=== PATIENT | female | born 1940 | race Caucasian/White ===

== ENCOUNTER 2020-01-13 10:10 | Outpatient (CLI) | payer MEDICARE, SELFPAY ==
[2020-01-13 10:47] LABS: Blood Urea Nitrogen 16 mg/dL (7-17); Calcium 9.2 mg/dL (8.4-10.2); Carbon Dioxide 24 mmol/L (22-30); Chloride 100 mmol/L (98-107); Estimated Glomerular Filt Rate > 60; Glucose 108 mg/dL (65-105); Potassium 4.5 mmol/L (3.4-5.0); Sodium 132 mmol/L (137-145)
[2020-01-13 10:58] LABS: Basophils Percent Auto 0.5 % (0.2-1.2); Eosinophils Absolute Auto 0.1 K/mm3 (0-0.3); Eosinophils Percent Auto 1.6 % (0-4.4); Hematocrit 38.5 % (37.0-47.0); Hemoglobin 12.3 g/dL (12.0-15.0); Immature Granulocyte Absolute 0.03 K/mm3 (0.00-0.031); Immature Granulocyte Percent A 0.5 % (0-0.5); Immature Platelet Fraction Pct 5.7 % (0.9-11.2); Lymphocytes Absolute Auto 1.46 K/mm3 (0.9-3.2); Lymphocytes Percent Auto 23.4 % (18.3-44.2); Mean Corpuscular HGB Conc 31.9 g/dl (32-36); Mean Corpuscular Hemoglobin 28.2 pg (26-34); Mean Corpuscular Volume 88.3 fl (80-100); Mean Platelet Volume 11.5 fl (7.4-10.4); Monocytes Absolute Auto 0.5 K/mm3 (0.1-0.6); Monocytes Percent Auto 7.9 % (2.6-8.5); Neutrophils Absolute Auto 4.1 K/mm3 (1.3-6.7); Neutrophils Percent Auto 66.1 % (45.5-73.1); Platelet Count Result 135 k/mm3 (150-375); Red Blood Count 4.36 M/mm3 (4.2-5.4); Red Cell Distribution Width 14.5 % (11.5-14.5); White Blood Count 6.2 K/mm3 (4.5-10.0)
== END 2020-01-13 10:11 | disposition home or self-care (01) ==
PROVIDERS: PCP Internal Medicine; Visit Provider Internal Medicine
DX: I10 Essential (primary) hypertension (principal)
CPT/HCPCS: 36415; 80048; 85025; 85055

== ENCOUNTER 2020-03-28 14:29 | Outpatient (CLI) | payer MEDICARE, SELFPAY ==
[2020-03-28 14:56] LABS: Basophils Percent Auto 0.3 % (0.2-1.2); Eosinophils Absolute Auto 0.1 K/mm3 (0-0.3); Eosinophils Percent Auto 2.1 % (0-4.4); Hematocrit 37.3 % (37.0-47.0); Hemoglobin 11.9 g/dL (12.0-15.0); Immature Granulocyte Absolute 0.01 K/mm3 (0.00-0.031); Immature Granulocyte Percent A 0.1 % (0-0.5); Lymphocytes Absolute Auto 1.95 K/mm3 (0.9-3.2); Lymphocytes Percent Auto 28.7 % (18.3-44.2); Mean Corpuscular HGB Conc 31.9 g/dl (32-36); Mean Corpuscular Hemoglobin 29.1 pg (26-34); Mean Corpuscular Volume 91.2 fl (80-100); Mean Platelet Volume 10.9 fl (7.4-10.4); Monocytes Absolute Auto 0.5 K/mm3 (0.1-0.6); Monocytes Percent Auto 7.1 % (2.6-8.5); Neutrophils Absolute Auto 4.2 K/mm3 (1.3-6.7); Neutrophils Percent Auto 61.7 % (45.5-73.1); Platelet Count Result 141 k/mm3 (150-375); Red Blood Count 4.09 M/mm3 (4.2-5.4); Red Cell Distribution Width 13.2 % (11.5-14.5); White Blood Count 6.8 K/mm3 (4.5-10.0)
[2020-03-28 15:06] LABS: Hemoglobin A1C 5.8 % (<5.7)
[2020-03-28 15:08] LABS: Blood Urea Nitrogen 19 mg/dL (7-17); Calcium 9.3 mg/dL (8.4-10.2); Carbon Dioxide 30 mmol/L (22-30); Chloride 101 mmol/L (98-107); Cholesterol 167 mg/dL (0-200); Estimated Glomerular Filt Rate > 60; Glucose 100 mg/dL (65-105); HDL Direct 50 mg/dL; Potassium 4.5 mmol/L (3.4-5.0); Sodium 135 mmol/L (137-145); Triglycerides 127 mg/dL (<150)
[2020-03-28 15:19] LABS: LDL Cholesterol Direct 89 mg/dL
[2020-03-28 16:01] LABS: Free T4 Free Thyroxine 1.29 ng/mL (0.78-2.19)
== END 2020-03-28 14:30 | disposition home or self-care (01) ==
PROVIDERS: PCP Internal Medicine; Visit Provider Internal Medicine
DX: E03.9 Hypothyroidism, unspecified (principal); M25.50 Pain in unspecified joint; I10 Essential (primary) hypertension; E11.22 Type 2 diabetes mellitus with diabetic chronic kidney disease; N18.1 Chronic kidney disease, stage 1; E78.2 Mixed hyperlipidemia
CPT/HCPCS: 36415; 80048; 80061; 83036; 84439; 84443; 85025

== ENCOUNTER 2020-04-12 15:16 | Outpatient (CLI) | payer MEDICARE, SELFPAY ==
--- NOTE | ~2020-04-12 | XR_ITS ---
EXAMINATION: XR chest 2V DATE: 04/12/2020 16:26 INDICATION: Left chest pain. TECHNIQUE: Frontal and lateral views of the chest were obtained. COMPARISON: Chest 2 views 07/31/2018, chest CT 12/29/2018 FINDINGS: There is mild atelectasis at left lung base. No pleural effusion or pneumothorax. The heart size is normal. Surgical clips in the right upper quadrant are likely from cholecystectomy. IMPRESSION: 1. Mild atelectasis at left lung base. Reviewed, dictated and finalized at location A.
== END 2020-04-12 15:17 | disposition home or self-care (01) ==
LOC: ANHIMG 15:20
PROVIDERS: PCP Internal Medicine; Visit Provider Internal Medicine
DX: R07.89 Other chest pain (principal); R91.8 Other nonspecific abnormal finding of lung field
CPT/HCPCS: 71046

== ENCOUNTER 2020-05-04 10:57 | Outpatient (CLI) | payer MEDICARE, SELFPAY ==
[2020-05-04 11:50] LABS: Basophils Percent Auto 0.5 % (0.2-1.2); Eosinophils Absolute Auto 0.2 K/mm3 (0-0.3); Eosinophils Percent Auto 3.5 % (0-4.4); Hematocrit 37.4 % (37.0-47.0); Hemoglobin 11.9 g/dL (12.0-15.0); Immature Granulocyte Absolute 0.02 K/mm3 (0.00-0.031); Immature Granulocyte Percent A 0.3 % (0-0.5); Lymphocytes Absolute Auto 1.78 K/mm3 (0.9-3.2); Lymphocytes Percent Auto 27.3 % (18.3-44.2); Mean Corpuscular HGB Conc 31.8 g/dl (32-36); Mean Corpuscular Hemoglobin 28.9 pg (26-34); Mean Corpuscular Volume 90.8 fl (80-100); Mean Platelet Volume 11.8 fl (7.4-10.4); Monocytes Absolute Auto 0.5 K/mm3 (0.1-0.6); Monocytes Percent Auto 7.7 % (2.6-8.5); Neutrophils Percent Auto 60.7 % (45.5-73.1); Platelet Count Result 153 k/mm3 (150-375); Red Blood Count 4.12 M/mm3 (4.2-5.4); Red Cell Distribution Width 13.4 % (11.5-14.5); White Blood Count 6.5 K/mm3 (4.5-10.0)
[2020-05-04 12:02] LABS: Blood Urea Nitrogen 25 mg/dL (7-17); Calcium 9.1 mg/dL (8.4-10.2); Carbon Dioxide 26 mmol/L (22-30); Chloride 100 mmol/L (98-107); Cholesterol 154 mg/dL (0-200); Estimated Glomerular Filt Rate > 60; Glucose 103 mg/dL (65-105); HDL Direct 45 mg/dL; Potassium 4.6 mmol/L (3.4-5.0); Sodium 135 mmol/L (137-145); Triglycerides 227 mg/dL (<150)
[2020-05-04 12:13] LABS: Hemoglobin A1C 5.7 % (<5.7); LDL Cholesterol Direct 73 mg/dL
[2020-05-04 12:45] LABS: Free T4 Free Thyroxine 1.27 ng/mL (0.78-2.19)
== END 2020-05-04 10:58 | disposition home or self-care (01) ==
LOC: ANHLAB 11:01
PROVIDERS: PCP Internal Medicine; Visit Provider Internal Medicine
DX: D50.9 Iron deficiency anemia, unspecified (principal); E78.2 Mixed hyperlipidemia; I10 Essential (primary) hypertension; E11.9 Type 2 diabetes mellitus without complications; E03.9 Hypothyroidism, unspecified
CPT/HCPCS: 36415; 80048; 80061; 83036; 84439; 84443; 85025

== ENCOUNTER 2020-07-03 08:52 | Outpatient (CLI) | payer MEDICARE, SELFPAY ==
[2020-07-06 11:48] LABS: Fecal Fat, Ql Normal (Normal)
== END 2020-07-03 08:53 | disposition home or self-care (01) ==
PROVIDERS: PCP Internal Medicine; Visit Provider Internal Medicine
DX: R19.7 Diarrhea, unspecified (principal)
CPT/HCPCS: 36415; 82705; 83930; 87045; 87046; 87177; 87209; 87427; 89055

== ENCOUNTER 2020-09-07 12:33 | Outpatient (CLI) | payer MEDICARE, SELFPAY ==
[2020-09-07 13:03] LABS: Anion Gap 6 mmol/L (8-16); Blood Urea Nitrogen 18 mg/dL (7-17); Calcium 9.1 mg/dL (8.4-10.2); Carbon Dioxide 34 mmol/L (22-30); Chloride 99 mmol/L (98-107); Cholesterol 167 mg/dL (0-200); Estimated Glomerular Filt Rate > 60; Glucose 107 mg/dL (65-105); HDL Direct 49 mg/dL; Potassium 3.8 mmol/L (3.4-5.0); Sodium 139 mmol/L (137-145); Triglycerides 137 mg/dL (<150)
[2020-09-07 13:04] LABS: Hemoglobin A1C 5.3 % (<5.7)
[2020-09-07 13:15] LABS: LDL Cholesterol Direct 93 mg/dL
== END 2020-09-07 12:34 | disposition home or self-care (01) ==
LOC: ANHLAB 12:36
PROVIDERS: PCP Internal Medicine; Visit Provider Internal Medicine
DX: E11.22 Type 2 diabetes mellitus with diabetic chronic kidney disease (principal); N18.1 Chronic kidney disease, stage 1; E78.2 Mixed hyperlipidemia; I12.9 Hypertensive chronic kidney disease with stage 1 through stage 4 chronic kidney disease, or unspecified chronic kidney disease
CPT/HCPCS: 36415; 80048; 80061; 83036

== ENCOUNTER 2020-09-14 14:32 | Outpatient (CLI) | payer MEDICARE, SELFPAY ==
[2020-09-14 15:00] LABS: Basophils Percent Auto 0.3 % (0.2-1.2); Eosinophils Absolute Auto 0.3 K/mm3 (0-0.3); Eosinophils Percent Auto 4.5 % (0-4.4); Hematocrit 36.7 % (37.0-47.0); Hemoglobin 11.5 g/dL (12.0-15.0); Immature Granulocyte Absolute 0.03 K/mm3 (0.00-0.031); Immature Granulocyte Percent A 0.5 % (0-0.5); Lymphocytes Absolute Auto 1.67 K/mm3 (0.9-3.2); Lymphocytes Percent Auto 26.8 % (18.3-44.2); Mean Corpuscular HGB Conc 31.3 g/dl (32-36); Mean Corpuscular Hemoglobin 28.3 pg (26-34); Mean Corpuscular Volume 90.2 fl (80-100); Mean Platelet Volume 11.4 fl (7.4-10.4); Monocytes Absolute Auto 0.4 K/mm3 (0.1-0.6); Monocytes Percent Auto 7.1 % (2.6-8.5); Neutrophils Absolute Auto 3.8 K/mm3 (1.3-6.7); Neutrophils Percent Auto 60.8 % (45.5-73.1); Platelet Count Result 153 k/mm3 (150-375); Red Blood Count 4.07 M/mm3 (4.2-5.4); Red Cell Distribution Width 13.9 % (11.5-14.5); White Blood Count 6.2 K/mm3 (4.5-10.0)
[2020-09-14 15:11] LABS: Magnesium 1.7 mg/dL (1.6-2.3)
[2020-09-14 15:35] LABS: Iron 72 ug/dL (37-170)
[2020-09-14 15:44] LABS: Percent Iron Saturation 15 % (20-50)
[2020-09-14 15:52] LABS: Free T4 Free Thyroxine 1.33 ng/mL (0.78-2.19)
[2020-09-14 16:21] LABS: Folic Acid > 20.0 ng/mL (2.76->20); Vitamin B12 > 1000.0 pg/mL (239-931)
[2020-09-18 10:55] LABS: Methylmalonic Acid 163 nmol/L (87-318)
[2020-09-19 03:56] LABS: Vitamin D 1,25 (OH)2 Total 47 pg/mL (18-72); Vitamin D2 1,25 (OH)2 <8 pg/mL; Vitamin D3 1,25 (OH)2 47 pg/mL
== END 2020-09-14 14:33 | disposition home or self-care (01) ==
LOC: ANHLAB 14:41
PROVIDERS: PCP Internal Medicine; Visit Provider Internal Medicine
DX: E55.9 Vitamin D deficiency, unspecified (principal); D50.9 Iron deficiency anemia, unspecified; R53.83 Other fatigue; Z79.899 Other long term (current) drug therapy; E03.9 Hypothyroidism, unspecified
CPT/HCPCS: 36415; 82607; 82652; 82728; 82746; 83540; 83550; 83735; 83921; 84439; 84443; 85025

== ENCOUNTER 2020-11-20 09:01 | Outpatient (NON) | payer MEDICARE, SELFPAY ==
[2020-11-20 21:25] LABS: SARS-CoV-2 RNA PCR Positive
== END 2020-11-20 09:02 ==
LOC: ANHCOVIDDT 09:03
PROVIDERS: PCP Internal Medicine; Visit Provider Internal Medicine
DX: U07.1 COVID-19 (principal)
CPT/HCPCS: C9803; U0003; U0005

== ENCOUNTER 2020-11-22 08:00 | Outpatient (RCR) | payer MEDICARE, SELFPAY ==
--- NOTE | 2020-11-21 16:08 | PC.NURSE ---
Spoke to patient about covid infusion, patient states understanding to all instruction.
[2020-11-22 10:05] VITALS: BP 131/56; PULSE 67; RESP 16; TEMP 37.6; O2SAT 99
[2020-11-22] MEDS: ACETAMINOPHEN 325 MG TABLET 650 MG PO (10:17)
[2020-11-22] MEDS: diphenhydrAMINE HCl CAP 25 MG CAPSULE PO (10:17)
[2020-11-22] MEDS: FAMOTIDINE 20 MG TABLET PO (10:18)
[2020-11-22 12:12] VITALS: BP 110/65; PULSE 66; RESP 16; TEMP 36.4; O2SAT 96
--- NOTE | 2020-11-23 10:46 | PC.NURSE ---
Attempted to reach patient to check on her after her infusion yesterday. Patient did not answer and did not have a voicemail.
== END 2020-12-04 13:17 ==
LOC: AMCINF 08:00
PROVIDERS: PCP Internal Medicine; Visit Provider Internal Medicine
DX: Z23 Encounter for immunization (principal); U07.1 COVID-19; I12.9 Hypertensive chronic kidney disease with stage 1 through stage 4 chronic kidney disease, or unspecified chronic kidney disease; N18.9 Chronic kidney disease, unspecified; E11.9 Type 2 diabetes mellitus without complications
CPT/HCPCS: A9270; J7050; M0239; Q0239

== ENCOUNTER 2021-01-19 13:24 | Outpatient (CLI) | payer MEDICARE, SELFPAY ==
[2021-01-19 13:45] LABS: Basophils Percent Auto 0.6 % (0.2-1.2); Eosinophils Absolute Auto 0.2 K/mm3 (0-0.3); Eosinophils Percent Auto 2.5 % (0-4.4); Hematocrit 36.9 % (37.0-47.0); Hemoglobin 11.7 g/dL (12.0-15.0); Immature Granulocyte Absolute 0.02 K/mm3 (0.00-0.031); Immature Granulocyte Percent A 0.3 % (0-0.5); Lymphocytes Absolute Auto 1.95 K/mm3 (0.9-3.2); Lymphocytes Percent Auto 29.1 % (18.3-44.2); Mean Corpuscular HGB Conc 31.7 g/dl (32-36); Mean Corpuscular Hemoglobin 28.4 pg (26-34); Mean Corpuscular Volume 89.6 fl (80-100); Mean Platelet Volume 11.3 fl (7.4-10.4); Monocytes Absolute Auto 0.5 K/mm3 (0.1-0.6); Monocytes Percent Auto 7.8 % (2.6-8.5); Neutrophils Percent Auto 59.7 % (45.5-73.1); Platelet Count Result 143 k/mm3 (150-375); Red Blood Count 4.12 M/mm3 (4.2-5.4); Red Cell Distribution Width 14.5 % (11.5-14.5); White Blood Count 6.7 K/mm3 (4.5-10.0)
[2021-01-19 14:21] LABS: Iron 98 ug/dL (37-170)
[2021-01-19 14:30] LABS: Percent Iron Saturation 26 % (20-50)
== END 2021-01-19 13:25 | disposition home or self-care (01) ==
PROVIDERS: PCP Internal Medicine; Visit Provider Internal Medicine
DX: D50.9 Iron deficiency anemia, unspecified (principal)
CPT/HCPCS: 36415; 82728; 83540; 83550; 85025

== ENCOUNTER 2021-02-15 12:39 | Outpatient (CLI) | payer MEDICARE, SELFPAY ==
[2021-02-15 13:04] LABS: Basophils Percent Auto 0.4 % (0.2-1.2); Eosinophils Absolute Auto 0.2 K/mm3 (0-0.3); Eosinophils Percent Auto 2.4 % (0-4.4); Hematocrit 36.1 % (37.0-47.0); Hemoglobin 11.5 g/dL (12.0-15.0); Immature Granulocyte Absolute 0.04 K/mm3 (0.00-0.031); Immature Granulocyte Percent A 0.6 % (0-0.5); Lymphocytes Percent Auto 28.3 % (18.3-44.2); Mean Corpuscular HGB Conc 31.9 g/dl (32-36); Mean Corpuscular Hemoglobin 29.3 pg (26-34); Mean Corpuscular Volume 91.9 fl (80-100); Mean Platelet Volume 11.3 fl (7.4-10.4); Monocytes Absolute Auto 0.6 K/mm3 (0.1-0.6); Monocytes Percent Auto 8.6 % (2.6-8.5); Neutrophils Percent Auto 59.7 % (45.5-73.1); Platelet Count Result 144 k/mm3 (150-375); Red Blood Count 3.93 M/mm3 (4.2-5.4); Red Cell Distribution Width 14.5 % (11.5-14.5); White Blood Count 6.7 K/mm3 (4.5-10.0)
[2021-02-15 13:08] LABS: Hemoglobin A1C 5.6 % (<5.7)
[2021-02-15 13:12] LABS: Alanine Aminotransferase 18 U/L (4-35); Albumin Level 4.5 g/dL (3.5-5.1); Alkaline Phosphatase 103 U/L (38-126); Anion Gap 5 mmol/L (8-16); Aspartate Amino Transferase 28 U/L (14-36); Bilirubin,Total 0.4 mg/dL (0.2-1.3); Blood Urea Nitrogen 23 mg/dL (7-17); Calcium 8.9 mg/dL (8.4-10.2); Carbon Dioxide 35 mmol/L (22-30); Chloride 99 mmol/L (98-107); Cholesterol 182 mg/dL (0-200); Estimated Glomerular Filt Rate 48; Glucose 102 mg/dL (65-105); HDL Direct 51 mg/dL; Sodium 139 mmol/L (137-145); Triglycerides 181 mg/dL (<150)
[2021-02-15 13:30] LABS: LDL Cholesterol Direct 95 mg/dL
[2021-02-15 13:50] LABS: Iron 89 ug/dL (37-170)
[2021-02-15 14:00] LABS: Percent Iron Saturation 23 % (20-50)
[2021-02-15 14:08] LABS: Free T4 Free Thyroxine 1.12 ng/mL (0.78-2.19)
[2021-02-18 18:53] LABS: Homocysteine 11.3 umol/L (<10.4)
== END 2021-02-15 12:40 | disposition home or self-care (01) ==
LOC: ANHLAB 12:43
PROVIDERS: PCP Internal Medicine; Visit Provider Internal Medicine
DX: E03.9 Hypothyroidism, unspecified (principal); D50.9 Iron deficiency anemia, unspecified; E11.22 Type 2 diabetes mellitus with diabetic chronic kidney disease; I12.9 Hypertensive chronic kidney disease with stage 1 through stage 4 chronic kidney disease, or unspecified chronic kidney disease; N18.1 Chronic kidney disease, stage 1; E78.2 Mixed hyperlipidemia; R79.89 Other specified abnormal findings of blood chemistry
CPT/HCPCS: 36415; 80053; 80061; 82728; 83036; 83090; 83540; 83550; 84439; 84443; 85025

== ENCOUNTER 2021-02-19 11:23 | Outpatient (CLI) | payer MEDICARE, SELFPAY | END 2021-02-19 11:24 | disposition home or self-care (01) | LOC: ANHCOVIDVC 11:23 | PROVIDERS: PCP Internal Medicine | DX: Z23 Encounter for immunization (principal) | CPT/HCPCS: 0001A; 91300 ==

== ENCOUNTER 2021-03-12 13:19 | Outpatient (CLI) | payer MEDICARE, SELFPAY | END 2021-03-12 13:20 | disposition home or self-care (01) | LOC: ANHCOVIDVC 13:19 | PROVIDERS: PCP Internal Medicine | DX: Z23 Encounter for immunization (principal) | CPT/HCPCS: 0002A; 91300 ==

== ENCOUNTER 2021-05-25 08:13 | Outpatient (RCR) | payer MEDICARE, SELFPAY ==
[2021-05-25 08:30] VITALS: BMI 43.2
== END 2021-06-26 12:06 | disposition home or self-care (01) ==
LOC: ANHWOC 08:13
PROVIDERS: PCP Internal Medicine; Visit Provider Internal Medicine
DX: I83.022 Varicose veins of left lower extremity with ulcer of calf (principal); L97.229 Non-pressure chronic ulcer of left calf with unspecified severity
CPT/HCPCS: 99212; G0463

== ENCOUNTER 2021-07-19 12:29 | Outpatient (CLI) | payer MEDICARE, SELFPAY ==
[2021-07-19 13:22] LABS: Basophils Percent Auto 0.5 % (0.2-1.2); Eosinophils Absolute Auto 0.1 K/mm3 (0-0.3); Eosinophils Percent Auto 2.1 % (0-4.4); Hematocrit 35.9 % (37.0-47.0); Hemoglobin 11.5 g/dL (12.0-15.0); Immature Granulocyte Absolute 0.02 K/mm3 (0.00-0.031); Immature Granulocyte Percent A 0.3 % (0-0.5); Lymphocytes Absolute Auto 1.64 K/mm3 (0.9-3.2); Lymphocytes Percent Auto 26.8 % (18.3-44.2); Mean Corpuscular Hemoglobin 29.1 pg (26-34); Mean Corpuscular Volume 90.9 fl (80-100); Mean Platelet Volume 11.4 fl (7.4-10.4); Monocytes Absolute Auto 0.4 K/mm3 (0.1-0.6); Monocytes Percent Auto 7.2 % (2.6-8.5); Neutrophils Absolute Auto 3.9 K/mm3 (1.3-6.7); Neutrophils Percent Auto 63.1 % (45.5-73.1); Platelet Count Result 144 k/mm3 (150-375); Red Blood Count 3.95 M/mm3 (4.2-5.4); Red Cell Distribution Width 13.8 % (11.5-14.5); White Blood Count 6.1 K/mm3 (4.5-10.0)
[2021-07-19 13:47] LABS: Anion Gap 9 mmol/L (8-16); Blood Urea Nitrogen 17 mg/dL (7-17); Calcium 9.1 mg/dL (8.4-10.2); Carbon Dioxide 27 mmol/L (22-30); Chloride 99 mmol/L (98-107); Cholesterol 160 mg/dL (0-200); Estimated Glomerular Filt Rate > 60; Glucose 102 mg/dL (65-110); HDL Direct 49 mg/dL; Potassium 4.3 mmol/L (3.4-5.0); Sodium 135 mmol/L (137-145); Triglycerides 139 mg/dL (<150)
[2021-07-19 13:49] LABS: Iron 67 ug/dL (37-170)
[2021-07-19 13:51] LABS: Hemoglobin A1C 5.5 % (<5.7)
[2021-07-19 13:58] LABS: LDL Cholesterol Direct 68 mg/dL
[2021-07-19 14:01] LABS: Percent Iron Saturation 18 % (20-50)
== END 2021-07-19 12:30 | disposition home or self-care (01) ==
PROVIDERS: PCP Internal Medicine; Visit Provider Internal Medicine
DX: E11.22 Type 2 diabetes mellitus with diabetic chronic kidney disease (principal); N18.1 Chronic kidney disease, stage 1; E78.2 Mixed hyperlipidemia; I10 Essential (primary) hypertension; D50.9 Iron deficiency anemia, unspecified
CPT/HCPCS: 36415; 80048; 80061; 82728; 83036; 83540; 83550; 85025

== ENCOUNTER 2021-08-30 09:06 | Inpatient (IN) | payer MEDICARE, SELFPAY ==
[2021-08-30] VITALS (16 sets, daily range): BP systolic 130–152; BP diastolic 64–80; PULSE 56–72; RESP 12–20; TEMP 36.4–36.6; O2SAT 91–100; BMI 43.6
--- NOTE | ~2021-08-30 | MR_ITS ---
EXAMINATION: MR brain/brain stem wo/w con EXAM DATE: 08/31/2021 12:47 INDICATION: Gait disturbances. TECHNIQUE: Magnetic resonance imaging (MRI) of the brain/brain stem obtained without contrast. Sagit nikhil T1, axial diffusion, gradient echo (T2*), T1, T2, FLAIR sequences obtained. Patient was then inj ected with 20 cc intravenous Multihance contrast. Axial and coronal postcontrast T1 weighted sequence s obtained. Correlation is made to head CT earlier same date. FINDINGS: There are no areas of restricted diffusion to suggest acute infarction. There is no acute hemorrhage seen on the T2*, a hemosiderin sensitive sequence. No intraparenchymal brain mass lesion. There is mild periventricular and subcortical T2/FLAIR signal hyperintensity, nonspecific but probab ly related to small vessel ischemic disease (microangiopathy). There is mild prominence of the sulc i and ventricles related to cerebral atrophy. There are no extra-axial collections. Flow voids are seen in the cerebral arteries on the T2-weighted sequences consistent with their expected patency. Patient has had bilateral ocular lens surgery. Soft tissue is unremarkable. There are no areas of a bnormal enhancement on the postcontrast images. IMPRESSION: 1. No acute intracranial findings. 2. Chronic age related findings. Reviewed, dictated and finalized at location B.
--- NOTE | ~2021-08-30 | US_ITS ---
EXAMINATION: US carotid duplex BI DATE: 08/31/2021 12:48 INDICATION: Ataxia. TECHNIQUE: Grayscale, color Doppler, and pulsed Doppler images of the cervical carotid arteries were obtained. The degree of vessel stenosis is placed in one of the following categories: normal, <50%, 5 0-69%, >=70% but less than near-occlusion, near-occlusion, or total occlusion. Note that percent sten osis relative to normal distal artery lumen diameter is indirectly measured from velocity measurement s as described by Rod, et al. Radiology 2003; 229:340-346. COMPARISON: None. FINDINGS: RIGHT: The right common carotid artery (CCA) peak systolic velocity (PSV) is 61 cm/s. The right internal car otid artery (ICA) PSV is 41 cm/s. The right ICA end-diastolic velocity (EDV) is 10 cm/s. The right IC A/CCA PSV ratio is 0.7. Grayscale and color Doppler images yield an estimate of <50% diameter reducti on from plaque in the ICA. There is antegrade flow in the right vertebral artery. LEFT: The left CCA PSV is 57 cm/s. The left ICA PSV is 75 cm/s. The left ICA EDV is 16 cm/s. The left ICA/C CA PSV ratio is 1.3. Grayscale and color Doppler images yield an estimate of <50% diameter reduction from plaque in the ICA. There is antegrade flow in the left vertebral artery. IMPRESSION: 1. <50% stenosis in the right internal carotid artery. 2. <50% stenosis in the left internal carotid artery. Reviewed, dictated and finalized at location A.
--- NOTE | ~2021-08-30 | CT_ITS ---
EXAMINATION: CT brain wo con DATE: 08/30/2021 10:16 INDICATION: Dizziness. TECHNIQUE: Computed tomography (CT) of the head was performed without intravenous contrast. The mA wa s adjusted according to patient size. Iterative reconstruction technique was employed. The dose-lengt h product was 605.33 mGy-cm. COMPARISON: Head CT 05/11/2019 FINDINGS: There are scattered areas of low attenuation in the cerebral white matter, which is within normal limits for the patient's age. There is no intracranial hemorrhage, acute infarction, or abnorm al intracranial mass lesion. The ventricles are normal in size. There is mild mucosal thickening in t he paranasal sinuses. There are likely changes of ocular lens replacement surgeries. The mastoid air cells are normal. IMPRESSION: 1. Normal aging brain. Reviewed, dictated and finalized at location A. IMPRESSION: 1. Normal aging brain.
--- NOTE | 2021-08-30 09:55 | ECG_ITS ---
Measurements Intervals [place] Rate: 57 P: 74 CA: 173 QRS: 64 QRSD: 102 T: 39 QT: 431 QTc: 421 Interpretive Statements SINUS BRADYCARDIA BASELINE ARTIFACT- I, II, III, AVR, AVL, AVF, V4-V6 BORDERLINE ECG Electronically Signed On 08-30-2021 11:52:03 CDT by Omar Merritt D.O.
--- NOTE | 2021-08-30 10:17 | ED.NEUROSD ---
HPI - Neuro Symptoms/Deficit General Chief Complaint: Neuro Symptoms/Deficit Stated Complaint: DIFF AMBULATING/OFF BALANCE Source: patient Mode of arrival: ambulatory Limitations: no limitations History of Present Illness HPI Narrative: Patient is an 81-year-old female complaining of feeling wobbly while going to the bathroom early this morning. Patient now states that the symptoms resolved. Patient denies any speech or visual disturbance, focal weakness or numbness, chest pain, shortness of breath, abdominal pain, nausea, vomiting, fever or chills. Related Data Home Medications Medication Instructions Recorded Confirmed cyanocobalamin (vitamin B-12) 1,000 mcg PO DAILY 09/09/19 07/26/21 1,000 mcg capsule aspirin 81 mg tablet,delayed 162 mg PO DAILY tablet 10/28/19 07/26/21 release niacin 400 mg (inositol niacinate 400 cap PO DAILY 10/28/19 07/26/21 500 mg) capsule tramadol 50 mg tablet 100 mg PO Q6H PRN tablet 04/19/20 07/26/21 cholecalciferol (vitamin D3) 125 125 mcg PO DAILY 05/09/21 07/26/21 mcg (5,000 unit) capsule Allergies Allergy/AdvReac Type Severity Reaction Status Date / Time latex Allergy Severe SEVERE Verified 08/30/21 13:00 SWELLING vancomycin Allergy Severe SEVERE Verified 08/30/21 13:00 ITCHING 2009 Aminoglycosides Allergy Mild Swelling Verified 08/30/21 13:00 hydrocodone Allergy Mild Rash Verified 08/30/21 13:00 neomycin Allergy Mild Swelling Verified 08/30/21 13:00 oxycodone Allergy Mild Unknown Verified 08/30/21 13:00 polymyxin B Allergy Unknown SWELLING Verified 08/30/21 13:00 diclofenac AdvReac Severe STOMACH Verified 08/30/21 13:00 UPSET - CAN TAKE ALEVE [place] misoprostol AdvReac Severe STOMACH Verified 08/30/21 13:00 UPSET piroxicam AdvReac Severe STOMACH Verified 08/30/21 13:00 UPSET propoxyphene AdvReac Severe STOMACH Verified 08/30/21 13:00 UPSET sertraline AdvReac Severe STOMACH Verified 08/30/21 13:00 UPSET Review of Systems Review of Systems: All systems reviewed & are unremarkable except as noted in HPI and below Constitutional: Constitutional: Denies body ache(s), Denies chills, Denies excessive sweating, Denies fatigue, Denies fever(s), Denies headache(s), Denies lethargy, Denies malaise, Denies weakness and Denies weight loss Eyes: Eyes: Denies blurry vision, Denies change in vision and Denies loss of vision ENT: Denies dizziness, Denies ear discharge, Denies headache(s), Denies lip swelling, Denies epistaxis, Denies nasal congestion, Denies neck pain, Denies throat swelling and Denies tongue swelling Cardiovascular: Cardiovascular: Denies chest pain, Denies chest pain at rest, Denies chest pain with activity, Denies diaphoresis, Denies rapid heart rate, Denies edema, Denies irregular heart rhythm, Denies lightheadedness, Denies palpitations, Denies dyspnea and Denies dyspnea on exertion Respiratory: Respiratory: Denies chest congestion, Denies cough, Denies hemoptysis, Denies dyspnea and Denies dyspnea on exertion Gastrointestinal: Gastrointestinal: Denies abdominal pain, Denies melena, Denies hematochezia, Denies diarrhea, Denies nausea, Denies vomiting and Denies hematemesis Musculoskeletal: Musculoskeletal: Denies abnormal gait, Denies deformity, Denies joint swelling, Denies limited range of motion, Denies neck pain and Denies numbness Neurologic: Denies Abnormal speech present, Denies abnormal gait, Denies confusion, Denies dizziness, Denies headache(s), Denies focal weakness, Denies loss of vision, Denies numbness, Denies Other visual disturbances, Denies Sensory deficit (Neuro) and Denies weakness Psychiatric: Psychiatric: Denies confusion, Denies depression, Denies auditory hallucinations, Denies homicidal ideation and Denies suicidal ideation Endocrine: Endocrine: Denies cold intolerance, Denies excessive sweating, Denies fatigue, Denies heat intolerance and Denies palpitations Hematologic/Lymphatic: Hematologic/Lymph
[2021-08-30] MEDS: LACTATED RINGERS 1,000 ML 150 ML IV CONT (10:32)
[2021-08-30 11:03] LABS: Basophils Percent Auto 0.5 % (0.2-1.2); Eosinophils Absolute Auto 0.2 K/mm3 (0-0.3); Eosinophils Percent Auto 2.7 % (0-4.4); Hematocrit 35.9 % (37.0-47.0); Hemoglobin 11.3 g/dL (12.0-15.0); Immature Granulocyte Absolute 0.02 K/mm3 (0.00-0.031); Immature Granulocyte Percent A 0.4 % (0-0.5); Lymphocytes Absolute Auto 1.48 K/mm3 (0.9-3.2); Lymphocytes Percent Auto 26.5 % (18.3-44.2); Mean Corpuscular HGB Conc 31.5 g/dl (32-36); Mean Corpuscular Hemoglobin 29.4 pg (26-34); Mean Corpuscular Volume 93.5 fl (80-100); Mean Platelet Volume 11.3 fl (7.4-10.4); Monocytes Absolute Auto 0.5 K/mm3 (0.1-0.6); Monocytes Percent Auto 9.5 % (2.6-8.5); Neutrophils Absolute Auto 3.4 K/mm3 (1.3-6.7); Neutrophils Percent Auto 60.4 % (45.5-73.1); Platelet Count Result 130 k/mm3 (150-375); Red Blood Count 3.84 M/mm3 (4.2-5.4); Red Cell Distribution Width 13.7 % (11.5-14.5); White Blood Count 5.6 K/mm3 (4.5-10.0)
[2021-08-30 11:11] LABS: INR 0.9; Partial Thromboplastin Time 28.5 SECONDS (22.3-36.8); Prothrombin Time 12.3 Seconds (11.1-14.7)
[2021-08-30 11:18] LABS: Troponin I < 0.012 ng/mL (0.000-0.034)
[2021-08-30 11:52] LABS: Add Urine Microscopic? YES; Appearance Urine Clear (Clear); Bilirubin Urine Negative (Negative); Color Urine Yellow (Yellow); Glucose Urine UA Negative (Negative); Ketones Urine Negative (Negative); Leukocyte Esterase Ur 1+ LEU/UL (Negative); Nitrate Urine Negative (Negative); Protein Urine 1+ mg/dL (Negative); Specific Grav Ur 1.025 (1.001-1.035); Urobilinogen Urine Negative mg/dL (<2.0)
[2021-08-30 12:26] LABS: Blood Urine Negative (Negative)
[2021-08-30 13:03] LABS: Alanine Aminotransferase 19 U/L (4-35); Albumin Level 4.3 g/dL (3.5-5.1); Alkaline Phosphatase 109 U/L (38-126); Anion Gap 7 mmol/L (8-16); Aspartate Amino Transferase 26 U/L (14-36); Bilirubin,Total 0.2 mg/dL (0.2-1.3); Blood Urea Nitrogen 23 mg/dL (7-17); Calcium 9.5 mg/dL (8.4-10.2); Carbon Dioxide 28 mmol/L (22-30); Chloride 105 mmol/L (98-107); Estimated Glomerular Filt Rate > 60; Glucose 110 mg/dL (65-110); Potassium 4.7 mmol/L (3.4-5.0); Sodium 140 mmol/L (137-145)
--- NOTE | 2021-08-30 13:27 | PC.NURSE ---
regular diet per abbe kline
--- NOTE | 2021-08-30 15:15 | PM.IMHP ---
H&P: HPI History of Present Illness Date/Time: 08/30/21 15:15 Chief Complaint: Balance issues. Narrative: This is a pleasant 81-year-old female with hypertension, hypothyroidism, pre diabetes, remote episode of atrial fibrillation, diastolic congestive heart failure presented to the emergency department earlier today from home for evaluation of balance issues. She was in her usual state of health when she went to sleep last night and upon waking up this morning she felt somewhat off balance when she stood up from the bed to walk to the bathroom. In fact she had to hold on to nearby furniture as she felt as though she was listing to the right. In fact she had her neighbor bring over a walker as she felt that perhaps she was going to fall and when she went to take a step with the walker she felt as though she was ?lunging? forward and to the right thus she felt it would be best to come in for evaluation. At this time she really has no complaints. She has never had similar symptoms in the past. She denies acute auditory and visual changes. No focal weakness or paresthesias. She did not notice a facial droop, dysarthria, or dysphagia. No aural fullness, headache, or recent cold or flu symptoms. Review of Systems Review of Systems: Twelve systems were reviewed. No fever, chills, or sweats. No chest pain, pleuritic pain, or palpitations. No nausea, vomiting, or diarrhea. She has intermittent issues with lower extremity edema for which she wears compression stockings during the day. Urinalysis today was a bit abnormal and she was given a dose of ceftriaxone in the emergency department however she has no symptoms of UTI, specifically denying dysuria. She does urinate frequently for the 1st several hours after taking her furosemide but that is unchanged. Except as documented, all other systems were reviewed and are negative. [facility] Past Medical History Medical History (Updated 08/30/21 @ 23:40 by Elena Montero PA-C) Arthritis Benign essential hypertension Chronic anemia With mild thrombocytopenia. Diastolic dysfunction Hammertoe of left foot Hearing loss History of atrial fibrillation Hypothyroidism Insomnia Iron deficiency anemia Mild chronic obstructive pulmonary disease Mixed hyperlipidemia Patient reports statin intolerance. Pre-diabetes Restless leg syndrome Statin intolerance Vitamin D deficiency Surgical History Surgical History (Updated 08/30/21 @ 23:37 by Elena Montero PA-C) History of appendectomy History of bilateral carpal tunnel release History of bilateral knee arthroplasty History of cardiac catheterization (03/2014) Normal coronary arteries. History of carpal tunnel release History of cholecystectomy History of hysterectomy for benign disease History of tubal ligation Family History Family History Father Family history of lymphoma Mother Brain cancer Other Arthritis Social History Social History (Updated 08/30/21 @ 23:38 by Elena Montero PA-C) Social History: Surrogate decision maker: Del Castañeda, john. Code status: Full code. Smoking packs per day: 1 Smoking cigarettes per day: 20.0 Years smoked: 25 Smoking pack-years: 25.00 Smoking status: Former smoker Tobacco type: cigarettes Alcohol intake: current Drinks per week: 1 Alcohol use details: Occasional Substance use: never Additional living arrangements comments: The patient is . [facility] [place]. 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 Meds Home Medications and Allergies Home Medications Medication Instructions Recorded Confirmed Type cyanocobalamin (vitamin B-12) 1,000 mcg PO DAILY 09/09/19 08/30/21 History 1,000 mcg capsule aspirin 81 mg tablet,delayed 162 mg PO DAILY tablet
--- NOTE | 2021-08-30 18:30 | ADMGEN ---
This patient, Alexus Castañeda, was admitted to Medical Room 345-01. Patient/family oriented to hospital policies and general routines including ID bracelet, bed and alarms, visiting hours, pain management, procedures, bathroom and other care routines, personal items, smoking policy, room service/diet, and visiting hours. Information on how to activate the Rapid Response Team has been discussed. Patient/Family are encouraged to report perceived risks to care and to ask questions if they do not understand what they are told or what they should do.
[2021-08-30 20:10] LABS: Glucose Point of Care 102 mg/dl (65-105)
[2021-08-31] VITALS (10 sets, daily range): BP systolic 104–157; BP diastolic 61–138; PULSE 59–67; RESP 18; TEMP 35.7–36.3; O2SAT 97–99
[2021-08-31] MEDS: PRAMIPEXOLE 0.25 MG TABLET PO ×2 (00:04→21:24)
[2021-08-31] MEDS: PRAMIPEXOLE 0.5 MG TABLET PO ×2 (00:04→21:24)
[2021-08-31 06:24] LABS: Hematocrit 34.3 % (37.0-47.0); Hemoglobin 10.7 g/dL (12.0-15.0); Mean Corpuscular HGB Conc 31.2 g/dl (32-36); Mean Corpuscular Hemoglobin 29.2 pg (26-34); Mean Corpuscular Volume 93.7 fl (80-100); Mean Platelet Volume 11.3 fl (7.4-10.4); Platelet Count Result 123 k/mm3 (150-375); Red Blood Count 3.66 M/mm3 (4.2-5.4); Red Cell Distribution Width 13.7 % (11.5-14.5)
[2021-08-31 06:32] LABS: Alanine Aminotransferase 17 U/L (4-35); Albumin Level 3.6 g/dL (3.5-5.1); Alkaline Phosphatase 92 U/L (38-126); Anion Gap 8 mmol/L (8-16); Aspartate Amino Transferase 23 U/L (14-36); Bilirubin,Total 0.3 mg/dL (0.2-1.3); Blood Urea Nitrogen 20 mg/dL (7-17); Calcium 8.8 mg/dL (8.4-10.2); Carbon Dioxide 24 mmol/L (22-30); Chloride 105 mmol/L (98-107); Estimated Glomerular Filt Rate > 60; Glucose 109 mg/dL (65-110); Magnesium 1.9 mg/dL (1.6-2.3); Potassium 4.5 mmol/L (3.4-5.0); Sodium 137 mmol/L (137-145)
[2021-08-31] MEDS: LEVOTHYROXINE SODIUM 88 MCG TABLET BY MOUTH (06:49)
[2021-08-31] MEDS: FOLIC ACID 1 MG TABLET BY MOUTH (09:41)
[2021-08-31] MEDS: NIACIN SA 500 MG TABLET PO (09:41)
[2021-08-31] MEDS: ASPIRIN 81 MG ENTERIC TABLET 162 MG PO (09:41)
[2021-08-31] MEDS: LOSARTAN POTASSIUM 100 MG TABLET BY MOUTH (09:41)
[2021-08-31] MEDS: CYANOCOBALAMIN 1,000 MCG TABLET 1000 MCG PO (09:41)
[2021-08-31] MEDS: EZETIMIBE 10 MG TABLET PO (09:41)
[2021-08-31] MEDS: FUROSEMIDE 80 MG TABLET BY MOUTH (09:42)
[2021-08-31] MEDS: CHOLECALCIFEROL 1,000 UNITS TABLET 5000 UNITS PO (09:42)
[2021-08-31] MEDS: POTASSIUM CHLORIDE 10 MEQ TABLET.ER 20 MEQ BY MOUTH (09:42)
[2021-08-31] MEDS: FERROUS SULFATE 324 MG TABLET PO ×2 (09:43→18:08)
[2021-08-31] MEDS: FLUTICASONE/UMECLIDIN/VILANTER 100-62.5-25 MCG ELLIPTA 1 PUFF INHALATION (09:55)
--- NOTE | 2021-08-31 13:00 | WPDNEURCNPN ---
Assessment and Plan Additional Plan as planned including the Doppler study of the carotid and the MRI of the brain in addition to physical therapy Consult date: 08/31/21 HPI: Alexus Castañeda is a 81 year old female has been admitted to [facility] through the emergency room where she presented with the complaints of balance difficulties. Reportedly she went to sleep night before and upon wakening in the morning she was somewhat off balance when she walk from the bed to the bathroom she had to hold the furniture is a her neighbor Brink over the walker and she felt as if she was going to lose the balance and fall down she was lunging forward and to the right she has never had such symptomatology in the past, she does carry the diagnosis of arthritis, hearing loss, atrial fibrillation, mild chronic obstructive pulmonary disease and restless leg syndrome with history of pre diabetes, she is a former smoker and current alcohol intake her only 1 drink per week, evaluation up until now includes negative CT scan of the head, negative MRI of the brain, normal carotid Doppler study, and routine lab not very significant Review of Systems Review of Systems: All systems reviewed & are unremarkable except as noted in HPI and below PMFSH Past Medical History Medical History Arthritis Benign essential hypertension Chronic anemia With mild thrombocytopenia. Diastolic dysfunction Hammertoe of left foot Hearing loss History of atrial fibrillation Hypothyroidism Insomnia Iron deficiency anemia Mild chronic obstructive pulmonary disease Mixed hyperlipidemia Patient reports statin intolerance. Pre-diabetes Restless leg syndrome Statin intolerance Vitamin D deficiency Surgical History Surgical History History of appendectomy History of bilateral carpal tunnel release History of bilateral knee arthroplasty History of cardiac catheterization (03/2014) Normal coronary arteries. History of carpal tunnel release History of cholecystectomy History of hysterectomy for benign disease History of tubal ligation Family History Family History Father Family history of lymphoma Mother Brain cancer Other Arthritis Social History Social History Social History: Surrogate decision maker: Del Castañeda, son. Code status: Full code. Smoking packs per day: 1 Smoking cigarettes per day: 20.0 Years smoked: 25 Smoking pack-years: 25.00 Smoking status: Former smoker Tobacco type: cigarettes Alcohol intake: current Drinks per week: 1 Alcohol use details: Occasional Substance use: never Additional living arrangements comments: The patient is . She lives in a condominium in [place]. 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 Meds Home Medications and Allergies Home Medications Medication Instructions Recorded Confirmed Type cyanocobalamin (vitamin B-12) 1,000 mcg PO DAILY 09/09/19 08/30/21 History 1,000 mcg capsule aspirin 81 mg tablet,delayed 162 mg PO DAILY tablet 10/28/19 08/30/21 History release niacin 400 mg (inositol niacinate 500 cap PO DAILY 10/28/19 08/30/21 History 500 mg) capsule tramadol 50 mg tablet 100 mg PO Q6H PRN tablet 04/19/20 08/30/21 History metformin 500 mg tablet,extended See Rx Instructions .ROUTE 10/18/20 08/30/21 Rx release 24 hr .COMPLEX #270 tablet levothyroxine 88 mcg tablet See Rx Instructions .ROUTE 11/23/20 08/30/21 Rx .COMPLEX #90 tablet ezetimibe 10 mg tablet See Rx Instructions .ROUTE 02/15/21 08/30/21 Rx .COMPLEX #90 tablet losartan 100 mg tablet See Rx Instructions .ROUTE 03/22/21 08/30/21 Rx .COMPLEX #90 tablet potassium
--- NOTE | 2021-08-31 15:37 | PM.IMPN ---
Progress Note: A&P Assessment and Plan (1) Gait disturbance: Code(s): R26.9 - Unspecified abnormalities of gait and mobility Status: Acute Assessment and Plan: Presented with gait disturbance upon waking on 08/30/2021. Stroke scale [address] with no acute findings Follow-up brain MRI also with no acute findings Carotid Doppler with <50% stenosis of bilateral internal carotid arteries Echo ordered and is pending Appreciate Neurology consultation Gait disturbance has resolved entirely and she feels back to her usual state of health Appreciate PT/OT evals (2) Abnormal urinalysis: Code(s): R82.90 - Unspecified abnormal findings in urine Status: Acute Assessment and Plan: UA abnormal on presentation. She denies dysuria but is having urinary frequency Continue IV Rocephin while awaiting urine cultures Tailor antibiotics accordingly If she does have true infection, this could contribute to weakness causing gait disturbance. (3) Chronic anemia: Code(s): D64.9 - Anemia, unspecified Status: Acute Assessment and Plan: Hemoglobin and hematocrit are stable on review of prior labs Monitor H&H (4) Benign essential hypertension: Code(s): I10 - Essential (primary) hypertension Status: Acute Assessment and Plan: Blood pressure reviewed and has been reasonably well controlled. Last BP 154/68. Continue losartan Monitor blood pressure trends (5) Diastolic dysfunction: Code(s): I51.89 - Other ill-defined heart diseases Status: Acute Assessment and Plan: She is clinically compensated at this time. Trace lower extremity edema. Continue Lasix 80 mg daily Monitor volume status (6) Hypothyroidism: Code(s): E03.9 - Hypothyroidism, unspecified Status: Acute Assessment and Plan: TSH is within normal limits Continue levothyroxine (7) Pre-diabetes: Code(s): R73.03 - Prediabetes Status: Acute Assessment and Plan: Most recent A1c in July 2021 was 5.5 Diet controlled No need for Accu-Cheks during hospitalization Subjective Date/time seen: 08/31/21 15:37 Interval history: Date of service: 08/31/2021 Alexus Castañeda is 81-year-old female with a history of hypertension, diastolic dysfunction, hypothyroidism, and prediabetes who is seen in follow-up for UTI and for unsteadiness. She is feeling a lot better today. She has been able to ambulate using her walker without difficulty. She reports her unsteadiness has resolved. She denies any dizziness or lightheadedness. She reports she is careful to take her time when getting up to avoid lightheadedness. She denies visual changes, speech changes, dysphagia, headaches, confusion, numbness, tingling, loss of coordination. She reports that she is feeling essentially back to her normal state of health. She denies dysuria. No hematuria. No urgency or frequency. Denies abdominal pain, suprapubic pain, flank pain, or back pain. She has been having regular bowel movements. She is tolerating her diet and her appetite is good. She denies shortness breath, cough, chest pain, palpitations. She has no additional concerns at this time. Review of Systems Review of Systems: All systems reviewed & are unremarkable except as noted in HPI and below Exam Narrative: Ms. Castañeda is a well-nourished, well-appearing 81-year-old female who is lying supine in bed. She appears comfortable and is in NARD. Neuro: awake, alert and oriented x4, speech clear. CN II-XII intact, strength 5/5 throughout, sensation intact, no pronator drift, bilateral assistant education director strength equal, able to perform rapid alternating movements, able to perform finger to nose, gait normal HEENMT: normocephalic, atraumatic, EOMI, sclerae anicteric, moist oral mucosa, tongue midline Neck: supple, no lymphadenopathy Respiratory: clear to auscultation bilaterall
[2021-08-31] MEDS: metFORMIN HCL XR 500 MG TAB.SR.24H 1500 MG BY MOUTH (18:08)
[2021-08-31] MEDS: diphenhydrAMINE HCl CAP 25 MG CAPSULE PO (21:26)
--- NOTE | 2021-08-31 23:43 | ECHO_ITS ---
Patient Info Name: Alexus Castañeda Age: 81 years : 1940 Gender: Female Ht: 59 in Wt: 216 lbs BSA: 2.08 m2 HR: 62 bpm BP: 145 / 61 mmHg Exam Date: 08/31/2021 2:33 PM Exam Location: [facility] Patient Status: Outpatient Admit Date: 08/30/2021 Staff Ordering Physician: Elena Montero PA-C Clinical Appeals Specialist: Kenton Hanson, [place], [place] Attending Provider: Monica Ward PA-C Referring Physician: Kylah REYES; Exam Type: CA echo doppler color flow Study Info Indications I50.9 - Heart failure, unspecified Complete two-dimensional, color flow and Doppler transthoracic echocardiogram is performed. Strain analysis performed. Summary 1. Complete two-dimensional, color flow and Doppler transthoracic echocardiogram is performed. 2. Left ventricular chamber dimension is normal. 3. Left ventricular systolic function is normal, estimated at 65-70%. 4. The left ventricular diastolic function is abnormal. 5. E/e' 20 is elevated. 6. Global longitudinal strain is normal at -19.8%. 7. Left atrial chamber dimension is mildly enlarged. 8. There is mild aortic valve sclerosis. 9. The mitral valve has severely calcified posterior leaflet and severe ly calcified annulus. 10. There is mild mitral valve regurgitation. 11. Dilated inferior vena cava with >50% collapse upon inspiration consistent with elevated right atrial pressure, 10 mmHg. Left Ventricle E/e' 20 is elevated. Global longitudinal strain is normal at -19.8%. Left ventricular chamber dimension is normal. Left ventricular systolic function is normal, estimated at 65-70%. The left ventricular diastolic function is abnormal. Right Ventricle Right ventricular systolic function is normal and with normal TAPSE 1.9 cm. Right ventricular chamber dimension is normal. Left Atria Left atrial chamber dimension is mildly enlarged. Right Atria Right atrial chamber dimension is normal. Aortic Valve The aortic valve is trileaflet. There is mild aortic valve sclerosis. There is no aortic valve stenosis. There is no aortic valve regurgitation. Pulmonic Valve There is no pulmonic regurgitation. Mitral Valve The mitral valve has severely calcified posterior leaflet and severe ly calcified annulus. There is no mitral valve stenosis. There is mild mitral valve regurgitation. Tricuspid Valve There is no tricuspid valve regurgitation. Pericardium/Pleural There is no pericardial effusion. Inferior Vena Cava Dilated inferior vena cava with >50% collapse upon inspiration consistent with elevated right atrial pressure, 10 mmHg. Aorta The aortic root size at the sinus of Valsalva is normal. Left Ventricular Outflow Tract Name Value Normal LVOT 2D LVOT Diameter 2.0 cm LVOT Doppler LVOT Peak Gradient 5 mmHg LVOT Mean Gradient 2 mmHg LVOT VTI 20 cm LVOT VTI/AV VTI Ratio 0.5 LVOT Stroke Volume 61 ml LVOT CO 4.1 l/min LVOT CI
[2021-09-01] VITALS (7 sets, daily range): BP systolic 148–180; BP diastolic 66–81; PULSE 57–73; RESP 18; TEMP 36.3; O2SAT 94–98
[2021-09-01] MEDS: LEVOTHYROXINE SODIUM 88 MCG TABLET BY MOUTH (06:00)
[2021-09-01 06:08] LABS: Hematocrit 36.8 % (37.0-47.0); Hemoglobin 11.5 g/dL (12.0-15.0); Immature Platelet Fraction Pct 5.9 % (0.9-11.2); Mean Corpuscular HGB Conc 31.3 g/dl (32-36); Mean Corpuscular Hemoglobin 28.9 pg (26-34); Mean Corpuscular Volume 92.5 fl (80-100); Mean Platelet Volume 10.7 fl (7.4-10.4); Platelet Count Result 143 k/mm3 (150-375); Red Blood Count 3.98 M/mm3 (4.2-5.4); Red Cell Distribution Width 13.5 % (11.5-14.5); White Blood Count 6.1 K/mm3 (4.5-10.0)
[2021-09-01 06:27] LABS: Anion Gap 10 mmol/L (8-16); Blood Urea Nitrogen 17 mg/dL (7-17); Calcium 9.1 mg/dL (8.4-10.2); Carbon Dioxide 26 mmol/L (22-30); Chloride 102 mmol/L (98-107); Estimated Glomerular Filt Rate > 60; Glucose 112 mg/dL (65-110); Potassium 4.1 mmol/L (3.4-5.0); Sodium 138 mmol/L (137-145)
[2021-09-01] MEDS: FLUTICASONE/UMECLIDIN/VILANTER 100-62.5-25 MCG ELLIPTA 1 PUFF INHALATION (08:13)
[2021-09-01] MEDS: FUROSEMIDE 80 MG TABLET BY MOUTH (09:27)
[2021-09-01] MEDS: FOLIC ACID 1 MG TABLET BY MOUTH (09:27)
[2021-09-01] MEDS: POTASSIUM CHLORIDE 10 MEQ TABLET.ER 20 MEQ BY MOUTH (09:27)
[2021-09-01] MEDS: CHOLECALCIFEROL 1,000 UNITS TABLET 5000 UNITS PO (09:27)
[2021-09-01] MEDS: FERROUS SULFATE 324 MG TABLET PO (09:27)
[2021-09-01] MEDS: ASPIRIN 81 MG ENTERIC TABLET 162 MG PO (09:28)
[2021-09-01] MEDS: LOSARTAN POTASSIUM 100 MG TABLET BY MOUTH (09:28)
[2021-09-01] MEDS: EZETIMIBE 10 MG TABLET PO (09:28)
[2021-09-01] MEDS: NIACIN SA 500 MG TABLET PO (09:28)
[2021-09-01] MEDS: CYANOCOBALAMIN 1,000 MCG TABLET 1000 MCG PO (09:28)
--- NOTE | 2021-09-01 11:22 | PM.DS ---
DS: Admitting Diagnosis Discharge Date 09/01/2021 Admitting Diagnosis Gait disturbance DS: Discharge Diagnosis Discharge Diagnosis (1) Gait disturbance: Code(s): R26.9 - Unspecified abnormalities of gait and mobility Status: Acute Assessment and Plan: Presented with gait disturbance upon waking on 08/30/2021. Stroke scale [address] with no acute findings Follow-up brain MRI also with no acute findings Carotid Doppler with <50% stenosis of bilateral internal carotid arteries Echo reviewed with normal EF, no significant valvular disease Telemetry reviewed with sinus rhythm. Occasionally sinus bradycardia with rate 50 bpm and above She was seen in consultation by Neurology She was evaluate by PT/OT and was at her baseline level of function Gait disturbance resolved entirely and she returned to her usual state of health (2) Abnormal urinalysis: Code(s): R82.90 - Unspecified abnormal findings in urine Status: Acute Assessment and Plan: UA abnormal on presentation. She did not have urinary symptoms, however She was started on IV Rocephin while awaiting cultures Unfortunately culture showed growth of mixed rosa suggesting contamination. Given UA findings with 1+ leuk esterase and 10-15 WBC, ultimately decided to treat for possible urinary tract infection. Received 3 doses of IV Rocephin will continue with p.o. Augmentin to complete 5 days of treatment Urinary tract infection could have contributed to weakness causing gait disturbance as above (3) Chronic anemia: Code(s): D64.9 - Anemia, unspecified Status: Acute Assessment and Plan: Hemoglobin and hematocrit remained stable on review of prior labs (4) Benign essential hypertension: Code(s): I10 - Essential (primary) hypertension Status: Acute Assessment and Plan: Blood pressure reviewed and was reasonably well controlled. Continue home losartan (5) Diastolic dysfunction: Code(s): I51.89 - Other ill-defined heart diseases Status: Acute Assessment and Plan: Clinically compensated. Continue Lasix 80 mg daily (6) Hypothyroidism: Code(s): E03.9 - Hypothyroidism, unspecified Status: Acute Assessment and Plan: TSH is within normal limits. Continue levothyroxine (7) Pre-diabetes: Code(s): R73.03 - Prediabetes Status: Acute Assessment and Plan: Diet controlled. Most recent A1c in July 2021 was 5.5. No indication for Accu-Cheks during hospitalization DS: Summary Hospital Course Hospital Course: Date of admission: 08/30/2021 Date of discharge: 09/01/2021 Alexus Castañeda is an 81-year-old female with a history of hypertension, diastolic dysfunction, hypothyroidism, and prediabetes who presented to the emergency department on 08/30/2021 with complaints of difficulty ambulating earlier that morning. Symptoms had resolved on presentation to the ED. on arrival, her vital signs were stable, she was afebrile, CBC and BMP unremarkable, troponin negative, UA abnormal, EKG with sinus bradycardia, and head CT showed normal aging brain. She was admitted to the hospitalist service for further evaluation and management and was seen in consultation by Neurology. Please see above for further details. She was feeling back to her usual state of health and requested discharge home. Given her overall improvement, she was determined to no longer require inpatient care and was felt to be stable for discharge. We discussed worrisome signs and symptoms for which to return and she was educated on her medications. At the patient's request, I called her daughter and reiterated this information to her. The patient has already been in contact with her primary care provider, Dr. Bejarano, and will follow up early next week. She was discharged in hemodynamically stable condition on 09/01/2021 Status at Discharge Functional status at discha
== END 2021-09-01 12:40 | disposition home or self-care (01) | DRG 690 ==
LOC: ANHED 13:17 → ANH3MED 15:14
PROVIDERS: Physician Assistant; Admitting Provider Family Medicine; Emergency Provider Emergency Medicine; PCP Internal Medicine; Visit Provider Internal Medicine
DX: N39.0 Urinary tract infection, site not specified (principal); D64.9 Anemia, unspecified; R26.2 Difficulty in walking, not elsewhere classified; I11.9 Hypertensive heart disease without heart failure; E03.9 Hypothyroidism, unspecified; R73.03 Prediabetes; E78.2 Mixed hyperlipidemia; I65.23 Occlusion and stenosis of bilateral carotid arteries; Z79.82 Long term (current) use of aspirin; Z79.84 Long term (current) use of oral hypoglycemic drugs; Z79.899 Other long term (current) drug therapy; Z87.891 Personal history of nicotine dependence
CPT/HCPCS: 36415; 70450; 70553; 80048; 80053; 81001; 82607; 82948; 83735; 84443; 84484; 85025; 85027; 85055; 85610; 85730; 87086; 87088; 93005; 93306; 93880; 94640; 96361; 96365; 97161; 97165; 99285; A9270; A9577; G0378; J0696; J1170; J7120

== ENCOUNTER 2021-12-12 07:18 | Outpatient (CLI) | payer MEDICARE, SELFPAY ==
[2021-12-12 08:16] LABS: Hemoglobin A1C 5.6 % (<5.7)
[2021-12-12 08:19] LABS: Cholesterol 150 mg/dL (0-200); HDL Direct 44 mg/dL; Triglycerides 163 mg/dL (<150)
[2021-12-12 08:31] LABS: LDL Cholesterol Direct 71 mg/dL
[2021-12-12 08:50] LABS: Basophils Absolute Auto 0.1 K/mm3 (0.0-0.1); Basophils Percent Auto 0.9 % (0.2-1.2); Eosinophils Absolute Auto 0.2 K/mm3 (0-0.3); Eosinophils Percent Auto 3.5 % (0-4.4); Hematocrit 36.7 % (37.0-47.0); Hemoglobin 11.3 g/dL (12.0-15.0); Immature Granulocyte Absolute 0.02 K/mm3 (0.00-0.031); Immature Granulocyte Percent A 0.4 % (0-0.5); Lymphocytes Absolute Auto 1.68 K/mm3 (0.9-3.2); Lymphocytes Percent Auto 31.2 % (18.3-44.2); Mean Corpuscular HGB Conc 30.8 g/dl (32-36); Mean Corpuscular Hemoglobin 29.2 pg (26-34); Mean Corpuscular Volume 94.8 fl (80-100); Mean Platelet Volume 11.3 fl (7.4-10.4); Monocytes Absolute Auto 0.5 K/mm3 (0.1-0.6); Neutrophils Absolute Auto 2.9 K/mm3 (1.3-6.7); Platelet Count Result 125 k/mm3 (150-375); Red Blood Count 3.87 M/mm3 (4.2-5.4); Red Cell Distribution Width 13.8 % (11.5-14.5); White Blood Count 5.4 K/mm3 (4.5-10.0)
[2021-12-12 09:02] LABS: Free T4 Free Thyroxine 1.39 ng/mL (0.78-2.19); Vitamin D 25 Hydroxy 51.8 ng/mL
[2021-12-12 09:31] LABS: Folic Acid > 20.0 ng/mL (2.76->20); Vitamin B12 > 1000.0 pg/mL (239-931)
== END 2021-12-12 07:19 | disposition home or self-care (01) ==
LOC: ANHLAB 07:20
PROVIDERS: PCP Internal Medicine; Visit Provider Internal Medicine
DX: E03.9 Hypothyroidism, unspecified (principal); E11.22 Type 2 diabetes mellitus with diabetic chronic kidney disease; E55.9 Vitamin D deficiency, unspecified; E53.8 Deficiency of other specified B group vitamins; E78.2 Mixed hyperlipidemia; I12.9 Hypertensive chronic kidney disease with stage 1 through stage 4 chronic kidney disease, or unspecified chronic kidney disease; N18.1 Chronic kidney disease, stage 1
CPT/HCPCS: 36415; 80061; 82306; 82607; 82746; 83036; 84439; 84443; 85025

== ENCOUNTER 2022-02-05 15:23 | Outpatient (CLI) | payer MEDICARE, SELFPAY ==
--- NOTE | ~2022-02-05 | XR_ITS ---
EXAMINATION: XR thoracic spine 2V DATE: 02/05/2022 16:24 INDICATION: Dorsalgia TECHNIQUE: One AP, lateral and lateral swimmer's views of the thoracic spine were obtained. COMPARISON: None. FINDINGS: Low degree thoracic dextro scoliosis between T4 and T10. Sagittal alignment is normal. Vertebral body heights are normal. Multilevel mild disc height loss with mild degenerative endplate changes at mult iple levels in the thoracic spine. Moderate to severe disc height loss with degenerative endplate panda nges and uncovertebral osteoarthritis at C4-C5 through C6-C7. Cholecystectomy clips in right upper qu adrant. Heart size is normal with dense mitral annular calcification. IMPRESSION: 1. Mild thoracic dextro scoliosis with mild spondylosis. 2. Moderate to severe lower cervical spondylosis. Reviewed, dictated and finalized at location B.
--- NOTE | ~2022-02-05 | XR_ITS ---
EXAMINATION: XR lumbar spine 6V w bending EXAM DATE: 02/05/2022 16:25 INDICATION: M54.50 -Chronic Low Back Pain When Sitting TECHNIQUE: Lumber spine frontal, lateral, bilateral oblique projections. Coned down frontal and lat eral L5-S1 lumbar projections for interpretation. Additional lateral flexion and lateral extension p rojections obtained. There is no prior study for comparison. FINDINGS: There is about 10 mm anterolisthesis L4 on L5 on the neutral projection, appears to minimal ly increase on flexion and decrease on extension. No definite spondylolysis at this level or others. Otherwise the vertebral bodies appear aligned. There is moderate to severe disc disease L-1-2, L2-3 a nd L5-S1, moderate at L4-5. There is moderate to severe facet arthropathy from L3 through S1. Vertebr al body heights appear relatively well-maintained. There is mild aortic arterial sclerosis. Mild lumb ar levoscoliosis. Sacrum, sacroiliac joints, sacral arcuate lines are intact. There are cholecystecto my clips. IMPRESSION: 1. Grade 2 anterolisthesis L4 on L5 with slight subluxations between flexion and extension projectio ns. 2. Advanced disc disease and facet arthropathy as above. Reviewed, dictated and finalized at location A. IMPRESSION: 1. Grade 2 anterolisthesis L4 on L5 with slight subluxations between flexion a nd extension projections. 2. Advanced disc disease and facet arthropathy as above.
== END 2022-02-05 15:24 | disposition home or self-care (01) ==
PROVIDERS: PCP Internal Medicine; Visit Provider Internal Medicine
DX: M54.50 Low back pain, unspecified (principal); M47.892 Other spondylosis, cervical region
CPT/HCPCS: 72070; 72114

== ENCOUNTER 2022-03-19 12:30 | Outpatient (RCR) | payer MEDICARE, SELFPAY ==
--- NOTE | 2022-02-18 15:12 | PTOPEVAL ---
PHYSICAL THERAPY EVALUATION AND PLAN OF CARE 02-18-22 Thank you for referring Alexus Castañeda to [facility]Note 3] for the diagnosis of weakness.? She is scheduled to be seen for therapy? 2x/week for 5 weeks. Please review, sign, date and return this plan of care VINAYAK. I agree with and certify that the following plan of care is medically necessary. Referring Physician Date Attending Provider: Rahul Bejarano MD Past Medical History Source of Past Medical History Recalled from Previous Visit, Confirmed with Patient/Family Neurological History Hx Transient Ischemic Attacks (TIA) Yes: no residual weakness Cardiovascular History Hx Heart Murmur Yes Hx Hypercholesterolemia Yes: med control Hx Hypertension Yes: meds control Respiratory History Hx Bronchitis Yes Hx COVID-19 Yes: March 2020, with residual breathing issues Gastrointestinal History Hx Appendectomy Yes Hx Cholecystectomy Yes Genitourinary History Hx Urinary Tract Infection Yes Musculoskeletal History Hx Arthritis Yes: neck and back arthritis Hx Back Pain Yes: chronic back pain Hx Joint Replacement Yes: B TKR Hx Other Musculoskeletal Disorders Yes: B carpal tunnel surgery; R and L hammer toes-shoes uncomfortable Hematological History Hx Anemia Yes Hx Blood Transfusions Yes Endocrine History Hx Diabetes Yes: control with meds HEENT History Hx HEENT Disorders No Significant History Integumentary History Hx Skin Disorders No Significant History Psychosocial History Hx Psychiatric Disorders No Significant History Pain History History of Any Previous or Ongoing No Significant History Instance of Pain Anesthesia History Hx Anesthesia Reactions No Significant History Other History Hx of Latex Allergy Yes Hx Other Medical Conditions Yes: obesity, wearing compression knee highs R and L Evaluation Information Problem Diagnosis weakness Onset about 1 yr ago Subjective Information gradual increase in leg Query Text:As Reported By Patient/ weakness from foot issues, Family COVID, lack of exercise; had one fall in the past 6 months, getting up from pedicure chair; Diagnostic Tests X-Rays For This Problem Yes: mod-severe DDD L1-2-3-4-5 -S!;facet OA, decr disc [id number] Previous Treatments Previous Treatments For This Problem chiropractor- 2 recent visits
--- NOTE | 2022-02-25 14:48 | PCPTNOTE ---
Patient called & cancelled scheduled appointment this date due to having an upset stomach and not feeling well.
--- NOTE | 2022-03-22 13:49 | PCPTNOTE ---
PHYSICAL THERAPY DISCHARGE 03-22-22 Attending Provider: Rahul Bejarano MD Patient:Alexus Castañeda Date of :1940 Mrs. Castañeda has received 7 PT sessions, for the diagnosis of weakness, from February 18 to today. She called today and stated she wanted to cancel therapy due to a lot of health issues. Therefore, she will be discharged from PT services at this time. Thank you for referring Alexus to [facility]. Please review, sign, date and return this discharge summary VINAYAK. I have been updated about the patient's current status and I agree with discharge from the above service at this time. Referring Physician Date
== END 2022-03-25 11:00 | disposition home or self-care (01) ==
LOC: ANHPT 12:30
PROVIDERS: PCP Internal Medicine; Referring Provider Internal Medicine; Visit Provider Internal Medicine
DX: M54.50 Low back pain, unspecified (principal); R53.1 Weakness
CPT/HCPCS: 97110; 97112; 97116; 97162; 97530

== ENCOUNTER 2022-03-20 10:45 | Outpatient (CLI) | payer MEDICARE, SELFPAY ==
--- NOTE | ~2022-03-20 | CT_ITS ---
EXAMINATION: CT abdomen pelvis w con DATE: 03/20/2022 11:39 INDICATION: Colovaginal fistula TECHNIQUE: Computed tomography (CT) of the abdomen and pelvis was performed with 100 mL Omnipaque-350 intravenous contrast. Automated exposure control and iterative reconstruction technique were employe d. The dose-length product was 1377.01 mGy-cm. COMPARISON: MRI dated 08/26/[address] dated 12/29/2018 FINDINGS: Mild right basilar atelectasis. No pleural effusion. Heart size is normal. Atherosclerotic coronary a rtery calcific location. Dense mitral annular calcification. No pericardial effusion. Cholecystectomy clips the gallbladder fossa. Liver, spleen, pancreas and right adrenal gland are normal. 2.8 cm left adrenal adenoma with characteristic signal dropout on opposed phase MRI imaging on 08/26/2014 and lo w attenuation on noncontrast chest CT dated 12/29/2018. Left kidney is normal. 3 right renal cysts the largest at the lower pole measuring 3.0 cm. 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 Small treasure unt of gas within the vaginal vault. The uterus and ovaries are not visualized and are likely surgica lly absent. Small bowel is unremarkable with no obstruction. The appendix is not visualized. No peric ecal inflammatory change to suggest acute appendicitis. No free intraperitoneal gas or fluid. No path ologically enlarged abdominal or pelvic lymphadenopathy. Mild thoracolumbar levocurvature with severe lumbar spondylosis. 6 mm anterolisthesis L4 on L5. IMPRESSION: 1. 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 Could consider fluoroscopic single contrast enema with or without follow-up CT of the pelvis for more defi nitive confirmation of a patent rectovaginal fistula. Reviewed, dictated and finalized at location A. IMPRESSION: 1. 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 Could consider fluoroscopic single contr ast enema with or without follow-up CT of the pelvis for more definitive confir mation of a patent rectovaginal fistula.
--- NOTE | ~2022-03-20 | XR_ITS ---
EXAM: XR ankle RT min 3V HISTORY: PAIN IN RT ANKLE, NO INJURY, PAIN IS MEDIAL . COMPARISON: None available. FINDINGS: Decreased mineralization. No fracture or dislocation. Narrowing, osteophytosis and subchon dral sclerosis with subchondral cyst formation at the tibiotalar joint and multiple midfoot joints. P es planus. Achilles and plantar enthesopathy. IMPRESSION: Severe degenerative change in the right ankle and right mid foot. Reviewed, dictated and finalized at location K.
[2022-03-20 11:23] LABS: Basophils Percent Auto 0.5 % (0.2-1.2); Eosinophils Absolute Auto 0.2 K/mm3 (0-0.3); Eosinophils Percent Auto 2.3 % (0-4.4); Hematocrit 37.4 % (37.0-47.0); Hemoglobin 11.5 g/dL (12.0-15.0); Immature Granulocyte Absolute 0.03 K/mm3 (0.00-0.031); Immature Granulocyte Percent A 0.5 % (0-0.5); Lymphocytes Absolute Auto 1.83 K/mm3 (0.9-3.2); Lymphocytes Percent Auto 28.1 % (18.3-44.2); Mean Corpuscular HGB Conc 30.7 g/dl (32-36); Mean Corpuscular Hemoglobin 28.9 pg (26-34); Mean Platelet Volume 10.5 fl (7.4-10.4); Monocytes Absolute Auto 0.5 K/mm3 (0.1-0.6); Monocytes Percent Auto 7.4 % (2.6-8.5); Neutrophils Percent Auto 61.2 % (45.5-73.1); Platelet Count Result 154 k/mm3 (150-375); Red Blood Count 3.98 M/mm3 (4.2-5.4); Red Cell Distribution Width 13.8 % (11.5-14.5); White Blood Count 6.5 K/mm3 (4.5-10.0)
[2022-03-20 11:33] LABS: Anion Gap 8 mmol/L (8-16); Blood Urea Nitrogen 20 mg/dL (7-17); Calcium 8.8 mg/dL (8.4-10.2); Carbon Dioxide 30 mmol/L (22-30); Chloride 102 mmol/L (98-107); Estimated Glomerular Filt Rate > 60; Glucose 112 mg/dL (65-110); Potassium 4.4 mmol/L (3.4-5.0); Sodium 140 mmol/L (137-145)
[2022-03-20 11:38] LABS: Appearance Urine Clear (Clear); Bilirubin Urine Negative (Negative); Color Urine Yellow (Yellow); Glucose Urine UA Negative (Negative); Ketones Urine Negative (Negative); Leukocyte Esterase Ur 1+ LEU/UL (Negative); Nitrate Urine Negative (Negative); Protein Urine Trace mg/dL (Negative); Urobilinogen Urine 0.2 mg/dL (<2.0)
[2022-03-20 11:41] LABS: Estimated Glomerular Filt Rate > 60
[2022-03-20 11:53] LABS: Add Urine Microscopic? YES; Blood Urine Trace-Intact (Negative)
[2022-03-20 11:56] LABS: Squamous Epithelial Cell Urine Rare /hpf (Few)
== END 2022-03-20 10:46 | disposition home or self-care (01) ==
PROVIDERS: PCP Internal Medicine; Visit Provider Internal Medicine
DX: N89.8 Other specified noninflammatory disorders of vagina (principal); Z79.899 Other long term (current) drug therapy; G89.29 Other chronic pain; M25.571 Pain in right ankle and joints of right foot; N82.3 Fistula of vagina to large intestine; M19.071 Primary osteoarthritis, right ankle and foot; K57.32 Diverticulitis of large intestine without perforation or abscess without bleeding
CPT/HCPCS: 36415; 73610; 74177; 80048; 81001; 85025; 87086; 87088; Q9967

== ENCOUNTER 2022-03-22 15:21 | Emergency (ER) | payer MEDICARE, SELFPAY ==
--- NOTE | ~2022-03-22 | CT_ITS ---
EXAMINATION: CT abdomen pelvis w con DATE: 03/22/2022 19:26 INDICATION: Rectovaginal fistula. TECHNIQUE: Computed tomography (CT) of the abdomen and pelvis was performed with 75 mL Omnipaque 300 intravenous contrast. Automated exposure control and iterative reconstruction technique were employed . The dose-length product was 1327.44 mGy-cm. COMPARISON: CT abdomen and pelvis 03/20/2022, chest CT 12/29/2018 FINDINGS: The visualized portions of the lung bases demonstrate mild atelectasis. No pleural effusion . Cardiomegaly is noted. There are coronary artery calcifications. No pericardial effusion. The liver and spleen are normal. There are changes of cholecystectomy. The pancreas and right adrenal gland ar e normal. There is a 2.7 cm mass in left adrenal gland measuring soft tissue attenuation, stable from 12/29/2018, consistent with an adenoma. There are cysts in right kidney measuring up to 3.1 cm. Left kidney is normal. There are no dilated loops of bowel. There is diverticulosis of the colon without e vidence of diverticulitis. The sigmoid colon is contiguous with the wall of the vagina. Strands of so ft tissue attenuation tether the sigmoid colon to the vagina. There is gas in the vagina. The appendi x is not visualized. There are no pathologically enlarged lymph nodes. There is no free intraperitone al fluid. There is severe thoracolumbar spondylosis IMPRESSION: 1. Colovaginal fistula. Reviewed, dictated and finalized at location A. IMPRESSION: 1. Colovaginal fistula.
[2022-03-22 15:24] VITALS: BP 156/78; PULSE 77; RESP 20; TEMP 36.7; O2SAT 99
--- NOTE | 2022-03-22 17:41 | ED.GENADULT ---
HPI - General Adult General Chief complaint: Unspecified <ADAMS Santos Last Filed: 03/23/22 03:23> Stated complaint: rectal/vaginal fistula rupture <ADAMS Santos Last Filed: 03/23/22 03:23> Time Seen by Provider: 03/22/22 17:22 <ADAMS Santos Last Filed: 03/23/22 03:23> Source: patient <ADAMS Santos Last Filed: 03/23/22 03:23> Mode of arrival: ambulatory <ADAMS Santos Last Filed: 03/23/22 03:23> Limitations: no limitations <ADAMS Santos Last Filed: 03/23/22 03:23> History of Present Illness HPI narrative: Patient is an 82-year-old female who presents the ED with report of stool in her underwear. Per patient's records, patient saw her PCP 2 days ago at which point she reported having vaginal discharge and blood in her underwear. 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 Small amount of gas within the vaginal vault. Patient was referred to Dr. Castano with general surgery and has an appointment to see him on Friday for consultation at 1:15 PM. Patient was started on Cipro and Flagyl and has been taking this over the last 2 days. This morning she reports she had a normal bowel movement through her rectum. This afternoon however she reports she went to urinate and noticed a glob of stool in her underwear. She states she is sure that it came from her vagina. Did not have a sensation of having a bowel movement at that time. Denied any dysuria or hematuria or blood mixed in with the stool. Patient also denies any abdominal pain, nausea, vomiting. No recent fevers or chills. Patient called her primary care doctor and was referred to the ED for evaluation. <ADAMS Santos Last Filed: 03/23/22 03:23> Related Data Home medications: Home Medications Medication Instructions Recorded Confirmed cyanocobalamin (vitamin B-12) 1,000 mcg PO DAILY 09/09/19 03/20/22 1,000 mcg capsule aspirin 81 mg tablet,delayed 162 mg PO DAILY tablet 10/28/19 03/20/22 release niacin 400 mg (inositol niacinate 500 cap PO DAILY 10/28/19 03/20/22 500 mg) capsule tramadol 50 mg tablet 100 mg PO Q6H PRN tablet 04/19/20 03/20/22 cholecalciferol (vitamin D3) 125 125 mcg PO DAILY 05/09/21 03/20/22 mcg (5,000 unit) capsule ferrous sulfate See Rx Instructions .ROUTE .COMPLEX 08/30/21 03/20/22 <Maria Antonia Thomas PA-C - Last Filed: 03/23/22 03:23> Allergies/adverse reactions: Allergies Allergy/AdvReac Type Severity Reaction Status Date / Time latex Allergy Severe SEVERE Verified 03/22/22 18:16 SWELLING vancomycin Allergy Severe SEVERE Verified 03/22/22 18:16 ITCHING 2009 Aminoglycosides Allergy Mild Swelling Verified 03/22/22 18:16 hydrocodone Allergy Mild Rash Verified 03/22/22 18:16 neomycin Allergy Mild Swelling Verified 03/22/22 18:16 oxycodone Allergy Mild Unknown Verified 03/22/22 18:16 polymyxin B Allergy Unknown SWELLING Verified 03/22/22 18:16 diclofenac AdvReac Severe STOMACH Verified 03/22/22 18:16 UPSET - CAN TAKE ALEVE [place] misoprostol AdvReac Severe STOMACH Verified 03/22/22 18:16 UPSET piroxicam AdvReac Severe STOMACH Verified 03/22/22 18:16 UPSET propoxyphene AdvReac Severe STOMACH Verified 03/22/22 18:16 UPSET sertraline AdvReac Severe STOMACH Verified 03/22/22 18:16 UPSET <Maria Antonia Thomas PA-C - Last Filed: 03/23/22 03:23> Review of Systems Review of Systems: CONSTITUTIONAL: Denies fever, chills, or sweats. CARDIOVASCULAR: Denies chest pain. RESPIRATORY: Denies cough or dyspnea. GASTROINTESTINAL: Denies abdominal pain, nausea, vomiting, rectal bleeding, or diarrhea. GENITOURINARY: Reports stool from
[2022-03-22] MEDS: SODIUM CHLORIDE 0.9% IV 1,000 ML 999 ML IV CONT (18:29)
[2022-03-22] MEDS: ONDANSETRON INJ 4 MG/2 ML VIAL IV PUSH (18:29)
[2022-03-22 18:52] LABS: Add Urine Microscopic? YES; Appearance Urine Slightly Cloudy (Clear); Bilirubin Urine Negative (Negative); Blood Urine 2+ (Negative); Color Urine Yellow (Yellow); Glucose Urine UA Negative (Negative); Ketones Urine Negative (Negative); Leukocyte Esterase Ur 3+ LEU/UL (Negative); Nitrate Urine Negative (Negative); Protein Urine 1+ mg/dL (Negative); Specific Grav Ur 1.015 (1.001-1.035); Urobilinogen Urine 0.2 mg/dL (<2.0)
[2022-03-22 18:58] LABS: Lactic Acid Reflex 1.6 mmol/L (0.7-2.0)
[2022-03-22 19:07] LABS: Alanine Aminotransferase 22 U/L (6-35); Albumin Level 4.4 g/dL (3.5-5.1); Alkaline Phosphatase 121 U/L (38-126); Anion Gap 7 mmol/L (8-16); Aspartate Amino Transferase 37 U/L (14-36); Bilirubin,Total 0.7 mg/dL (0.2-1.3); Blood Urea Nitrogen 16 mg/dL (7-17); Calcium 8.8 mg/dL (8.4-10.2); Carbon Dioxide 27 mmol/L (22-30); Chloride 99 mmol/L (98-107); Estimated Glomerular Filt Rate > 60; Glucose 96 mg/dL (65-110); Lipase 118 U/L (23-300); Potassium 4.4 mmol/L (3.4-5.0); Sodium 133 mmol/L (137-145)
[2022-03-22 19:14] LABS: Bacteria Urine Trace /hpf; Squamous Epithelial Cell Urine Rare /hpf (Few); WBC Clumps Urine Present /HPF; WBC Urine >75 /hpf
--- NOTE | 2022-03-22 20:35 | PC.NURSE ---
Patient on phone with her content coordinator doctor and they stated, This is ridiculous. You people are stupid and dont know what you are doing. Patients should be taken care of especially if they pay for it. I pay for my doctor privately and I need to be getting what he orders me and not what you people are saying what I need. EDP Maria Antonia in room talking to patient and patient continues to yell at provider and nurse. patient doctor on phone and states, You people don't know what your doing I am telling you what to order this is ridiculous that you are not doing what I am telling you all to do. I am her doctor Patient does not want care from the ED Providers she only wants what her doctor orders for her at this time and states , I am just so fed up with you people
[2022-03-22 21:10] LABS: Basophils Percent Auto 0.5 % (0.2-1.2); Eosinophils Absolute Auto 0.1 K/mm3 (0-0.3); Eosinophils Percent Auto 1.2 % (0-4.4); Hematocrit 36.1 % (37.0-47.0); Hemoglobin 10.9 g/dL (12.0-15.0); Immature Granulocyte Absolute 0.04 K/mm3 (0.00-0.031); Immature Granulocyte Percent A 0.5 % (0-0.5); Immature Platelet Fraction Pct 5.4 % (0.9-11.2); Lymphocytes Absolute Auto 1.56 K/mm3 (0.9-3.2); Lymphocytes Percent Auto 19.4 % (18.3-44.2); Mean Corpuscular HGB Conc 30.2 g/dl (32-36); Mean Corpuscular Hemoglobin 28.4 pg (26-34); Monocytes Absolute Auto 0.6 K/mm3 (0.1-0.6); Monocytes Percent Auto 7.2 % (2.6-8.5); Neutrophils Absolute Auto 5.7 K/mm3 (1.3-6.7); Neutrophils Percent Auto 71.2 % (45.5-73.1); Platelet Count Result 147 k/mm3 (150-375); Red Blood Count 3.84 M/mm3 (4.2-5.4); White Blood Count 8.1 K/mm3 (4.5-10.0)
--- NOTE | 2022-03-22 22:17 | PC.NURSE ---
Patient and daughter stating to this RN, You are doing a terrible job. I know you are busy but You are not doing your job correctly you need to talk to my doctor that I have on the phone and do what he says. You people dont know what you are doing. Just so you know I will find a way for you to lose your license because you are not doing what I need to save my life like my doctor on the phone states.
--- NOTE | 2022-03-22 23:00 | PC.NURSE ---
Patient stated to this RN that I took her IV out wrong and that we were horrible that we did not give her dinner before she was dicharged. This RN asked the doctor if we could give her something to eat when the doctor had calls out for surgery and they stated no food at this time. This RN discharged patient and they stated they were going out for dinner and did not want my turkey sandwich.
[2022-03-22 23:13] VITALS: BP 138/72; PULSE 82; RESP 16; O2SAT 98
== END 2022-03-22 23:15 | disposition home or self-care (01) ==
PROVIDERS: Physician Assistant; Emergency Provider Emergency Medicine; PCP Internal Medicine
DX: N82.4 Other female intestinal-genital tract fistulae (principal); K57.92 Diverticulitis of intestine, part unspecified, without perforation or abscess without bleeding; I10 Essential (primary) hypertension; I48.91 Unspecified atrial fibrillation; D50.9 Iron deficiency anemia, unspecified; J44.9 Chronic obstructive pulmonary disease, unspecified; R73.03 Prediabetes; E03.9 Hypothyroidism, unspecified; G25.81 Restless legs syndrome; E55.9 Vitamin D deficiency, unspecified; Z87.440 Personal history of urinary (tract) infections; Z79.82 Long term (current) use of aspirin; Z79.84 Long term (current) use of oral hypoglycemic drugs; Z87.891 Personal history of nicotine dependence
CPT/HCPCS: 36415; 74177; 80053; 81001; 83605; 83690; 85025; 85055; 87086; 96361; 96374; 99284; J2405; J7030; Q9967

== ENCOUNTER 2022-04-17 06:43 | Outpatient (CLI) | payer MEDICARE, SELFPAY ==
[2022-04-17 07:44] LABS: Basophils Percent Auto 0.4 % (0.2-1.2); Eosinophils Absolute Auto 0.1 K/mm3 (0-0.3); Eosinophils Percent Auto 2.3 % (0-4.4); Hemoglobin 11.2 g/dL (12.0-15.0); Immature Granulocyte Absolute 0.02 K/mm3 (0.00-0.031); Immature Granulocyte Percent A 0.4 % (0-0.5); Immature Platelet Fraction Pct 5.5 % (0.9-11.2); Lymphocytes Absolute Auto 1.83 K/mm3 (0.9-3.2); Lymphocytes Percent Auto 32.4 % (18.3-44.2); Mean Corpuscular Hemoglobin 29.3 pg (26-34); Mean Corpuscular Volume 91.6 fl (80-100); Mean Platelet Volume 10.9 fl (7.4-10.4); Monocytes Absolute Auto 0.6 K/mm3 (0.1-0.6); Monocytes Percent Auto 10.1 % (2.6-8.5); Neutrophils Absolute Auto 3.1 K/mm3 (1.3-6.7); Neutrophils Percent Auto 54.4 % (45.5-73.1); Platelet Count Result 121 k/mm3 (150-375); Red Blood Count 3.82 M/mm3 (4.2-5.4); Red Cell Distribution Width 14.3 % (11.5-14.5); White Blood Count 5.7 K/mm3 (4.5-10.0)
[2022-04-17 07:53] LABS: Alanine Aminotransferase 21 U/L (6-35); Albumin Level 4.1 g/dL (3.5-5.1); Alkaline Phosphatase 100 U/L (38-126); Anion Gap 8 mmol/L (8-16); Aspartate Amino Transferase 25 U/L (14-36); Bilirubin,Total 0.4 mg/dL (0.2-1.3); Blood Urea Nitrogen 20 mg/dL (7-17); Calcium 8.6 mg/dL (8.4-10.2); Carbon Dioxide 25 mmol/L (22-30); Chloride 104 mmol/L (98-107); Cholesterol 166 mg/dL (0-200); Estimated Glomerular Filt Rate > 60; Glucose 112 mg/dL (65-110); HDL Direct 46 mg/dL; Potassium 4.3 mmol/L (3.4-5.0); Sodium 137 mmol/L (137-145); Triglycerides 194 mg/dL (<150)
[2022-04-17 07:55] LABS: Hemoglobin A1C 5.6 % (<5.7)
[2022-04-17 08:05] LABS: LDL Cholesterol Direct 80 mg/dL
[2022-04-17 08:12] LABS: Iron 87 ug/dL (37-170)
[2022-04-17 08:22] LABS: Percent Iron Saturation 26 % (20-50)
[2022-04-17 08:25] LABS: Vitamin D 25 Hydroxy 54.2 ng/mL
[2022-04-17 08:30] LABS: Free T4 Free Thyroxine 1.28 ng/mL (0.78-2.19)
== END 2022-04-17 06:44 | disposition home or self-care (01) ==
LOC: ANHLAB 06:47
PROVIDERS: PCP Internal Medicine; Visit Provider Internal Medicine
DX: E03.9 Hypothyroidism, unspecified (principal); I10 Essential (primary) hypertension; D50.9 Iron deficiency anemia, unspecified; E55.9 Vitamin D deficiency, unspecified; E11.22 Type 2 diabetes mellitus with diabetic chronic kidney disease; N18.1 Chronic kidney disease, stage 1; E78.2 Mixed hyperlipidemia
CPT/HCPCS: 36415; 80053; 80061; 82306; 82728; 83036; 83540; 83550; 84439; 84443; 85025; 85055

== ENCOUNTER → 2022-08-05 13:15 | Outpatient (CLI) | payer MEDICARE, SELFPAY ==
--- NOTE | ~2022-08-05 | MR_ITS ---
EXAMINATION: MR ankle RT wo con DATE: 08/05/2022 14:11 INDICATION: Posterior tibial tendinitis TECHNIQUE: Magnetic resonance imaging (MRI) of the right ankle was performed without intravenous cont rast. Sequences included sagittal, coronal, and axial proton-density weighted fast spin echo without and with fat saturation. COMPARISON: None. FINDINGS: Medial ankle ligaments: Amorphous increased signal in the region of the deep deltoid ligament with loss of the normally well- defined striated pattern consistent with scarring related to chronic sprain without surrounding edema to suggest acute injury. Thickening of the superficial deltoid ligament and superomedial component o f the spring ligament complex consistent with additional scarring related to chronic sprain. Lateral ankle ligaments: Thickening and mild increased signal of both the anterior and posterior inferior tibiofibular ligamen ts as well as the posterior talofibular ligament with small osteophytes along the osseous insertions of the ligaments consistent with sequela of chronic sprains. Additional small osteophytes at the late ral malleolar origin of the attenuated anterior talofibular ligament also likely sequela of chronic s prain. There is thickening of the fibular side of the calcaneofibular ligament which also appears th ickened with mild increased signal. Tendons: Small enthesophytes at the superficial side of the calcaneal insertion of the otherwise normal Achill es tendon. The peroneus longus and brevis tendons are normal. The tibialis anterior and extensor garcia ucis longus and extensor digitorum longus tendons are normal. The tibialis posterior, flexor digitoru m longus and flexor hallucis longus tendons are normal. Plantar fascia: Thickening and mild increased signal at the proximal plantar aponeurosis with moderate-sized plantar calcaneal spur at its calcaneal origin consistent with chronic enthesopathy. No significant surroundi ng soft tissue or marrow edema to suggest acute plantar fasciitis. Bones/other: There appears to be pes planus and hindfoot valgus although this would be more accurately evaluated w ith weightbearing radiographs. Severe osteoarthritis at the right ankle joint with full-thickness car tilage loss along the central and posterior portions of the tibial plafond and talar dome with associ ated mild cortical irregularity with subarticular edema-like and mild cystlike changes. Additional se so osteoarthritis at the second-fifth tarsal metatarsal joints. Moderate osteoarthritis at the jose culocuneiform and talonavicular joints. Mild osteoarthritis at the subtalar, calcaneocuboid and first tarsal metatarsal joints. No fracture or pathologic marrow replacing process. The Lisfranc ligament complex is normal. Fluid: Prominent synovitis and small joint effusion at the ankle joint. Prominent subcutaneous edema about t he visualized lower leg, ankle and extending over the dorsum of the foot. IMPRESSION: 1. 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 2. Extensive scarring consistent with chronic medial and lateral ankle sprains. 3. Suggestion of pes planus and hindfoot valgus although this would be more accurately evaluated with weightbearing radiographs. 4. Moderate chronic plantar enthesopathy. Reviewed, dictated and finalized at location A. IMPRESSION: 1. 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 2. Extensive scarring consistent with chronic medial and lateral ankle sprains. 3. Suggestion of pes planus and hindfoot valgus although this would be more acc urately evaluated with weightbearing radiographs. 4. Moderate chronic plantar enthesopathy.
== END ==
PROVIDERS: PCP Internal Medicine; Visit Provider Podiatrist Foot & Ankle Surgery
DX: M76.821 Posterior tibial tendinitis, right leg (principal); M19.071 Primary osteoarthritis, right ankle and foot; M77.31 Calcaneal spur, right foot
CPT/HCPCS: 73721

== ENCOUNTER 2022-08-27 13:15 | Outpatient (CLI) | payer MEDICARE, SELFPAY ==
[2022-08-27 13:54] LABS: Basophils Percent Auto 0.4 % (0.2-1.2); Eosinophils Absolute Auto 0.1 K/mm3 (0-0.3); Eosinophils Percent Auto 1.9 % (0-4.4); Hematocrit 35.5 % (37.0-47.0); Hemoglobin 11.2 g/dL (12.0-15.0); Immature Granulocyte Absolute 0.02 K/mm3 (0.00-0.031); Immature Granulocyte Percent A 0.3 % (0-0.5); Lymphocytes Absolute Auto 1.62 K/mm3 (0.9-3.2); Lymphocytes Percent Auto 23.5 % (18.3-44.2); Mean Corpuscular HGB Conc 31.5 g/dl (32-36); Mean Corpuscular Hemoglobin 28.2 pg (26-34); Mean Corpuscular Volume 89.4 fl (80-100); Mean Platelet Volume 10.8 fl (7.4-10.4); Monocytes Absolute Auto 0.4 K/mm3 (0.1-0.6); Monocytes Percent Auto 6.2 % (2.6-8.5); Neutrophils Absolute Auto 4.7 K/mm3 (1.3-6.7); Neutrophils Percent Auto 67.7 % (45.5-73.1); Platelet Count Result 146 k/mm3 (150-375); Red Blood Count 3.97 M/mm3 (4.2-5.4); Red Cell Distribution Width 14.9 % (11.5-14.5); White Blood Count 6.9 K/mm3 (4.5-10.0)
[2022-08-27 14:08] LABS: Alanine Aminotransferase 24 U/L (6-35); Albumin Level 4.2 g/dL (3.5-5.1); Alkaline Phosphatase 114 U/L (38-126); Anion Gap 14 mmol/L (8-16); Aspartate Amino Transferase 28 U/L (14-36); Bilirubin,Total 0.4 mg/dL (0.2-1.3); Blood Urea Nitrogen 17 mg/dL (7-17); Calcium 8.6 mg/dL (8.4-10.2); Carbon Dioxide 29 mmol/L (22-30); Chloride 97 mmol/L (98-107); Cholesterol 168 mg/dL (0-200); Estimated Glomerular Filt Rate 60; Glucose 102 mg/dL (65-110); HDL Direct 45 mg/dL; Potassium 3.9 mmol/L (3.4-5.0); Sodium 140 mmol/L (137-145); Triglycerides 176 mg/dL (<150)
[2022-08-27 14:19] LABS: LDL Cholesterol Direct 86 mg/dL
[2022-08-27 14:21] LABS: Iron 80 ug/dL (37-170)
[2022-08-27 14:30] LABS: Percent Iron Saturation 23 % (20-50)
[2022-08-27 14:46] LABS: Add Urine Microscopic? YES; Appearance Urine Clear (Clear); Bilirubin Urine Negative (Negative); Blood Urine Negative (Negative); Color Urine Yellow (Yellow); Glucose Urine UA Negative (Negative); Ketones Urine Negative (Negative); Leukocyte Esterase Ur 2+ LEU/UL (Negative); Nitrate Urine Negative (Negative); Protein Urine Negative (Negative); RBC Urine 0-2 /hpf (0-2); Specific Grav Ur 1.011 (1.001-1.035); Urobilinogen Urine Negative mg/dL (<2.0); WBC Urine 31-50 /hpf
[2022-08-27 14:58] LABS: Free T4 Free Thyroxine 1.55 ng/mL (0.78-2.19)
[2022-08-27 17:26] LABS: Vitamin D 25 Hydroxy 38.7 ng/mL
== END 2022-08-27 13:16 | disposition home or self-care (01) ==
LOC: ANHLAB 13:18
PROVIDERS: PCP Internal Medicine; Visit Provider Internal Medicine
DX: E03.9 Hypothyroidism, unspecified (principal); I10 Essential (primary) hypertension; D50.9 Iron deficiency anemia, unspecified; E78.2 Mixed hyperlipidemia; Z79.899 Other long term (current) drug therapy; E55.9 Vitamin D deficiency, unspecified; R73.03 Prediabetes
CPT/HCPCS: 36415; 80053; 80061; 81001; 82306; 82728; 83036; 83540; 83550; 84439; 84443; 85025; 87077; 87086; 87186

== ENCOUNTER 2022-11-05 07:00 | Outpatient (CLI) | payer MEDICARE, SELFPAY ==
--- NOTE | ~2022-11-05 | XR_ITS ---
Clinical Indication: Cough PA and lateral views of the chest: Comparison: 04/12/2020 Findings: The lungs are clear, without evidence of focal consolidation or pleural effusion. Cardiome diastinal silhouette is unchanged, with stable prominence of the bilateral hilar regions. Extensive m itral and or calcification again present. Bones and soft tissues are unremarkable. Impression: Prominent central pulmonary vessels. Correlate for pulmonary artery hypertension or central venous co ngestive change. No acute abnormality. Reviewed, dictated and finalized at location M. [employer] Impression: Prominent central pulmonary vessels. Correlate for pulmonary artery hypertensio n or central venous congestive change. No acute abnormality.
== END 2022-11-05 07:01 | disposition home or self-care (01) ==
PROVIDERS: PCP Internal Medicine; Visit Provider Internal Medicine
DX: R05.9 Cough, unspecified (principal)
CPT/HCPCS: 71046

== ENCOUNTER 2022-12-13 15:22 | Outpatient (CLI) | payer MEDICARE, SELFPAY ==
--- NOTE | ~2022-12-13 | XR_ITS ---
EXAMINATION: XR cervical spine 4-5V DATE: 12/13/2022 15:49 INDICATION: Pain in left shoulder. TECHNIQUE: 4 views of cervical spine were obtained. COMPARISON: None. FINDINGS: There is 4 degrees levocurvature of cervical spine. There is kyphosis of cervical spine. Th ere is 2 mm anterolisthesis of C3 on C4. Vertebral body heights are normal. There is mildly decreased disc height at C3-C4 and severely decreased disc height at C4-C5, C5-C6, and C6-C7. There is multile jake uncovertebral joint osteoarthritis, severe on the right at C3-C4 and severe bilaterally from C4-C 5 through C6-C7. There is multilevel mild facet joint osteoarthritis. There is mild central canal glendy nosis at C3-C4, C4-C5, and C5-C6, and C6-C7. No prevertebral soft tissue swelling. IMPRESSION: 1. Severe cervical spondylosis. Reviewed, dictated and finalized at location A. [employer]
--- NOTE | ~2022-12-13 | XR_ITS ---
EXAMINATION: XR shoulder LT min 2V DATE: 12/13/2022 15:49 INDICATION: Left shoulder pain. TECHNIQUE: 4 views of left shoulder were obtained. COMPARISON: None. FINDINGS: Bone alignment is normal. No fracture. There is severe osteoarthritis of acromioclavicular joint and mild osteoarthritis of glenohumeral joint. There is calcific tendinitis of infraspinatus te ndon. IMPRESSION: 1. Polyarticular osteoarthritis. 2. Calcific tendinitis of the infraspinatus tendon. Reviewed, dictated and finalized at location A. Y FARMER
== END 2022-12-13 15:23 | disposition home or self-care (01) ==
LOC: ANHIMG 15:26
PROVIDERS: PCP Internal Medicine; Visit Provider Internal Medicine
DX: M47.892 Other spondylosis, cervical region (principal); M19.012 Primary osteoarthritis, left shoulder; M75.32 Calcific tendinitis of left shoulder
CPT/HCPCS: 72050; 73030

== ENCOUNTER 2023-01-08 11:34 | Outpatient (CLI) | payer MEDICARE, SELFPAY ==
[2023-01-08 12:02] LABS: Hemoglobin A1C 5.5 % (<5.7)
[2023-01-08 12:04] LABS: Alanine Aminotransferase 25 U/L (6-35); Albumin Level 4.6 g/dL (3.5-5.1); Alkaline Phosphatase 110 U/L (38-126); Anion Gap 9 mmol/L (8-16); Aspartate Amino Transferase 27 U/L (14-36); Bilirubin,Total 0.6 mg/dL (0.2-1.3); Blood Urea Nitrogen 25 mg/dL (7-17); Calcium 9.2 mg/dL (8.4-10.2); Carbon Dioxide 29 mmol/L (22-30); Chloride 104 mmol/L (98-107); Cholesterol 158 mg/dL (0-200); Estimated Glomerular Filt Rate > 60; Glucose 108 mg/dL (65-110); HDL Direct 47 mg/dL; Potassium 4.1 mmol/L (3.4-5.0); Sodium 142 mmol/L (137-145); Triglycerides 158 mg/dL (<150)
[2023-01-08 12:15] LABS: LDL Cholesterol Direct 75 mg/dL
[2023-01-08 14:04] LABS: Vitamin D 25 Hydroxy 69.5 ng/mL
== END 2023-01-08 11:35 | disposition home or self-care (01) ==
PROVIDERS: PCP Internal Medicine; Visit Provider Internal Medicine
DX: E11.22 Type 2 diabetes mellitus with diabetic chronic kidney disease (principal); E03.9 Hypothyroidism, unspecified; E78.2 Mixed hyperlipidemia; E55.9 Vitamin D deficiency, unspecified; I12.9 Hypertensive chronic kidney disease with stage 1 through stage 4 chronic kidney disease, or unspecified chronic kidney disease; N18.1 Chronic kidney disease, stage 1
CPT/HCPCS: 36415; 80053; 80061; 82306; 83036; 84439; 84443

== ENCOUNTER 2023-02-20 15:24 | Outpatient (CLI) | payer MEDICARE, SELFPAY ==
[2023-02-20 16:11] LABS: CRP 0.7 mg/dL (<1.0)
[2023-02-20 16:25] LABS: Erythrocyte Sedimentation Rate 63 mm/hr (0-20)
[2023-02-20 17:27] LABS: Rheumatoid Factor < 8.6 IU/ML (<12)
[2023-02-24 12:03] LABS: Anti Cyclic Citrullinated Pept <16 Units (<20)
== END 2023-02-20 15:25 | disposition home or self-care (01) ==
PROVIDERS: PCP Internal Medicine; Visit Provider Orthopaedic Surgery
DX: M25.571 Pain in right ankle and joints of right foot (principal); M25.512 Pain in left shoulder; M13.879 Other specified arthritis, unspecified ankle and foot
CPT/HCPCS: 36415; 85652; 86038; 86140; 86200; 86430

== ENCOUNTER 2023-03-05 14:28 | Outpatient (CLI) | payer MEDICARE, SELFPAY ==
--- NOTE | ~2023-03-05 | MR_ITS ---
EXAMINATION: MR shoulder LT wo con DATE: 03/05/2023 15:47 INDICATION: Left shoulder pain TECHNIQUE: Magnetic resonance imaging (MRI) of the left shoulder was performed without intravenous co ntrast. Sequences included axial PD-weighted FS FSE, coronal oblique PD-weighted FS FSE, coronal obli que T2-weighted FS FSE, sagittal PD-weighted FS FSE, and sagittal T1-weighted SE. COMPARISON: None. FINDINGS: Evaluation mildly limited by some degree of motion artifact or blurring on all sequences. Coracoacromial arch: The acromion undersurface is curved in morphology with anterior hook (type III). The coracoacromial l igament is normal. Severe acromioclavicular osteoarthritis with small inferiorly directed osteophytes and mild subarticular cystic changes at both sides of the joint space. Rotator cuff: Approximately 9 x 4 x 4 mm globular region of low signal intensity at the posterior aspect of the gre ater tuberosity at the distal aspect of the posterior infraspinatus tendon corresponding to the calci fic tendinitis as noted on the prior radiographs. There is full-thickness tear of the entire supraspi natus tendon and all but a few of the posterior most infraspinatus tendon fibers which extends anteri melonie to involve the cephalad two thirds of the lesser tuberosity insertion of the subscapularis tendo n. There is severe tendinopathy involving the distal 3 cm the supraspinatus tendon which is retracted approximately 3.5 cm medially positioned midway there is between the level of the lateral rim of the acromion and the rim of the glenoid. There is both mild fatty atrophy as well as medial retraction o f the subscapularis, supraspinatus and infraspinatus muscles. There is also prominent feathery muscul ar edema within the supraspinatus and infraspinatus muscle bellies which along with the relatively mi ld fatty atrophy suggest the tear or at least the completion to full-thickness is relatively recent. The teres minor tendon and muscle belly remain normal. Biceps tendon, glenoid labrum and glenohumeral cartilage: Full-thickness tear of the long head biceps tendon. To severe tendinopathy of the intra-articular por tion of the tendon which remains attached to the glenoid and it shows reflected posterior superiorly. The extra articular portion of the tendon is retracted below the level of the intertubercular groove . There is partial thickness cartilage loss at the glenoid most prominent posterior superiorly there is small region of underlying subarticular cystlike change. There is degeneration of the superior to posterosuperior glenoid labrum. Fluid: Moderate-sized glenohumeral joint effusion which extends through the full-thickness rotator cuff tear to communicate with the subacromial/subdeltoid bursa. No loose osteochondral bodies. Bones: There is cephalad subluxation of the humeral head with respect to the glenoid with narrowing of the s ubacromial space secondary to the full-thickness rotator cuff tear. No fracture or pathologic marrow replacing process. Moderate cystic changes at the greater tuberosity likely related to chronic rotato r cuff disease. IMPRESSION: 1. Massive full-thickness rotator cuff tear involving the entire supraspinatus tendon, nearly the ent ellen supraspinatus tendon and the cephalad two thirds of the subscapularis tendon. 2. Underlying calcific tendinitis along the posterior margin of the torn infraspinatus tendon. 3. Severe tendinopathy and complete tear of the long head biceps tendon. 4. Mild glenohumeral osteoarthritis with small regions of high-grade chondromalacia and adjacent labr al tear at the superior glenoid. 5. Moderate-sized glenohumeral joint effusion. Reviewed, dictated and finalized at location B.
== END 2023-03-05 14:29 | disposition home or self-care (01) ==
PROVIDERS: PCP Internal Medicine; Visit Provider Orthopaedic Surgery
DX: M25.412 Effusion, left shoulder (principal); M19.012 Primary osteoarthritis, left shoulder; M75.122 Complete rotator cuff tear or rupture of left shoulder, not specified as traumatic
CPT/HCPCS: 73221

== ENCOUNTER 2023-03-12 14:32 | Outpatient (CLI) | payer MEDICARE, SELFPAY ==
--- NOTE | ~2023-03-12 | MR_ITS ---
EXAMINATION: MR cervical spine wo/w con DATE: 03/12/2023 15:42 INDICATION: Neck pain TECHNIQUE: Magnetic resonance imaging (MRI) of the cervical spine was performed without intravenous c ontrast. Sequences included sagittal T2-weighted FSE, sagittal T2-weighted FS FSE, sagittal T1-weight ed FSE, axial MERGE and axial T2-weighted FSE. COMPARISON: Helical spine radiographs dated 12/13/2022 FINDINGS: Unchanged reversal of the normal cervical lordosis and mild dextrocurvature. 2 mm anterolisthesis C7 on T1. Vertebral body heights are normal. Bone marrow signal intensity is normal. Severe disc height loss at C4-C5, C5-C6 and C6-C7. Mild disc height loss at C3-C4. Cord signal intensity is normal. Cer vical soft tissues are unremarkable. No abnormally enhancing lesions identified. The following disc l evels are specifically discussed: C2-C3: The disc does not extend beyond the endplate margin. There is mild bilateral uncovertebral alcides nt osteoarthritis. There is moderate right and severe left facet joint osteoarthritis. There is mild left neural foraminal stenosis. There is no central canal stenosis. C3-C4: Disc is bulging with annular fissure and small central disc extrusion with small amount of dis c material extending couple millimeters cephalad to the level of the inferior endplate of C3. There i s moderate bilateral uncovertebral joint osteoarthritis. There is mild right and severe left facet myrtle int osteoarthritis. There is mild right and mild to moderate left neural foraminal stenosis. There is mild central canal stenosis. C4-C5: Disc is bulging. There is moderate left and severe right uncovertebral joint osteoarthritis. T here is moderate left and severe right facet joint osteoarthritis. There is mild left and moderate ri ght neural foraminal stenosis. There is mild central canal stenosis with indentation of the ventral s urface of the cord. C5-C6: Disc is bulging. There is severe bilateral uncovertebral joint osteoarthritis. There is mild t o moderate bilateral facet joint osteoarthritis. There is moderate bilateral, right greater than left neural foraminal stenosis. There is mild central canal stenosis with indentation of the central vent ral surface of the cord. C6-C7: Disc is bulging. There is severe bilateral uncovertebral joint osteoarthritis. There is modera te bilateral facet joint osteoarthritis. There is moderate right and moderate to severe left neural f oraminal stenosis. There is mild central canal stenosis with mild flattening the ventral surface of t he cord. C7-T1: Disc is mildly bulging. There is mild left uncovertebral joint osteoarthritis. There is modera te right and severe left facet joint osteoarthritis. There is mild right and moderate left neural for aminal stenosis. There is mild central canal stenosis. IMPRESSION: 1. Severe cervical spondylosis. Reviewed, dictated and finalized at location A.
== END 2023-03-12 14:33 | disposition home or self-care (01) ==
PROVIDERS: PCP Internal Medicine; Referring Provider Orthopaedic Surgery; Visit Provider Internal Medicine
DX: M47.892 Other spondylosis, cervical region (principal)
CPT/HCPCS: 72156; A9577

== ENCOUNTER 2023-03-23 20:31 | Emergency (ER) | payer MEDICARE, SELFPAY ==
[2023-03-23 20:42] VITALS: BP 138/52; PULSE 65; RESP 14; TEMP 36.8; O2SAT 100
--- NOTE | 2023-03-23 21:49 | ED.GENADULT ---
HPI - General Adult General Chief complaint: Extremity Injury, Upper Stated complaint: left arm hematoma Time Seen by Provider: 03/23/23 21:06 Source: patient Mode of arrival: ambulatory Limitations: no limitations History of Present Illness HPI narrative: This is an 83-year-old female who presents to the ED with chief complaint of bruising to the left upper arm. Denies any injuries or trauma to the arm. She is unsure why this bruising started. Reports she takes a baby aspirin daily. She is unsure why she takes the baby aspirin. Denies any pain or increased swelling of the arm. Denies any recent hospitalization. Denies any problems with range of motion. Denies fevers, chills. Related Data Home Medications Medication Instructions Recorded Confirmed cyanocobalamin (vitamin B-12) 1,000 mcg PO DAILY 09/09/19 03/11/23 1,000 mcg capsule niacin 400 mg (inositol niacinate 500 cap PO DAILY 10/28/19 03/11/23 500 mg) capsule (Niacin Flush Free) tramadol 50 mg tablet 100 mg PO Q6H PRN Pain 04/19/20 03/11/23 cholecalciferol (vitamin D3) 125 125 mcg PO DAILY 05/09/21 03/11/23 mcg (5,000 unit) capsule multivit with min #53-FA 200 cap PO 02/10/23 03/11/23 mcg-vit K 1,000 mcg-coQ10 10 mg capsule omega 1-non-afy-fish oil 100 cap PO 02/10/23 03/11/23 mg-160 mg-1,000 mg capsule (Fish Oil) Allergies Allergy/AdvReac Type Severity Reaction Status Date / Time latex Allergy Severe SEVERE Verified 03/23/23 20:32 SWELLING vancomycin Allergy Severe SEVERE Verified 03/23/23 20:32 ITCHING 2009 Aminoglycosides Allergy Mild Swelling Verified 03/23/23 20:32 hydrocodone Allergy Mild Rash Verified 03/23/23 20:32 neomycin Allergy Mild Swelling Verified 03/23/23 20:32 oxycodone Allergy Mild Unknown Verified 03/23/23 20:32 polymyxin B Allergy Unknown SWELLING Verified 03/23/23 20:32 diclofenac AdvReac Severe STOMACH Verified 03/23/23 20:32 UPSET - CAN TAKE ALEVE [place] misoprostol AdvReac Severe STOMACH Verified 03/23/23 20:32 UPSET piroxicam AdvReac Severe STOMACH Verified 03/23/23 20:32 UPSET propoxyphene AdvReac Severe STOMACH Verified 03/23/23 20:32 UPSET sertraline AdvReac Severe STOMACH Verified 03/23/23 20:32 UPSET Iodine and Iodide Containing AdvReac Swelling Verified 03/23/23 20:32 Produc Review of Systems Review of Systems: CONSTITUTIONAL: Denies fever, chills, or sweats. EYES: Denies visual changes, redness, or discharge. ENT: Denies rhinorrhea, congestion, sore throat, or otalgia. CARDIOVASCULAR: Denies chest pain, palpitations, or edema. RESPIRATORY: Denies cough or dyspnea. GASTROINTESTINAL: Denies abdominal pain, nausea, vomiting, or diarrhea. GENITOURINARY: Denies dysuria or hematuria. SKIN: See HPI MUSCULOSKELETAL: Denies back pain, joint pain, or myalgia. NEUROLOGIC: Denies headache, numbness, dizziness, or weakness. PSYCHIATRIC: Denies anxiety or depression. [facility] Past Medical History Medical History (Updated 03/24/23 @ 00:00 by Background Daemon) Ankle arthritis Arthritis Back pain Benign essential hypertension Bilateral arm pain Calcification of mitral valve Chronic anemia With mild thrombocytopenia. Chronic pain of right ankle Dermatitis Diastolic dysfunction DJD (degenerative joint disease) Dysuria Hammertoe of left foot Hearing loss History of atrial fibrillation Hospital discharge follow-up Insomnia Iron deficiency anemia Low back pain Mild chronic obstructive pulmonary disease Mitral valve sclerosis Mixed hyperlipidemia Patient reports statin intolerance. Numbness and tingling in left hand Personal history of COVID-19 Pre-diabetes Rectal vaginal fistula Restless leg syndrome Right flank pain Sinus drainage Skin puncture Statin intolerance Stress UTI (urinary tract infection) Vaginal Discharge Vitamin D deficiency Surgical History Surgical History History of appen
== END 2023-03-23 22:13 | disposition home or self-care (01) ==
PROVIDERS: Emergency Provider Physician Assistant; PCP Internal Medicine
DX: R23.3 Spontaneous ecchymoses (principal); I10 Essential (primary) hypertension; I48.91 Unspecified atrial fibrillation; J44.9 Chronic obstructive pulmonary disease, unspecified; D50.9 Iron deficiency anemia, unspecified; E78.2 Mixed hyperlipidemia; R73.03 Prediabetes; G25.81 Restless legs syndrome; E55.9 Vitamin D deficiency, unspecified; M19.079 Primary osteoarthritis, unspecified ankle and foot; Z96.653 Presence of artificial knee joint, bilateral; Z86.16 Personal history of COVID-19; Z87.440 Personal history of urinary (tract) infections; Z87.891 Personal history of nicotine dependence; Z90.49 Acquired absence of other specified parts of digestive tract; Z79.82 Long term (current) use of aspirin
CPT/HCPCS: 99281

== ENCOUNTER 2023-03-24 08:17 | Outpatient (CLI) | payer MEDICARE, SELFPAY ==
[2023-03-24 08:43] LABS: Basophils Percent Auto 0.4 % (0.2-1.2); Eosinophils Absolute Auto 0.1 K/mm3 (0-0.3); Eosinophils Percent Auto 1.9 % (0-4.4); Hematocrit 37.1 % (37.0-47.0); Hemoglobin 11.8 g/dL (12.0-15.0); Immature Granulocyte Absolute 0.01 K/mm3 (0.00-0.031); Immature Granulocyte Percent A 0.1 % (0-0.5); Lymphocytes Absolute Auto 1.39 K/mm3 (0.9-3.2); Mean Corpuscular HGB Conc 31.8 g/dl (32-36); Mean Corpuscular Hemoglobin 29.7 pg (26-34); Mean Corpuscular Volume 93.5 fl (80-100); Monocytes Absolute Auto 0.5 K/mm3 (0.1-0.6); Monocytes Percent Auto 6.6 % (2.6-8.5); Neutrophils Absolute Auto 5.3 K/mm3 (1.3-6.7); Platelet Count Result 147 k/mm3 (150-375); Red Blood Count 3.97 M/mm3 (4.2-5.4); Red Cell Distribution Width 13.5 % (11.5-14.5); White Blood Count 7.3 K/mm3 (4.5-10.0)
== END 2023-03-24 08:18 | disposition home or self-care (01) ==
PROVIDERS: PCP Internal Medicine; Visit Provider Internal Medicine
DX: D50.9 Iron deficiency anemia, unspecified (principal); N18.9 Chronic kidney disease, unspecified; Z86.79 Personal history of other diseases of the circulatory system
CPT/HCPCS: 36415; 85025

== ENCOUNTER 2023-05-14 15:37 | Outpatient (CLI) | payer MEDICARE, SELFPAY ==
[2023-05-14 17:41] LABS: Basophils Percent Auto 0.5 % (0.2-1.2); Eosinophils Absolute Auto 0.2 K/mm3 (0-0.3); Hematocrit 35.9 % (37.0-47.0); Hemoglobin 11.3 g/dL (12.0-15.0); Immature Granulocyte Absolute 0.03 K/mm3 (0.00-0.031); Immature Granulocyte Percent A 0.4 % (0-0.5); Lymphocytes Absolute Auto 2.13 K/mm3 (0.9-3.2); Lymphocytes Percent Auto 25.6 % (18.3-44.2); Mean Corpuscular HGB Conc 31.5 g/dl (32-36); Mean Corpuscular Hemoglobin 29.7 pg (26-34); Mean Corpuscular Volume 94.5 fl (80-100); Mean Platelet Volume 11.1 fl (7.4-10.4); Monocytes Absolute Auto 0.6 K/mm3 (0.1-0.6); Neutrophils Absolute Auto 5.4 K/mm3 (1.3-6.7); Neutrophils Percent Auto 64.5 % (45.5-73.1); Platelet Count Result 161 k/mm3 (150-375); Red Cell Distribution Width 13.6 % (11.5-14.5); White Blood Count 8.3 K/mm3 (4.5-10.0)
[2023-05-14 17:51] LABS: Alanine Aminotransferase 24 U/L (6-35); Albumin Level 4.2 g/dL (3.5-5.1); Alkaline Phosphatase 103 U/L (38-126); Anion Gap 4 mmol/L (8-16); Aspartate Amino Transferase 31 U/L (14-36); Bilirubin,Total 0.5 mg/dL (0.2-1.3); Blood Urea Nitrogen 30 mg/dL (7-17); Calcium 9.2 mg/dL (8.4-10.2); Carbon Dioxide 30 mmol/L (22-30); Chloride 99 mmol/L (98-107); Cholesterol 167 mg/dL (0-200); Estimated Glomerular Filt Rate > 60; Glucose 102 mg/dL (65-110); HDL Direct 44 mg/dL; Hemoglobin A1C 5.6 % (<5.7); Potassium 4.2 mmol/L (3.4-5.0); Sodium 133 mmol/L (137-145); Triglycerides 167 mg/dL (<150)
[2023-05-14 17:57] LABS: Iron 84 ug/dL (37-170)
[2023-05-14 18:02] LABS: LDL Cholesterol Direct 80 mg/dL
[2023-05-14 18:07] LABS: Percent Iron Saturation 23 % (20-50)
[2023-05-14 18:15] LABS: Free T4 Free Thyroxine 1.47 ng/mL (0.78-2.19)
== END 2023-05-14 15:38 | disposition home or self-care (01) ==
LOC: ANHLAB 15:40
PROVIDERS: PCP Internal Medicine; Visit Provider Internal Medicine
DX: E03.9 Hypothyroidism, unspecified (principal); E11.22 Type 2 diabetes mellitus with diabetic chronic kidney disease; I12.9 Hypertensive chronic kidney disease with stage 1 through stage 4 chronic kidney disease, or unspecified chronic kidney disease; E78.2 Mixed hyperlipidemia; D50.9 Iron deficiency anemia, unspecified; N18.1 Chronic kidney disease, stage 1
CPT/HCPCS: 36415; 80053; 80061; 82728; 83036; 83540; 83550; 84439; 84443; 85025

== ENCOUNTER 2023-08-19 09:03 | Outpatient (CLI) | payer MEDICARE, SELFPAY ==
--- NOTE | 2023-08-19 11:00 | NEURO_ITS ---
Impression: # Metformin dependent diabetic with osteoarthritic complains of weakness of right hand and numbness of 5th finger. # Right Carpal Tunnel Syndrome. 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 # Neurogenic changes in the muscles as mentioned. Nerve Conduction Studies Anti Sensory Summary Table Stim Site NR Peak (ms) P-T Amp (?V) Site1 Site2 Delta-P (ms) Dist (cm) Oniel (m/s) Right Median Anti Sensory (2-3nd Digit) Wrist 4.3 12.1 Wrist 2-3nd Digit 4.3 14.0 33 Wrist 3.7 14.2 Wrist 2-3nd Digit 4.3 14.0 33 Right Radial Anti Sensory (Base 1st Digit) Wrist 2.6 7.2 Wrist Base 1st Digit 2.6 0.0 Right Ulnar Anti Sensory (5th Digit) NO RESPONSE Wrist NR Wrist 5th Digit 14.0 Motor Summary Table Stim Site NR Onset (ms) O-P Amp (mV) Site1 Site2 Delta-0 (ms) Dist (cm) Oniel (m/s) Right Median Motor (Abd Poll Brev) 9.7 1.6 Right Ulnar Motor (Abd Dig Minimi) NO RESPONSE Wrist NR A Elbow Wrist 0.0 A Elbow NR F Wave Studies NR F-Lat (ms) L-R F-Lat (ms) Right Median (Mrkrs) (Abd Poll Brev) 29.98 Right Ulnar (Mrkrs) (Abd Dig Min) 30.53 EMG Side Muscle Nerve Root Ins Act Fibs Amp Dur Recrt Comment Right 1stDorInt Ulnar C8-T1 Nml Nml Decr >12ms Reduced Right Ext Indicis Radial (Post Int) C7-8 Nml Nml Nml Nml Nml Right Ext Digitorum Radial (Post Int) C7-8 Nml Nml Nml Nml Nml Right BrachioRad Radial C5-6 Nml Nml Nml Nml Nml Right PronatorTeres Median C6-7 Nml Nml Nml Nml Nml Right Abd Poll Brev Median C8-T1 Nml Nml Nml Nml Reduced Right ABD Dig Min Ulnar C8-T1 Nml Nml Decr >12ms Reduced MTDD
== END 2023-08-19 09:04 | disposition home or self-care (01) ==
LOC: ANHNEURO 09:04
PROVIDERS: PCP Internal Medicine; Visit Provider Plastic Surgery
DX: G56.21 Lesion of ulnar nerve, right upper limb (principal); G56.01 Carpal tunnel syndrome, right upper limb
CPT/HCPCS: 95886; 95909

== ENCOUNTER 2023-09-23 15:28 | Outpatient (RCR) | payer MEDICARE, SELFPAY ==
--- NOTE | 2023-09-23 16:32 | OPREHPOC ---
Outpatient Therapy Plan of Care This is a Multidisciplinary Plan of Care that may contain components documented by all disciplines (PT, OT, and ST.) PT Problem 1 PT Problem #1 Knowledge Deficit PT Goal 1 Goal 1* indep with HEP 2* indep with R lower leg compression garment don/ doffing & wearing schedule PT Problem 2 PT Problem #2 Pain PT Goal 1 Goal 1* decrease pain R ankle / foot to 7/10 at worst PT Problem 3 PT Problem #3 Impaired Flexibility PT Goal 1 Goal R ankle active ROM in sittin* DF' 2* PF 20' PT Problem 4 PT Problem #4 Impaired Lymphatic System PT Goal 1 Goal decreased lymphedema of R lower le* decrease circumferential measurement, to 40 cm from bottom of foot: 360 cm 2* no fibrotic tissue over lower leg 3* no redness over anterior lower leg 4* no edema at dorsum of foot
--- NOTE | 2023-09-23 16:32 | PTOPEVAL1 ---
Assessment and note entered by Fauzia Cortez, PT Evaluation Information Assessment Status Evaluation Diagnosis R foot and ankle pain/ lymphedema Onset 6 months Subjective Information have severe arthritis in R foot- have had cortisone shots in foot; problems with foot wear due to swelling, pain in feet, hammer toes of both feet; have had PT at another facility for balance and legs; ACTIVITY; use cane or wheeled walker for mobility; at home, can do everything, just slower and use walker; walking/standing tolerance is limited due to tired, not foot hurting; Reported Pain Level Pain Score Self Report Additional Pain Score Comments pain range in the past week 0-9/10; top and medial arch area of R foot; pain increases with initially getting up, then after moving, is better Assessment PT Clinical Summary Alexus has the diagnosis of R foot and ankle pain, with lymphedema. She has had TKR and abdominal surgeries, with arthritis in her foot. She uses a wheeled walker due to pain in her foot and ankle. With the evaluation: the circumferential measurement, from the bottom of her foot to 40 cm: her R lower leg is 16.6 cm larger than her L; with skin inspection, there is redness and firmness over lower leg tissue, with dorsum of foot and medial & lateral malleoli edema. She has decreased ROM of R ankle due to arthritis and lymphedema. Skilled PT services are indicated for lymphedema treatment--complete decongestive therapy--multi layer compression wraps, manual lymph drainage, intermittent compression pumps with education for ankle exercises, self management of lymphedema and skin care; recommendation for compression garment for her to obtain once reduction achieved. Plan of Care Interventions Intermittent Compression pump,Lymphedema Compression Wrap ,Manual Lymph Drainage,Therapeutic Exercise,education PT Services Indicated Yes Treatment Frequency and 3x/wk for 6 weeks Duration These treatments will address the objective and functional defi
--- NOTE | 2023-10-06 13:56 | PTOPDC ---
Assessment and note entered by Fauzia Cortez, PT DISCHARGE Information Assessment PT Clinical Summary DISCHARGE PHYSICAL THERAPY Alexus called today and I returned her phone call. We had discussion for about 8 minutes. She voiced concern about the treatment that was involved with lymphedema-- compression wraps and not being able to take it off; wants massage only for her legs; going to have elbow surgery in November; all of the events with the holiday and evangelical choir; afraid she will not be able to drive with the wraps; have a cable tool driller appointment and may have to have surgery on plantar wart; after reading all of the educational & treatment information about lymphedema, it has sunk in and does not think she wants treatment at this time. Discussed and reviewed the info given to her at evaluation appointment--treatment plan, compression wraps, compression garment. Her questions were answered. Informed her that if she wants treatment in the future, will require a new dr order and will have to be on the waiting list for treatment. Discharge PT at this time, per pt request. The goals were not met--pt had initial eval only. Plan of Care PT Services Indicated No
== END 2023-10-06 14:17 | disposition home or self-care (01) ==
LOC: ANHPT 15:28
PROVIDERS: PCP Internal Medicine; Visit Provider Orthopaedic Surgery
DX: M25.571 Pain in right ankle and joints of right foot (principal); M19.079 Primary osteoarthritis, unspecified ankle and foot
CPT/HCPCS: 97161; 97530

== ENCOUNTER 2023-10-09 11:33 | Outpatient (CLI) | payer MEDICARE, SELFPAY ==
[2023-10-09 12:25] LABS: Basophils Percent Auto 0.5 % (0.2-1.2); Eosinophils Absolute Auto 0.2 K/mm3 (0-0.3); Eosinophils Percent Auto 2.5 % (0-4.4); Hematocrit 35.8 % (37.0-47.0); Hemoglobin 10.8 g/dL (12.0-15.0); Immature Granulocyte Absolute 0.02 K/mm3 (0.00-0.031); Immature Granulocyte Percent A 0.3 % (0-0.5); Lymphocytes Absolute Auto 1.49 K/mm3 (0.9-3.2); Lymphocytes Percent Auto 23.5 % (18.3-44.2); Mean Corpuscular HGB Conc 30.2 g/dl (32-36); Mean Corpuscular Hemoglobin 28.3 pg (26-34); Mean Platelet Volume 11.2 fl (7.4-10.4); Monocytes Absolute Auto 0.4 K/mm3 (0.1-0.6); Monocytes Percent Auto 6.6 % (2.6-8.5); Neutrophils Absolute Auto 4.2 K/mm3 (1.3-6.7); Neutrophils Percent Auto 66.6 % (45.5-73.1); Platelet Count Result 148 k/mm3 (150-375); Red Blood Count 3.81 M/mm3 (4.2-5.4); Red Cell Distribution Width 13.6 % (11.5-14.5); White Blood Count 6.4 K/mm3 (4.5-10.0)
[2023-10-09 12:58] LABS: Alanine Aminotransferase 19 U/L (6-35); Albumin Level 4.2 g/dL (3.5-5.1); Alkaline Phosphatase 111 U/L (38-126); Anion Gap 7 mmol/L (8-16); Aspartate Amino Transferase 25 U/L (14-36); Bilirubin,Total 0.4 mg/dL (0.2-1.3); Blood Urea Nitrogen 32 mg/dL (7-17); Carbon Dioxide 29 mmol/L (22-30); Chloride 105 mmol/L (98-107); Cholesterol 150 mg/dL (0-200); Estimated Glomerular Filt Rate 60; Glucose 113 mg/dL (65-110); HDL Direct 45 mg/dL; Potassium 4.2 mmol/L (3.4-5.0); Sodium 141 mmol/L (137-145); Triglycerides 151 mg/dL (<150)
[2023-10-09 13:06] LABS: LDL Cholesterol Direct 73 mg/dL
[2023-10-09 13:56] LABS: Hemoglobin A1C 5.5 % (<5.7)
== END 2023-10-09 11:34 | disposition home or self-care (01) ==
PROVIDERS: PCP Internal Medicine; Visit Provider Internal Medicine
DX: E78.2 Mixed hyperlipidemia (principal); I10 Essential (primary) hypertension; E11.9 Type 2 diabetes mellitus without complications; E11.22 Type 2 diabetes mellitus with diabetic chronic kidney disease
CPT/HCPCS: 36415; 80053; 80061; 83036; 85025

== ENCOUNTER 2023-10-14 14:28 | Outpatient (CLI) | payer MEDICARE, SELFPAY ==
--- NOTE | ~2023-10-14 | XR_ITS ---
EXAM: XR wrist LT min 3V DATE: 10/14/2023 15:01 HISTORY: M25.532 - Pain in left wrist, HEAT IN JOINT . COMPARISON: 06/26/2019. FINDINGS: Decreased mineralization. No acute fracture or dislocation. No lytic or blastic lesion. In creased sclerosis in the lunate. Ulnar negative variance. Severe degenerative change at the triscaphe joint. Increased scapholunate angle as can be seen with dorsal age-related segmental instability (DI SI). Increased scapholunate widening, increased settling of the capitate bone relative to the radius. 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 New degenerative change at th e junction of the ulnar styloid and triquetrum. Large subchondral cyst in the radial styloid. No eros ion or periosteal change. Chondrocalcinosis. 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 Significant degenerative change in the wrist including findings of DISI and SLAC. Reviewed, dictated and finalized at location K. 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 Significant degenerative change in the wrist including findings of DISI and SLA C.
== END 2023-10-14 14:29 | disposition home or self-care (01) ==
PROVIDERS: PCP Internal Medicine; Visit Provider Internal Medicine
DX: M25.432 Effusion, left wrist (principal); M25.532 Pain in left wrist; R93.7 Abnormal findings on diagnostic imaging of other parts of musculoskeletal system
CPT/HCPCS: 73110

== ENCOUNTER 2023-10-29 09:45 | Outpatient (CLI) | payer MEDICARE, SELFPAY ==
[2023-10-29 10:19] LABS: Basophils Percent Auto 0.6 % (0.2-1.2); Eosinophils Absolute Auto 0.2 K/mm3 (0-0.3); Eosinophils Percent Auto 2.2 % (0-4.4); Hematocrit 35.7 % (37.0-47.0); Hemoglobin 10.7 g/dL (12.0-15.0); Immature Granulocyte Absolute 0.04 K/mm3 (0.00-0.031); Immature Granulocyte Percent A 0.6 % (0-0.5); Lymphocytes Absolute Auto 1.43 K/mm3 (0.9-3.2); Lymphocytes Percent Auto 19.7 % (18.3-44.2); Mean Corpuscular Hemoglobin 28.8 pg (26-34); Mean Corpuscular Volume 96.2 fl (80-100); Mean Platelet Volume 11.1 fl (7.4-10.4); Monocytes Absolute Auto 0.5 K/mm3 (0.1-0.6); Monocytes Percent Auto 6.2 % (2.6-8.5); Neutrophils Absolute Auto 5.2 K/mm3 (1.3-6.7); Neutrophils Percent Auto 70.7 % (45.5-73.1); Platelet Count Result 145 k/mm3 (150-375); Red Blood Count 3.71 M/mm3 (4.2-5.4); Red Cell Distribution Width 13.9 % (11.5-14.5); White Blood Count 7.3 K/mm3 (4.5-10.0)
[2023-10-29 10:30] LABS: Alanine Aminotransferase 20 U/L (6-35); Alkaline Phosphatase 112 U/L (38-126); Anion Gap 9 mmol/L (8-16); Aspartate Amino Transferase 27 U/L (14-36); Bilirubin,Total 0.5 mg/dL (0.2-1.3); Blood Urea Nitrogen 27 mg/dL (7-17); Calcium 8.9 mg/dL (8.4-10.2); Carbon Dioxide 27 mmol/L (22-30); Chloride 103 mmol/L (98-107); Estimated Glomerular Filt Rate > 60; Glucose 112 mg/dL (65-110); Potassium 4.6 mmol/L (3.4-5.0); Sodium 139 mmol/L (137-145)
[2023-10-29 10:37] LABS: NT Pro B Type Natriuretic Pept 965 pg/mL (19.9-100)
== END 2023-10-29 09:46 | disposition home or self-care (01) ==
LOC: ANHLAB 09:48
PROVIDERS: PCP Internal Medicine; Visit Provider Internal Medicine
DX: I89.0 Lymphedema, not elsewhere classified (principal); R06.02 Shortness of breath; Z79.899 Other long term (current) drug therapy; D50.9 Iron deficiency anemia, unspecified
CPT/HCPCS: 36415; 80053; 83880; 85025

== ENCOUNTER 2023-11-05 01:59 | Day surgery (SDC) | payer MEDICARE, SELFPAY ==
--- NOTE | 2023-10-29 13:31 | PC.NURSE ---
Report to the Outpatient Waiting Room, entrance under the green pavilion located off [facility], at time __0600 on date _11/05/23 . Planned Procedure Time: ____729____. Time changes happen often and if your time is changed the preop area will call you the afternoon before. - You and your visitor will be asked to self-screen and do not enter if you have any COVID symptoms. - A mask is optional within the hospital at this time. NOTHING TO EAT OR DRINK 8 HOURS PRIOR TO SURGERY Take the following medications with a SIP of water the morning of surgery: ___LEVOTHYROXINE DO NOT STOP ANY OF YOUR OTHER PRESCRIPTION MEDICATIONS PRIOR TO SURGERY ?EXCEPT THE FOLLOWING Medications to discontinue per physician ___ALL VITAMINS AND SUPPLEMENTS 3 DAYS PRE OP.LAST DOSE 11/01/23 Please no make-up, nail hungarian, hairspray, perfume, deodorant, or body powder the day of surgery. No jewelry (including any body piercings) or valuables the day of surgery, leave them at home. Please take a shower or bath the night before, or the morning of, surgery with an antibacterial soap. Wear comfortable, loose fitting clothing. Children are encouraged to wear pajamas. - Jewelry must be removed prior to entering the operating room. Rings and piercings that are not removed may be cut off. - The hospital will not accept responsibility for valuables. - Please leave all valuables, including medications, at home the day of surgery. If you are going home after surgery, a licensed truck driver helper must drive you home. - NO public transportation without another adult if you receive anesthesia. - We recommend that an adult stay with you for 24 hours following discharge. - We also recommend that you do not drive, make important decision, drink alcoholic beverages, or take any drugs that were not prescribed by your health care provider for at least 24 hours after your discharge time. For Pediatric surgeries, we recommend two adults accompany the child home. Follow any additional instructions given to you from your surgeon. If you or anyone in your household have experienced Covid symptoms in the past week, please notify your surgeon or the nurse liaison at the phone number below for possible testing. Telephone instructions given to __PATIENT and asked if any additional questions and then verbalized understanding. Patient advised to call surgeon office or pre surgery nurse liaison [phone] if any additional questions.
[2023-10-29 13:41] VITALS: BMI 40.1
[2023-11-05 06:44] VITALS: BP 137/56; PULSE 70; RESP 20; TEMP 36.4; O2SAT 98
[2023-11-05] MEDS: LACTATED RINGERS 1,000 ML 30 ML IV CONT (06:45)
--- NOTE | 2023-11-05 06:54 | WPDANESEPPF ---
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 Patient Data Age: 83 Gender: F Height: 1.5 m Weight: 90 kg Last Vital Signs Temp 36.4 C L 11/05/23 06:44 Pulse 70 11/05/23 06:44 Resp 20 11/05/23 06:44 BP 137/56 L 11/05/23 06:44 Pulse Ox 98 11/05/23 06:44 O2 Del Method Room Air 11/05/23 06:44 Allergies Allergy/AdvReac Type Severity Reaction Status Date / Time latex Allergy Severe SEVERE Verified 11/05/23 06:12 SWELLING vancomycin Allergy Severe SEVERE Verified 11/05/23 06:12 ITCHING 2009 Jmyyyha-VSF-MnS Reductase Allergy Intermediate Muscle Pain Verified 11/05/23 06:12 Inhibitor Aminoglycosides Allergy Mild Swelling Verified 11/05/23 06:12 hydrocodone Allergy Mild Rash Verified 11/05/23 06:12 neomycin Allergy Mild Swelling Verified 11/05/23 06:12 oxycodone Allergy Mild Unknown Verified 11/05/23 06:12 polymyxin B Allergy Unknown SWELLING Verified 11/05/23 06:12 diclofenac AdvReac Severe STOMACH Verified 11/05/23 06:12 UPSET - CAN TAKE ALEVE OK misoprostol AdvReac Severe STOMACH Verified 11/05/23 06:12 UPSET piroxicam AdvReac Severe STOMACH Verified 11/05/23 06:12 UPSET propoxyphene AdvReac Severe STOMACH Verified 11/05/23 06:12 UPSET sertraline AdvReac Severe STOMACH Verified 11/05/23 06:12 UPSET Iodine and Iodide Containing AdvReac Swelling Verified 11/05/23 06:12 Produc Home Medications Medication Instructions Recorded Confirmed Type cyanocobalamin (vitamin B-12) 1,000 mcg PO DAILY 09/09/19 11/05/23 History 1,000 mcg capsule cholecalciferol (vitamin D3) 125 125 mcg PO DAILY 05/09/21 11/05/23 History mcg (5,000 unit) capsule ferrous sulfate 325 mg (65 mg See Rx Instructions .Route 03/21/23 11/05/23 Rx iron) tablet .COMPLEX #180 tabs losartan 100 mg tablet See Rx Instructions .Route 03/27/23 11/05/23 Rx .COMPLEX #90 tabs tramadol 50 mg tablet 50 mg PO QID PRN Pain #45 tabs 06/12/23 11/05/23 Rx potassium chloride 20 mEq See Rx Instructions .Route 06/24/23 11/05/23 Rx tablet,extended release .COMPLEX #90 tabs levothyroxine 88 mcg tablet See Rx Instructions .Route 07/08/23 11/05/23 Rx .COMPLEX #90 tabs metformin 500 mg tablet,extended See Rx Instructions .Route 08/08/23 11/05/23 Rx release 24 hr .COMPLEX #270 tabs folic acid 1 mg tablet See Rx Instructions .Route 09/10/23 11/05/23 Rx .COMPLEX #90 tabs furosemide 80 mg tablet See Rx Instructions .Route 09/12/23 11/05/23 Rx .COMPLEX #90 tabs celecoxib 100 mg capsule (Celebrex) 100 mg PO BID #60 caps 10/14/23 11/05/23 Rx pramipexole 0.75 mg tablet See Rx Instructions .Route 10/14/23 11/05/23 Rx .COMPLEX #90 tabs aspirin 81 mg chewable tablet 162 mg PO DAILY 10/29/23 11/05/23 History (Children's Aspirin) coenzyme [id number] E 100 mg-100 1 cap PO DAILY 10/29/23 11/05/23 History unit capsule inulin 2 gram chewable tablet 2 g PO DAILY 10/29/23 11/05/23 History (Fiber Gummies) nystatin-triamcinolone 100,000 1 applic topical BID FOOT FUNGUS 10/29/23 11/05/23 History unit/g-0.1 % topical cream ezetimibe 10 mg tablet See Rx Instructions .Route 11/04/23 11/05/23 Rx .COMPLEX #90 tabs Patient hx anesthesia problems: none Family hx anesthesia problems: none Results Review: All pre-operative results and documents have been reviewed as part of the pre-operative evaluation. [facility] Past Medical History Medical History Ankle arthritis Arthritis Back pain Benign essential hypertension Bilateral arm pain Calcification of mitral valve Chronic anemia With mild thrombocytopenia. Chronic pain of right ankle Dermatitis Diastolic dysfunction DJD (degenerative joint disease
--- NOTE | 2023-11-05 06:58 | PM.HPGS ---
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 No interval change in medical history or symptoms. Patient recalls previous discussion of benefits and alternatives to procedure. Continues to desire to proceed with right cubital tunnel release. Reviewed procedure, post-op expectations and risks including but not limited to bleeding, infection, injury to tendon/nerve/vessel, decreased hand function, stiffness, RSD, no change or worsening of symptoms. I discussed the possible use of assistants and their participation in the case. Patient stated understanding and signed the consent form wishing to proceed. Review of Systems Review of Systems: All systems reviewed & are unremarkable except as noted in HPI and below PMFSH Past Medical History Medical History Ankle arthritis Arthritis Back pain Benign essential hypertension Bilateral arm pain Calcification of mitral valve Chronic anemia With mild thrombocytopenia. 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 Numbness and tingling in left hand Personal history of COVID-19 Pre-diabetes Rash Rectal vaginal fistula Restless leg syndrome Right ankle pain Right flank pain Rotator cuff tear, left Sinus drainage Skin puncture Statin intolerance Stress Tear of biceps tendon UTI (urinary tract infection) Vaginal Discharge Vitamin D deficiency Surgical History Surgical History History of appendectomy History of bilateral carpal tunnel release History of bilateral knee arthroplasty History of cardiac catheterization (03/2014) Normal coronary arteries. History of carpal tunnel release History of cholecystectomy History of hysterectomy for benign disease History of tubal ligation Family History Family History Father Family history of lymphoma Mother Brain cancer Other Arthritis Social History Social History Social History: Surrogate decision maker: Del Castañeda, john. Code status: Full code. Smoking packs per day: 1 Smoking cigarettes per day: 20.0 Years smoked: 15 Smoking pack-years: 15.00 Smoking status: Former smoker Tobacco type: cigarettes Second hand tobacco smoke exposure: No Smoking end date: 11/03/94 Alcohol intake: current Drinks per week: 2 Alcohol use details: Occasional Substance use: never Lack of Transportation: No Lack of Food: Never True Current Housing: I Have Housing Concerned About Future Housing: No Difficulty Paying Gas/Electric Bills: No Difficulty Paying for Meds: No Currently Unemployed: No Education: Bachelor's Degree Difficulty w/ Childcare or Family Care: No Living arrangements: alone Additional living arrangements comments: The patient is . She lives in a [facility] in [place]. 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 Gender identity (if verbalized by the patient): Female Spiritual care concerns: No Meds Home Medications and Allergies Home Medications Medication Instructions Recorded Confirmed Type cyanocobalamin (vitamin B-12) 1,000 mcg PO DAILY 09/09/19 11/05/23 History 1,000 mcg capsule cholecalcifer
--- NOTE | 2023-11-05 06:59 | W.PM.PROC2 ---
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 The patient signed the consent form. PROCEDURE IN DETAIL: The patient taken back to OR on the stretcher in supine position. Time out performed with anesthesia, surgeon and staff agreeing on patient's name site and surgery to be performed SCDs were placed on the lower extremities and inflated A tourniquet was placed on {right} upper extremity and antibiotics given IV After anesthesia administered sedation I injected {}cc 1%lido with epi and 0.5% marcaine plain at the operative site The?{right upper extremity}?was prepped and draped in sterile fashion the??{right upper extremity} was??exsanguinated with Esmarch bandage and tourniquet inflated to 250mmHg I next proceeded with making a longitudinal incision between two heads for flexor carpi ulnaris at end of {right} cubital tunnel with 15 blade scalpel.? Littler scissors were used to spread down to FCU fascia.? An incision was made in FCU fascia and ulnar nerve identified exiting cubital tunnel.? I proceeded with complete retrograde release of the cubital tunnel including 7cm proximal for the intermuscular septum.? The nerve appeared healthy with visible vaso nervorum.? There was no subluxation on full elbow range of motion. ? I irrigated with normal saline and closure with 4-0 monocryl for dermis and subcuticular. The incision was covered with Dermabond then 4x4s, jennifer, and a posterior elbow splint for patient safety, security and comfort and secured with douglas bandages after the tourniquet was let down noting the hand was warm and well perfused.? Patient awaken from anesthesia and transferred to recovery in stable condition Complications - none EBL- 1cc Disposition - home in stable conditions [facility] Billing Surgery - Charge Forward: Surgery Billing ([id number])
[2023-11-05] MEDS: ceFAZolin 2 GM/D5W 50 ML 2 GM/50 ML BAG IVPB (07:30)
[2023-11-05] MEDS: LIDO 1%/EPINEPHRINE 1:100,000 50 ML VIAL 10 ML INFILTRATE (07:55)
[2023-11-05 07:57] VITALS: BP 93/34; PULSE 64; RESP 14; O2SAT 98
[2023-11-05 08:10] LABS: Glucose Point of Care 113 mg/dl (65-105)
[2023-11-05 08:20] VITALS: BP 110/44; PULSE 68; RESP 18; O2SAT 99
[2023-11-05 08:50] VITALS: BP 131/52; PULSE 71; RESP 16
== END 2023-11-05 09:04 | disposition home or self-care (01) ==
PROVIDERS: PCP Internal Medicine; Visit Provider Plastic Surgery
PROC: (CPT 64718; principal; 2023-11-05 07:30)
DX: G56.21 Lesion of ulnar nerve, right upper limb (principal); I10 Essential (primary) hypertension; D64.9 Anemia, unspecified; E78.2 Mixed hyperlipidemia; R73.03 Prediabetes; E55.9 Vitamin D deficiency, unspecified; D50.9 Iron deficiency anemia, unspecified; G47.00 Insomnia, unspecified; D69.6 Thrombocytopenia, unspecified; M19.90 Unspecified osteoarthritis, unspecified site; R30.0 Dysuria; R15.9 Full incontinence of feces; J44.9 Chronic obstructive pulmonary disease, unspecified; I05.8 Other rheumatic mitral valve diseases; G25.81 Restless legs syndrome; E66.9 Obesity, unspecified; Z68.41 Body mass index [BMI] 40.0-44.9, adult; Z79.891 Long term (current) use of opiate analgesic; Z79.84 Long term (current) use of oral hypoglycemic drugs; Z79.1 Long term (current) use of non-steroidal anti-inflammatories (NSAID); Z79.82 Long term (current) use of aspirin; Z79.4 Long term (current) use of insulin; Z90.49 Acquired absence of other specified parts of digestive tract; Z98.61 Coronary angioplasty status; Z87.891 Personal history of nicotine dependence; Z86.79 Personal history of other diseases of the circulatory system; Z80.7 Family history of other malignant neoplasms of lymphoid, hematopoietic and related tissues; Z80.8 Family history of malignant neoplasm of other organs or systems
CPT/HCPCS: 64718; 82948; J0690; J2704; J7120

== ENCOUNTER 2023-11-14 08:14 | Outpatient (CLI) | payer MEDICARE, SELFPAY ==
--- NOTE | ~2023-11-14 | XR_ITS ---
Left Shoulder Technique: AP and scapular Y views were obtained. Clinical History: Pain Findings: No fracture or dislocation is seen. Osseous alignment is anatomic. There is moderate degene rative change of the glenohumeral joint and a chronic clavicular joint. Soft tissues are unremarkable . Impression: Moderate degenerative changes, as above. Reviewed, dictated and finalized at location . DEVELOPER Impression: Moderate degenerative changes, as above.
== END 2023-11-14 08:15 | disposition home or self-care (01) ==
PROVIDERS: PCP Internal Medicine; Visit Provider Internal Medicine
DX: M75.102 Unspecified rotator cuff tear or rupture of left shoulder, not specified as traumatic (principal)
CPT/HCPCS: 73030

== ENCOUNTER 2024-02-06 09:06 | Outpatient (CLI) | payer MEDICARE, SELFPAY ==
--- NOTE | ~2024-02-06 | XR_ITS ---
EXAMINATION: XR chest 2V DATE: 02/06/2024 09:34 INDICATION: Cough TECHNIQUE: PA and lateral views of the chest were obtained. COMPARISON: Chest radiograph dated FINDINGS: Mild streaky bibasilar atelectasis. No other airspace opacities, pulmonary edema, pleural effusion or pneumothorax. Cardiomediastinal silhouette is normal. Dense mitral annular calcification. Cholecyste ctomy clips in the upper abdomen. IMPRESSION: 1. Mild streaky bibasilar atelectasis. Reviewed, dictated and finalized at location A.
[2024-02-06 10:38] LABS: Basophils Percent Auto 0.7 % (0.2-1.2); Eosinophils Absolute Auto 0.1 K/mm3 (0-0.3); Eosinophils Percent Auto 2.2 % (0-4.4); Hematocrit 34.3 % (37.0-47.0); Hemoglobin 10.6 g/dL (12.0-15.0); Immature Granulocyte Absolute 0.03 K/mm3 (0.00-0.031); Immature Granulocyte Percent A 0.5 % (0-0.5); Lymphocytes Absolute Auto 0.79 K/mm3 (0.9-3.2); Lymphocytes Percent Auto 13.6 % (18.3-44.2); Mean Corpuscular HGB Conc 30.9 g/dl (32-36); Mean Corpuscular Volume 93.7 fl (80-100); Mean Platelet Volume 11.4 fl (7.4-10.4); Monocytes Absolute Auto 0.5 K/mm3 (0.1-0.6); Neutrophils Absolute Auto 4.3 K/mm3 (1.3-6.7); Platelet Count Result 119 k/mm3 (150-375); Red Blood Count 3.66 M/mm3 (4.2-5.4); Red Cell Distribution Width 13.7 % (11.5-14.5); White Blood Count 5.8 K/mm3 (4.5-10.0)
[2024-02-06 11:04] LABS: Influenza A QL RT-PCR Negative (Negative); Influenza B QL RT-PCR Negative (Negative); RSV RNA, RT-PCR Negative (Negative); SARS-CoV-2 RNA PCR Positive (Negative)
== END 2024-02-06 09:07 | disposition home or self-care (01) ==
LOC: ANHIMG 09:10
PROVIDERS: PCP Internal Medicine; Visit Provider Internal Medicine
DX: R05.9 Cough, unspecified (principal); R53.1 Weakness
CPT/HCPCS: 36415; 71046; 85025; 87637

== ENCOUNTER 2024-03-30 01:44 | Emergency (ER) | payer MEDICARE, SELFPAY ==
[2024-03-30] VITALS (7 sets, daily range): BP systolic 118–138; BP diastolic 75–98; PULSE 65–130; RESP 18–22; TEMP 36.5; O2SAT 99–100
--- NOTE | ~2024-03-30 | XR_ITS ---
Portable chest x-ray Comparison: 02/06/2024 Clinical History: Palpitations Findings: Lungs are clear, without focal consolidation or pleural effusion. Cardiomediastinal silho uette is stable. Bones and soft tissues are unremarkable. Impression: Clear lungs. Possible pulmonary artery hypertension. Reviewed, dictated and finalized at location . Impression: Clear lungs. Possible pulmonary artery hypertension.
--- NOTE | 2024-03-30 01:54 | ECG_ITS ---
SEE SCANNED COPY FOR CONFIRMED REPORT MTDD
[2024-03-30 02:02] LABS: Basophils Absolute Auto 0.1 K/mm3 (0.0-0.1); Basophils Percent Auto 0.7 % (0.2-1.2); Eosinophils Absolute Auto 0.2 K/mm3 (0-0.3); Eosinophils Percent Auto 2.4 % (0-4.4); Hematocrit 36.2 % (37.0-47.0); Hemoglobin 11.6 g/dL (12.0-15.0); Immature Granulocyte Absolute 0.02 K/mm3 (0.00-0.031); Immature Granulocyte Percent A 0.3 % (0-0.5); Lymphocytes Absolute Auto 1.42 K/mm3 (0.9-3.2); Lymphocytes Percent Auto 18.6 % (18.3-44.2); Mean Corpuscular Volume 90.5 fl (80-100); Mean Platelet Volume 11.4 fl (7.4-10.4); Monocytes Absolute Auto 0.6 K/mm3 (0.1-0.6); Monocytes Percent Auto 7.3 % (2.6-8.5); Neutrophils Absolute Auto 5.4 K/mm3 (1.3-6.7); Neutrophils Percent Auto 70.7 % (45.5-73.1); Platelet Count Result 150 k/mm3 (150-375); Red Cell Distribution Width 13.7 % (11.5-14.5); White Blood Count 7.6 K/mm3 (4.5-10.0)
[2024-03-30 02:22] LABS: Alanine Aminotransferase 17 U/L (6-35); Albumin Level 4.4 g/dL (3.5-5.1); Alkaline Phosphatase 126 U/L (38-126); Anion Gap 8 mmol/L (4-12); Aspartate Amino Transferase 25 U/L (14-36); Bilirubin,Total 0.5 mg/dL (0.2-1.3); Blood Urea Nitrogen 54 mg/dL (7-17); Carbon Dioxide 28 mmol/L (22-30); Chloride 101 mmol/L (98-107); Estimated Glomerular Filt Rate 43; Glucose 117 mg/dL (65-110); Lipase 167 U/L (23-300); Potassium 3.9 mmol/L (3.4-5.0); Sodium 137 mmol/L (137-145)
[2024-03-30 02:23] LABS: INR 0.9
[2024-03-30 02:24] LABS: Partial Thromboplastin Time 29.5 Seconds (22.3-36.8)
[2024-03-30 02:33] LABS: Troponin I < 0.012 ng/mL (0.000-0.034)
--- NOTE | 2024-03-30 02:46 | ED.ARRPALP ---
HPI - Arrhythmia/Palpitations General Chief Complaint: Arrhythmia/Palpitations Stated Complaint: a-fib with rvr Time Seen by Provider: 03/30/24 01:55 Source: patient Limitations: no limitations History of Present Illness HPI narrative: Patient is a 84-year-old female presents to the emergency department complaining of a sensation of fluttering in her chest. Patient was started around 11:00 p.m. tonight spontaneously and has not gone away. Patient denies chest pain or difficulty breathing. Patient denies any history of this in the past. Patient does admit to history of atrial fibrillation approximately 20 years ago and she was on a medication called digoxin and was found with the heart doctor through here and then after approximately 5 years of treatment they said that they did not think she ever with the had atrial fibrillation and stopped the medication and she has not had any episodes since. Patient denies any new or change medications. Patient denies history of blood clots. Patient denies recent injuries, recent illness, fever, urinary discomfort, nausea, vomiting, diarrhea, numbness, weakness, headache, confusion, rash. Patient denies any supplement use or stimulant use. Patient admits to consuming 1 gin and tonic drink tonight with denies regular alcohol use. Patient denies lower extremity swelling or lightheadedness. Patient denies history of heart disease aside from atrial fibrillation. Related Data Home Medications Medication Instructions Recorded Confirmed cyanocobalamin (vitamin B-12) 1,000 mcg PO DAILY 09/09/19 02/04/24 1,000 mcg capsule cholecalciferol (vitamin D3) 125 125 mcg PO DAILY 05/09/21 02/04/24 mcg (5,000 unit) capsule aspirin 81 mg chewable tablet 162 mg PO DAILY 10/29/23 02/04/24 (Children's Aspirin) coenzyme [id number] E 100 mg-100 1 cap PO DAILY 10/29/23 02/04/24 unit capsule inulin 2 gram chewable tablet 2 g PO DAILY 10/29/23 02/04/24 (Fiber Gummies) acetaminophen 650 mg 650 mg PO Q12H PRN 02/04/24 02/04/24 tablet,extended release (Tylenol Arthritis Pain) Allergies Allergy/AdvReac Type Severity Reaction Status Date / Time latex Allergy Severe SEVERE Verified 03/02/24 15:10 SWELLING vancomycin Allergy Severe SEVERE Verified 03/02/24 15:10 ITCHING 2009 [id number] Reductase Allergy Intermediate Muscle Pain Verified 03/02/24 15:10 Inhibitor Aminoglycosides Allergy Mild Swelling Verified 03/02/24 15:10 hydrocodone Allergy Mild Rash Verified 03/02/24 15:10 neomycin Allergy Mild Swelling Verified 03/02/24 15:10 oxycodone Allergy Mild Unknown Verified 03/02/24 15:10 polymyxin B Allergy Unknown SWELLING Verified 03/02/24 15:10 diclofenac AdvReac Severe STOMACH Verified 03/02/24 15:10 UPSET - CAN TAKE ALEVE OK misoprostol AdvReac Severe STOMACH Verified 03/02/24 15:10 UPSET piroxicam AdvReac Severe STOMACH Verified 03/02/24 15:10 UPSET propoxyphene AdvReac Severe STOMACH Verified 03/02/24 15:10 UPSET sertraline AdvReac Severe STOMACH Verified 03/02/24 15:10 UPSET Iodine and Iodide Containing AdvReac Swelling Verified 03/02/24 15:10 Produc Review of Systems Review of Systems: A 10 system review of systems was completed on the patient and is negative except for what is stated in the HPI. Nursing and ancillary documentation was reviewed. [facility] Past Medical History Medical History (Updated 03/30/24 @ 07:14 by Hardy Sigala DO) Abnormal x-ray of cervical spine Ankle arthritis Arthritis Back pain Benign essential hypertension Bilateral arm pain BMI 38.0-38.9,adult BMI 40.0-44.9, adult Body mass index (BMI) 40.0-44.9, adult Calcification of mitral valve Chronic anemia With mild thrombocytopenia. Chronic pain of right ankle COVID-19 Dermatitis Diastolic dysfunction DJD (degenerative joint disease) Dysuria Ecchymosis Fecal incontinence Hammertoe of left foot Hearing loss History of atrial fibrillat
[2024-03-30] MEDS: SODIUM CHLORIDE 0.9% IV 1,000 ML 999 ML IV CONT (02:59)
[2024-03-30] MEDS: SODIUM CHLORIDE 0.9% IV 500 ML 999 ML IV CONT (03:00)
[2024-03-30 03:16] LABS: Ethanol < 10 mg/dL (<10); Magnesium 1.8 mg/dL (1.6-2.3)
[2024-03-30 03:21] LABS: D Dimer 1.06 ug/mL (<0.48)
[2024-03-30 03:25] LABS: NT Pro B Type Natriuretic Pept 1120 pg/mL (19.9-100)
[2024-03-30 03:44] LABS: Lactic Acid Reflex 2.6 mmol/L (0.7-2.0)
[2024-03-30] MEDS: dilTIAZem HCl INJ 25 MG/5 ML VIAL 10 MG IV PUSH (03:58)
[2024-03-30] MEDS: dilTIAZem 100 MG/100 ML 100 MG/100 ML BAG IV CONT (04:38)
[2024-03-30] MEDS: METOPROLOL SUCCINATE EXT REL 25 MG TABCR PO (06:26)
[2024-03-30] MEDS: APIXABAN 5 MG TABLET PO (06:26)
[2024-03-30 06:32] LABS: Reflex Lactic Acid Yes or No Add Lactic
== END 2024-03-30 06:43 | disposition home or self-care (01) ==
PROVIDERS: Emergency Provider Student in an Organized Health Care Education/Training Program; PCP Internal Medicine
DX: I48.91 Unspecified atrial fibrillation (principal); N17.9 Acute kidney failure, unspecified; I10 Essential (primary) hypertension; I05.8 Other rheumatic mitral valve diseases; E78.2 Mixed hyperlipidemia; E55.9 Vitamin D deficiency, unspecified; J44.9 Chronic obstructive pulmonary disease, unspecified; D50.9 Iron deficiency anemia, unspecified; D69.6 Thrombocytopenia, unspecified; G25.81 Restless legs syndrome; M19.079 Primary osteoarthritis, unspecified ankle and foot; Z86.711 Personal history of pulmonary embolism; Z86.16 Personal history of COVID-19; Z87.440 Personal history of urinary (tract) infections; Z87.891 Personal history of nicotine dependence; Z96.653 Presence of artificial knee joint, bilateral; Z90.49 Acquired absence of other specified parts of digestive tract; Z90.710 Acquired absence of both cervix and uterus; Z79.82 Long term (current) use of aspirin; Z79.4 Long term (current) use of insulin; Z79.84 Long term (current) use of oral hypoglycemic drugs; Z79.899 Other long term (current) drug therapy
CPT/HCPCS: 36415; 71045; 80053; 80307; 83605; 83690; 83735; 83880; 84443; 84484; 85025; 85380; 85610; 85730; 93005; 96361; 96365; 96376; 99284; A9270; J7030; J7040

== ENCOUNTER 2024-04-15 11:15 | Outpatient (CLI) | payer MEDICARE, SELFPAY ==
[2024-04-15 11:49] LABS: Basophils Percent Auto 0.5 % (0.2-1.2); Eosinophils Absolute Auto 0.2 K/mm3 (0-0.3); Eosinophils Percent Auto 2.5 % (0-4.4); Hematocrit 34.4 % (37.0-47.0); Hemoglobin 10.8 g/dL (12.0-15.0); Immature Granulocyte Absolute 0.02 K/mm3 (0.00-0.031); Immature Granulocyte Percent A 0.3 % (0-0.5); Lymphocytes Absolute Auto 1.31 K/mm3 (0.9-3.2); Lymphocytes Percent Auto 20.8 % (18.3-44.2); Mean Corpuscular HGB Conc 31.4 g/dl (32-36); Mean Corpuscular Volume 92.5 fl (80-100); Mean Platelet Volume 11.3 fl (7.4-10.4); Monocytes Absolute Auto 0.5 K/mm3 (0.1-0.6); Monocytes Percent Auto 7.1 % (2.6-8.5); Neutrophils Absolute Auto 4.3 K/mm3 (1.3-6.7); Neutrophils Percent Auto 68.8 % (45.5-73.1); Platelet Count Result 135 k/mm3 (150-375); Red Blood Count 3.72 M/mm3 (4.2-5.4); White Blood Count 6.3 K/mm3 (4.5-10.0)
[2024-04-15 12:02] LABS: Alanine Aminotransferase 17 U/L (6-35); Albumin Level 4.4 g/dL (3.5-5.1); Alkaline Phosphatase 100 U/L (38-126); Anion Gap 8 mmol/L (4-12); Aspartate Amino Transferase 25 U/L (14-36); Bilirubin,Total 0.6 mg/dL (0.2-1.3); Blood Urea Nitrogen 37 mg/dL (7-17); Calcium 9.1 mg/dL (8.4-10.2); Carbon Dioxide 29 mmol/L (22-30); Chloride 102 mmol/L (98-107); Cholesterol 135 mg/dL (0-200); Estimated Glomerular Filt Rate 47; Glucose 123 mg/dL (65-110); HDL Direct 40 mg/dL; Potassium 4.3 mmol/L (3.4-5.0); Sodium 139 mmol/L (137-145); Triglycerides 175 mg/dL (<150)
[2024-04-15 12:10] LABS: Hemoglobin A1C 5.4 % (<5.7)
[2024-04-15 12:12] LABS: LDL Cholesterol Direct 75 mg/dL
[2024-04-15 12:38] LABS: Iron 85 ug/dL (37-170)
[2024-04-15 12:47] LABS: Percent Iron Saturation 24 % (20-50)
[2024-04-15 12:56] LABS: Free T4 Free Thyroxine 1.67 ng/mL (0.78-2.19)
== END 2024-04-15 11:16 | disposition home or self-care (01) ==
PROVIDERS: PCP Internal Medicine; Visit Provider Internal Medicine
DX: I10 Essential (primary) hypertension (principal); E78.2 Mixed hyperlipidemia; E03.9 Hypothyroidism, unspecified; D64.9 Anemia, unspecified; E11.22 Type 2 diabetes mellitus with diabetic chronic kidney disease
CPT/HCPCS: 36415; 80053; 80061; 82728; 83036; 83540; 83550; 84439; 84443; 85025; 85055

== ENCOUNTER 2024-08-05 15:36 | Outpatient (CLI) | payer MEDICARE, SELFPAY ==
--- NOTE | ~2024-08-05 | XR_ITS ---
XR shoulder LT min 2V Ordering provider: Trenton Sexton MD History: . SHOULDER PAIN X SEVERAL MOS. NO INJURY . Comparison: November 14, 2023 FINDINGS: BONES: No acute fracture or dislocation. JOINT SPACES: Osteoarthritic changes of the acromioclavicular joint. Severe osteoarthritic changes of the glenohumeral joint. Elevation of the head of the humerus. SOFT TISSUES: Soft tissue density near to the surgical neck of the humerus. IMPRESSION: No acute osseous abnormality left shoulder. Severe osteoarthritic changes. Reviewed, dictated and finalized at location A.
[2024-08-05 16:07] LABS: Basophils Percent Auto 0.5 % (0.2-1.2); Eosinophils Absolute Auto 0.1 K/mm3 (0-0.3); Eosinophils Percent Auto 1.5 % (0-4.4); Hematocrit 36.8 % (37.0-47.0); Hemoglobin 11.5 g/dL (12.0-15.0); Immature Granulocyte Absolute 0.02 K/mm3 (0.00-0.031); Immature Granulocyte Percent A 0.3 % (0-0.5); Lymphocytes Absolute Auto 2.04 K/mm3 (0.9-3.2); Lymphocytes Percent Auto 27.2 % (18.3-44.2); Mean Corpuscular HGB Conc 31.3 g/dl (32-36); Mean Corpuscular Hemoglobin 28.6 pg (26-34); Mean Corpuscular Volume 91.5 fl (80-100); Monocytes Absolute Auto 0.6 K/mm3 (0.1-0.6); Monocytes Percent Auto 7.5 % (2.6-8.5); Neutrophils Absolute Auto 4.7 K/mm3 (1.3-6.7); Platelet Count Result 161 k/mm3 (150-375); Red Blood Count 4.02 M/mm3 (4.2-5.4); Red Cell Distribution Width 13.2 % (11.5-14.5); White Blood Count 7.5 K/mm3 (4.5-10.0)
[2024-08-05 16:18] LABS: Alanine Aminotransferase 20 U/L (6-35); Albumin Level 4.6 g/dL (3.5-5.1); Alkaline Phosphatase 91 U/L (38-126); Anion Gap 10 mmol/L (4-12); Aspartate Amino Transferase 28 U/L (14-36); Bilirubin,Total 0.4 mg/dL (0.2-1.3); Blood Urea Nitrogen 37 mg/dL (7-17); Calcium 9.2 mg/dL (8.4-10.2); Carbon Dioxide 26 mmol/L (22-30); Chloride 99 mmol/L (98-107); Estimated Glomerular Filt Rate 43; Glucose 96 mg/dL (65-110); Potassium 3.9 mmol/L (3.4-5.0); Sodium 135 mmol/L (137-145)
[2024-08-05 17:22] LABS: Free T4 Free Thyroxine 1.83 ng/mL (0.78-2.19)
[2024-08-05 21:12] LABS: Hemoglobin A1C 5.7 % (<5.7)
== END 2024-08-05 15:37 | disposition home or self-care (01) ==
PROVIDERS: PCP Internal Medicine; Visit Provider Orthopaedic Surgery
DX: M19.012 Primary osteoarthritis, left shoulder (principal); I10 Essential (primary) hypertension; D50.9 Iron deficiency anemia, unspecified; E03.9 Hypothyroidism, unspecified; E11.22 Type 2 diabetes mellitus with diabetic chronic kidney disease
CPT/HCPCS: 36415; 73030; 80053; 83036; 84439; 84443; 85025

== ENCOUNTER 2024-09-09 14:45 | Outpatient (CLI) | payer MEDICARE, SELFPAY ==
[2024-09-09 15:33] LABS: CRP < 0.5 mg/dL (<1.0)
[2024-09-13 16:18] LABS: Immunoglobulin A 153 mg/dL (70-320); TTG IGA AB <1.0 U/mL
== END 2024-09-09 14:46 | disposition home or self-care (01) ==
PROVIDERS: PCP Internal Medicine; Visit Provider Nurse Practitioner Family
DX: K52.9 Noninfective gastroenteritis and colitis, unspecified (principal); N82.4 Other female intestinal-genital tract fistulae; R10.9 Unspecified abdominal pain; R15.9 Full incontinence of feces
CPT/HCPCS: 36415; 82784; 86140; 86364

== ENCOUNTER 2024-09-10 08:26 | Outpatient (NON) | payer MEDICARE, SELFPAY | END 2024-09-10 08:27 | disposition home or self-care (01) | LOC: ANHLAB 08:27 | PROVIDERS: PCP Internal Medicine; Visit Provider Nurse Practitioner Family | DX: K52.9 Noninfective gastroenteritis and colitis, unspecified (principal); N82.4 Other female intestinal-genital tract fistulae; R15.9 Full incontinence of feces | CPT/HCPCS: 82653; 83993; 87045; 87427; 87449; 87493 ==

== ENCOUNTER 2024-11-19 10:02 | Outpatient (CLI) | payer MEDICARE, SELFPAY ==
--- NOTE | ~2024-11-19 | US_ITS ---
Left upper extremity ULTRASOUND Ordering provider: Rahul Bejarano MD History: . M79.89 - Other specified soft tissue disorders . Comparison: None. FINDINGS/impression: Old large avascular lesion is seen measuring 1.2 x 0.8 x 2 cm which may represent fatty tissue and le ss likely a mass. Follow-up advised. Hypoechoic irregular lesion measuring 0.5 x 0.2 x 1 cm also seen with central cystic area. No flow is seen. Differential include lymph node versus lipoma versus focal fat necrosis. Follow-up advised. Reviewed, dictated and finalized at location A. IEW PROGRAMMER
--- OUTSIDE RECORDS SUMMARY | 2024-11-25 06:15 | XMS_ITS | Encounter Summary ---
Author Organization [facility] Address 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
--- OUTSIDE RECORDS SUMMARY | 2024-11-25 06:15 | XMS_ITS | Referral Summary ---
Author Organization [facility] [place] [address] Address [address] [place] [address] Care Team Providers Care Hand Slitter Name Role Phone Rahul Bejarano MD Primary Care Provider [phone] Tonio Cabello MD Unavailable [phone] Michael Castano MD Unavailable [phone] Allergies Active Allergy Reactions Criticality Noted Date Comments Bacitracin Diclofenac Diclofenac-Misoprostol Stomach upset High 03/31/2018 Hydrocodone Latex, Natural Rubber Rash Medium 03/31/2018 Misoprostol Neomycin Zieafhfs-Xrcthiwqvu-Dacekkicm Rash Medium 2017 Oxycodone Piroxicam Polymyxin B Povidone-Iodine Swelling Medium 04/09/2022 Propoxyphene Sertraline Vancomycin Medications coenzyme Q10 (COQ-10) 100 mg capsule 100 mg. 0 2 Active Additional Information Patient taking differently: 200 mg oral Every morning, Informant: Self, Reported on 09/19/2023 levothyroxine (SYNTHROID, LEVOTHROID) 88 mcg tablet take 1 tablet (88MCG) by oral route every day 0 2 Active Additional Information Patient taking differently:88 mcgoral, Informant: Self, Reported on 09/19/2023 niacin, inositol niacinate, (NIACIN FLUSH FREE) 400 mg niacin (500 mg) capsule 0 2 Active Additional Information Patient taking differently: 400 mg oral Nightly, Reported on 05/18/2022 metFORMIN (GLUCOPHAGE) 500 mg tablet take 1 tablet (500MG) by oral route 2 times every day with morning and evening meals 0 2 Active Additional Information Patient taking differently: 1,500 mg oral Daily after dinner, 3/day evening with meals, Informant: Self, Reported on 09/19/2023 folic acid (FOLVITE) 400 mcg tablet take 1 Tablet (0.4MG) by oral route every day 0 2 Active Additional Information Patient taking differently: 1 mg oral Every morning, Reported on 09/19/2023 cholecalciferol (cholecalciferol ) 1,000 unit tablet take 1 by Oral route once 0 0 3 Active Additional Information Patient taking differently: oral Every morning, Informant: Self, Reported on 05/18/2022 cyanocobalamin (vitamin B-12) 1,000 mcg tablet take 1 by Oral route every day 0 0 3 Active Additional Information Patient taking differently:1,000 mcgoral Every morning, Informant: Self, Reported on 09/19/2023 losartan (COZAAR) 100 mg tablet take 1 tablet by oral route every day 0 6 Active Additional Information Patient taking differently:100 mgoral Every morning, Informant: Self, Reported on 09/19/2023 potassium chloride ER (KLOR-CON,K-DUR) 10 mEq CR tabletIndication s:hypokalemia Take 2 tablet/capsule (20 mEq total) by mouth nightly Active ezetimibe (ZETIA) 10 mg tabletIndication s:hyperlipidemia Take 1 tablet (10 mg total) by mouth every morning 2 Active Trelegy Ellipta 100-62.5-25 mcg inhalerIndicatio ns:Bronchospasm Prevention with COPD Inhale 1 puff every morning 2 Active furosemide (LASIX) 80 mg tabletIndication s:Edema Take 1 tablet (80 mg total) by mouth every morning 2 Active calcium carbonate/vitami n D3 (CALCIUM 500 + D ORAL)Indications :bone health Take 1 Caplet by mouth as needed Active traMADoL (ULTRAM) 50 mg tabletIndication s:Pain Take 1 tablet (50 mg total) by mouth every 6 (six) hours as needed for pain Active melatonin 2.5 mg tablet,chewableI ndications:sleep Take 1 Caplet by mouth as needed Active ibuprofen (ADVIL,MOTRIN) 600 mg tabletIndication s:Pain Take 1 tablet (600 mg total) by mouth every 8 (eight) hours as needed for pain 30 tablet 2 Active Additional Information Patient not taking.Reported on 07/06/2024 acetaminophen 500 mg capsuleIndicatio ns:Pain Take 2 capsules (1,000 mg total) by mouth every 6 (six) hours as needed for pain 30 capsule 2 Active benzonatate (TESSALON) 200 mg capsule TAKE 1 CAPSULE BY MOUTH THREE TIMES A DAY NEEDED FOR COUGH 4 Active betamethasone dipropionate (DIPROSONE) 0.05 % lotion APPLY TO SCALP THE DAY BEFORE YOU SHAMPOO FOR UP TO TWO WEEKS NEEDED. 4 Active celecoxib (CeleBREX) 100 mg capsule Take 1 capsule (100 mg total) by mouth 2 (two) times a day 4 Active clobetasoL (TEMOVATE) 0.05 % cream Apply topically 2 (two) times a day 4 Active ferrous sulfate 325 mg (65 mg of elemental iron) tablet Take 1 tablet (325 mg total) by mouth daily 4 Active metOLazone (ZAROXOLYN) 2.5 mg tablet 2.5 MG ORALLY 3X/ WEEK 4 Active metFORMIN XR (GLUCOPHAGE XR) 500 mg 24 hr tablet TAKE 3 TABLET BY ORAL ROUTE EVERY DAY WITH THE EVENING MEAL 4 Active potassium chloride ER 20 mEq CR tablet Take 1 tablet (20 mEq total) by mouth nightly 4 Active pramipexole (MIRAPEX) 0.75 mg tablet Take 1 tablet (0.75 mg total) by mouth nightly 4 Active folic acid (FOLVITE) 1 mg tablet Take 1 tablet (1,000 mcg total) by mouth daily 4 Active Eliquis 5 mg tablet Take 1 tablet (5 mg total) by mouth 2 (two) times a day 4 Active metoprolol XL (TOPROL-XL) 25 mg extended release tablet Take 1 tablet (25 mg total) by mouth daily 4 Active semaglutide (RYBELSUS ORAL) Take 7 mg by mouth daily 4 Active Active Problems Problem Noted Date Diagnosed Date Status post gastrointestinal surgery, follow-up exam 06/04/2022 Diverticulitis 04/12/2022 Overview (04/12/2022): Added automatically from request for surgery [id number] 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 Monthly or less 05/09/2022 Q2: How many drinks containi ng alcohol do you have on a typical day when you are drinking? 1 or 2 05/09/2022 Q3: How often do you have si x or more drinks on one occasion? Never 05/09/2022 Comments Unknown Sex and Gender Information Value Date Recorded Sex Assigned at Not on file Legal Sex Female 1:59 AM PATIENT COMPANION Gender Identity Not on file Sexual Orientation Not on file Last Filed Vital Signs Vital Sign Reading Time Taken Comments Blood Pressure 124/60 07/06/2024 3:42 PM CDT Pulse 56 07/06/2024 3:42 PM CDT Temperature 36.8 ??C (98.2 ??F) 03/02/2024 4:23 PM CD T Respiratory Rate 12 03/02/2024 4:23 PM CDT Oxygen Saturation 99% 07/06/2024 3:42 PM CDT Inhaled Oxygen Concentration - - Weight 86.5 kg (190 lb 9.6 oz) 07/06/2024 3:42 P M CDT Height 154.9 cm (5' 1 ) 07/06/2024 3:42 PM CDT Body Mass Index 36.01 07/06/2024 3:42 PM CDT Plan of Treatment Not on file Insurance MEDICARE [employer] [place] [email or web address] [place] MED[place]ARE [facility] Advance Directives For more information, please contact: [phone] * Full Code (Latest Code Status on File) Date Activated Date Inactivated Comments 05/15/2022 4:32 PM 05/19/2022 5:07 PM * Full Code Date Activated Date Inactivated Comments 05/09/2022 10:46 AM 05/09/2022 4:28 PM Care Teams Hand Slitter Relationship Specialty Start Date End Date Rahul Bejarano MD [address] [facility] [address] [place] [address] PCP - General 05/02/14 Tonio Cabello MD [id number] [place] [address] Surgeon Colon and Rectal Surgery 04/12/22 Michael Castano MD [address] [facility] [address] [place] [address] Referring Physician Vascular Surgery 04/12/22
--- OUTSIDE RECORDS SUMMARY | 2024-11-25 06:15 | XMS_ITS | Data Portability ---
Author Organization [place] [facility], Main Office Address [address] [place] [address] Care Team Providers Care Disintegrator Operator Name Role Phone YING CRABTREE Referring Provider [phone] Assessment Encounter Date Assessment Date Assessment LastModified by Organization Details LastModified Time 02/19/2023 02/19/2023 Impression: 1. Patient has rather severe polyarticular arthritis. She does not believe she has ever been tested for and autoimmune type inflammatory arthritis such as rheumatoid arthritis and we will order standard blood work rheumatoid factor CASSI anti CCP CRP and sed rate. 2. Patient has extremely advanced arthritis of the right ankle joint. There is flattening of the posterior tibial plafond that the joint due to wear and pronounced sclerotic changes and slight flattening of the dome of the talus Associated with the severe osteoarthritis. there is severe pes planus as well. Again, we will evaluate for possible autoimmune mediated inflammatory arthritis. She does not have evidence of neuropathic destruction but she does have tingling in her toes bilaterally and there may be a neuropathic component especially considering that she has very little pain in this ankle except for 1st thing in the morning when she gets out bed and 1 would expect rather severe pain with this degree arthritis. Treatment of this problem should be directed that providing optimal stability and support for the ankle. If she had severe pain, and which did not improve with supportive worth [place], surgical treatment might be a consideration that is not the case here that she is having very little pain with that. Her main complaint is that the ankle is on trustworthy. I have discussed with her the options of an Brittany brace, a fixed ankle-foot orthosis of plastic a could be worn under shoe large enough to accommodate the brace and the Saleh supportive brace would be the double upright brace that has a proximal calf leather cuff and uprights fixed to the shoe itself. there are some advantages and disadvantages to each. She does not wish to have where something that be cosmetically unappealing such is a brace that had metal bars on each side of the leg. The air zone of braces the lease conspicuous but with her swelling problem with may not fit her very well and I think that a rigid plastic AFO would probably be best tolerated for her. I have discussed with her that Dr. Joaquin Brandon is a fellowship trained foot and ankle subspecialist had [facility] and she I think would be the person with the most experience and wisdom in this area to guide her to the most satisfactory brace for her purposes. She would like to see him and have given her his name office number make an appointment. 3. Patient has severe painless weakness in the left shoulder. She had no pain today with provocative testing. She recalls having no pain when she 1st fell off the couch and the weakness seemed to come on insidiously thereafter. Differential diagnosis would include Large or massive chronic rotator cuff tear, and neurogenic causes of weakness such as cervical radiculopathy or myelopathy, or suprascapular nerve injury from a large ganglion cyst in the shoulder for example. She has been falling frequently, she feels she has lost coordination in her hands and although nonspecific, these complaints could be associated with cervical myelopathy and an MRI scan of the cervical spine would be appropriate in addition to an MRI scan the left shoulder. She advised me that Dr. Crabtree has already given her orders for these tests but she has procrastinated getting these tests done but now that she had her 2 doctors advised her to proceed with these she is going to have the test sperformed. I will see her back after the tests are completed. 60 minutes were spent in total care this patient more than half the time spent in [id number] care. Not available 02/22/2023 14:11:07 03/17/2023 03/17/2023 Patient returns for follow-up of her left shoulder MRI. It demonstrates retracted full-thickness tearing of the entire supraspinatus and infraspinatus tendon with just a few fibers of the lowest aspect of the infraspinatus tendon attached and there is complete tear of the subscapularis upper 2/3 with retraction. Long and the biceps is not visualized consistent with distally retracted complete tear long biceps tendon. There is almost complete superior migration of humeral head relative to acromion. Subserosal this cystic changes medial aspect greater tuberosity footprint supraspinatus portion. Calcific density is noted over the infraspinatus facet. There is rather severe atrophy of the supraspinatus and infraspinatus muscle bellies and upper subscapularis. There is moderate fatty infiltration of the infraspinatus and upper subscapularis and mild fatty infiltration of the supraspinatus. There is severe tendinopathy involving the medially retracted stump of supraspinatus and infraspinatus which are retracted almost to the level of the glenoid. Image 5-17 there is an oval mass superomedial to the humeral head measuring 8 x 15 mm which has same signal intensity as the tendinopathy and fault supraspinatus tendon and may represent an amputated portion of the tendon or soft tissue accumulation. Chondral loose body would also be a consideration. There is no ossification that correlates with this on the x-rays however. My opinion is that the atrophy and retraction and fatty infiltration suggest that this tear is chronic and longstanding. I do not believe this is consistent with a recent rotator cuff tear. 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 MRI scan of cervical spine shows normal spinal cord signal intensity, significant spondylosis changes throughout the cervical spine, mild central canal stenosis at multiple levels with indentation of ventral surface of the spinal cord at C4-5 C5-6 mild flattening of the ventral surface of the cord at C6-7. Moderate to severe left neural foraminal stenosis at C6-7 moderate left neuroforaminal stenosis at C5-6 and C7-T1. Patient is considering referral to a media reconciliation specialist and is going to see Dr. Crabtree in follow-up to discuss that option. Patient takes Tylenol arthritis. She has chronic kidney disease and is not thought to be a good candidate for nonsteroidal anti-inflammatory medication. I have discussed treatment options for her left shoulder. Nonsurgical strategies would include physical therapy cortisone injection activity modification. She does not feel she needs a cortisone shot today. She was here with her daughter and notes that her pain has improved quite a bit. The severe pain went away she has no pain at rest. She does still get twinges of pain issues that limit the use of her left shoulder. She would like to go through physical therapy and we will make the referral. If her pain becomes intractable and the limitation in function severe, reverse shoulder arthroplasty may be a consideration for her left shoulder. That would be the surgical treatment of choice for her problem. I will see her back in 6 weeks to assess her progress. She did see Dr. Brandon regarding her severe right ankle osteoarthritis and learned that she had seen him in the remote past for the same problem. He did not feel that a brace would be helpful and thought it would be aggravating. She was sent for a new insole to help with her ankle. Patient notes she does not like wearing shoes she goes without shoes half the time interestingly. Dr. Brandon is following. I will see her back in 6 weeks assess her progress with her shoulder. 30 minutes were spent in total care this patient more than half the time spent in [id number] care. Not available 03/30/2023 12:55:35 04/21/2023 04/21/2023 Patient returns. She is here for follow-up for left shoulder. She has had several treatments with physical therapy thus far. She has been using a walker. 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 This is aggravated her ankle arthritis. She has similar symptoms in the right shoulder as left shoulder when she has to reach overhead she will use 1 shoulder to reach in the other shoulder to help lift her elbow up high enough so she can reach with either the right or the left hand. She has no pain at rest. Her should left shoulder only hurts if she tries to reach to move her pillow and that is just occasional. I have talked her about the option of a cortisone shot. This would be in the left shoulder treat her chronic rotator cuff tear with early rotator cuff tear arthropathy if she has significant symptoms associated with that. She wants to wait and see will continue with physical therapy I will see her back as needed if she would like to try cortisone shot. 20 minutes were spent total care this patient more than half the time spent in [id number] care. Not available 05/11/2023 18:41:02 Plan of Treatment Reminders Order Date Submit Date Provider Last Modified By Organization Details Last Modified Time Details Appointments None recorded. Lab None recorded. Referral None recorded. Procedures None recorded. Surgeries None recorded. Imaging XR, ankle 2022 023 [email or web address] [facility] [place], [address], [place], [address], 3 09:52:47 XR, foot, 3 or more view 2022 023 [email or web address] [facility] [place], [address], [place], [address], 3 09:52:46 XR, shoulder 2022 023 [email or web address] [facility] [place], [address], [place], [address], 3 09:52:46 Medication Orders None recorded. Patient TargetsNo targets recorded. Patient InstructionsNo instructions recorded. Reason for Referral None Reported. Results Created Date Observation Date Name Description Value Unit Range Abnormal Flag Note LastModifiedBy Organization Detail LastModifiedTime 02/20/20 23 XR, ankle No observ ation record ed. [facility] [place] [address], [place], [address], 02/22/2023 14:15:41 02/20/20 23 XR, foot, 3 or more view No observ ation record ed. [facility] [place] [address], [place], [address], 02/22/2023 14:18:17 02/20/20 23 XR, shoul may No observ ation record ed. [facility] [place] [address], [place], [address], 02/22/2023 14:13:28 02/20/20 23 03/20/2022 XR, ankle No observ ation record ed. [email or web address] Not Available 2022 15:33:34 02/20/20 23 08/05/2022 MRI, ankle , w/o contr ast No observ ation record ed. [email or web address] Not Available 2022 15:33:57 03/05/20 23 03/05/2023 MRI, shoul may, w/o contr ast No observ ation record ed. [email or web address] [facility] [address], [place], [address], 03/06/2023 16:21:43 03/17/20 MRI, cervi kristopher spine , w/wo contr ast No observ ation record ed. [email or web address] Not Available 2022 17:40:51 Result Notes None recorded. Problems Name Problem SNOMED Code Status Onset Date Resolution Date Notes Provider Name and Address Organization Details Recorded Time Pain of left shoulder joint 5484709963934 9109 Active 2022 Cecilia Coronel RMA null, [facility] 3 09:09:03 Pain of right ankle joint 9347800567569 9106 Active 2022 Cecilia Coronel RMA null, [place] - [facility] 3 09:09:12 Localized, primary osteoarthri tis of the ankle and/or foot 609149882 Active 2022 Leslie Cruz CMA null, [place] - [facility] 3 12:19:33 Partial thickness rotator cuff tear 012037164 Active 2022 Cecilia Coronel RMMiguel Angel null, [facility] 3 17:02:31 Problem Notes None recorded. Procedures Surgical History None recorded. Imaging Results Imaging Date Name Status LastModified by [facility] Details LastModified Time 02/19/2023 XR, ankle completed [facility] [place] [address], [place], [address], 02/22/2023 14:15:41 02/19/2023 XR, foot, 3 or more view completed [facility] [place] [address], [place], [address], 02/22/2023 14:18:17 02/19/2023 XR, shoulder completed [facility] [place] [address], [place], [address], 02/22/2023 14:13:28 03/20/2022 XR, ankle completed Information no t available 02/19/2023 15:33:34 08/05/2022 MRI, ankle, w/o contrast completed Information not available 02/19/2023 15:33:57 03/05/2023 MRI, shoulder, w/o contrast completed [address] [facility] [address], [place], [address], 03/06/2023 16:21:43 03/17/2023 MRI, cervical spine, w/wo contrast completed [email or web address] Information not available 03/17/2023 17:40:51 Procedure Notes None recorded. Medical Equipment None Reported. Allergies Allergen ID Allergen Name Allergen Category Reaction Reaction Severity Criticality Documentation Date Start Date Code Code System Note Provider Name and Address Organization Details Recorded Time 28939 vancomyci n medicatio n itching severe Not available 01/01/2023 77245 RxNorm Not Available [facility] 3 13:31:00 40606 sertralin e medicatio n other Not available Not available 01/01/2023 00643 RxNorm sertr isael HCL 50 mg made her Ill Not Available [facility] 3 13:31:00 69068 propoxyph isa medicatio n Not available Not available Not available 01/01/2023 8785 RxNorm propo xyphe ne APAP 100-6 50 MGTEV Not Available [facility] 3 13:31:00 53261 piroxicam medicatio n abdominal pain Not available Not available 01/01/2023 8356 RxNorm Not Available [facility] 3 13:31:00 28894 oxycodone medicatio n itching severe Not available 01/01/2023 7804 RxNorm Not Available [facility] 3 13:31:00 30324 latex environme nt,medica tion Not available Not available Not available 01/01/2023 54179 91 RxNorm Not Available [facility] 3 13:31:00 96715 hydrocodo ne Not available itching severe Not available 01/01/2023 5489 RxNorm Not Available [facility] 3 13:31:00 60187 diclofena c Not available abdominal pain Not available Not available 01/01/2023 3355 RxNorm diclo fenac SOD EC 50 MG Not Available [facility] 3 13:31:01 02400 Betadine medicatio n facial swelling Not available Not available 01/01/202300129 0 RxNorm MARNIE [place], [place] [facility] 3 09:13:11 85272 Arthrotec medicatio n abdominal pain severe Not available 01/01/2023 83195 UNK arthr otec 74 Not Available [facility] 3 13:31:01 Medications Name Sig Start Date Stop Date Status Note LastModified by Organization Details LastModified Time cyclobenzap rine 10 mg tablet TAKE 1/2 TABLET BY ORAL ROUTE 2 TIMES EVERY DAY NEEDED 12/13 completed Not Available Not Available Not Available amoxicillin 500 mg capsule TAKE ONE CAPSULE BY MOUTH TWICE A DAY 12/13 completed Not Available Not Available Not Available pramipexole 1 mg tablet TAKE 1 TABLET BY MOUTH EVERY DAY AT BEDTIME 12/13 completed Not Available Not Available Not Available metformin 500 mg tablet Take 1 tablet 3 times a day by oral route. 02/19 completed Not Available Not Available Not Available potassium chloride ER 10 mEq capsule,ext ended release TAKE 2 CAPSULES BY MOUTH EVERY DAY 02/19 completed Not Available Not Available Not Available albuterol sulfate 2.5 mg/3 mL (0.083 %) solution for nebulizatio n INHALE THE CONTENTS OF 1 VIAL VIA NEBULIZER EVERY 4 TO 6 HOURS NEEDED FOR BRONCHOSP ASM active Not Available Not Available No t Available lisinopril 20 mg tablet Take 1 tablet every day by oral route. 12/15 completed Not Available Not Available Not Available penicillin V potassium 500 mg tablet TAKE 1 TABLET BY MOUTH EVERY 6 HOURS UNTIL GONE 12/13 completed Not Available Not Available Not Available metronidazo le 500 mg tablet TAKE ONE TABLET AT 1PM, 2PM, AND 10PM THE DAY BEFORE SURGERY 02/19 completed Not Available Not Available Not Available ciprofloxac in 250 mg tablet 02/19 completed Not Available Not Available Not Available digoxin 250 mcg (0.25 mg) tablet TAKE 1 TABLET BY ORAL ROUTE EVERY DAY 12/13 completed Not Available Not Available Not Available ciprofloxac in 500 mg tablet TAKE 1 TABLET BY MOUTH EVERY 12 HOURS FOR 10 DAYS 02/19 completed Not Available Not Available Not Available omeprazole 40 mg capsule,del ayed release TAKE ONE CAPSULE BY MOUTH EVERY DAY BEFORE A MEAL 12/13 completed Not Available Not Available Not Available tramadol 50 mg tablet TAKE 1 TABLET FOUR TIMES A DAY NEEDED FOR PAIN 12/13 completed Not Available Not Available Not Available ondansetron 8 mg disintegrat ing tablet TAKE 1 TABLET AT 11AM WHEN STARTING BOWEL PREP, TAKE ONE TABLET NEEDED EVERY 6-8 HOURS AFTER 02/19 completed Not Available Not Available Not Available ciclopirox 8 % topical solution APPLY ONCE DAILY TO AFFECTED NAILS. active Not Available Not Available No t Available levothyroxi ne 88 mcg tablet TAKE 1 TABLET BY MOUTH EVERY DAY active Not Available Not Available No t Available alprazolam 0.5 mg tablet active Not Available Not Available Not Available alprazolam 0.25 mg tablet TAKE 1 TABLET BY MOUTH DAILY - TAKE 1 TO 2 TABLETS 1 HOUR PRIOR TO TEST active Not Available Not Available No t Available prednisolon e acetate 1 % eye drops,suspe nsion 12/15 completed Not Available Not Available Not Available furosemide 80 mg tablet TAKE 1 TABLET BY MOUTH EVERY DAY IN THE MORNING active Not Available Not Available No t Available Kenalog 10 mg/mL suspension for injection In office injection administe red by the provider 02/19 completed [facility]: 0003- 0494- 20 Not Available Not Available Not Available oseltamivir 75 mg capsule 12/15 completed Not Available Not Available Not Available ferrous sulfate 325 mg (65 mg iron) tablet TAKE 1 TABLET BY MOUTH TWICE A DAY active Not Available Not Available No t Available pramipexole 0.25 mg tablet Take 2 tablets every day by oral route. 02/19 completed Not Available Not Available Not Available folic acid 1 mg tablet TAKE 1 TABLET BY MOUTH EVERY DAY active Not Available Not Available No t Available hydrochloro thiazide 25 mg tablet TAKE 1 TABLET BY MOUTH EVERY DAY 12/15 completed Not Available Not Available Not Available mupirocin 2 % topical ointment APPLY TO AFFECTED AREA 3 TIMES A DAY 02/19 completed Not Available Not Available Not Available triamterene 75 mg-hydrochl orothiazide 50 mg tablet TAKE 1 TABLET BY ORAL ROUTE EVERY DAY 12/13 completed Not Available Not Available Not Available levofloxaci n 500 mg tablet TAKE 1 TBLET BY MOUTH EVERY 24 HOURS 12/13 completed Not Available Not Available Not Available clobetasol 0.05 % scalp solution APPLY 3 ROWS TO AREAS OF SCALP TWICE DAILY, DO NOT RINSE. WHEN IMPROVED ONCE A DAY, OR NEEDED. active Not Available Not Available No t Available cefdinir 300 mg capsule TAKE 1 CAPSULE(S ) EVERY 12 HOURS BY ORAL ROUTE. 12/13 completed Not Available Not Available Not Available losartan 100 mg tablet TAKE 1 TABLET BY MOUTH EVERY DAY active Not Available Not Available No t Available fluticasone propionate 50 mcg/actuati on nasal spray,suspe nsion USE 1 SPRAY INTO EACH NOSTRIL ONCE DAILY 12/13 completed Not Available Not Available Not Available metformin ER 500 mg tablet,exte nded release 24 hr TAKE 3 TABLET BY ORAL ROUTE EVERY DAY WITH THE EVENING MEAL 02/19 completed Not Available Not Available Not Available doxycycline hyclate 100 mg tablet 12/15 completed Not Available Not Available Not Available amoxicillin 875 mg-potassiu m clavulanate 125 mg tablet TAKE 1 TABLET TWICE A DAY 12/13 completed Not Available Not Available Not Available ezetimibe 10 mg tablet TAKE 1 TABLET BY MOUTH EVERY DAY active Not Available Not Available No t Available B-12 1,000 mcg tablet Take by oral route. active Not Available Not Available No t Available rosuvastati n 5 mg tablet Take 1 tablet every day by oral route. 12/15 completed Not Available Not Available Not Available Crestor 10 mg tablet TAKE 1 TABLET BY MOUTH EVERY DAY 12/13 completed Not Available Not Available Not Available Boostrix Tdap 2.5 Lf unit-8 mcg-5 Lf/0.5 mL intramuscul ar syringe active Not Available Not Available N ot Available aspirin 81 mg 2019 active Not Available Not Available Not Avai lable levothyroxi ne 88 mcg once a day 2019 active Not Available Not Available Not Avai lable niacin active Not Available Not Availa ble Not Available omeprazole 40 mg once a day 2019 active Not Available Not Available Not Avai lable Fish Oil active Not Available Not Avai lable Not Available ferrous sulfate 02/19 completed Not Available Not Available Not Available Seroquel 12/15 completed Not Available Not Available Not Available amlodipine 5 mg tab 12/15 completed Not Available Not Available Not Available Paxil 12/15 completed Not Available Not Available Not Available fluticasone propionate nasal spray 12/15 completed Not Available Not Available Not Available Vitamin D3 2019 active Not Available Not Available Not Avai lable Coral Calcium active Not Available Not Available Not Available lidocaine (PF) 10 mg/mL (1 %) injection solution In office injection administe red by the provider 02/19 completed [facility]: 0409- 4276- 17 Not Available Not Available Not Available ProAir HFA 90 mcg/actuati on aerosol inhaler active Not Available Not Available Not Available pramipexole 0.75 mg tablet TAKE 1 TABLET BY MOUTH AT BEDTIME active Not Available Not Available No t Available oxycodone 10 mg tablet Take 1 tablet every 4 hours by oral route. 12/15 completed Not Available Not Available Not Available Prevnar 13 (PF) 0.5 mL intramuscul ar syringe TO BE ADMINISTE RED BY PHARMACIS T FOR IMMUNIZAT ION 12/15 completed Not Available Not Available Not Available Suprep Bowel Prep Kit 17.5 gram-3.13 gram-1.6 gram oral solution PLEASE SEE ATTACHED FOR DETAILED DIRECTION S 02/19 completed Not Available Not Available Not Available Slow-Mag 71.5 mg tablet,madhuri yed release TAKE 1 TABLET BY MOUTH EVERY DAY 12/15 completed Not Available Not Available Not Available potassium chloride ER 20 mEq tablet,exte nded release TAKE 1 TABLET BY MOUTH AT BEDTIME active Not Available Not Available No t Available ProAir RespiClick 90 mcg/actuati on breath activated 12/15 completed Not Available Not Available Not Available Trelegy Ellipta 100 mcg-62.5 mcg-25 mcg powder for inhalation TAKE 1 PUFF BY MOUTH EVERY DAY active Not Available Not Available No t Available Shingrix (PF) 50 mcg/0.5 mL intramuscul ar suspension, kit 12/15 completed Not Available Not Available Not Available Fluad 65yr up(PF)45 mcg(15 mcgx3)/0.5 mL intramuscul ar syringe PHARMACIS T ADMINISTE RED IMMUNIZAT ION ADMINISTE RED AT TIME OF DISPENSIN G 12/15 completed Not Available Not Available Not Available Flowflex COVID-19 Antigen Home Test kit USE DIRECTED active Not Available Not Available No t Available Paxlovid 150 mg-100 mg tablets in a dose pack (Renal Dose) TAKE ONE 150MG TABLET WITH ONE 100MG TWICE DAILY FOR 5 DAYS 02/19 completed Not Available Not Available Not Available Lagevrio 200 mg capsule (EUA) TAKE 4 CAPSULES BY MOUTH EVERY 12 HOURS FOR 5 DAYS active Not Available Not Available No t Available Vitals Date Recorded Body weight Body mass index (BMI) Body height Provider Name and Address Organization Details Last Updated DateTime 02/19/2023 50937.4 g 42.4 kg/m2 149.86 cm Cecilia Coronel Miguel Angel [facility] [facility] 02/19/2023 09:24:55 Date Recorded Body height Provider Name an d Address Organization Details Last Updated DateTime 03/17/2023 149.86 cm Cecilia Coronel Miguel Angel [employer] [facility] [employer] 03/17/2023 16:29:53 Date Recorded Body height Provider Name an d Address Organization Details Last Updated DateTime 04/21/2023 149.86 cm Cecilia Coronel [employer] 04/21/2023 17:01:07 Social History Question Answer Notes LastModified by Organizat ion Details LastModified Time Tobacco Smoking Status Former Smoker Cecilia Coronel, RMA null, [place] - [facility] 02/19/2023 09:20:07 What Is Your Level Of Alcohol Consumption? None [email or web address] Information not available 02/19/2023 Sex: Unknown Functional Status None recorded. Mental Status None recorded. Family History Relationship Description Onset Age of this Age Resolved Age Notes LastModified by Organization Details LastModified Time Father Family history of malignant neoplasm [email or web address] Not available 2022 09:19:49 Mother Family history of malignant neoplasm Not available 2022 09:19:49 Medical History Condition Response ARTHRITIS Y COPD Y Gynecological HistoryNo gynecological history recorded. Obstetrics History GPAL:G 0 P 0 0 0 0 Past Encounters Encounter ID Performer Location Encounter Start Date Encounter Closed Date Diagnosis/Indication Diagnosis SNOMED-CT Code Diagnosis ICD10 Code Diagnosis Note [id number] Ciro William MD [facility] [place] [address] [place] [address] 02/19/2023 08:46:43 02/24/2023 09:52:46 Pain of left shoulder joint [id number] M25.512 Pain of ri ght ankle joint [id number] M25.571 [id number] Ciro William MD [facility] [place] [address] [place] [address] 03/17/2023 16:26:05 04/01/2023 09:41:24 Pain of left shoulder joint [id number] M25.512 [id number] Ciro William MD [facility] [place] [address] [place] [address] 04/21/2023 16:58:25 05/12/2023 12:19:10 Partial thickness rotator cuff tear 399591477 M75.122 Health Concerns Section Related Observation LastModified by Organization Detai ls LastModified Time None Recorded Concern Status LastModified by Organization Details LastModified Time None Recorded Advance Directives Directive None Recorded Payers Encounter Date Sequence Insurance Name Policy Number Policy Spencer Covered Member ID Spencer Member ID Guarantor Name 02/19/2023 1 [place] Alexus Castañeda [id number] Alexus Castañeda 02/19/2023 2 [place] [id number] Alexus Castañeda [id number] Alexus Castañeda 03/17/2023 1 [place] Castañeda [id number] Alexus Castañeda 03/17/2023 2 [place] [id number] Alexus Castañeda [id number] Alexus Castañeda 04/21/2023 1 [place] Alex[place] Castañeda [id number] Alexus Castañeda 04/21/2023 2 [place] [id number] Alexus Castañeda [id number] Alexus Castañeda Notes Date Note Type Note Provider Name and Address Organization Details Recorded Time 02/19/2023 text/html Patient presents this time for evaluation of her left shoulder and her right ankle. Her right ankle started bothering her in February or March 2022. She had an MRI scan of the right ankle performed on 08/05/2002 for tibialis posterior tendinitis. 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 she had been seen a watch and clock maker and repairer and had couple of cortisone shots in the forefoot 2 more the medial aspect of her ankle. She went through course of physical therapy for the ankle and none of these have helped her. She complains that the right foot and ankle swell markedly. She takes Lasix which helps this. She did not take her Lasix today because she does want to be in a position where she would have to use the bathroom frequently on the way to the office for her appointment. She has not used any type of brace or special shoe wear. Her chief complaint is that the ankle feels weak and unsteady. Occasionally she has some pain in the morning. A year ago she started noticing that her foot was becoming flat also. Patient has no history of peripheral neuropathy. Patient does have history of diabetes controlled with metformin. 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 Her left shoulder started bothering her 2 months ago. She rolled off the couch onto left shoulder. She had no weakness or pain immediately. She states she recalls no history of problems with her left shoulder prior to this occurring and then over the next several days she progressively developed weakness in the left shoulder. Her chief complaint is that she is unable to raise left shoulder. She does note at times pain in the top of the shoulder her neck in forearm and occasionally she notices numbness and tingling in the little finger of her right hand but no numbness or tingling In the left hand or arm. She does admit to numbness and tingling in the toes of both feet. She has had several falls. She complains that her fingers do not respond as well as the use to while she writes or tries to play piano. Ciro William MD [address] [place] [address], [place] [address], [place], [address], [place] [employer] [facility] 02/22/2023 14:18:24 OBGyn Episode No OBEpisode recorded.
--- OUTSIDE RECORDS SUMMARY | 2024-11-25 06:15 | XMS_ITS | Clinical Summary ---
Author Organization [employer] [facility] Address [address] 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
--- OUTSIDE RECORDS SUMMARY | 2024-11-25 06:15 | XMS_ITS | Encounter Summary ---
Author Organization [employer] Address 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
--- OUTSIDE RECORDS SUMMARY | 2024-11-25 06:15 | XMS_ITS | Clinical Summary ---
Author Organization [facility] [address] Address [address] [place] [address] Care Team Providers Care Groundskeeper Supervisor Name Role Phone Rahul Bejarano MD Primary Care Provider [phone] Tonio Cabello MD Unavailable [phone] Michael Castano MD Unavailable [phone] Allergies Active Allergy Reactions Criticality Noted Date Comments Bacitracin Diclofenac Diclofenac-Misoprostol Stomach upset High 03/31/2018 Hydrocodone Latex, Natural Rubber Rash Medium 03/31/2018 Misoprostol Neomycin Laoyybqg-Gjvmpvgxdo-Tlwpzuwfa Rash Medium 2017 Oxycodone Piroxicam Polymyxin B [...] (04/12/2022): Added automatically from request for surgery [id number] 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 Paroxysmal atrial fibrillation (CMS/HCC) 017 Acute postoperative abdominal pain Surgical History Surgery Date Site/Laterality Comments HYSTERECTOMY 11/03/1981 - 11/02/1982 CHOLECYSTECTOMY 11/03/1999 - 11/02/2000 APPENDECTOMY 11/03/1939 - 11/02/1940 JOINT REPLACEMENT 11/03/1999 - 11/02/2000 Bilateral LAPAROSCOPIC LEFT COLON RESECTION 05/15/2022 Medical History Medical History Date Comments Hypertension Hypertension Hypothyroidism Hypothyroidism Diabetes (HCC) Arthritis Family History Medical History Relation Name Comments Anesthesia problems Neg Hx Social History Tobacco Use Types Packs/Day Years Used Date Smoking Tobacco: Former Cigarettes 20 963 - 10/22/1982 Smokeless Tobacco: Never Tobacco [...] on file Legal Sex Female 1:59 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 Gender Identity Not on file Sexual Orientation Not on file Obstetrics History Last Filed Vital Signs Vital Sign Reading [...] 07/06/2024 3:42 PM CDT Plan of Treatment Health Maintenance Due Date Last Done Comments Depression Screening 1938 Hepatitis B Screening 02/24/1958 Well Visit 65+ 2003 Zoster Vaccine (3 of 3) 12/27/2019 11/01/2019, 06/08 Pneumococcal vaccine 65+ (2 of 2 - PPSV23 or PCV20) 10/29/2020 10/29/2019 Fall Risk Assessment 05/19/2023 05/19/2022 Covid-19 Vaccine (4 - 2023-2 5 season) 2024 09/14/2021, 03/12/2021, 02/19/2021 Influenza Vaccine (#1) 2024 , 08/19/2019, 08/28/2018, Additional history exists DTaP/Tdap/Td Vaccine (2 - Td or Tdap) 11/27/2029 11/27/2019 Insurance MEDICARE [facility] MEDICARE [facility] Advance Directives For more information, please contact: [phone] * Full Code (Latest Code Status on File) Date Activated Date Inactivated Comments 05/15/2022 4:32 PM 05/19/2022 5:07 PM * Full Code Date Activated Date Inactivated Comments 05/09/2022 10:46 AM 05/09/2022 4:28 PM Care Teams Groundskeeper Supervisor Relationship Specialty Start Date End Date Rahul Bejarano MD [address] [place] [address] PCP - General 05/02/14 Tonio Cabello MD [address] [facility] [id number] [place] [address] Surgeon Colon and Rectal Surgery 04/12/22 Michael Castano MD [address] [place], [place] [address] Referring Physician Vascular Surgery 04/12/22
== END 2024-11-19 10:03 | disposition home or self-care (01) ==
LOC: ANHIMG 10:04
PROVIDERS: PCP Internal Medicine; Visit Provider Internal Medicine
DX: M79.89 Other specified soft tissue disorders (principal)
CPT/HCPCS: 76882

== ENCOUNTER 2024-12-27 16:36 | Outpatient (CLI) | payer MEDICARE, SELFPAY ==
[2024-12-27 17:03] LABS: Basophils Percent Auto 0.6 % (0.2-1.2); Eosinophils Absolute Auto 0.1 K/mm3 (0-0.3); Eosinophils Percent Auto 1.7 % (0-4.4); Hematocrit 35.2 % (37.0-47.0); Immature Granulocyte Absolute 0.02 K/mm3 (0.00-0.031); Immature Granulocyte Percent A 0.3 % (0-0.5); Lymphocytes Absolute Auto 1.93 K/mm3 (0.9-3.2); Mean Corpuscular HGB Conc 31.3 g/dl (32-36); Mean Corpuscular Hemoglobin 29.7 pg (26-34); Mean Corpuscular Volume 95.1 fl (80-100); Mean Platelet Volume 10.3 fl (7.4-10.4); Monocytes Absolute Auto 0.5 K/mm3 (0.1-0.6); Monocytes Percent Auto 7.4 % (2.6-8.5); Neutrophils Absolute Auto 4.1 K/mm3 (1.3-6.7); Platelet Count Result 140 k/mm3 (150-375); Red Cell Distribution Width 13.1 % (11.5-14.5); White Blood Count 6.7 K/mm3 (4.5-10.0)
[2024-12-27 17:13] LABS: Cholesterol 122 mg/dL (0-200); HDL Direct 43 mg/dL; Triglycerides 138 mg/dL (<150)
[2024-12-27 17:14] LABS: Hemoglobin A1C 5.5 % (<5.7)
[2024-12-27 17:24] LABS: LDL Cholesterol Direct 48 mg/dL
--- OUTSIDE RECORDS SUMMARY | 2024-12-27 18:39 | XMS_ITS | Encounter Summary ---
Author Organization [employer] Address 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
--- OUTSIDE RECORDS SUMMARY | 2024-12-27 18:39 | XMS_ITS | Encounter Summary ---
Author Organization [facility] Address [address] [place] [address] Care Team Providers Care Ship Boat Or Barge Mate Name Role Phone Unavailable Primary Care Provider Unavailabl e Encounter Details Date Type Department Care Team (Late st Contact Info) Description 07/15/2000 Outpatient Historical [facility] Jon Mckeon MD [address] [facility] [address] [place] [address] Social History Tobacco Use Types Packs/Day Years Used Date Smoking Tobacco: Never Assessed Comments Unknown Sex and Gender Information Value Date Recorded Sex Assigned at Not on file Legal Sex Female 4:16 AM MANAGER SHIPPING Gender Identity Not on file Sexual Orientation Not on file documented as of this encounter Plan of Treatment Not on file documented as of this encounter Visit Diagnoses Not on filedocumented in this encounter
--- OUTSIDE RECORDS SUMMARY | 2024-12-27 18:39 | XMS_ITS | Clinical Summary ---
Author Organization [employer] [facility] Address [address] 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
--- OUTSIDE RECORDS SUMMARY | 2024-12-27 18:40 | XMS_ITS | Clinical Summary ---
Author Organization [facility] [address] Address [address] [place] [address] Care Team Providers Care Filler Mixer Name Role Phone Rahul Bejarano MD Primary Care Provider [phone] Tonio Cabello MD Unavailable [phone] Michael Castano MD Unavailable [phone] Allergies Active Allergy Reactions Criticality Noted Date Comments Bacitracin Diclofenac Diclofenac-Misoprostol Stomach upset High 03/31/2018 Hydrocodone Latex, Natural Rubber Rash Medium 03/31/2018 Misoprostol Neomycin Qapftsia-Fbbsmrrjum-Cdavihkgu Rash Medium 2017 Oxycodone Piroxicam Polymyxin B [...] (04/12/2022): Added automatically from request for surgery [id number] 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 Paroxysmal atrial fibrillation (CMS/HCC) [...] Years Used Date Smoking Tobacco: Former Cigarettes 963 - 10/22/1982 Smokeless Tobacco: Never Tobacco [...] on file Legal Sex Female 1:59 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 Gender Identity Not on file Sexual Orientation Not on file Obstetrics History Last Filed Vital Signs Vital Sign Reading Time Taken Comments Blood Pressure 124/60 07/06/2024 3:42 PM CDT Pulse 56 07/06/2024 3:42 PM CDT Temperature 36.8 C (98.2 F) 03/02/2024 4:23 PM CDT Respiratory Rate 12 03/02/2024 4:23 PM CDT [...] Pneumococcal vaccine 65+ (2 of 2 - PPSV23) 10/29/2020 10/29/2019 Fall Risk Assessment 05/19/2023 05/19/2022 Covid-19 Vaccine (4 - 2023-2 5 season) 2024 09/14/2021, 03/12/2021, 02/19/2021 Influenza Vaccine (#1) 2024 , 08/19/2019, 08/28/2018, Additional history exists DTaP/Tdap/Td Vaccine (2 - Td or Tdap) 11/27/2029 11/27/2019 Insurance MEDICARE [facility] MEDICARE [facility] Advance Directives For more information, please contact: [phone] * Full Code (Latest Code Status on File) Date Activated Date Inactivated Comments 05/15/2022 4:32 PM 05/19/2022 5:07 PM * Full Code Date Activated Date Inactivated Comments 05/09/2022 10:46 AM 05/09/2022 4:28 PM Care Teams Filler Mixer Relationship Specialty Start Date End Date Rahul Bejarano MD [address] [place] [address] PCP - General 05/02/14 Tonio Cabello MD [address] [facility] [phone] [place] [address] Surgeon Colon and Rectal Surgery 04/12/22 Michael Castano MD [address] [place] [address] Referring Physician Vascular Surgery 04/12/22
--- OUTSIDE RECORDS SUMMARY | 2024-12-27 18:40 | XMS_ITS | Referral Summary ---
Author Organization [facility] [address] Address [address] [place] [address] Care Team Providers Care Cigarette Inspector Name Role Phone Rahul Bejarano MD Primary Care Provider [phone] Tonio Cabello MD Unavailable Michael Castano MD Unavailable [phone] Allergies Active Allergy Reactions Criticality Noted Date Comments Bacitracin Diclofenac Diclofenac-Misoprostol Stomach upset High 03/31/2018 Hydrocodone Latex, Natural Rubber Rash Medium 03/31/2018 Misoprostol Neomycin Omfwjpvo-Dbdkdfvakr-Mbzdfrgmo Rash Medium 2017 Oxycodone Piroxicam Polymyxin B [...] (04/12/2022): Added automatically from request for surgery [id number] 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 Paroxysmal atrial fibrillation (CMS/HCC) [...] on file Legal Sex Female 1:59 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 Gender Identity Not on file Sexual Orientation [...] of Treatment Not on file Insurance MEDICARE [facility] MEDICARE [facility] MEDICARE [facility] Advance Directives For more information, please contact: [phone] * Full Code (Latest Code Status on File) Date Activated Date Inactivated Comments 05/15/2022 4:32 PM 05/19/2022 5:07 PM * Full Code Date Activated Date Inactivated Comments 05/09/2022 10:46 AM 05/09/2022 4:28 PM Care Teams Cigarette Inspector Relationship Specialty Start Date End Date Rahul Bejarano MD [address] [facility] [address] [place] [address] PCP - General 05/02/14 Tonio Cabello MD [id number] [place] [address] Surgeon Colon and Rectal Surgery 04/12/22 Michael Castano MD [address] [place] [address] Referring Physician Vascular Surgery 04/12/22
--- OUTSIDE RECORDS SUMMARY | 2024-12-27 18:40 | XMS_ITS | Data Portability ---
Author Organization [place] [facility], Main Office Address [address] [place] [address] Care Team Providers Care Pedodontist Name Role Phone YING CRABTREE Referring Provider [phone] Assessment Encounter Date Assessment Date Assessment LastModified [...] which did not improve with supportive worth [place], surgical treatment might be a consideration that [...] fellowship trained foot and ankle subspecialist had [facility] and she I think would be the [...] more than half the time spent in elga-zu-wrmg care. Not available 02/22/2023 14:11:07 03/17/2023 03/17/2023 [...] C7-T1. Patient is considering referral to a proposal specialist and is going to see Dr. [...] more than half the time spent in fliw-bg-yqhx care. Not available 03/30/2023 12:55:35 04/21/2023 04/21/2023 Patient returns. She is here for follow-up for left shoulder. She has had several treatments with physical therapy thus far. She has been using a walker. 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 Not available 05/11/2023 18:41:02 Plan of Treatment Reminders Order Date Submit Date Provider Last Modified By Organization Details Last Modified Time Details Appointments None recorded. Lab None recorded. Referral None recorded. Procedures None recorded. Surgeries None recorded. Imaging XR, ankle 2022 023 [email or web address] [facility] [place], [address], [place], [address], 3 09:52:47 XR, foot, 3 or more view 2022 023 [email or web address] [facility] [place], [address], [place], [address], 3 09:52:46 XR, shoulder 2022 023 [email or web address] [facility] [place], [address], [place], [address], 3 09:52:46 Medication Orders None recorded. Patient TargetsNo targets recorded. Patient InstructionsNo instructions recorded. Reason for Referral None Reported. Results Created Date Observation Date Name Description Value Unit Range Abnormal Flag Note LastModifiedBy Organization Detail LastModifiedTime 02/20/20 23 XR, ankle No observ ation record ed. [facility] [place] [address], [place], [address], 02/22/2023 14:15:41 02/20/20 23 XR, foot, 3 or more view No observ ation record ed. [facility] [place] [address], [place], [address], 02/22/2023 14:18:17 02/20/20 23 XR, shoul may No observ ation record ed. [facility] [place] [address], [place], [address], 02/22/2023 14:13:28 02/20/20 23 03/20/2022 XR, ankle No observ ation record ed. [email or web address] Not Available 2022 15:33:34 02/20/20 23 08/05/2022 MRI, ankle , w/o contr ast No observ ation record ed. [email or web address] Not Available 2022 15:33:57 03/05/20 23 03/05/2023 MRI, shoul may, w/o contr ast No observ ation record ed. [email or web address] [facility] [address], [place], [address], 03/06/2023 16:21:43 03/17/20 MRI, cervi kristopher spine , w/wo contr ast No observ ation record ed. [email or web address] Not Available 2022 17:40:51 Result Notes None recorded. 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 Procedures Surgical History None recorded. Imaging Results Imaging Date Name Status LastModified by [facility] Details LastModified Time 02/19/2023 XR, ankle completed [facility] [place] [address], [place], [address], 02/22/2023 14:15:41 02/19/2023 XR, foot, 3 or more view completed [facility] [place] [address], [place], [address], 02/22/2023 14:18:17 02/19/2023 XR, shoulder completed [facility] [place] [address], [place], [address], 02/22/2023 14:13:28 03/20/2022 XR, ankle completed Information no t available 02/19/2023 15:33:34 08/05/2022 MRI, ankle, w/o contrast completed Information not available 02/19/2023 15:33:57 03/05/2023 MRI, shoulder, w/o contrast completed [address], [place], [address], 03/06/2023 16:21:43 03/17/2023 MRI, cervical spine, w/wo contrast completed [email or web address] Information not available 03/17/2023 17:40:51 Procedure Notes None recorded. Medical Equipment None Reported. Allergies Allergen ID Allergen Name Allergen Category Reaction Reaction Severity Criticality Documentation Date Start Date Code Code System Note Provider Name and Address Organization Details Recorded Time 07068 vancomyci n medicatio n itching severe Not available 01/01/2023 55916 RxNorm Not Available [facility] 3 13:31:00 46661 sertralin e medicatio n other Not available Not available 01/01/2023 55903 RxNorm sertr isael HCL 50 mg made her Ill Not Available [facility] 3 13:31:00 08269 propoxyph isa medicatio n Not available Not available Not available 01/01/2023 8785 RxNorm propo xyphe ne APAP 100-6 50 MGTEV Not Available [facility] 3 13:31:00 06373 piroxicam medicatio n abdominal pain Not available Not available 01/01/2023 8356 RxNorm Not Available [facility] 3 13:31:00 72549 oxycodone medicatio n itching severe Not available 01/01/2023 7804 RxNorm Not Available [facility] 3 13:31:00 38406 latex environme nt,medica tion Not available Not available Not available 01/01/2023 85199 91 RxNorm Not Available [facility] 3 13:31:00 42375 hydrocodo ne Not available itching severe Not available 01/01/2023 5489 RxNorm Not Available [facility] 3 13:31:00 48852 diclofena c Not available abdominal pain Not available Not available 01/01/2023 3355 RxNorm diclo fenac SOD EC 50 MG Not Available [facility] 3 13:31:01 30803 Betadine medicatio n facial swelling Not available Not available 01/01/202387325 0 RxNorm MARNIE Weller, [place] [employer] 3 09:13:11 00487 Arthrotec medicatio n abdominal pain severe Not available 01/01/2023 95170 UNK arthr otec 74 Not Available [facility] 3 13:31:01 Medications Name Sig Start Date [...] administe red by the provider 02/19 completed [facility]: 0003- 0494- 20 Not Available Not Available [...] administe red by the provider 02/19 completed [facility]: 0409- 4276- 17 Not Available Not Available [...] Address Organization Details Last Updated DateTime 02/19/2023 10008.4 g 42.4 kg/m2 149.86 cm Cecilia Coronel Miguel Angel [employer] [facility] 02/19/2023 09:24:55 Date Recorded Body height Provider Name an d Address Organization Details Last Updated DateTime 03/17/2023 149.86 cm Cecilia Coronel Miguel Angel [employer] [facility] 03/17/2023 16:29:53 Date Recorded Body height Provider Name an d Address Organization Details Last Updated DateTime 04/21/2023 149.86 cm Cecilia Coronel Miguel Angel [employer] [facility] 04/21/2023 17:01:07 Social History Question Answer Notes LastModified by Organizat ion Details LastModified Time Tobacco Smoking Status Former Smoker Cecilia Coronel, RMA null, [place] [facility] 02/19/2023 09:20:07 What Is Your Level Of Alcohol Consumption? None [email or web address] Information not available 02/19/2023 Sex: Unknown Functional Status None recorded. Mental Status None recorded. Family History Relationship Description Onset Age of this Age Resolved Age Notes LastModified by Organization Details LastModified Time Father Family history of malignant neoplasm [email or web address] Not available 2022 09:19:49 Mother Family history of malignant neoplasm [email or web address] Not available 2022 09:19:49 Medical History Condition Response ARTHRITIS Y COPD Y Gynecological HistoryNo gynecological history recorded. Obstetrics History GPAL:G 0 P 0 0 0 0 Past Encounters Encounter ID Performer Location Encounter Start Date Encounter Closed Date Diagnosis/Indication Diagnosis SNOMED-CT Code Diagnosis ICD10 Code Diagnosis Note [id number] Ciro William MD [facility] [place] [address] [place] [address] 02/19/2023 08:46:43 02/24/2023 09:52:46 Pain of left shoulder joint 1539313795 7429886 M25.512 Pain of ri ght ankle joint 6791436892 7922835 M25.571 [id number] Ciro William MD [facility] [place] [address] [place] [address] 03/17/2023 16:26:05 04/01/2023 09:41:24 Pain of left shoulder joint 9796433542 8898907 M25.512 [id number] Ciro William MD [facility] [place] [address] [place] [address] 04/21/2023 16:58:25 05/12/2023 12:19:10 Partial thickness rotator cuff tear 494468559 M75.122 Health Concerns Section Related Observation LastModified by Organization Detai ls LastModified Time None Recorded Concern Status LastModified by Organization Details LastModified Time None Recorded Advance Directives Directive None Recorded Payers Encounter Date Sequence Insurance Name Policy Number Policy Spencer Covered Member ID Spencer Member ID Guarantor Name 02/19/2023 1 [place] Alexus Castañeda [id number] Alexus Castañeda 02/19/2023 2 [place] [id number] Alexus Castañeda [id number] Alexus Castañeda 03/17/2023 1 [place] Alex[place] Castañeda [id number] Alexus Castañeda 03/17/2023 2 [place] [id number] Alexus Castañeda [id number] Alexus Castañeda 04/21/2023 1 [place] Alexus Castañeda [id number] Alexus Castañeda 04/21/2023 2 [place] [id number] Alexus Castañeda [id number] Alexus Castañeda Notes Date Note Type [...] plantar Enthesopathy. she had been seen a mailroom assistant and had couple of cortisone shots in [...] bladder and this [facility]. Her left shoulder [...] tries to play piano. Ciro William MD [address] [place] [address], [place] [address], [place], [address], [place] [employer] [facility] 02/22/2023 14:18:24 OBGyn Episode No OBEpisode recorded.
== END 2024-12-27 16:37 | disposition home or self-care (01) ==
PROVIDERS: PCP Internal Medicine; Visit Provider Internal Medicine
DX: E78.2 Mixed hyperlipidemia (principal); E11.22 Type 2 diabetes mellitus with diabetic chronic kidney disease; I12.9 Hypertensive chronic kidney disease with stage 1 through stage 4 chronic kidney disease, or unspecified chronic kidney disease; N18.1 Chronic kidney disease, stage 1
CPT/HCPCS: 36415; 80061; 83036; 85025

== ENCOUNTER 2025-01-03 10:20 | Outpatient (CLI) | payer MEDICARE, SELFPAY ==
[2025-01-03 11:42] LABS: Albumin Level 4.2 g/dL (3.5-5.1); Estimated Glomerular Filt Rate 55
== END 2025-01-03 10:21 | disposition home or self-care (01) ==
PROVIDERS: PCP Internal Medicine; Visit Provider Orthopaedic Surgery
DX: Z01.818 Encounter for other preprocedural examination (principal); M19.012 Primary osteoarthritis, left shoulder; N18.1 Chronic kidney disease, stage 1; M25.412 Effusion, left shoulder; M75.52 Bursitis of left shoulder; M75.102 Unspecified rotator cuff tear or rupture of left shoulder, not specified as traumatic; X58.XXXA Exposure to other specified factors, initial encounter
CPT/HCPCS: 36415; 73200; 82040; 82565

== ENCOUNTER 2025-03-15 08:29 | Inpatient (IN) | payer MEDICARE, SELFPAY ==
--- NOTE | ~2025-03-15 | MR_ITS ---
EXAMINATION: MR abdomen wo con DATE: 03/16/2025 20:04 INDICATION: Right kidney lesion TECHNIQUE: Magnetic resonance imaging (MRI) of the abdomen was performed without intravenous contrast . Sequences included coronal T2-weighted SS-FSE, coronal and axial FS 2D-FIESTA, axial STIR FSE, axi al T2-weighted SS-FSE, axial T2-weighted FS SS-FSE, axial diffusion-weighted SE, axial dual-echo T1-w eighted FSPGR, and axial and coronal T1-weighted LAVA. COMPARISON: CT dated 03/15/2025 FINDINGS: Mild cardiomegaly. No pericardial or pleural effusion. Small region of increased signal in the lungs corresponding to the nodular lung disease identified on prior CT most likely infectious/inflammatory in etiology and for which three-month follow-up is recommended. Liver, spleen, pancreas and right adr enal gland are normal. Signal dropout consistent with intracellular lipid within a 2.8 cm left adrena l adenoma. A few T2 hyperintense renal cysts the largest in the right kidney measuring 3.6 cm. Minima l edema surrounding a partially collapsed exophytic cyst at the upper pole of the right kidney. Patie nt deferred intravenous contrast which limits definitive assessment for cystic renal lesions. The 11 mm lesion of concern at the right kidney which demonstrate increased density on prior CT also demonst rates low T2 and high T1 signal further strengthening the supposition that this represents a proteina ceous/hemorrhagic cyst. Bowels are unremarkable. No pathologically enlarged abdominal or upper pelvic lymphadenopathy. Mild lumbar levoscoliosis with severe spondylosis including associated fibrofatty a nd fibrovascular degenerative endplate changes. IMPRESSION: 1. Although patient deferred intravenous contrast which limits definitive assessment for cystic versu s solid lesions, this high T1 and low T2 signal associated with the hypodense right renal lesion whic h further supports the supposition that this represents a proteinaceous/hemorrhagic cyst. 2. Nodules in the right lower lung for which three-month low-dose noncontrast chest CT follow-up is b een recommended. Reviewed, dictated and finalized at location A. IMPRESSION: 1. Although patient deferred intravenous contrast which limits definitive asses sment for cystic versus solid lesions, this high T1 and low T2 signal associate d with the hypodense right renal lesion which further supports the supposition that this represents a proteinaceous/hemorrhagic cyst. 2. Nodules in the right lower lung for which three-month low-dose noncontrast c hest CT follow-up is been recommended.
--- NOTE | ~2025-03-15 | XR_ITS ---
XR chest 1V Ordering provider: Olamide Marks PA-C History: 85 years Female with . fall, COUGH . Comparison: March 30, 2024 FINDINGS: MEDIASTINUM: The cardiac silhouette is slightly enlarged. Prominent both alfredo more on the right side. CT evaluation to exclude lymphadenopathy in the right hilum or mass is advised. LUNGS: Vague opacity in the right infrahilar area is noted. Serpiginous structure is seen in the left lower lobe area which may be artifactual. CT evaluation advised. No effusions or pneumothorax. OTHER: No free air under the diaphragm. IMPRESSION: Prominent right hilum and serpiginous structure in the left lower lobe area. CT evaluation advised. Right infrahilar opacity which may indicate focal pneumonia. Reviewed, dictated and finalized at location A.
--- NOTE | ~2025-03-15 | CT_ITS ---
EXAMINATION: CT chest abdomen pelvis wo con DATE: 03/15/2025 10:45 INDICATION: Pain everywhere post fall TECHNIQUE: Computed tomography (CT) of the chest, abdomen, and pelvis was performed without intraveno us contrast. Automated exposure control and iterative reconstruction technique were employed. The dos e-length product was 910.20 mGy-cm. COMPARISON: CT abdomen and pelvis dated 03/22/2022 FINDINGS: CHEST CT: Nodular opacity with spiculated margins in the right middle lobe measuring 2.0 x 1.4 cm. A few additi onal small groundglass nodules and mixed groundglass and centrally solid nodules in the left lower lo be with largest groundglass nodule measuring up to 1.9 cm in maximal diameter. Additional single Mixed solid and groundglass nodule in the right upper lobe. Multiple smaller nodules in the right low er lobe with tree-in-bud pattern suggesting endobronchial spread of disease. All new since the prior study and most likely infectious/inflammatory in etiology. No pulmonary edema or pleural effusion. He art size is normal. Atherosclerotic coronary artery calcium lesions. Dense mitral annular calcificati on. No pericardial effusion. Thoracic aorta is normal in caliber. No pathologically enlarged thoracic lymphadenopathy. Severe lower cervical spondylosis and moderate thoracic spondylosis. ABDOMEN/PELVIS CT: Cholecystectomy clips at the gallbladder fossa. Liver, spleen, pancreas and right adrenal gland are n ormal. 2.8 cm low-attenuation left adrenal adenoma. There are few cysts in the right kidney the large st measuring 3.5 cm and with partial collapse of exophytic cyst at the upper pole. 1.2 cm higher atte nuation exophytic lesion at the mid right kidney which is indeterminate but statistically most likely to represent a proteinaceous/hemorrhagic cyst. Status post prior partial colectomy with anastomosis at the distal sigmoid colon. No bowel obstruction. Tiny focus of gas in the otherwise normal bladder. . The uterus is not identified and has likely been surgically resected. No free intraperitoneal gas o r fluid. No pathologically enlarged abdominal or pelvic lymphadenopathy. There is calcified atheroscl erosis of the normal caliber aorta and iliac arteries. Severe lumbar spondylosis with grade 1 anterol isthesis L4 on L5. No acute osseous abnormality. IMPRESSION: 1. No acute fracture or acute vascular or visceral organ injury in the chest, abdomen or pelvis. 2. Noted nodular opacities in the bilateral lower lungs, some solid, some groundglass and somewhat tr ee-in-bud pattern which are all most likely infectious/inflammatory in etiology. Recommend 3 month fo llow-up low-dose noncontrast chest CT. 3. Indeterminate 1.2 cm higher attenuation exophytic lesion at the mid right kidney statistically mos t likely to represent a proteinaceous/hemorrhagic cyst although solid neoplasm cannot be absolute exc luded. Recommend further evaluation with pre and postcontrast MRI or CT. 4. Tiny focus of gas in the otherwise normal bladder. Correlate for recent instrumentation or Veliz c atheterization. Reviewed, dictated and finalized at location A. IMPRESSION: 1. No acute fracture or acute vascular or visceral organ injury in the chest, a bdomen or pelvis. 2. Noted nodular opacities in the bilateral lower lungs, some solid, some groun dglass and somewhat tree-in-bud pattern which are all most likely infectious/in flammatory in etiology. Recommend 3 month follow-up low-dose noncontrast chest CT. 3. Indeterminate 1.2 cm higher attenuation exophytic lesion at the mid right ki dney statistically most likely to represent a proteinaceous/hemorrhagic cyst al though solid neoplasm cannot be absolute excluded. Recommend further evaluation with pre and postcontrast MRI or CT. 4. Tiny focus of gas in the otherwise normal bladder. Correlate for recent inst rumentation or Veliz catheterization.
[2025-03-15 08:29] VITALS: BP 150/88; PULSE 95; RESP 18; TEMP 37.1; O2SAT 98
[2025-03-15 08:41] VITALS: O2SAT 98
[2025-03-15 09:22] LABS: Influenza A QL RT-PCR Negative (Negative); Influenza B QL RT-PCR Negative (Negative); RSV RNA, RT-PCR Negative (Negative); SARS-CoV-2 RNA PCR Negative (Negative)
--- OUTSIDE RECORDS SUMMARY | 2025-03-15 09:23 | XMS_ITS | Encounter Summary ---
Author Organization [employer] Address 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
--- OUTSIDE RECORDS SUMMARY | 2025-03-15 09:23 | XMS_ITS | Encounter Summary ---
Author Organization [employer] Address 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
--- OUTSIDE RECORDS SUMMARY | 2025-03-15 09:23 | XMS_ITS | Clinical Summary ---
Author Organization [facility] [address] Address [address] [place] [address] Care Team Providers Care Architect In Training Name Role Phone Rahul Bejarano MD Primary Care Provider [phone] Tonio Cabello MD Unavailable [phone] Michael Castano MD Unavailable [phone] Allergies Active Allergy Reactions Criticality Noted Date Comments Bacitracin Diclofenac Diclofenac-Misoprostol Stomach upset High 03/31/2018 Hydrocodone Latex, Natural Rubber Rash Medium 03/31/2018 Misoprostol Neomycin Scnkhqxe-Geafurwxwy-Qvadagyfp Rash Medium 2017 Oxycodone Piroxicam Polymyxin B Povidone-Iodine Swelling Medium 04/09/2022 Propoxyphene Sertraline Vancomycin Medications coenzyme Q10 (COQ-10) 100 mg capsule 100 mg. 0 2 Active Additional Information Patient taking differently: 200 mg oral Every morning, Informant: Self, Reported on 02/11/2025 levothyroxine (SYNTHROID, LEVOTHROID) 88 mcg tablet take 1 tablet (88MCG) by oral route every day 0 2 Active niacin, inositol niacinate, (NIACIN FLUSH FREE) 400 mg niacin (500 mg) capsule 0 2 Active folic acid (FOLVITE) 400 mcg tablet take 1 Tablet (0.4MG) by oral route every day 0 2 Active cholecalciferol (cholecalciferol ) 1,000 unit tablet take 1 by Oral route once 0 0 3 Active cyanocobalamin (vitamin B-12) 1,000 mcg tablet take 1 by Oral route every day 0 0 3 Active ezetimibe (ZETIA) 10 mg tabletIndication s:hyperlipidemia Take 1 tablet (10 mg total) by mouth every morning 2 Active Trelegy Ellipta 100-62.5-25 mcg inhalerIndicatio ns:Bronchospasm Prevention with COPD Inhale 1 puff every morning 2 Active traMADoL (ULTRAM) 50 mg tabletIndication s:Pain Take 1 tablet (50 mg total) by mouth every 6 (six) hours as needed for pain Active acetaminophen 500 mg capsuleIndicatio ns:Pain Take 2 capsules (1,000 mg total) by mouth every 6 (six) hours as needed for pain 30 capsule 2 Active betamethasone dipropionate (DIPROSONE) 0.05 % lotion APPLY TO SCALP THE DAY BEFORE YOU SHAMPOO FOR UP TO TWO WEEKS NEEDED. 4 Active clobetasoL (TEMOVATE) 0.05 % cream Apply topically 2 (two) times a day 4 Active ferrous sulfate 325 mg (65 mg of elemental iron) tablet Take 1 tablet (325 mg total) by mouth daily 4 Active metOLazone (ZAROXOLYN) 2.5 mg tablet 2.5 MG ORALLY 3X/ WEEK 4 Active potassium chloride ER 20 mEq CR tablet Take 1 tablet (20 mEq total) by mouth nightly 4 Active pramipexole (MIRAPEX) 0.75 mg tablet Take 1 tablet (0.75 mg total) by mouth nightly 4 Active Eliquis 5 mg tablet Take 1 tablet (5 mg total) by mouth 2 (two) times a day 4 Active metoprolol XL (TOPROL-XL) 25 mg extended release tablet Take 1 tablet (25 mg total) by mouth daily 4 Active furosemide (LASIX) 40 mg tablet Take 1 tablet (40 mg total) by mouth every morning 5 Active losartan (COZAAR) 50 mg tablet Take 1 tablet (50 mg total) by mouth daily 5 Active Rybelsus 14 mg tablet Take 1 tablet (14 mg total) by mouth daily 5 Active Active Problems Problem Noted Date Diagnosed Date Status post gastrointestinal surgery, follow-up exam 06/04/2022 Diverticulitis 04/12/2022 Overview (04/12/2022): Added automatically from request for surgery [id number] 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 Medical [facility] Cardiology [address] [place] [address] Rosalina Shaw NP 02/11/2025 2:30 PM CDT Office Visit 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 Gender Identity Not on file Sexual Orientation Not on file Obstetrics History Last Filed Vital Signs Vital Sign Reading Time Taken Comments Blood Pressure 130/80 02/11/2025 2:27 PM CDT Pulse 80 02/11/2025 2:27 PM CDT Temperature 36.8 C (98.2 F) 03/02/2024 4:23 PM CDT Respiratory Rate 12 03/02/2024 4:23 PM CDT Oxygen Saturation 98% 02/11/2025 2:27 PM CDT Inhaled Oxygen Concentration - - Weight 80.3 kg (177 lb) 02/11/2025 2:27 PM CDT Height 154.9 cm (5' 1 ) 02/11/2025 2:27 PM CDT Body Mass Index 33.44 02/11/2025 2:27 PM CDT Plan of Treatment Health Maintenance Due Date Last Done Comments Depression Screening 1940 Hepatitis B Screening 02/24/1958 Well Visit 65+ 2003 Zoster Vaccine (3 of 3) 12/27/2019 11/01/2019, 06/08 Pneumococcal vaccine 65+ (2 of 2 - PPSV23) 10/29/2020 10/29/2019 Fall Risk Assessment 05/19/2023 05/19/2022 Covid-19 Vaccine (4 - 2023-2 5 season) 2024 09/14/2021, 03/12/2021, 02/19/2021 Influenza Vaccine (Season Ended) 2025 08/14/2021, 08/19/2019, 08/28/2018, Additional history exists DTaP/Tdap/Td Vaccine (2 - Td or Tdap) 11/27/2029 11/27/2019 [place] [employer] [place] [employer] [place] [facility] MEDICARE SUPPLEMENT Advance Directives For more information, please contact: [phone] * Full Code (Latest Code Status on File) Date Activated Date Inactivated Comments 05/15/2022 4:32 PM 05/19/2022 5:07 PM * Full Code Date Activated Date Inactivated Comments 05/09/2022 10:46 AM 05/09/2022 4:28 PM Care Teams Architect In Training Relationship Specialty Start Date End Date Rahul Bejarano MD [address] [place] [address] PCP - General 05/02/14 Tonio Cabello MD [phone] [place] [address] Surgeon Colon and Rectal Surgery 04/12/22 Michael Castano MD [address] [place] [address] Referring Physician Vascular Surgery 04/12/22
--- OUTSIDE RECORDS SUMMARY | 2025-03-15 09:23 | XMS_ITS | Referral Summary ---
Author Organization [facility] [address] [place] [address] [address] [place] [address] Care Team Providers Care Relocation Director Name Role Phone Rahul Bejarano MD Primary Care Provider [phone] Tonio Cabello MD Unavailable [phone] Michael Castano MD Unavailable [phone] Encounters Date Type Department Care Team Description 02/17/2025 Telephone [facility] Cardiology [address] [place] [address] Rosalina Shaw NP 02/11/2025 2:30 PM CDT Office Visit [facility] Medical [facility] Cardiology [address] [facility] [address] [place] [address] Rosalina Shaw NP Paroxysmal atrial fibrillation (HCC) (Primary Dx); Chronic anticoagulation from Last 3 Months Allergies Active Allergy Reactions Criticality Noted Date Comments Bacitracin Diclofenac Diclofenac-Misoprostol Stomach upset High 03/31/2018 Hydrocodone Latex, Natural Rubber Rash Medium 03/31/2018 Misoprostol Neomycin Okageudd-Xllarqutqp-Vabeobdze Rash Medium 2017 Oxycodone Piroxicam Polymyxin B [...] (04/12/2022): Added automatically from request for surgery [id number] 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 Paroxysmal atrial fibrillation 10/22/2017 Acute postoperative abdominal pain Social History Tobacco [...] on file 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 Gender Identity Not on file Sexual Orientation [...] 02/11/2025 2:27 PM CDT Plan of Treatment Not on file Insurance [place]ARE [employer] [place] MEDICARE [facility] MEDICARE [facility] MEDICARE SUPPLEMENT Advance Directives For more information, please contact: [phone] * Full Code (Latest Code Status on File) Date Activated Date Inactivated Comments 05/15/2022 4:32 PM 05/19/2022 5:07 PM * Full Code Date Activated Date Inactivated Comments 05/09/2022 10:46 AM 05/09/2022 4:28 PM Care Teams Relocation Director Relationship Specialty Start Date End Date Rahul Bejarano MD [address] [facility] [address] [place] [id number] PCP - General 05/02/14 Tonio Cabello MD [address] [facility] [phone] [place] [address] Surgeon Colon and Rectal Surgery 04/12/22 Michael Castano MD [address] [address] Referring Physician Vascular Surgery 04/12/22
--- OUTSIDE RECORDS SUMMARY | 2025-03-15 09:23 | XMS_ITS | Clinical Summary ---
Author Organization [employer] [facility] Address [address] 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
--- OUTSIDE RECORDS SUMMARY | 2025-03-15 09:23 | XMS_ITS | Data Portability ---
Author Organization [place] [facility], Main Office Address [address] [place] [address] Care Team Providers Care High Speed Operator Name Role Phone YING CRABTREE Referring Provider [phone] Assessment Encounter Date Assessment Date Assessment LastModified [...] which did not improve with supportive worth Ute, surgical treatment might be a consideration that [...] fellowship trained foot and ankle subspecialist had [facility] and she I think would be [...] more than half the time spent in vsmv-aa-vktl care. Not available 02/22/2023 14:11:07 03/17/2023 03/17/2023 [...] C7-T1. Patient is considering referral to a special education curriculum specialist and is going to see Dr. [...] more than half the time spent in mkys-sv-xrnf care. Not available 03/30/2023 12:55:35 04/21/2023 04/21/2023 Patient returns. She is here for follow-up for left shoulder. She has had several treatments with physical therapy thus far. She has been using a walker. 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 Not available 05/11/2023 18:41:02 Plan of Treatment Reminders Order Date Submit Date Provider Last Modified By Organization Details Last Modified Time Details Appointments None recorded. Lab None recorded. Referral None recorded. Procedures None recorded. Surgeries None recorded. Imaging XR, ankle 2022 023 [email or web address] [facility] [place], [address], [place], [address], 3 09:52:47 XR, foot, 3 or more view 2022 023 [email or web address] [facility] [place], [address], [place], [address], 3 09:52:46 XR, shoulder 2022 023 [email or web address] [facility] [place], [address], [place], [address], 3 09:52:46 Medication Orders None recorded. Patient TargetsNo targets recorded. Patient InstructionsNo instructions recorded. Reason for Referral None Reported. Results Created Date Observation Date Name Description Value Unit Range Abnormal Flag Note LastModifiedBy Organization Detail LastModifiedTime 02/20/20 23 XR, ankle No observ ation record ed. [facility] [place] [address], [place], [address], 02/22/2023 14:15:41 02/20/20 23 XR, foot, 3 or more view No observ ation record ed. [facility] [place] [address], [place], [address], 02/22/2023 14:18:17 02/20/20 23 XR, shoul may No observ ation record ed. [facility] [place] [address], [place], [address], 02/22/2023 14:13:28 02/20/20 23 03/20/2022 XR, ankle No observ ation record ed. [email or web address] Not Available 2022 15:33:34 02/20/20 23 08/05/2022 MRI, ankle , w/o contr ast No observ ation record ed. [email or web address] Not Available 2022 15:33:57 03/05/20 23 03/05/2023 MRI, shoul may, w/o contr ast No observ ation record ed. [email or web address] [facility] [address], [place], [address], 03/06/2023 16:21:43 03/17/20 MRI, cervi kristopher spine , w/wo contr ast No observ ation record ed. [email or web address] Not Available 2022 17:40:51 Result Notes None recorded. 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 Procedures Surgical History None recorded. Imaging Results Imaging Date Name Status LastModified by Organiz [facility] Details LastModified Time 02/19/2023 XR, ankle completed [facility] [place] [address], [place], [address], 02/22/2023 14:15:41 02/19/2023 XR, foot, 3 or more view completed [facility] [place] [address], [place], [address], 02/22/2023 14:18:17 02/19/2023 XR, shoulder completed [facility] [place] [address], [place], [address], 02/22/2023 14:13:28 03/20/2022 XR, ankle completed Information no t available 02/19/2023 15:33:34 08/05/2022 MRI, ankle, w/o contrast completed Information not available 02/19/2023 15:33:57 03/05/2023 MRI, shoulder, w/o contrast completed [address], [place], [address], 03/06/2023 16:21:43 03/17/2023 MRI, cervical spine, w/wo contrast completed [email or web address] Information not available 03/17/2023 17:40:51 Procedure Notes None recorded. Medical Equipment None Reported. Allergies Allergen ID Allergen Name Allergen Category Reaction Reaction Severity Criticality Documentation Date Start Date Code Code System Note Provider Name and Address Organization Details Recorded Time 49861 vancomyci n medicatio n itching severe Not available 01/01/2023 87947 RxNorm Not Available [facility] 3 13:31:00 20019 sertralin e medicatio n other Not available Not available 01/01/2023 82768 RxNorm sertr isael HCL 50 mg made her Ill Not Available [facility] 3 13:31:00 07664 propoxyph isa medicatio n Not available Not available Not available 01/01/2023 8785 RxNorm propo xyphe ne APAP 100-6 50 MGTEV Not Available [facility] 3 13:31:00 08760 piroxicam medicatio n abdominal pain Not available Not available 01/01/2023 8356 RxNorm Not Available [facility] 3 13:31:00 12120 oxycodone medicatio n itching severe Not available 01/01/2023 7804 RxNorm Not Available [facility] 3 13:31:00 38890 latex environme nt,medica tion Not available Not available Not available 01/01/2023 98918 91 RxNorm Not Available [facility] 3 13:31:00 46362 hydrocodo ne Not available itching severe Not available 01/01/2023 5489 RxNorm Not Available [facility] 3 13:31:00 48221 diclofena c Not available abdominal pain Not available Not available 01/01/2023 3355 RxNorm diclo fenac SOD EC 50 MG Not Available [facility] 3 13:31:01 71955 Betadine medicatio n facial swelling Not available Not available 01/01/202302707 0 RxNorm MARNIE Weller, [place] [facility] 3 09:13:11 50809 Arthrotec medicatio n abdominal pain severe Not available 01/01/2023 76035 UNK arthr otec 74 Not Available [facility] 3 13:31:01 Medications Name Sig Start Date [...] administe red by the provider 02/19 completed [facility]: 0003- 0494- 20 Not Available Not Available [...] administe red by the provider 02/19 completed [facility]: 0409- 4276- 17 Not Available Not Available [...] mg-100 mg tablets in a dose pack (Moderate Renal Dose) TAKE ONE 150MG TABLET WITH ONE [...] Address Organization Details Last Updated DateTime 02/19/2023 36222.4 g 42.4 kg/m2 149.86 cm Cecilia Coronel [employer] [facility] 02/19/2023 09:24:55 Date Recorded Body height Provider Name an d Address Organization Details Last Updated DateTime 03/17/2023 149.86 cm Cecilia Coronel [employer] [facility] 03/17/2023 16:29:53 Date Recorded Body height Provider Name an d Address Organization Details Last Updated DateTime 04/21/2023 149.86 cm Cecilia Coronel [facility] [employer] [facility] 04/21/2023 17:01:07 Social History None recorded. Functional Status Question Answer Note LastModified by Organization D etails LastModified Time What is your level of alcohol consumption? None Information not available 02/19/2023 Mental Status None recorded. Family History Relationship Description Onset Age of this Age Resolved Age Notes LastModified by Organization Details LastModified Time Father Family history of malignant neoplasm [email or web address] Not available 2022 09:19:49 Mother Family history of malignant neoplasm [email or web address] Not available 2022 09:19:49 Medical History Condition Response ARTHRITIS Y COPD Y Gynecological HistoryNo gynecological history recorded. Obstetrics History GPAL:G 0 P 0 0 0 0 Past Encounters Encounter ID Performer Location Encounter Start Date Encounter Closed Date Diagnosis/Indication Diagnosis SNOMED-CT Code Diagnosis ICD10 Code Diagnosis Note [id number] Ciro William MD [facility] [place] [address] [place] [address] 02/19/2023 08:46:43 02/24/2023 09:52:46 Pain of left shoulder joint 8125550878 7141314 M25.512 Pain of ri ght ankle joint 7029025204 9835605 M25.571 [id number] Ciro William MD [facility] [place] [address] [place] [address] 03/17/2023 16:26:05 04/01/2023 09:41:24 Pain of left shoulder joint 5994932037 0252558 M25.512 [id number] Ciro William MD [facility] [place] [address] [place] [address] 04/21/2023 16:58:25 05/12/2023 12:19:10 Partial thickness rotator cuff tear 067798683 M75.122 Health Concerns Section Related Observation LastModified by Organization Detai ls LastModified Time None Recorded Concern Status LastModified by Organization Details LastModified Time None Recorded Advance Directives Directive None Recorded Payers Encounter Date Sequence Insurance Name Policy Number Policy Spencer Covered Member ID Spencer Member ID Guarantor Name 02/19/2023 1 [place] Alexus Castañeda [id number] Alexus Castañeda 02/19/2023 2 [place] [id number] Alexus Castañeda [id number] Alexus Castañeda 03/17/2023 1 [place] Alex[place] Castañeda [id number] Alexus Castañeda 03/17/2023 2 [place] [id number] Alexus Castañeda [id number] Alexus Castañeda 04/21/2023 1 [place] Alexus Castañeda [id number] Alexus Castañeda 04/21/2023 2 [place] [id number] Alexus Castañeda [id number] Alexus Castañeda Notes Date Note Type Note [...] plantar Enthesopathy. she had been seen a seed analysis laboratory assistant and had couple of cortisone shots [...] bladder and this required extensive surgery at [place] to address last fall. Her left shoulder [...] tries to play piano. Ciro William MD [address] [place] [address], [place] [address], [place], [address], [facility] 02/22/2023 14:18:24 OBGyn Episode No OBEpisode recorded.
--- NOTE | 2025-03-15 09:51 | ECG_ITS ---
Test Date: 2025-03-15 10:08:16 Measurements Intervals [place] Rate: 109 P: 0 MA: 0 QRS: 9 QRSD: 100 T: 43 QT: 337 QTc: 454 Interpretive Statements ATRIAL FIBRILLATION WITH RAPID VENTRICULAR RESPONSE LOW QRS VOLTAGE IN EXTREMITY LEADS [QRS DEFLECTION < 0.5 mV IN LIMB LEADS] ABNORMAL RHYTHM ECG No previous ECG available for comparison Electronically Signed On 03-15-2025 15:01:46 CDT by Alondra Craft M.D.
--- NOTE | 2025-03-15 09:52 | ED_ITS ---
HPI - Fall General Chief Complaint: Fall Stated Complaint: fall, cough, flank pain Time Seen by Provider: 03/15/25 09:01 History of Present Illness HPI Narrative: 85-year-old female with history of AFib on Eliquis, type 2 diabetes, hypertension, hyperlipidemia, hypothyroidism, CKD, pulmonary hypertension presents to the emergency department for a cough and fall. Patient states she has had a productive cough with yellow sputum for the past 5 days. She contacted her PCP and was prescribed cefdinir 3 days ago which she has been taking without much improvement. She states around 4:00 a.m. this morning she accidentally rolled out of bed and hit the right side of her chest on a waste basket. She did not hit her head or lose consciousness. She is reporting pain to the right lateral chest wall and right upper quadrant of the abdomen that is worse with coughing. She denies shortness of breath, hemoptysis, fever, nausea or vomiting, neck pain, back pain or other injuries acquired. She denies history of asthma. States she was told by her PCP a long time ago that she may have COPD. She has noticed some wheezing. She quit smoking in 1994. Has reported chronic lymphedema that is actually improved from her reported baseline. Related Data Home Medications Medication Instructions Recorded Confirmed Last Taken Type cholecalciferol (vitamin D3) 125 125 mcg PO DAILY 05/09/21 03/03/25 Unknown History mcg (5,000 unit) capsule coenzyme [id number] E 100 mg-100 1 cap PO DAILY 10/29/23 03/03/25 Unknown History unit capsule acetaminophen 500 mg tablet 500 mg PO Q6H PRN 04/20/24 03/03/25 Unknown History (Tylenol Extra Strength) niacin 500 mg tablet 500 mg PO DAILY 04/20/24 03/03/25 Unknown History Allergies Allergy/AdvReac Type Severity Reaction Status Date / Time latex Allergy Severe SEVERE Verified 03/15/25 10:52 SWELLING vancomycin Allergy Severe SEVERE Verified 03/15/25 10:52 ITCHING 2009 Juqncda-RIE-OlP Reductase Allergy Intermediate Muscle Pain Verified 03/15/25 10:52 Inhibitor Aminoglycosides Allergy Mild Swelling Verified 03/15/25 10:52 hydrocodone Allergy Mild Rash Verified 03/15/25 10:52 neomycin Allergy Mild Swelling Verified 03/15/25 10:52 oxycodone Allergy Mild Unknown Verified 03/15/25 10:52 polymyxin B Allergy Unknown SWELLING Verified 03/15/25 10:52 diclofenac AdvReac Severe STOMACH Verified 03/15/25 10:52 UPSET - CAN TAKE ALEVE OK misoprostol AdvReac Severe STOMACH Verified 03/15/25 10:52 UPSET piroxicam AdvReac Severe STOMACH Verified 03/15/25 10:52 UPSET propoxyphene AdvReac Severe STOMACH Verified 03/15/25 10:52 UPSET sertraline AdvReac Severe STOMACH Verified 03/15/25 10:52 UPSET Iodine and Iodide Containing AdvReac Swelling Verified 03/15/25 10:52 Produc Review of Systems 2 Review of Systems: All systems reviewed & are unremarkable except as noted in HPI and below PMFSH Past Medical History Medical History Mass of soft tissue of upper extremity BMI 35.0-35.9,adult Chronic diarrhea BMI 36.0-36.9,adult Leg wound, left BMI 39.0-39.9,adult BMI 38.0-38.9,adult Rash Fecal incontinence 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 Entrapment of right ulnar nerve at wrist Right ankle pain Mass of right hand Ecchymosis Tear of biceps tendon Rotator cuff tear, left Ankle arthritis DJD (degenerative joint disease) Abnormal x-ray of cervical spine Dry scalp Personal history of COVID-19 Other pulmonary embolism without acute cor pulmonale Closed fracture of left hand Stress Skin puncture Sinus drainage Numbness and tingling in left hand Laceration of right index finger Hospital discharge follow-up Dermatitis Bilateral arm pain Mitral valve sclerosis BMI 40.0-44.9, adult Chronic pain of right ankle Rectal vaginal fistula Vaginal Discharge Back pain Low back pain Dysuria Right flank pain Calcification of mitral valve UTI (urinary tract infection) Chronic anemia With mild thrombocytopenia. Restless leg syndrome Pre-diabetes Mild chronic obstructive pulmonary disease Puncture wound Statin intolerance Body mass index (BMI) 45.0-49.9, adult COVID-19 Insomnia Chest wall pain Arthritis Hammertoe of left foot Body mass index (BMI) 40.0-44.9, adult Hearing loss Vitamin D deficiency Diastolic dysfunction Iron deficiency anemia History of atrial fibrillation Mixed hyperlipidemia Patient reports statin intolerance. Benign essential hypertension Surgical History Surgical History History of cardiac catheterization (03/2014) Normal coronary arteries. History of cholecystectomy History of hysterectomy for benign disease History of tubal ligation History of bilateral carpal tunnel release History of bilateral knee arthroplasty History of carpal tunnel release History of appendectomy Family History Family History Father Family history of lymphoma Mother Brain cancer Other Arthritis Social History Social History Social History: Surrogate decision maker: Del Castañeda, john. Code status: Full code. Caffeine- daily Smoking packs per day: 1 Smoking cigarettes per day: 20.0 Years smoked: 15 Smoking pack-years: 15.00 Smoking status: Former smoker Tobacco type: cigarettes Second hand tobacco smoke exposure: No Smoking end date: 11/03/94 Alcohol intake: current Drinks per week: 1 Alcohol use details: Social Substance use: never Substance use type: does not use Do You Feel Safe in your Home?: Yes Lack of Transportation: No Lack of Food: Never True Current Housing: I Have Housing Concerned About Future Housing: No Difficulty Paying Gas/Electric Bills: No Difficulty Paying for Meds: No Currently Unemployed: No Education: Bachelor's Degree Difficulty w/ Childcare or Family Care: No Living arrangements: alone Additional living arrangements comments: The patient is . She lives in a [facility] in [place]. 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 Gender identity (if verbalized by the patient): Female Spiritual care concerns: No Exam 2 Narrative: GENERAL: Well-appearing, well-nourished, and in no acute distress. HEAD: Normocephalic, atraumatic. EYES: EOMI. ENT: Nares clear, no rhinorrhea or epistaxis. Mucous membranes moist. NECK: No midline cervical spinous tenderness, crepitus, step-offs or deformities BACK: No midline thoracolumbar spinous tenderness, crepitus, step-offs or deformities CHEST: Wheezing in lower lung pavon, no respiratory distress. Tenderness to the right anterior lateral chest wall with scattered small areas of ecchymosis, no crepitus, step-offs or deformities HEART: Regular rate and rhythm. No murmur heard. Normal peripheral pulses. ABDOMEN: Ecchymosis to the right upper quadrant with tenderness, no rebound, guarding or rigidity. Remainder of abdomen is soft and nontender EXTREMITIES: Normal range of motion. No tenderness to BUE or BLE SKIN: Warm, dry, no rash. NEURO: No focal deficits. Alert and oriented x4. Moving all extremities spontaneously Course Vital Signs Vital signs: Vital Signs Temperature 98.7 F 03/15/25 08:29 Pulse Rate 95 03/15/25 08:29 Respiratory Rate 18 03/15/25 08:29 Blood Pressure 150/88 H 03/15/25 08:29 Pulse Oximetry 98 03/15/25 08:29 Oxygen Delivery Room Air 03/15/25 08:29 Temperature 98.7 F 03/15/25 08:29 Pulse Rate 85 03/15/25 11:21 Respiratory Rate 18 03/15/25 11:21 Blood Pressure 123/56 L 03/15/25 11:21 Pulse Oximetry 99 03/15/25 11:21 Oxygen Delivery Room Air 03/15/25 08:41 MDM - Fall MDM Narrative Medical decision making narrative: 85-year-old female presents to the emergency department for cough for the past 5 days and right rib pain after rolling out of bed this morning. Triage vitals with elevated blood pressure of 150/88, otherwise unremarkable. Patient is afebrile and nontoxic appearing resting comfortably in exam bed. Exam is notable for the above. CBC without leukocytosis, hemoglobin chronically low but stable at 11.5. Chemistries with a BUN of 30, otherwise unremarkable. Viral swabs are negative. Lipase normal EKG shows AFib with RVR with a rate of 109, no ischemic changes. Patient has history of AFib. CT chest abdomen pelvis shows IMPRESSION: 1. No acute fracture or acute vascular or visceral organ injury in the chest, abdomen or pelvis. 2. Noted nodular opacities in the bilateral lower lungs, some solid, some groundglass and somewhat tree-in-bud pattern which are all most likely infectious/inflammatory in etiology. Recommend 3 month follow-up low-dose noncontrast chest CT. 3. Indeterminate 1.2 cm higher attenuation exophytic lesion at the mid right kidney statistically most likely to represent a proteinaceous/hemorrhagic cyst although solid neoplasm cannot be absolute excluded. Recommend further evaluation with pre and postcontrast MRI or CT. 4. Tiny focus of gas in the otherwise normal bladder. Correlate for recent instrumentation or Veliz catheterization. Patient updated on results. She received a DuoNeb with improvement. Vital signs remained stable. Given multiple chest wall contusions, concurrent pneumonia patient's age, recommended admission for IV antibiotics and observation. She is agreeable with this. She was started on Rocephin and azithromycin in the ED. Discussed with hospitalist Jennifer CARDENAS, who agrees to admission. Lab Data 03/15/25 10:14 03/15/25 10:14 Labs: Lab Results 03/15/25 03/15/25 Range/Units 08:43 10:14 WBC 8.5 (4.5-10.0) K/mm3 RBC 3.97 L (4.2-5.4) M/mm3 Hgb 11.5 L (12.0-15.0) g/dL Hct 36.8 L (37.0-47.0) % MCV 92.7 (80-100) fl MCH 29.0 (26-34) pg MCHC 31.3 L (32-36) g/dl RDW 13.6 (11.5-14.5) % Plt Count 170 (150-375) k/mm3 MPV 10.2 (7.4-10.4) fl Immature Gran % (Auto) 0.8 H (0-0.5) % Neut % (Auto) 72.6 (45.5-73.1) % Lymph % (Auto) 18.6 (18.3-44.2) % [place] % (Auto) 5.9 (2.6-8.5) % Eos % (Auto) 1.6 (0-4.4) % Baso % (Auto) 0.5 (0.2-1.2) % Lymph # (Auto) 1.59 (0.9-3.2) K/mm3 [place] # (Auto) 0.5 (0.1-0.6) K/mm3 Eos # (Auto) 0.1 (0-0.3) K/mm3 Baso # (Auto) 0.0 (0.0-0.1) K/mm3 Abs Immat Gran (auto) 0.07 H (0.00-0.031) K/mm3 Absolute Neuts (auto) 6.2 (1.3-6.7) K/mm3 Absolute Nucleated RBC 0.000 (0.0-0.012) K/mm3 Nucleated RBC % 0.0 (0.0-0.2) % PT 14.9 H (11.1-14.7) Seconds INR 1.1 APTT 32.5 (22.3-36.8) Seconds Sodium 138 (137-145) mmol/L Potassium 4.1 (3.4-5.0) mmol/L Chloride 100 (98-107) mmol/L Carbon Dioxide 28 (22-30) mmol/L Anion Gap 10 (4-12) mmol/L BUN 30 H (7-17) mg/dL Creatinine 1.00 (0.7-1.0) mg/dL Estim Creat Clear Calc Not Reportable Estimated GFR 52 L (59 - ) Glucose 101 (65-110) mg/dL Calcium 9.1 (8.4-10.2) mg/dL Total Bilirubin 0.4 (0.2-1.3) mg/dL AST 36 (14-36) U/L ALT 23 (6-35) U/L Alkaline Phosphatase 122 (38-126) U/L Total Protein 8.0 (6.3-8.2) g/dL Albumin 4.2 (3.5-5.1) g/dL Lipase 187 (23-300) U/L Influenza A (RT-PCR) Negative (Negative) Influenza B (RT-PCR) Negative (Negative) RSV (RT-PCR) Negative (Negative) SARS-CoV-2 RNA (RT-PCR) Negative (Negative) Discharge Plan Discharge Clinical Impression: Kidney mass CAP (community acquired pneumonia) Qualifiers: Laterality: right Lung location: lower lobe of lung Qualified Code(s): J18.9 - Pneumonia, unspecified organism Patient Disposition: Still a Patient Condition: Stable Patient Language: Maori Prescriptions: No Action cholecalciferol (vitamin D3) 125 mcg (5,000 unit) capsule 125 mcg PO DAILY acetaminophen [Tylenol Extra Strength] 500 mg tablet 500 mg PO Q6H PRN niacin 500 mg tablet 500 mg PO DAILY (DME) Wheeled Walker with seat/ basket 0 .Route .MEDSUPPLY Qty: 1 0RF Rx Instructions: As directed Rybelsus 7 mg tablet 7 mg PO DAILY Qty: 90 1RF Rx Instructions: Please D/C the Rybelsys 14mg. Thank you coenzyme [id number] E 100-100 mg-unit Capsule 1 cap PO DAILY potassium chloride 20 mEq tablet extended release See Rx Instructions .ROUTE .COMPLEX Qty: 90 1RF Dose Instruction: TAKE 1 TABLET BY MOUTH EVERYDAY AT BEDTIME Rx Instructions: TAKE 1 TABLET BY MOUTH EVERYDAY AT BEDTIME folic acid 1 mg tablet See Rx Instructions .ROUTE .COMPLEX Qty: 90 1RF Dose Instruction: TAKE 1 TABLET BY MOUTH EVERY DAY Rx Instructions: TAKE 1 TABLET BY MOUTH EVERY DAY ezetimibe 10 mg tablet See Rx Instructions .ROUTE .COMPLEX Qty: 90 1RF Dose Instruction: TAKE 1 TABLET BY MOUTH EVERY DAY Rx Instructions: TAKE 1 TABLET BY MOUTH EVERY DAY ferrous sulfate 325 mg (65 mg iron) tablet See Rx Instructions PO DAILY Qty: 90 1RF Dose Instruction: TAKE 1 TABLET BY MOUTH TWICE A DAY Rx Instructions: TAKE 1 TABLET BY MOUTH ONCE A DAY orally daily; pramipexole 0.75 mg tablet See Rx Instructions .ROUTE .COMPLEX Qty: 90 1RF Dose Instruction: TAKE 1 TABLET BY MOUTH EVERYDAY AT BEDTIME Rx Instructions: TAKE 1 TABLET BY MOUTH EVERYDAY AT BEDTIME metolazone 2.5 mg tablet 2.5 mg PO .3x/ week 90 Days Qty: 36 1RF levothyroxine 88 mcg tablet See Rx Instructions .ROUTE .COMPLEX Qty: 90 0RF Dose Instruction: TAKE 1 TABLET BY MOUTH EVERY DAY Rx Instructions: TAKE 1 TABLET BY MOUTH EVERY DAY losartan 50 mg tablet See Rx Instructions .ROUTE .COMPLEX Qty: 90 1RF Dose Instruction: TAKE 1 TABLET BY MOUTH EVERY DAY Rx Instructions: TAKE 1 TABLET BY MOUTH EVERY DAY furosemide 40 mg tablet See Rx Instructions .ROUTE .COMPLEX Qty: 90 0RF Dose Instruction: TAKE 1 TABLET BY MOUTH EVERY DAY IN THE MORNING Rx Instructions: TAKE 1 TABLET BY MOUTH EVERY DAY IN THE MORNING Eliquis 5 mg tablet 5 mg PO BID Qty: 180 1RF tramadol 50 mg tablet 50 mg PO Q6H PRN (Reason: pain) Qty: 50 1RF metoprolol succinate 25 mg tablet extended release 24 hr See Rx Instructions .ROUTE .COMPLEX Qty: 90 1RF Dose Instruction: TAKE 1 TABLET BY MOUTH EVERY DAY FOR 30 DAYS Rx Instructions: TAKE 1 TABLET BY MOUTH EVERY DAY FOR 30 DAYS Follow-up/Referrals: Rahul Bejarano MD [Primary Care Provider] -
[2025-03-15] MEDS: IPRATROPIUM 0.5 MG/ALBUTEROL SULFATE 2.5 MG AMPUL.NEB 3 ML INHALATION (10:10)
[2025-03-15 10:22] LABS: Basophils Percent Auto 0.5 % (0.2-1.2); Eosinophils Absolute Auto 0.1 K/mm3 (0-0.3); Eosinophils Percent Auto 1.6 % (0-4.4); Hematocrit 36.8 % (37.0-47.0); Hemoglobin 11.5 g/dL (12.0-15.0); Immature Granulocyte Absolute 0.07 K/mm3 (0.00-0.031); Immature Granulocyte Percent A 0.8 % (0-0.5); Lymphocytes Absolute Auto 1.59 K/mm3 (0.9-3.2); Lymphocytes Percent Auto 18.6 % (18.3-44.2); Mean Corpuscular HGB Conc 31.3 g/dl (32-36); Mean Corpuscular Volume 92.7 fl (80-100); Mean Platelet Volume 10.2 fl (7.4-10.4); Monocytes Absolute Auto 0.5 K/mm3 (0.1-0.6); Monocytes Percent Auto 5.9 % (2.6-8.5); Neutrophils Absolute Auto 6.2 K/mm3 (1.3-6.7); Neutrophils Percent Auto 72.6 % (45.5-73.1); Platelet Count Result 170 k/mm3 (150-375); Red Blood Count 3.97 M/mm3 (4.2-5.4); Red Cell Distribution Width 13.6 % (11.5-14.5); White Blood Count 8.5 K/mm3 (4.5-10.0)
--- NOTE | 2025-03-15 10:30 | PC.NURSE ---
Pt taken to bathroom and no urine was obtained.
[2025-03-15 10:32] LABS: INR 1.1; Prothrombin Time 14.9 Seconds (11.1-14.7)
[2025-03-15 10:33] LABS: Partial Thromboplastin Time 32.5 Seconds (22.3-36.8)
[2025-03-15 10:34] LABS: Alanine Aminotransferase 23 U/L (6-35); Albumin Level 4.2 g/dL (3.5-5.1); Alkaline Phosphatase 122 U/L (38-126); Anion Gap 10 mmol/L (4-12); Aspartate Amino Transferase 36 U/L (14-36); Bilirubin,Total 0.4 mg/dL (0.2-1.3); Blood Urea Nitrogen 30 mg/dL (7-17); Calcium 9.1 mg/dL (8.4-10.2); Carbon Dioxide 28 mmol/L (22-30); Chloride 100 mmol/L (98-107); Estimated Glomerular Filt Rate 52; Glucose 101 mg/dL (65-110); Lipase 187 U/L (23-300); Potassium 4.1 mmol/L (3.4-5.0); Sodium 138 mmol/L (137-145)
[2025-03-15 11:21] VITALS: BP 123/56; PULSE 85; RESP 18; O2SAT 99
--- NOTE | 2025-03-15 11:21 | PC.NURSE ---
Pt states she used the bathroom while she was in XR and did not get a sample
[2025-03-15 12:28] LABS: Add Urine Microscopic? YES; Appearance Urine Clear (Clear); Bacteria Urine None Seen /hpf; Bilirubin Urine Negative (Negative); Blood Urine Negative (Negative); Color Urine Yellow (Yellow); Glucose Urine UA Negative (Negative); Ketones Urine Negative (Negative); Leukocyte Esterase Ur Trace LEU/UL (Negative); Nitrate Urine Negative (Negative); Non Pathogenic Casts 0-2; Protein Urine Negative (Negative); RBC Urine 0-2 /hpf (0-2); Squamous Epithelial Cell Urine None Seen /hpf (Few); Urobilinogen Urine 0.2 mg/dL (<2.0); WBC Urine 0-5 /hpf (0-3)
--- NOTE | 2025-03-15 12:49 | PC.NURSE ---
Unable to obtain two sets of blood cultures at this time. Phlebotomy contacted.
[2025-03-15 13:14] LABS: Lactic Acid Reflex 1.6 mmol/L (0.7-2.0)
[2025-03-15 13:33] VITALS: BMI 34.4
[2025-03-15 14:00] VITALS: BP 108/73; PULSE 108; RESP 20; TEMP 36.4; O2SAT 96
[2025-03-15 14:38] VITALS: O2SAT 96
--- NOTE | 2025-03-15 14:47 | P.HP_ITS ---
H&P: HPI History of Present Illness Date/Time: 03/15/25 14:47 Chief Complaint: Shortness of breath and fall Narrative: 85-year-old female with atrial fibrillation on Eliquis, type 2 diabetes, hypertension hyperlipidemia CKD and pulmonary hypertension presents the hospital after fall with shortness of breath. Patient states that she has had a cough and shortness of breath for the past 5 days. She was started on antibiotics by her PCP which she has been taking without much improvement. This morning patient rolled out of bed hitting her right chest wall which is causing chest pain. Patient denies hitting her head. She states that the chest pain is worse when taking deep breaths or coughing. She denies fevers or chills. In the ED the patient has anemia of 11.5, BUN of 30, GFR to 52, UA has trace jenny kocyte esterase. CT chest shows Noted nodular opacities in the bilateral lower lungs, some solid, some groundglass and somewhat tree-in-bud pattern which are all most likely infectious/inflammatory in etiology. Review of Systems Review of Systems: 12 systems were reviewed and are negativ e except for as per HPI. [facility] Past Medical History Medical History Mass of soft tissue of upper extremity BMI 35.0-35.9,adult Chronic diarrhea BMI 36.0-36.9,adult Leg wound, left BMI 39.0-39.9,adult BMI 38.0-38.9,adult Rash Fecal incontinence 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 Entrapment of right ulnar nerve at wrist Right ankle pain Mass of right hand Ecchymosis Tear of biceps tendon Rotator cuff tear, left Ankle arthritis DJD (degenerative joint disease) Abnormal x-ray of cervical spine Dry scalp Personal history of COVID-19 Other pulmonary embolism without acute cor pulmonale Closed fracture of left hand Stress Skin puncture Sinus drainage Numbness and tingling in left hand Laceration of right index finger Hospital discharge follow-up Dermatitis Bilateral arm pain Mitral valve sclerosis BMI 40.0-44.9, adult Chronic pain of right ankle Rectal vaginal fistula Vaginal Discharge Back pain Low back pain Dysuria Right flank pain Calcification of mitral valve UTI (urinary tract infection) Chronic anemia With mild thrombocytopenia. Restless leg syndrome Pre-diabetes Mild chronic obstructive pulmonary disease Puncture wound Statin intolerance Body mass index (BMI) 45.0-49.9, adult COVID-19 Insomnia Chest wall pain Arthritis Hammertoe of left foot Body mass index (BMI) 40.0-44.9, adult Hearing loss Vitamin D deficiency Diastolic dysfunction Iron deficiency anemia History of atrial fibrillation Mixed hyperlipidemia Patient reports statin intolerance. Benign essential hypertension Surgical History Surgical History History of cardiac catheterization (03/2014) Normal coronary arteries. History of cholecystectomy History of hysterectomy for benign disease History of tubal ligation History of bilateral carpal tunnel release History of bilateral knee arthroplasty History of carpal tunnel release History of appendectomy Family History Family History Father Family history of lymphoma Mother Brain cancer Other Arthritis Social History Social History Social History: Surrogate decision maker: Del Castañeda, john. Code status: Full code. Caffeine- daily Smoking packs per day: 1 Smoking cigarettes per day: 20.0 Years smoked: 15 Smoking pack-years: 15.00 Smoking status: Former smoker Tobacco type: cigarettes Second hand tobacco smoke exposure: No Smoking end date: 11/03/94 Alcohol intake: current Drinks per week: 1 Alcohol use details: Social Substance use: never Do You Feel Safe in your Home?: Yes Lack of Transportation: No Lack of Food: Never True Current Housing: I Have Housing Concerned About Future Housing: No Difficulty Paying Gas/Electric Bills: No Difficulty Paying for Meds: No Currently Unemployed: No Education: Bachelor's Degree Difficulty w/ Childcare or Family Care: No Living arrangements: alone Additional living arrangements comments: The patient is . She lives in a condominium in [place]. 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 Gender identity (if verbalized by the patient): Female Spiritual care concerns: No Meds Home Medications and Allergies Home Medications Medication Instructions Recorded Confirmed Type cholecalciferol (vitamin D3) 125 125 mcg PO DAILY 05/09/21 03/15/25 History mcg (5,000 unit) capsule coenzyme [id number] 100 mg-100 1 cap PO DAILY 10/29/23 03/15/25 History unit capsule acetaminophen 500 mg tablet 650 mg PO Q8H PRN pain 04/20/24 03/15/25 History (Tylenol Extra Strength) niacin 500 mg tablet 500 mg PO DAILY 04/20/24 03/15/25 History potassium chloride 20 mEq See Rx Instructions .Route 09/06/24 03/15/25 Rx tablet,extended release .COMPLEX #90 tabs folic acid 1 mg tablet See Rx Instructions .Route 10/08/24 03/15/25 Rx .COMPLEX #90 tabs ezetimibe 10 mg tablet See Rx Instructions .Route 11/07/24 03/15/25 Rx .COMPLEX #90 tabs ferrous sulfate 325 mg (65 mg See Rx Instructions PO DAILY #90 11/18/24 03/15/25 Rx iron) tablet tabs pramipexole 0.75 mg tablet See Rx Instructions .Route 11/25/24 03/15/25 Rx .COMPLEX #90 tabs metolazone 2.5 mg tablet 2.5 mg PO .3x/ week 90 days #36 12/27/24 03/15/25 Rx tabs Wheeled Walker with seat/ basket #1 device 12/30/24 03/15/25 Rx levothyroxine 88 mcg tablet See Rx Instructions .Route 01/04/25 03/15/25 Rx .COMPLEX #90 tabs losartan 50 mg tablet See Rx Instructions .Route 01/06/25 03/15/25 Rx .COMPLEX #90 tabs apixaban 5 mg tablet (Eliquis) 5 mg PO BID #180 tabs 01/07/25 03/15/25 Rx furosemide 40 mg tablet See Rx Instructions .Route 01/07/25 03/15/25 Rx .COMPLEX #90 tabs semaglutide 7 mg tablet (Rybelsus) 7 mg PO DAILY #90 tabs 03/03/25 03/15/25 Rx tramadol 50 mg tablet 50 mg PO Q6H PRN pain #50 tabs 03/08/25 03/15/25 Rx metoprolol succinate 25 mg See Rx Instructions .Route 03/14/25 03/15/25 Rx tablet,extended release 24 hr .COMPLEX #90 tabs Allergies Allergy/AdvReac Type Severity Reaction Status Date / Time latex Allergy Severe SEVERE Verified 03/15/25 10:52 SWELLING vancomycin Allergy Severe SEVERE Verified 03/15/25 10:52 ITCHING 2009 [id number] Reductase Allergy Intermediate Muscle Pain Verified 03/15/25 10:52 Inhibitor Aminoglycosides Allergy Mild Swelling Verified 03/15/25 10:52 hydrocodone Allergy Mild Rash Verified 03/15/25 10:52 neomycin Allergy Mild Swelling Verified 03/15/25 10:52 oxycodone Allergy Mild Unknown Verified 03/15/25 10:52 polymyxin B Allergy Unknown SWELLING Verified 03/15/25 10:52 diclofenac AdvReac Severe STOMACH Verified 03/15/25 10:52 UPSET - CAN TAKE ALEVE [place] misoprostol AdvReac Severe STOMACH Verified 03/15/25 10:52 UPSET piroxicam AdvReac Severe STOMACH Verified 03/15/25 10:52 UPSET propoxyphene AdvReac Severe STOMACH Verified 03/15/25 10:52 UPSET sertraline AdvReac Severe STOMACH Verified 03/15/25 10:52 UPSET Iodine and Iodide Containing AdvReac Swelling Verified 03/15/25 10:52 Produc Vital Signs Vital Signs - 24 hr 03/15/25 08:29 03/15/25 08:41 03/15/25 11:21 Temperature 98.7 F Pulse Rate 95 85 Respiratory Rate 18 18 Blood Pressure 150/88 H 123/56 L Pulse Oximetry 98 98 99 Oxygen Delivery Room Air Room Air 03/15/25 14:00 03/15/25 14:38 Temperature 97.5 F L Pulse Rate 108 H Respiratory Rate 20 Blood Pressure 108/73 Pulse Oximetry 96 96 Oxygen Delivery Room Air Exam Narrative: General: well appearing, appears stated age. HEENT: normocephalic, atraumatic. Mucous membranes moist. EOMI, PERRLA, bilateral sclera anicteric, no conjunctival injection. Neck supple without JVD, lymphadenopathy, or bruit. Respiratory: Diminished to ascultation bilaterally. No rales/rhonic/wheezes. Cardiovascular: Regular rate and rhythm, normal S1-S2 upon ascultation. No murmurs, rubs, or clicks. PMI is nondisplaced, capillary refill less than 3 second. Abdomen: Soft, round, no pulsatile masses, nondistended and nontender. No rebound, no guarding. No CVA tenderness, no hepatosplenomegaly. Bowel sounds present to all four quadrants. No high pitch or tinkling sounds, resonant to percussion. Extremities: No cyanosis, clubbing, or edema present. Pulses are palpable 2/2. Active ROM to all four extremities. Neuro: Alert and orientated x 4. PERRLA. Cranial nerves 2-12 intact without focal deficit. Skin: Warm, dry, and intact, without rash, erythema, or lesion. Psych: pleasant, cooperative, normal speech, normal affect, no hallucinations, no dysarthia H&P: Results Labs Labs: Short CBC 03/15/25 Range/Units 10:14 WBC 8.5 (4.5-10.0) K/mm3 Hgb 11.5 L (12.0-15.0) g/dL Hct 36.8 L (37.0-47.0) % Plt Count 170 (150-375) k/mm3 BMP 03/15/25 10:14 Sodium 138 Potassium 4.1 Chloride 100 Carbon Dioxide 28 BUN 30 H Creatinine 1.00 Glucose 101 Calcium 9.1 Liver Function 03/15/25 Range/Units 10:14 Total Bilirubin 0.4 (0.2-1.3) mg/dL AST 36 (14-36) U/L ALT 23 (6-35) U/L Alkaline Phosphatase 122 (38-126) U/L Albumin 4.2 (3.5-5.1) g/dL Urine 03/15/25 Range/Units 12:18 Urine Color Yellow (Yellow) Urine Appearance Clear (Clear) Urine pH 7.0 (5.0-9.0) Ur Specific [place] 1.010 (1.001-1.035) Urine Protein Negative (Negative) mg/dL Urine Glucose (UA) Negative (Negative) mg/dL Assessment and Plan Assessment and plan (1) Pneumonia: Code(s): J18.9 - Pneumonia, unspecified organism Status: Acute Assessment and Plan: Azithromycin and Rocephin Guaifenesin (2) Fall: Code(s): W19.XXXA - Unspecified fall, initial encounter Status: Acute Assessment and Plan: Roll out of bed CT chest abdomen pelvis without acute fracture Trauma workup negative (3) Lesion of right [place] kidney: Code(s): N28.9 - Disorder of kidney and ureter, unspecified Status: Acute Assessment and Plan: Indeterminate 1.2 cm higher attenuation exophytic lesion at the mid right kidney statistically most likely to represent a proteinaceous/hemorrhagic cyst although solid neoplasm cannot be absolute excluded. Recommend further evaluation with pre and postcontrast MRI or CT. (4) Afib: Qualifiers: Atrial fibrillation type: unspecified Qualified Code(s): I48.91 - Unspecified atrial fibrillation Code(s): I48.91 - Unspecified atrial fibrillation Status: Acute Assessment and Plan: Continue Eliquis (5) Mixed hyperlipidemia: Code(s): E78.2 - Mixed hyperlipidemia Status: Acute Assessment and Plan: Continue statin (6) Benign essential hypertension: Code(s): I10 - Essential (primary) hypertension Status: Acute Assessment and Plan: Continue antihypertensives (7) Diastolic dysfunction: Code(s): I51.89 - Other ill-defined heart diseases Status: Acute Assessment and Plan: Patient appears to be euvolemic Continue home Lasix and potassium (8) DM type 2 (diabetes mellitus, type 2): Qualifiers: Chronic kidney disease stage: stage 1 Diabetes mellitus complication detail: with chronic kidney disease Diabetes mellitus complication status: with kidney complications Diabetes mellitus rn long term care insulin use: without rn long term care use Qualified Code(s): E11.22 - Type 2 diabetes mellitus with diabetic chronic kidney disease; N18.1 - Chronic kidney disease, stage 1 Code(s): E11.9 - Type 2 diabetes mellitus without complications Status: Acute Assessment and Plan: Diabetic diet Hold home diabetic medications Accu-Cheks a.c. HS SSI (9) Iron deficiency anemia: Qualifiers: Iron deficiency anemia type: unspecified iron deficiency Qualified Code(s): D50.9 - Iron deficiency anemia, unspecified Code(s): D50.9 - Iron deficiency anemia, unspecified Status: Acute Assessment and Plan: Repeat CBC in a.m. No acute signs of bleeding Transfuse for hemoglobin less than 7 or symptomatic Plan Gas in the bladder without recent instrumentation UA negative for infection Quality VTE Prophylaxis VTE prophylaxis: mechanical ordered and pharmacologic ordered Hospitalist MIPS Advance Care Plan I have confirmed that the patient's Advanced Care Plan is present, code status is documented, or surrogate decision maker is listed in patient medical record.: Yes Medication Reconciliation I have utilized all available resources to obtain, update and review the patients current medications (includes all prescriptions, OTC, herbals, cannabis, and nutritional supplements).: Yes
[2025-03-15 16:32] LABS: Glucose Point of Care 135 mg/dl (65-105)
[2025-03-15] MEDS: DOCUSATE SODIUM 100 MG CAPSULE PO (16:52)
[2025-03-15] MEDS: APIXABAN 5 MG TABLET PO (16:52)
--- NOTE | 2025-03-15 18:15 | ADMGEN ---
This patient, Alexus Castañeda, was admitted to [facility] Surg Room 302-01. Patient/family oriented to hospital policies and general routines including ID bracelet, bed and alarms, visiting hours, pain management, procedures, bathroom and other care routines, personal items, smoking policy, room service/diet, and visiting hours. Information on how to activate the Rapid Response Team has been discussed. Patient/Family are encouraged to report perceived risks to care and to ask questions if they do not understand what they are told or what they should do.
[2025-03-15 20:35] LABS: Glucose Point of Care 99 mg/dl (65-105)
[2025-03-15 21:01] VITALS: BP 125/73; PULSE 92; RESP 18; TEMP 36.6; O2SAT 98
[2025-03-15] MEDS: guaiFENesin 12 HR 600 MG TABCR PO (21:47)
[2025-03-15] MEDS: PRAMIPEXOLE 0.25 MG TABLET 0.75 MG PO (21:48)
[2025-03-15] MEDS: AZITHROMYCIN 500 MG/NS 250 ML 500 MG/250 ML BAG 250 MG IVPB (21:49)
[2025-03-15] MEDS: POTASSIUM CHLORIDE 20 MEQ ER TABLET BY MOUTH (21:49)
[2025-03-15] MEDS: traMADol HCL (*CRX) 50 MG TABLET PO (22:11)
[2025-03-15 23:29] LABS: NT Pro B Type Natriuretic Pept 2310 pg/mL (19.9-100)
[2025-03-16] MEDS: LEVOTHYROXINE SODIUM 88 MCG TABLET BY MOUTH (05:08)
[2025-03-16 05:32] VITALS: BP 123/61; PULSE 90; RESP 16; TEMP 36.6; O2SAT 95
[2025-03-16 06:09] LABS: Basophils Percent Auto 0.3 % (0.2-1.2); Eosinophils Absolute Auto 0.1 K/mm3 (0-0.3); Eosinophils Percent Auto 0.6 % (0-4.4); Hemoglobin 11.4 g/dL (12.0-15.0); Immature Granulocyte Absolute 0.05 K/mm3 (0.00-0.031); Immature Granulocyte Percent A 0.5 % (0-0.5); Lymphocytes Absolute Auto 1.29 K/mm3 (0.9-3.2); Lymphocytes Percent Auto 13.4 % (18.3-44.2); Mean Corpuscular HGB Conc 30.8 g/dl (32-36); Mean Corpuscular Hemoglobin 28.9 pg (26-34); Mean Corpuscular Volume 93.9 fl (80-100); Mean Platelet Volume 10.7 fl (7.4-10.4); Monocytes Absolute Auto 0.4 K/mm3 (0.1-0.6); Monocytes Percent Auto 3.9 % (2.6-8.5); Neutrophils Absolute Auto 7.9 K/mm3 (1.3-6.7); Neutrophils Percent Auto 81.3 % (45.5-73.1); Platelet Count Result 178 k/mm3 (150-375); Red Blood Count 3.94 M/mm3 (4.2-5.4); Red Cell Distribution Width 13.6 % (11.5-14.5); White Blood Count 9.7 K/mm3 (4.5-10.0)
[2025-03-16 06:28] LABS: Potassium 4.3 mmol/L (3.4-5.0)
[2025-03-16 06:35] LABS: Anion Gap 11 mmol/L (4-12); Blood Urea Nitrogen 33 mg/dL (7-17); Calcium 9.1 mg/dL (8.4-10.2); Carbon Dioxide 26 mmol/L (22-30); Chloride 102 mmol/L (98-107); Estimated Glomerular Filt Rate 58; Glucose 115 mg/dL (65-110); Potassium 4.5 mmol/L (3.4-5.0); Sodium 139 mmol/L (137-145)
[2025-03-16 08:16] LABS: Glucose Point of Care 121 mg/dl (65-105)
[2025-03-16 08:32] VITALS: PULSE 90
[2025-03-16] MEDS: METOPROLOL SUCCINATE EXT REL 25 MG TABCR BY MOUTH (08:32)
[2025-03-16] MEDS: APIXABAN 5 MG TABLET PO ×2 (08:33→17:07)
[2025-03-16] MEDS: EZETIMIBE 10 MG TABLET BY MOUTH (08:33)
[2025-03-16] MEDS: FUROSEMIDE 40 MG TABLET BY MOUTH (08:33)
[2025-03-16] MEDS: guaiFENesin 12 HR 600 MG TABCR PO ×2 (08:33→21:53)
[2025-03-16] MEDS: LOSARTAN POTASSIUM 50 MG TABLET BY MOUTH (08:33)
--- NOTE | 2025-03-16 10:32 | P.PNIM_ITS ---
Progress Note: A&P Assessment and Plan (1) Pneumonia: Code(s): J18.9 - Pneumonia, unspecified organism Status: Acute Assessment and Plan: Azithromycin and Rocephin Guaifenesin (2) Fall: Code(s): W19.XXXA - Unspecified fall, initial encounter Status: Acute Assessment and Plan: Roll out of bed CT chest abdomen pelvis without acute fracture Trauma workup negative PRN pain control PT/OT (3) Lesion of right [place] kidney: Code(s): N28.9 - Disorder of kidney and ureter, unspecified Status: Acute Assessment and Plan: Indeterminate 1.2 cm higher attenuation exophytic lesion at the mid right kidney statistically most likely to represent a proteinaceous/hemorrhagic cyst although solid neoplasm cannot be absolute excluded. MRI Abdomen ordered (4) Afib: Qualifiers: Atrial fibrillation type: unspecified Qualified Code(s): I48.91 - Unspecified atrial fibrillation Code(s): I48.91 - Unspecified atrial fibrillation Status: Acute Assessment and Plan: Continue Metoprolol and Eliquis (5) Mixed hyperlipidemia: Code(s): E78.2 - Mixed hyperlipidemia Status: Acute Assessment and Plan: Continue statin (6) Benign essential hypertension: Code(s): I10 - Essential (primary) hypertension Status: Acute Assessment and Plan: Continue antihypertensives On Losartan 40mg, metoprolol 25mg (7) Diastolic dysfunction: Code(s): I51.89 - Other ill-defined heart diseases Status: Acute Assessment and Plan: Patient appears to be euvolemic Continue home Lasix and potassium (8) DM type 2 (diabetes mellitus, type 2): Qualifiers: Diabetes mellitus prison insulin use: without prison use Diabetes mellitus complication status: with kidney complications Diabetes mellitus complication detail: with chronic kidney disease Chronic kidney disease stage: stage 1 Qualified Code(s): E11.22 - Type 2 diabetes mellitus with diabetic chronic kidney disease; N18.1 - Chronic kidney disease, stage 1 Code(s): E11.9 - Type 2 diabetes mellitus without complications Status: Acute Assessment and Plan: Diabetic diet Hold home diabetic medications Accu-Cheks a.cBernard HS SSI (9) Iron deficiency anemia: Qualifiers: Iron deficiency anemia type: unspecified iron deficiency Qualified Code(s): D50.9 - Iron deficiency anemia, unspecified Code(s): D50.9 - Iron deficiency anemia, unspecified Status: Acute Assessment and Plan: Repeat CBC in a.m. No acute signs of bleeding Transfuse for hemoglobin less than 7 or symptomatic Plan Gas in the bladder without recent instrumentation UA negative for infection DVT prophylaxis on Eliquis Subjective Date/time seen: 03/16/25 10:32 Interval history: Comfortable at bedside however she noted she is SOB on laying flat and sat up overnight Review of Systems Review of Systems: 12 systems were reviewed and are negativ e except for as per HPI. Exam Narrative: General: well appearing, appears stated age. HEENT: normocephalic, atraumatic. Mucous membranes moist. EOMI, PERRLA, bilateral sclera anicteric, no conjunctival injection. Neck supple without JVD, lymphadenopathy, or bruit. Respiratory: Diminished to ascultation bilaterally. No rales/rhonic/wheezes. Cardiovascular: Regular rate and rhythm, normal S1-S2 upon ascultation. No murmurs, rubs, or clicks. PMI is nondisplaced, capillary refill less than 3 second. Abdomen: Soft, round, no pulsatile masses, nondistended and nontender. No rebound, no guarding. No CVA tenderness, no hepatosplenomegaly. Bowel sounds present to all four quadrants. No high pitch or tinkling sounds, resonant to percussion. Extremities: No cyanosis, clubbing, or edema present. Pulses are palpable 2/2. Active ROM to all four extremities. Neuro: Alert and orientated x 4. PERRLA. Cranial nerves 2-12 intact without focal deficit. Skin: Warm, dry, and intact, without rash, erythema, or lesion. Psych: pleasant, cooperative, normal speech, normal affect, no hallucinations, no dysarthia Objective Data Vital Signs Vital Signs: Vital Signs - 24 hr 03/15/25 11:21 03/15/25 14:00 03/15/25 14:38 Temperature 97.5 F L Pulse Rate 85 108 H Respiratory Rate 18 20 Blood Pressure 123/56 L 108/73 Pulse Oximetry 99 96 96 Oxygen Delivery Room Air 03/15/25 20:00 03/15/25 21:01 03/16/25 05:32 Temperature 97.9 F 97.9 F Pulse Rate 92 90 Respiratory Rate 18 16 Blood Pressure 125/73 123/61 Pulse Oximetry 98 95 Oxygen Delivery Room Air 03/16/25 08:32 Temperature Pulse Rate 90 Respiratory Rate Blood Pressure Pulse Oximetry Oxygen Delivery Intake/Output Intake/Output: Intake & Output 03/13/25 03/14/25 03/15/25 03/16/25 23:59 23:59 23:59 23:59 Intake Total 940 680 Balance 940 680 Meds/Results Medications: Active Medications Generic Name Dose Route Start Last Admin Trade Name Freq PRN Reason Stop Dose Admin Acetaminophen 650 mg 03/15/25 15:18 Acetaminophen 325 Mg Tablet PO Q4H PRN Mild Pain (1-3) or Fever Apixaban 5 mg 03/15/25 17:00 03/16/25 08:33 Apixaban 5 Mg Tablet PO 5 mg BID GARRETT Administration Dextrose 12.5 gm 03/15/25 15:18 Dextrose 50% 25 Gm/50 Ml Syringe IV PUSH PRN PRN Hypoglycemia Protocol Docusate Sodium 100 mg 03/15/25 17:00 03/16/25 08:36 Docusate Sodium 100 Mg Capsule PO Not Given BID GARRETT Ezetimibe 10 mg 03/16/25 09:00 03/16/25 08:33 Ezetimibe 10 Mg Tablet BY MOUTH 10 mg DAILY GARRETT Administration Furosemide 40 mg 03/16/25 09:00 Furosemide Inj 40 Mg/4 Ml Vial IV PUSH BID GARRETT Glucagon 1 mg 03/15/25 15:18 Glucagon For Inj 1 Mg Vial IM PRN PRN Hypoglycemia Protocol Glucose 15 gm 03/15/25 15:18 Glucose Oral Gel 15 Gm Of Glucse In 37.5 Gm Tube PO PRN PRN Hypoglycemia Protocol Guaifenesin 600 mg 03/15/25 21:15 03/16/25 08:33 Guaifenesin 12 Hr 600 Mg Tabcr PO 600 mg Q12HR GARRETT Administration Dextrose 1,000 mls @ 100 mls/hr 03/15/25 15:18 Dextrose 5% 1,000 Ml IVPB PRN PRN Hypoglycemia Protocol Ceftriaxone Sodium 1 gm in 50 mls @ 100 mls/hr 03/16/25 21:00 Rocephin 1 Gm/Ns 50 Ml IVPB Q24H GARRETT Azithromycin 500 mg in 250 mls @ 250 mls/hr 03/16/25 22:00 Zithromax IVPB Q24H GARRETT Insulin Aspart 2 - 5 units 03/15/25 17:00 03/16/25 08:33 Insulin Aspart (*Bkc) 100 Units/Ml SUB-Q Not Given TIDWM [facility] Protocol Insulin Aspart 1 - 2 units 03/15/25 21:00 03/15/25 21:56 Insulin Aspart (*Bkc) 100 Units/Ml SUB-Q Not Given HS [facility] Protocol Levothyroxine Sodium 88 mcg 03/16/25 06:30 03/16/25 05:08 Levothyroxine Sodium 88 Mcg Tablet BY MOUTH 88 mcg DAILY@0630 GARRETT Administration Losartan Potassium 50 mg 03/16/25 09:00 03/16/25 08:33 Losartan Potassium 50 Mg Tablet BY MOUTH 50 mg DAILY GARRETT Administration Metoprolol Succinate 25 mg 03/16/25 09:00 03/16/25 08:32 Metoprolol Succinate Ext Rel 25 Mg Tabcr BY MOUTH 25 mg DAILY GARRETT Administration Potassium Chloride 20 meq 03/15/25 21:00 03/15/25 21:49 Potassium Chloride 20 Meq Er Tablet BY MOUTH 20 meq HS GARRETT Administration Pramipexole Dihydrochloride 0.75 mg 03/15/25 21:15 03/15/25 21:48 Pramipexole 0.25 Mg Tablet PO 0.75 mg HS GARRETT Administration Tramadol HCl 50 mg 03/15/25 21:53 03/15/25 22:11 Tramadol Hcl (*Crx) 50 Mg Tablet PO 50 mg Q6H PRN Administration Pain Rated 4-6 Radiology Results: ITS Impressions Chest/Abdomen/Pelvis CT 03/15/25 10:48 IMPRESSION: 1. No acute fracture or acute vascular or visceral organ injury in the chest, abdomen or pelvis. 2. Noted nodular opacities in the bilateral lower lungs, some solid, some groundglass and somewhat tree-in-bud pattern which are all most likely infectious/inflammatory in etiology. Recommend 3 month follow-up low-dose no ncontrast chest CT. 3. Indeterminate 1.2 cm higher attenuation exophytic lesion at the mid right kidney statistically most likely to represent a proteinaceous/hemorrhagic cyst although solid neoplasm cannot be absolute excluded. Recommend further evaluation with pre and postcontrast MRI or CT. 4. Tiny focus of gas in the otherwise normal bladder. Correlate for recent instrumentation or Veliz catheterization. Chest X-Ray 03/15/25 10:58 IMPRESSION: Prominent right hilum and serpiginous structure in the left lower lobe area. CT evaluation advised. Right infrahilar opacity which may indicate focal pneumonia. Labs Labs: Laboratory Results - last 24 hr 03/15/25 03/15/25 03/15/25 10:13 10:14 12:18 WBC RBC Hgb Hct MCV MCH MCHC RDW Plt Count MPV Immature Gran % (Auto) Neut % (Auto) Lymph % (Auto) Quay % (Auto) Eos % (Auto) Baso % (Auto) Lymph # (Auto) Quay # (Auto) Eos # (Auto) Baso # (Auto) Abs Immat Gran (auto) Absolute Neuts (auto) Absolute Nucleated RBC Nucleated RBC % PT 14.9 H INR 1.1 APTT 32.5 Sodium 138 Potassium 4.1 Chloride 100 Carbon Dioxide 28 Anion Gap 10 BUN 30 H Creatinine 1.00 Estim Creat Clear Calc Not Reportable Estimated GFR 52 L Glucose 101 POC Capillary Glucose Lactic Acid Calcium 9.1 Total Bilirubin 0.4 AST 36 ALT 23 Alkaline Phosphatase 122 NT-Pro-B Natriuret Pep 2310 H Total Protein 8.0 Albumin 4.2 Lipase 187 Urine Color Yellow Urine Appearance Clear Urine pH 7.0 Ur Specific [place] 1.010 Urine Protein Negative Urine Glucose (UA) Negative Urine Ketones Negative Ur Blood (Man) Negative Urine Nitrate Negative Urine Bilirubin Negative Urine Urobilinogen 0.2 Leukocyte Esterase Rfl Trace H Urine RBC 0-2 Urine WBC 0-5 Ur Squamous Epith Cells None seen Urine Bacteria None seen Urine Casts 0-2 03/15/25 03/15/25 03/15/25 12:42 16:25 19:39 WBC RBC Hgb Hct MCV MCH MCHC RDW Plt Count MPV Immature Gran % (Auto) Neut % (Auto) Lymph % (Auto) Quay % (Auto) Eos % (Auto) Baso % (Auto) Lymph # (Auto) Quay # (Auto) Eos # (Auto) Baso # (Auto) Abs Immat Gran (auto) Absolute Neuts (auto) Absolute Nucleated RBC Nucleated RBC % PT INR APTT Sodium Potassium Chloride Carbon Dioxide Anion Gap BUN Creatinine Estim Creat Clear Calc Estimated GFR Glucose POC Capillary Glucose 135 H 99 Lactic Acid 1.6 Calcium Total Bilirubin AST ALT Alkaline Phosphatase NT-Pro-B Natriuret Pep Total Protein Albumin Lipase Urine Color Urine Appearance Urine pH Ur Specific [place] Urine Protein Urine Glucose (UA) Urine Ketones Ur Blood (Man) Urine Nitrate Urine Bilirubin Urine Urobilinogen Leukocyte Esterase Rfl Urine RBC Urine WBC Ur Squamous Epith Cells Urine Bacteria Urine Casts 03/16/25 03/16/25 03/16/25 04:52 04:52 08:10 WBC 9.7 RBC 3.94 L Hgb 11.4 L Hct 37.0 MCV 93.9 MCH 28.9 MCHC 30.8 L RDW 13.6 Plt Count 178 MPV 10.7 H Immature Gran % (Auto) 0.5 Neut % (Auto) 81.3 H Lymph % (Auto) 13.4 L Quay % (Auto) 3.9 Eos % (Auto) 0.6 Baso % (Auto) 0.3 Lymph # (Auto) 1.29 Quay # (Auto) 0.4 Eos # (Auto) 0.1 Baso # (Auto) 0.0 Abs Immat Gran (auto) 0.05 H Absolute Neuts (auto) 7.9 H Absolute Nucleated RBC 0.000 Nucleated RBC % 0.0 PT INR APTT Sodium 139 Potassium 4.3 4.5 Chloride 102 Carbon Dioxide 26 Anion Gap 11 BUN 33 H Creatinine 0.91 Estim Creat Clear Calc Not Reportable Estimated GFR 58 L Glucose 115 H POC Capillary Glucose 121 H Lactic Acid Calcium 9.1 Total Bilirubin AST ALT Alkaline Phosphatase NT-Pro-B Natriuret Pep Total Protein Albumin Lipase Urine Color Urine Appearance Urine pH Ur Specific [place] Urine Protein Urine Glucose (UA) Urine Ketones Ur Blood (Man) Urine Nitrate Urine Bilirubin Urine Urobilinogen Leukocyte Esterase Rfl Urine RBC Urine WBC Ur Squamous Epith Cells Urine Bacteria Urine Casts Quality VTE Prophylaxis VTE prophylaxis: mechanical ordered and pharmacologic ordered
[2025-03-16 12:14] LABS: Glucose Point of Care 92 mg/dl (65-105)
[2025-03-16 14:00] VITALS: BP 120/62; PULSE 63; RESP 18; TEMP 36.4; O2SAT 100
[2025-03-16 16:34] LABS: Glucose Point of Care 123 mg/dl (65-105)
[2025-03-16] MEDS: FUROSEMIDE INJ 40 MG/4 ML VIAL IV PUSH (17:07)
[2025-03-16 20:34] LABS: Glucose Point of Care 114 mg/dl (65-105)
[2025-03-16 21:07] VITALS: BP 132/73; PULSE 94; RESP 20; TEMP 36.7; O2SAT 97
[2025-03-16] MEDS: POTASSIUM CHLORIDE 20 MEQ ER TABLET BY MOUTH (21:52)
[2025-03-16] MEDS: traMADol HCL (*CRX) 50 MG TABLET PO (21:52)
[2025-03-16] MEDS: PRAMIPEXOLE 0.25 MG TABLET 0.75 MG PO (21:53)
[2025-03-16] MEDS: AZITHROMYCIN 500 MG/NS 250 ML 500 MG/250 ML BAG 250 MG IVPB (22:35)
[2025-03-17 05:23] VITALS: BP 125/64; PULSE 95; RESP 16; TEMP 36.5; O2SAT 100
[2025-03-17 05:44] LABS: Basophils Percent Auto 0.3 % (0.2-1.2); Eosinophils Absolute Auto 0.1 K/mm3 (0-0.3); Eosinophils Percent Auto 1.3 % (0-4.4); Hemoglobin 11.1 g/dL (12.0-15.0); Immature Granulocyte Absolute 0.05 K/mm3 (0.00-0.031); Immature Granulocyte Percent A 0.5 % (0-0.5); Lymphocytes Absolute Auto 1.63 K/mm3 (0.9-3.2); Lymphocytes Percent Auto 17.6 % (18.3-44.2); Mean Corpuscular HGB Conc 29.2 g/dl (32-36); Mean Corpuscular Hemoglobin 28.5 pg (26-34); Mean Corpuscular Volume 97.7 fl (80-100); Mean Platelet Volume 10.7 fl (7.4-10.4); Monocytes Absolute Auto 0.5 K/mm3 (0.1-0.6); Monocytes Percent Auto 5.7 % (2.6-8.5); Neutrophils Absolute Auto 6.9 K/mm3 (1.3-6.7); Neutrophils Percent Auto 74.6 % (45.5-73.1); Platelet Count Result 173 k/mm3 (150-375); Red Blood Count 3.89 M/mm3 (4.2-5.4); Red Cell Distribution Width 13.7 % (11.5-14.5); White Blood Count 9.2 K/mm3 (4.5-10.0)
[2025-03-17 05:58] LABS: Alanine Aminotransferase 24 U/L (6-35); Albumin Level 4.2 g/dL (3.5-5.1); Alkaline Phosphatase 112 U/L (38-126); Anion Gap 8 mmol/L (4-12); Aspartate Amino Transferase 39 U/L (14-36); Bilirubin,Total 0.5 mg/dL (0.2-1.3); Blood Urea Nitrogen 39 mg/dL (7-17); Carbon Dioxide 27 mmol/L (22-30); Chloride 101 mmol/L (98-107); Estimated Glomerular Filt Rate 46; Glucose 117 mg/dL (65-110); Potassium 5.2 mmol/L (3.4-5.0); Sodium 136 mmol/L (137-145)
[2025-03-17] MEDS: LEVOTHYROXINE SODIUM 88 MCG TABLET BY MOUTH (06:03)
[2025-03-17 06:35] LABS: Hypochromasia 1+; Platelet Estimate Adequate (Adequate); Schistocytes None Seen
[2025-03-17 07:42] LABS: Glucose Point of Care 103 mg/dl (65-105)
[2025-03-17 08:37] VITALS: PULSE 91
[2025-03-17] MEDS: LOSARTAN POTASSIUM 50 MG TABLET BY MOUTH (08:37)
[2025-03-17] MEDS: APIXABAN 5 MG TABLET PO (08:37)
[2025-03-17] MEDS: guaiFENesin 12 HR 600 MG TABCR PO (08:37)
[2025-03-17] MEDS: EZETIMIBE 10 MG TABLET BY MOUTH (08:37)
[2025-03-17] MEDS: METOPROLOL SUCCINATE EXT REL 25 MG TABCR BY MOUTH (08:37)
[2025-03-17] MEDS: FUROSEMIDE INJ 40 MG/4 ML VIAL IV PUSH (08:37)
[2025-03-17 10:15] VITALS: PULSE 84; O2SAT 97
[2025-03-17 10:20] VITALS: PULSE 102; O2SAT 96
[2025-03-17 10:30] VITALS: PULSE 86; O2SAT 97
[2025-03-17 11:05] LABS: Anion Gap 11 mmol/L (4-12); Blood Urea Nitrogen 36 mg/dL (7-17); Carbon Dioxide 27 mmol/L (22-30); Chloride 98 mmol/L (98-107); Estimated Glomerular Filt Rate 46; Glucose 106 mg/dL (65-110); Potassium 3.9 mmol/L (3.4-5.0); Sodium 136 mmol/L (137-145)
[2025-03-17 11:35] LABS: Glucose Point of Care 80 mg/dl (65-105)
--- NOTE | 2025-03-17 11:43 | HOMEO2EVAL ---
Evaluation was performed at [facility] Home Oxygen Evaluation RC: Home Oxygen (O2) Evaluation Start: 03/17/25 08:55 Freq: ONCE Status: Active Protocol: RPE Activity Type Activity Date Activity User E-sign Co-sign Detail Recorded Client Recorded Date Recorded By Document 03/17/25 10:15 [email or web address] [id number] 03/17/25 11:43 DJO Document 03/17/25 10:20 [email or web address] [email or web address] 03/17/25 11:43 DJO Document 03/17/25 10:30 [email or web address] [email or web address] 03/17/25 11:43 DJO 03/17/25 03/17/25 03/17/25 10:15 10:20 10:30 Home O2 Evaluation [Oxygen] -Test Phase Resting Exercise Resting -Oxygen Delivery Room Air Room Air Room Air [Pulse Oximetry] -Pulse Oximetry (90-100 %) 97 96 97 [Pulse Rate] -Pulse Rate (60-100 beats/min) 84 102 H 86 [Evaluation] -Activity Tolerance Good [Exercise] -Ambulation Distance (feet) 300 -Ambulation Distance (meters) 91.43 [Charges] -Evaluation Charges O2 Evaluation by Pulmonary
--- NOTE | 2025-03-17 11:43 | PCRCNOTE ---
HOME OXYGEN EVAL COMPLETE, NO REQUIREMENTS
--- NOTE | 2025-03-19 06:56 | P.DS_ITS ---
DS: Admitting Diagnosis Discharge Date 03/17/25 Admitting Diagnosis Shortness of breath and fall DS: Discharge Diagnosis Discharge Diagnosis (1) CAP (community acquired pneumonia): Qualifiers: Laterality: right Lung location: lower lobe of lung Qualified Code(s): J18.9 - Pneumonia, unspecified organism Code(s): J18.9 - Pneumonia, unspecified organism Status: Acute DS: Summary Hospital Course Hospital Course: 85-year-old female with atrial fibrillation on Eliquis, type 2 diabetes, hypertension hyperlipidemia CKD and pulmonary hypertension presents the hospital after fall with shortness of breath. Patient states that she has had a cough and shortness of breath for the past 5 days. She was started on antibiotics by her PCP which she has been taking without much improvement. This morning patient rolled out of bed hitting her right chest wall which is causing chest pain. Patient denies hitting her head. She states that the chest pain is worse when taking deep breaths or coughing. She denies fevers or chills. In the ED the patient has anemia of 11.5, BUN of 30, GFR to 52, UA has trace leukocyte esterase. CT chest shows Noted nodular opacities in the bilateral lower lungs, some solid, some groundglass and somewhat tree-in-bud pattern which are all most likely infectious/inflammatory in etiology. Patient was managed for Pneumonia, with Rocephin and Azithromycin. Eventually discharged on 7 days of Cefdinir and Doxycycline. F/u with PCP in 3-5 days Time Spent with Patient Time attestation: Total time spent providing and/or coordinating discharge services: DS: Data Data Completed and Pending Labs on day of discharge: Preliminary micro results at discharge 03/15/25 12:41 Blood Culture - Preliminary Blood 03/15/25 12:41 Blood Culture - Preliminary Blood Discharge Plan Discharge Attending physician on discharge: Lia Turcios Consulting providers: Alondra Craft; Luis Padilla; Jennifer Aguirre; Ciro Hernandez; Rell Clements Discharging Clinician: Lia Turcios Anticipated Discharge Date/Time: 03/17/25 12:48 Patient Disposition: Home Activity: as tolerated Diet: as tolerated, heart healthy and diabetic Patient Instructions: Antibiotic Form Patient Language: [place] Stand Alone Forms: General Discharge Information Follow-up/Referrals: Rahul Bejarano MD [Primary Care Provider] - (F/u with PCP in 3-5 days ) Discharge Medications: New cefdinir 300 mg capsule 300 mg PO Q12H 7 Days Qty: 14 0RF doxycycline hyclate 100 mg capsule 100 mg PO BID 7 Days Qty: 14 0RF Continued cholecalciferol (vitamin D3) 125 mcg (5,000 unit) capsule 125 mcg PO DAILY acetaminophen [Tylenol Extra Strength] 500 mg tablet 650 mg PO Q8H PRN (Reason: pain) niacin 500 mg tablet 500 mg PO DAILY (DME) Wheeled Walker with seat/ basket 0 .Route .MEDSUPPLY Qty: 1 0RF Rx Instructions: As directed Rybelsus 7 mg tablet 7 mg PO DAILY Qty: 90 1RF Rx Instructions: Please D/C the Rybelsys 14mg. Thank you coenzyme [id number] E 100-100 mg-unit Capsule 1 cap PO DAILY potassium chloride 20 mEq tablet extended release See Rx Instructions .ROUTE .COMPLEX Qty: 90 1RF Dose Instruction: TAKE 1 TABLET BY MOUTH EVERYDAY AT BEDTIME Rx Instructions: TAKE 1 TABLET BY MOUTH EVERYDAY AT BEDTIME folic acid 1 mg tablet See Rx Instructions .ROUTE .COMPLEX Qty: 90 1RF Dose Instruction: TAKE 1 TABLET BY MOUTH EVERY DAY Rx Instructions: TAKE 1 TABLET BY MOUTH EVERY DAY ezetimibe 10 mg tablet See Rx Instructions .ROUTE .COMPLEX Qty: 90 1RF Dose Instruction: TAKE 1 TABLET BY MOUTH EVERY DAY Rx Instructions: TAKE 1 TABLET BY MOUTH EVERY DAY ferrous sulfate 325 mg (65 mg iron) tablet See Rx Instructions PO DAILY Qty: 90 1RF Dose Instruction: TAKE 1 TABLET BY MOUTH TWICE A DAY Rx Instructions: TAKE 1 TABLET BY MOUTH ONCE A DAY orally daily; pramipexole 0.75 mg tablet See Rx Instructions .ROUTE .COMPLEX Qty: 90 1RF Dose Instruction: TAKE 1 TABLET BY MOUTH EVERYDAY AT BEDTIME Rx Instructions: TAKE 1 TABLET BY MOUTH EVERYDAY AT BEDTIME metolazone 2.5 mg tablet 2.5 mg PO .3x/ week 90 Days Qty: 36 1RF levothyroxine 88 mcg tablet See Rx Instructions .ROUTE .COMPLEX Qty: 90 0RF Dose Instruction: TAKE 1 TABLET BY MOUTH EVERY DAY Rx Instructions: TAKE 1 TABLET BY MOUTH EVERY DAY losartan 50 mg tablet See Rx Instructions .ROUTE .COMPLEX Qty: 90 1RF Dose Instruction: TAKE 1 TABLET BY MOUTH EVERY DAY Rx Instructions: TAKE 1 TABLET BY MOUTH EVERY DAY furosemide 40 mg tablet See Rx Instructions .ROUTE .COMPLEX Qty: 90 0RF Dose Instruction: TAKE 1 TABLET BY MOUTH EVERY DAY IN THE MORNING Rx Instructions: TAKE 1 TABLET BY MOUTH EVERY DAY IN THE MORNING Eliquis 5 mg tablet 5 mg PO BID Qty: 180 1RF tramadol 50 mg tablet 50 mg PO Q6H PRN (Reason: pain) Qty: 50 1RF metoprolol succinate 25 mg tablet extended release 24 hr See Rx Instructions .ROUTE .COMPLEX Qty: 90 1RF Dose Instruction: TAKE 1 TABLET BY MOUTH EVERY DAY FOR 30 DAYS Rx Instructions: TAKE 1 TABLET BY MOUTH EVERY DAY FOR 30 DAYS Date of admission: 03/16/25 09:48 Primary Care Provider: Rahul Bejarano Admitting Provider: Dia Arguello Attending physician on admission: Lia Turcios Condition: Stable
== END 2025-03-17 13:30 | disposition home or self-care (01) | DRG 194 ==
LOC: ANHED 12:10 → ANH3MEDSUR 13:05
PROVIDERS: Emergency Medicine; Nurse Practitioner Gerontology; Admitting Provider Family Medicine; Emergency Provider Physician Assistant; PCP Internal Medicine; Visit Provider Internal Medicine
DX: J18.9 Pneumonia, unspecified organism (principal); I48.20 Chronic atrial fibrillation, unspecified; I89.0 Lymphedema, not elsewhere classified; I34.89 Other nonrheumatic mitral valve disorders; I27.20 Pulmonary hypertension, unspecified; I12.9 Hypertensive chronic kidney disease with stage 1 through stage 4 chronic kidney disease, or unspecified chronic kidney disease; N18.1 Chronic kidney disease, stage 1; E11.22 Type 2 diabetes mellitus with diabetic chronic kidney disease; E78.5 Hyperlipidemia, unspecified; E03.9 Hypothyroidism, unspecified; J44.9 Chronic obstructive pulmonary disease, unspecified; E55.9 Vitamin D deficiency, unspecified; D50.9 Iron deficiency anemia, unspecified; K52.9 Noninfective gastroenteritis and colitis, unspecified; N28.9 Disorder of kidney and ureter, unspecified; M54.50 Low back pain, unspecified; M19.079 Primary osteoarthritis, unspecified ankle and foot; R07.9 Chest pain, unspecified; G25.81 Restless legs syndrome; G56.21 Lesion of ulnar nerve, right upper limb; W06.XXXA Fall from bed, initial encounter; Z20.822 Contact with and (suspected) exposure to COVID-19; Z79.01 Long term (current) use of anticoagulants; Z86.711 Personal history of pulmonary embolism; Z87.891 Personal history of nicotine dependence
CPT/HCPCS: 36415; 71045; 71250; 74176; 74181; 80048; 80053; 81001; 82948; 83605; 83690; 83735; 83880; 84132; 85025; 85610; 85730; 87040; 87637; 93005; 94618; 94640; 96365; 96366; 96368; 96374; 97161; 97165; 99285; A9270; G0378; J0456; J0696; J1938

== ENCOUNTER 2025-05-05 13:32 | Outpatient (CLI) | payer MEDICARE, SELFPAY ==
--- OUTSIDE RECORDS SUMMARY | 2025-05-05 13:35 | XMS_ITS | Data Portability ---
Author Organization [place] - [facility] [employer], Main Office Address [address] [place] [address] Care Team Providers Care Operating Theatre Technician Name Role Phone YING CRABTREE Referring Provider [phone] Assessment Encounter Date Assessment Date Assessment LastModified [...] which did not improve with supportive worth Bolt, surgical treatment might be a consideration that [...] fellowship trained foot and ankle subspecialist had [facility] and she I think would be the [...] more than half the time spent in ciax-kt-ndkb care. Not available 02/22/2023 14:11:07 03/17/2023 03/17/2023 [...] C7-T1. Patient is considering referral to a clinical support specialist and is going to see Dr. [...] more than half the time spent in lkpq-we-hjhk care. Not available 03/30/2023 12:55:35 04/21/2023 04/21/2023 Patient returns. She is here for follow-up for left shoulder. She has had several treatments with physical therapy thus far. She has been using a walker. 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 Not available 05/11/2023 18:41:02 Plan of Treatment Reminders Order Date Submit Date Provider Last Modified By Organization Details Last Modified Time Details Appointments None recorded. Lab None recorded. Referral None recorded. Procedures None recorded. Surgeries None recorded. Imaging XR, ankle 2022 023 [email or web address] [facility] [place], [address], [place], [address], 3 09:52:47 XR, foot, 3 or more view 2022 023 [email or web address] [facility] [place], [address], [place], [address], 3 09:52:46 XR, shoulder 2022 023 [email or web address] [facility] [place], [address], [place], [address], 3 09:52:46 Medication Orders None recorded. Patient TargetsNo targets recorded. Patient InstructionsNo instructions recorded. Reason for Referral None Reported. Results Created Date Observation Date Name Description Value Unit Range Abnormal Flag Note LastModifiedBy Organization Detail LastModifiedTime 02/20/20 23 XR, ankle No observ ation record ed. [facility] [place] [address], [place], [address], 02/22/2023 14:15:41 02/20/20 23 XR, foot, 3 or more view No observ ation record ed. [facility] [place] [address], [place], [address], 02/22/2023 14:18:17 02/20/20 23 XR, shoul may No observ ation record ed. [facility] [place] [address], [place], [address], 02/22/2023 14:13:28 02/20/20 23 03/20/2022 XR, ankle No observ ation record ed. [email or web address] Not Available 2022 15:33:34 02/20/20 23 08/05/2022 MRI, ankle , w/o contr ast No observ ation record ed. [email or web address] Not Available 2022 15:33:57 03/05/20 23 03/05/2023 MRI, shoul may, w/o contr ast No observ ation record ed. [email or web address] [facility] [address], [place], [address], 03/06/2023 16:21:43 03/17/20 MRI, cervi kristopher spine , w/wo contr ast No observ ation record ed. [email or web address] Not Available 2022 17:40:51 Result Notes None recorded. 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 Medical Equipment None Reported. Allergies Allergen ID Allergen Name Allergen Category Reaction Reaction Severity Criticality Documentation Date Start Date Code Code System Note Provider Name and Address Organization Details Recorded Time 76088 vancomyci n medicatio n itching severe Not available 01/01/2023 46934 RxNorm Not Available [employer] 3 13:31:00 76036 sertralin e medicatio n other Not available Not available 01/01/2023 72455 RxNorm sertr isael HCL 50 mg made her Ill Not Available [facility] 3 13:31:00 56754 propoxyph isa medicatio n Not available Not available Not available 01/01/2023 8785 RxNorm propo xyphe ne APAP 100-6 50 MGTEV Not Available [facility] 3 13:31:00 06386 piroxicam medicatio n abdominal pain Not available Not available 01/01/2023 8356 RxNorm Not Available [facility] 3 13:31:00 40276 oxycodone medicatio n itching severe Not available 01/01/2023 7804 RxNorm Not Available [facility] 3 13:31:00 43939 latex environme nt,medica tion Not available Not available Not available 01/01/2023 78614 91 RxNorm Not Available [facility] 3 13:31:00 06860 hydrocodo ne Not available itching severe Not available 01/01/2023 5489 RxNorm Not Available [facility] 3 13:31:00 68456 diclofena c Not available abdominal pain Not available Not available 01/01/2023 3355 RxNorm diclo fenac SOD EC 50 MG Not Available [facility] 3 13:31:01 96304 Betadine medicatio n facial swelling Not available Not available 01/01/202359417 0 RxNorm MARNIE Weller, [place] - [place] [employer] [facility] 3 09:13:11 54706 Arthrotec medicatio n abdominal pain severe Not available 01/01/2023 79210 UNK arthr otec 74 Not Available [facility] 3 13:31:01 Medications Name Sig Start Date [...] administe red by the provider 02/19 completed [facility]: 0003- 0494- 20 Not Available Not Available [...] administe red by the provider 02/19 completed [facility]: 0409- 4276- 17 Not Available Not Available [...] Address Organization Details Last Updated DateTime 02/19/2023 57896.4 g 42.4 kg/m2 149.86 cm MARNIE Weller [place] - [facility] 02/19/2023 09:24:55 Date Recorded Body height Provider Name an d Address Organization Details Last Updated DateTime 03/17/2023 149.86 cm MARNIE [place]er [place] [employer] [facility] 03/17/2023 16:29:53 Date Recorded Body height Provider Name an d Address Organization Details Last Updated DateTime 04/21/2023 149.86 cm MARNIE Weller [facility] [employer] [facility] 04/21/2023 17:01:07 Social History None recorded. Functional Status Question Answer Note LastModified by Organization D etails LastModified Time What is your level of alcohol consumption? None [email or web address] Information not available 02/19/2023 Mental Status None recorded. Family History Relationship Description Onset Age of this Age Resolved Age Notes LastModified by Organization Details LastModified Time Father Family history of malignant neoplasm [email or web address] Not available 2022 09:19:49 Mother Family history of malignant neoplasm [email or web address] Not available 2022 09:19:49 Medical History Condition Response ARTHRITIS Y COPD Y Gynecological HistoryNo gynecological history recorded. Obstetrics History GPAL:G 0 P 0 0 0 0 Past Encounters Encounter ID Performer Location Encounter Start Date Encounter Closed Date Diagnosis/Indication Diagnosis SNOMED-CT Code Diagnosis ICD10 Code Diagnosis Note [id number] Ciro William MD [facility] [place] [address] [place] [address] 02/19/2023 08:46:43 02/24/2023 09:52:46 Pain of left shoulder joint 8504273968 6356484 M25.512 Pain of ri ght ankle joint 8078146072 6454665 M25.571 [id number] Ciro William MD [facility] [place] [address] [place] [address] 03/17/2023 16:26:05 04/01/2023 09:41:24 Pain of left shoulder joint 3409090398 1029211 M25.512 [id number] Ciro William MD [facility] [place] [address] [place] [address] 04/21/2023 16:58:25 05/12/2023 12:19:10 Partial thickness rotator cuff tear 214492291 M75.122 Health Concerns Section Related Observation LastModified by Organization Detai ls LastModified Time None Recorded Concern Status LastModified by Organization Details LastModified Time None Recorded Advance Directives Directive None Recorded Payers Insurance Date Sequence Insurance Name Policy Number Policy Spencer Covered Member ID Spencer Member ID Guarantor Name 04/18/2023 1 [place] Alexus Castañeda [id number] Alexus Nichols Maddy 05/12/2023 2 [place]) [id number] Alexus Sotozel [id number] Alexus Nichols Maddy Notes Date Note Type Note Provider Name [...] plantar Enthesopathy. she had been seen a buggy loader and had couple of cortisone shots in [...] bladder and this required extensive surgery at [place] to address last fall. Her left shoulder [...] tries to play piano. Ciro William MD [address] [place] [address], [place] [address], [place], [address], [place] [facility] [employer] [facility] 02/22/2023 14:18:24 OBGyn Episode No OBEpisode recorded.
--- OUTSIDE RECORDS SUMMARY | 2025-05-05 13:35 | XMS_ITS | Clinical Summary ---
Author Organization [facility] Address [address] 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
--- OUTSIDE RECORDS SUMMARY | 2025-05-05 13:35 | XMS_ITS | Encounter Summary ---
Author Organization [employer] Address 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
--- OUTSIDE RECORDS SUMMARY | 2025-05-05 13:35 | XMS_ITS | Referral Summary ---
Author Organization [facility] [address] [place] [address] [address] [place] [address] Care Team Providers Care Zig Zag Spring Machine Operator Name Role Phone Rahul Bejarano MD Primary Care Provider [phone] Tonio Cabello MD Unavailable [phone] Michael Castano MD Unavailable [phone] Encounters Date Type Department Care Team Description 02/17/2025 Telephone [facility] Cardiology [address] [place] [address] Rosalina Shaw NP 02/11/2025 2:30 PM CDT Office Visit [facility] Medical [facility] Cardiology [address] [place] [address] Rosalina Shaw NP Paroxysmal atrial fibrillation (HCC) (Primary Dx); Chronic anticoagulation from Last 3 Months Allergies Active Allergy Reactions Criticality Noted Date Comments Bacitracin Diclofenac Diclofenac-Misoprostol Stomach upset High 03/31/2018 Hydrocodone Latex, Natural Rubber Rash Medium 03/31/2018 Misoprostol Neomycin Bhzokyfn-Xgvciikmyf-Xmmjvwdos Rash Medium 2017 Oxycodone Piroxicam Polymyxin B [...] (04/12/2022): Added automatically from request for surgery [id number] 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 Paroxysmal atrial fibrillation 10/22/2017 [...] on file 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 Gender Identity Not on file Sexual Orientation [...] 2:27 PM CDT Height 154.9 cm (5' 1) 02/11/2025 2:27 PM CDT Body Mass Index 33.44 02/11/2025 2:27 PM CDT Plan of Treatment Not on file Insurance MEDICARE [employer] [place] MEDICARE [facility] MEDICARE [facility] MEDICARE SUPPLEMENT Advance Directives For more information, please contact: [phone] * Full Code (Latest Code Status on File) Date Activated Date Inactivated Comments 05/15/2022 4:32 PM 05/19/2022 5:07 PM * Full Code Date Activated Date Inactivated Comments 05/09/2022 10:46 AM 05/09/2022 4:28 PM Care Teams Zig Zag Spring Machine Operator Relationship Specialty Start Date End Date Rahul Bejarano MD [address] [facility] [address] [place] [id number] PCP - General 05/02/14 Tonio Cabello MD [address] [facility] [phone] [place] [address] Surgeon Colon and Rectal Surgery 04/12/22 Michael Castano MD [address] [address] Referring Physician Vascular Surgery 04/12/22
--- OUTSIDE RECORDS SUMMARY | 2025-05-05 13:35 | XMS_ITS | Clinical Summary ---
Author Organization [facility] [address] Address [address] [place] [address] Care Team Providers Care Technical Rep Name Role Phone Rahul Bejarano MD Primary Care Provider [phone] Tonio Cabello MD Unavailable [phone] Michael Castano MD Unavailable [phone] Allergies Active Allergy Reactions Criticality Noted Date Comments Bacitracin Diclofenac Diclofenac-Misoprostol Stomach upset High 03/31/2018 Hydrocodone Latex, Natural Rubber Rash Medium 03/31/2018 Misoprostol Neomycin Fuoqdznm-Ihwtbfzjxe-Rlacijrua Rash Medium 2017 Oxycodone Piroxicam Polymyxin B [...] (04/12/2022): Added automatically from request for surgery [id number] 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 Paroxysmal atrial fibrillation 10/22/2017 Acute postoperative abdominal pain Encounters Date Type Department Care Team Description 02/17/2025 Telephone [facility] Cardiology [address] [place] [address] Rosalina Shaw NP 02/11/2025 2:30 PM CDT Office Visit [facility] Medical [facility] Cardiology [address] [place] [address] Rosalina Shaw NP Paroxysmal atrial fibrillation (HCC) [...] on file Legal Sex Female 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 Gender Identity Not on file Sexual Orientation [...] Date Last Done Comments Depression Screening 1938 Osteoporosis Screening-Bone Density Scan 1938 Hepatitis B Screening 02/24/1956 Well Visit 65+ 2003 Zoster Vaccine (3 of 3) 12/27/2019 11/01/2019, 06/08 Pneumococcal vaccine 65+ (2 of 2 - PPSV23) 10/29/2020 10/29/2019 Fall Risk Assessment 05/19/2023 05/19/2022 Covid-19 Vaccine (4 - 2023-2 5 season) 2024 09/14/2021, 03/12/2021, 02/19/2021 Influenza Vaccine (#1) 2025 , 08/19/2019, 08/28/2018, Additional history exists DTaP/Tdap/Td Vaccine (2 - Td or Tdap) 11/27/2029 11/27/2019 Insurance MEDICARE [employer] [place] MEDICARE [employer] [place] MEDICARE [facility] MEDICARE SUPPLEMENT Advance Directives For more information, please contact: [phone] * Full Code (Latest Code Status on File) Date Activated Date Inactivated Comments 05/15/2022 4:32 PM 05/19/2022 5:07 PM * Full Code Date Activated Date Inactivated Comments 05/09/2022 10:46 AM 05/09/2022 4:28 PM Care Teams Technical Rep Relationship Specialty Start Date End Date Rahul Bejarano MD [address] [place] [address] PCP - General 05/02/14 Tonio Cabello MD [address] [facility] [phone] [place] [address] Surgeon Colon and Rectal Surgery 04/12/22 Michael Castano MD [address] [place] [address] Referring Physician Vascular Surgery 04/12/22
--- OUTSIDE RECORDS SUMMARY | 2025-05-05 13:35 | XMS_ITS | Encounter Summary ---
Author Organization [employer] Address 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
[2025-05-05 14:01] LABS: Hematocrit 37.2 % (37.0-47.0); Hemoglobin 11.6 g/dL (12.0-15.0); Immature Granulocyte Percent A 0.5 % (0-0.5); Lymphocytes Absolute Auto 1.70 K/mm3 (0.9-3.2); Mean Corpuscular HGB Conc 31.2 g/dl (32-36); Mean Corpuscular Hemoglobin 29.2 pg (26-34); Mean Corpuscular Volume 93.7 fl (80-100); Nucleated Red Blood Cells Absolute Auto 0.000 K/mm3 (0.0-0.012); Nucleated Red Blood Cells Perc 0.0 % (0.0-0.2); Platelet Count Result 168 k/mm3 (150-375); Red Blood Count 3.97 M/mm3 (4.2-5.4); White Blood Count 6.5 K/mm3 (4.5-10.0)
[2025-05-05 14:15] LABS: Alanine Aminotransferase 19 U/L (6-35); Albumin Level 4.0 g/dL (3.5-5.1); Alkaline Phosphatase 104 U/L (38-126); Anion Gap 7 mmol/L (4-12); Aspartate Amino Transferase 32 U/L (14-36); Bilirubin,Total 0.6 mg/dL (0.2-1.3); Blood Urea Nitrogen 20 mg/dL (7-17); Calcium 9.1 mg/dL (8.4-10.2); Carbon Dioxide 30 mmol/L (22-30); Chloride 96 mmol/L (98-107); Cholesterol 129 mg/dL (0-200); Estimated Glomerular Filt Rate 54; Glucose 97 mg/dL (65-110); HDL Direct 49 mg/dL; Potassium 4.1 mmol/L (3.4-5.0); Sodium 133 mmol/L (137-145); Total Protein 7.1 g/dL (6.3-8.2); Triglycerides 106 mg/dL (<150)
[2025-05-05 14:36] LABS: Free T4 Free Thyroxine 1.70 ng/dL (0.78-2.19)
[2025-05-05 14:44] LABS: Hemoglobin A1C 5.5 % (<5.7)
[2025-05-05 14:45] LABS: Thyroid Stimulating Hormone 1.740 uIU/mL (0.465-4.680)
== END 2025-05-05 13:33 | disposition home or self-care (01) ==
LOC: ANHLAB 13:33
PROVIDERS: PCP Internal Medicine; Visit Provider Internal Medicine
DX: E78.2 Mixed hyperlipidemia (principal); E03.9 Hypothyroidism, unspecified; E11.22 Type 2 diabetes mellitus with diabetic chronic kidney disease; E55.9 Vitamin D deficiency, unspecified; I12.9 Hypertensive chronic kidney disease with stage 1 through stage 4 chronic kidney disease, or unspecified chronic kidney disease; N18.1 Chronic kidney disease, stage 1
CPT/HCPCS: 36415; 80053; 80061; 82306; 83036; 84439; 84443; 85025

== ENCOUNTER 2025-05-31 12:50 | Emergency (ER) | payer MEDICARE, SELFPAY ==
--- NOTE | 2025-05-31 12:54 | ED_ITS ---
HPI - Female Genitourinary General Chief complaint: Urogenital-Female Stated complaint: Uti Symptoms Time Seen by Provider: 05/31/25 13:22 Source: patient and RN notes reviewed Mode of arrival: ambulatory Limitations: no limitations History of Present Illness HPI Narrative: 85-year-old female presents with concern for urinary tract infection. She reports she has had stinging with urination for about a week. She reports last night she had a hallucination after she took tramadol. She denies fever, aches, chills, sweats. Denies abdominal pain or back pain. Denies nausea or vomiting. MD elicited complaint: UTI Related Data Home Medications ?Medication ?Instructions ?Recorded ?Confirmed ?Last Taken ?Type cholecalciferol (vitamin D3) 125 125 mcg PO DAILY 05/09/21 05/12/25 03/14/25 History mcg (5,000 unit) capsule coenzyme V80-eweyukn E 100 mg-100 1 cap PO DAILY 10/29/23 05/12/25 03/14/25 History unit capsule acetaminophen 500 mg tablet 650 mg PO Q8H PRN pain 04/20/24 05/12/25 03/14/25 History (Tylenol Extra Strength) niacin 500 mg tablet 500 mg PO DAILY 04/20/24 05/12/25 Unknown History mecobalamin (vitamin B12) 1,000 1,000 mcg sublingual DAILY 03/24/25 05/12/25 Unknown History mcg disintegrating tablet,sublingual Allergies Allergy/AdvReac Type Severity Reaction Status Date / Time latex Allergy Severe SEVERE Verified 05/31/25 13:04 SWELLING vancomycin Allergy Severe SEVERE Verified 05/31/25 13:04 ITCHING 2009 Wbsbckr-QNS-WmN Reductase Allergy Intermediate Muscle Pain Verified 05/31/25 13:04 Inhibitor Aminoglycosides Allergy Mild Swelling Verified 05/31/25 13:04 hydrocodone Allergy Mild Rash Verified 05/31/25 13:04 neomycin Allergy Mild Swelling Verified 05/31/25 13:04 oxycodone Allergy Mild Unknown Verified 05/31/25 13:04 polymyxin B Allergy Unknown SWELLING Verified 05/31/25 13:04 diclofenac AdvReac Severe STOMACH Verified 05/31/25 13:04 UPSET - CAN TAKE ALEVE OK misoprostol AdvReac Severe STOMACH Verified 05/31/25 13:04 UPSET piroxicam AdvReac Severe STOMACH Verified 05/31/25 13:04 UPSET propoxyphene AdvReac Severe STOMACH Verified 05/31/25 13:04 UPSET sertraline AdvReac Severe STOMACH Verified 05/31/25 13:04 UPSET Iodine and Iodide Containing AdvReac Swelling Verified 05/31/25 13:04 Produc Review of Systems Review of Systems: CONSTITUTIONAL: Denies malaise, chills, sweats, or fever. CARDIOVASCULAR: Denies chest pain, palpitations, or edema. RESPIRATORY: Denies cough or dyspnea. GASTROINTESTINAL: Denies abdominal pain, nausea, vomiting, diarrhea GENITOURINARY: Reports dysuria, frequency. Denies urgency, suprapubic pressure. Denies flank pain or hematuria. SKIN: Denies rash or itching. MUSCULOSKELETAL: Denies back pain or myalgia. NEURO: Reports hallucinations All systems reviewed & are unremarkable except as noted in HPI and below PMFSH Past Medical History Medical History (Updated 05/31/25 @ 13:21 by Lu Felix NP) Vitamin B12 deficiency BMI 34.0-34.9,adult Lung nodule Mass of soft tissue of upper extremity BMI 35.0-35.9,adult Chronic diarrhea BMI 36.0-36.9,adult Leg wound, left BMI 39.0-39.9,adult BMI 38.0-38.9,adult Rash Fecal incontinence 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 Entrapment of right ulnar nerve at wrist Right ankle pain Mass of right hand Ecchymosis Tear of biceps tendon Rotator cuff tear, left Ankle arthritis DJD (degenerative joint disease) Abnormal x-ray of cervical spine Dry scalp Personal history of COVID-19 Other pulmonary embolism without acute cor pulmonale Closed fracture of left hand Stress Skin puncture Sinus drainage Numbness and tingling in left hand Laceration of right index finger Hospital discharge follow-up Dermatitis Bilateral arm pain Mitral valve sclerosis BMI 40.0-44.9, adult Chronic pain of right ankle Rectal vaginal fistula Vaginal Discharge Back pain Low back pain Dysuria Right flank pain Calcification of mitral valve UTI (urinary tract infection) Chronic anemia With mild thrombocytopenia. Restless leg syndrome Pre-diabetes Mild chronic obstructive pulmonary disease Puncture wound Statin intolerance Body mass index (BMI) 45.0-49.9, adult COVID-19 Insomnia Chest wall pain Arthritis Hammertoe of left foot Body mass index (BMI) 40.0-44.9, adult Hearing loss Vitamin D deficiency Diastolic dysfunction Iron deficiency anemia History of atrial fibrillation Mixed hyperlipidemia Patient reports statin intolerance. Benign essential hypertension Surgical History Surgical History (Reviewed 05/12/25 @ 13:20 by Mahnaz Kelly [facility]) History of cardiac catheterization (03/2014) Normal coronary arteries. History of cholecystectomy History of hysterectomy for benign disease History of tubal ligation History of bilateral carpal tunnel release History of bilateral knee arthroplasty History of carpal tunnel release History of appendectomy Family History Family History (Reviewed 05/12/25 @ 13:20 by Mahnaz Kelly [facility]) Father Family history of lymphoma Mother Brain cancer Other Arthritis Social History Social History (Reviewed 05/12/25 @ 13:20 by Mahnaz Kelly [facility]) Social History: Surrogate decision maker: john Tovar. Code status: Full code. Caffeine- daily Smoking packs per day: 1 Smoking cigarettes per day: 20.0 Years smoked: 15 Smoking pack-years: 15.00 Smoking status: Former smoker Tobacco type: cigarettes Second hand tobacco smoke exposure: No Smoking end date: 11/03/94 Alcohol intake: current Drinks per week: 1 Alcohol use details: Social Substance use: never Do You Feel Safe in your Home?: Yes Lack of Transportation: No Lack of Food: Never True Current Housing: I Have Housing Concerned About Future Housing: No Difficulty Paying Gas/Electric Bills: No Difficulty Paying for Meds: No Currently Unemployed: No Education: Bachelor's Degree Difficulty w/ Childcare or Family Care: No Living arrangements: alone Additional living arrangements comments: The patient is . She lives in a [facility] in [place]. 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 Gender identity (if verbalized by the patient): Female Spiritual care concerns: No Comments At time of signature, agree with nursing past medical, surgical, social and family history. There is no relevant family history pertinent to the presenting complaint Exam Narrative: GENERAL: Well-appearing, well-nourished, and in no acute distress. HEAD: Normocephalic. EYES: PERRLA, conjunctivae clear. NECK: Supple. No lymphadenopathy CHEST: Clear to auscultation. No respiratory distress. HEART: Regular rate and rhythm. ABDOMEN: Soft, nontender upon palpation, nondistended, no palpable or pulsatile masses, no guarding. No CVA tenderness SKIN: Warm, dry, no rash. NEURO: Alert and oriented x3. PSYCH: Normal mood and affect Course Course Emergency Course: Patient is aware of diagnosis, understands and agrees to treatment plan. Anticipatory guidance given. Patient agrees to follow-up as directed and is aware of reasons to seek care at the emergency department. Portions of this record may have been created with voice recognition software Level of Care: Express Care Visit Vital Signs Vital signs: Reviewed. MDM - Female Genitourinary MDM Narrative Medical decision making narrative: Exam findings and UA show no acute concerns or changes; patient is non-toxic appearing and is in no distress. Patient is appropriate for outpatient treatment and follow-up. Differential Diagnosis Differential diagnosis: Likely urinary tract infection and cystitis Critical Care Time Critical Care Time Critical Care Time: No Discharge Plan Discharge Clinical Impression: Urinary tract infection Patient Disposition: Home Condition: Stable Instructions: Antibiotic Form, Urinary Tract Infection in Older Adults (ED) Additional Instructions: We will send a urine culture to the lab; if the culture identifies an organism that the prescribed antibiotic will not treat, you will receive a phone call from an urgent care staff member and an appropriate antibiotic will be prescribed. -Your symptoms should begin to improve within a day of starting antibiotics. But you should finish all the antibiotic pills you get. Otherwise your infection might come back. -Also recommend: increase water intake. Tylenol/ibuprofen as needed for pain or fever -Follow-up with your primary care provider for urine recheck or seek ER visit if condition worsens with high fever, nausea, vomiting and severe back pain. Patient Language: Portuguese Prescriptions: New amoxicillin-pot clavulanate 875-125 mg tablet 1 tablet PO Q12H 10 Days Qty: 20 0RF No Action cholecalciferol (vitamin D3) 125 mcg (5,000 unit) capsule 125 mcg PO DAILY acetaminophen [Tylenol Extra Strength] 500 mg tablet 650 mg PO Q8H PRN (Reason: pain) niacin 500 mg tablet 500 mg PO DAILY (DME) Wheeled Walker with seat/ basket 0 .Route .MEDSUPPLY Qty: 1 0RF Rx Instructions: As directed mecobalamin (vitamin B12) 1,000 mcg tablet,disintegrating 1,000 mcg sublingual DAILY Rx Instructions: place tablet under tongue and allow to dissolve for at least30 secs before swallowing coenzyme L75-fxaxoaz E 100-100 mg-unit Capsule 1 cap PO DAILY ferrous sulfate 325 mg (65 mg iron) tablet See Rx Instructions PO DAILY Qty: 90 1RF Dose Instruction: TAKE 1 TABLET BY MOUTH TWICE A DAY Rx Instructions: TAKE 1 TABLET BY MOUTH ONCE A DAY orally daily; metolazone 2.5 mg tablet 2.5 mg PO .3x/ week 90 Days Qty: 36 1RF losartan 50 mg tablet See Rx Instructions .ROUTE .COMPLEX Qty: 90 1RF Dose Instruction: TAKE 1 TABLET BY MOUTH EVERY DAY Rx Instructions: TAKE 1 TABLET BY MOUTH EVERY DAY Eliquis 5 mg tablet 5 mg PO BID Qty: 180 1RF tramadol 50 mg tablet 50 mg PO Q6H PRN (Reason: pain) Qty: 50 1RF metoprolol succinate 25 mg tablet extended release 24 hr See Rx Instructions .ROUTE .COMPLEX Qty: 90 1RF Dose Instruction: TAKE 1 TABLET BY MOUTH EVERY DAY FOR 30 DAYS Rx Instructions: TAKE 1 TABLET BY MOUTH EVERY DAY FOR 30 DAYS potassium chloride 20 mEq tablet extended release See Rx Instructions .ROUTE .COMPLEX Qty: 90 1RF Dose Instruction: TAKE 1 TABLET BY MOUTH EVERYDAY AT BEDTIME Rx Instructions: TAKE 1 TABLET BY MOUTH EVERYDAY AT BEDTIME folic acid 1 mg tablet See Rx Instructions .ROUTE .COMPLEX Qty: 90 1RF Dose Instruction: TAKE 1 TABLET BY MOUTH EVERY DAY Rx Instructions: TAKE 1 TABLET BY MOUTH EVERY DAY ezetimibe 10 mg tablet See Rx Instructions .ROUTE .COMPLEX Qty: 90 1RF Dose Instruction: TAKE 1 TABLET BY MOUTH EVERY DAY Rx Instructions: TAKE 1 TABLET BY MOUTH EVERY DAY furosemide 40 mg tablet See Rx Instructions .ROUTE .COMPLEX Qty: 90 1RF Dose Instruction: TAKE 1 TABLET BY MOUTH EVERY DAY IN THE MORNING Rx Instructions: TAKE 1 TABLET BY MOUTH EVERY DAY IN THE MORNING levothyroxine 88 mcg tablet See Rx Instructions .ROUTE .COMPLEX Qty: 90 0RF Dose Instruction: TAKE 1 TABLET BY MOUTH EVERY DAY Rx Instructions: TAKE 1 TABLET BY MOUTH EVERY DAY pramipexole 0.75 mg tablet See Rx Instructions .ROUTE .COMPLEX Qty: 90 1RF Dose Instruction: TAKE 1 TABLET BY MOUTH EVERYDAY AT BEDTIME Rx Instructions: TAKE 1 TABLET BY MOUTH EVERYDAY AT BEDTIME nystatin 100,000 unit/gram powder 1 applic topical BID Qty: 60 0RF Rybelsus 7 mg tablet 7 mg PO DAILY Qty: 90 2RF Rx Instructions: Please D/C the Rybelsys 14mg. Thank you Follow-up/Referrals: Rahul Bejarano MD [Primary Care Provider] - Time of Disposition: 13:21
[2025-05-31 13:04] VITALS: BP 117/68; PULSE 106; RESP 16; TEMP 36.4; O2SAT 98
[2025-05-31 13:15] LABS: EDUAAPPEAR Cloudy; EDUABILI Negative (Negative); EDUABLOOD Trace (Negative); EDUACOLOR1 Yellow; EDUAGLUCOSE Negative (Negative); EDUAKETONE Negative (Negative); EDUALEUKO 3+ (Negative); EDUANITRATE Positive (Negative); EDUAPH 6.5; EDUAPROTEIN Negative (Negative); EDUASPGRAVITY 1.015; EDUAUROBILI 0.2
== END 2025-05-31 13:37 | disposition home or self-care (01) ==
PROVIDERS: Emergency Provider Nurse Practitioner; PCP Internal Medicine
DX: N39.0 Urinary tract infection, site not specified (principal); Z87.891 Personal history of nicotine dependence; I10 Essential (primary) hypertension; I48.91 Unspecified atrial fibrillation; G25.81 Restless legs syndrome; R73.03 Prediabetes; E78.2 Mixed hyperlipidemia; E53.8 Deficiency of other specified B group vitamins; Z86.711 Personal history of pulmonary embolism; I05.8 Other rheumatic mitral valve diseases; J44.9 Chronic obstructive pulmonary disease, unspecified; E55.9 Vitamin D deficiency, unspecified; D50.9 Iron deficiency anemia, unspecified; Z86.16 Personal history of COVID-19
CPT/HCPCS: 81003; 87086; 99213; G0463

== ENCOUNTER 2025-06-03 10:12 | Observation (INO) | payer MEDICARE, SELFPAY ==
--- NOTE | ~2025-06-03 | CT_ITS ---
History: Trauma PROCEDURE: CT cervical spine without intravenous contrast. COMPARISON: Reference is made to an MRI examination of the cervical spine dated 03/12/2023. Reference is also made to a plain film evaluation of the cervix findings dated 12/13/2022 TECHNIQUE: Multiple contiguous axial images of the cervical spine were performed without the administration of i ntravenous contrast. DLP: 489 mGy-cm FINDINGS: Reversal of the normal curvature of the cervical spine is identified, possibly muscular and/or degene rative in origin. This represents a significant change from previous cervical spine MRI dated 03/12/20 23. Interval progression of the anterior wedge compression of the C5 vertebral body is identified with os teophyte formation and significant disc space narrowing at the level of C5/C6 with endplate changes.. No acute fractures are present. The bilateral lung apices are unremarkable. No soft tissue abnormality is appreciated. The airway is patent. Impression: Reversal of the normal curvature of the cervical spine is identified secondary to interval progressio n of the anterior wedge compression of the C5 vertebral body. Significant degenerative disease is redemonstrated, without acute fracture Reviewed, dictated and finalized at location A. Impression: Reversal of the normal curvature of the cervical spine is identified secondary to interval progression of the anterior wedge compression of the C5 vertebral b rosina. Significant degenerative disease is redemonstrated, without acute fracture
--- NOTE | ~2025-06-03 | CT_ITS ---
History: Trauma PROCEDURE: CT head without contrast. COMPARISON: 08/30/2021 TECHNIQUE: Axial imaging of the head performed from the skull base to the vertex without IV contrast. Sagittal a nd coronal reformations obtained. DLP: 605 mGy-cm FINDINGS: The ventricles are enlarged. The dilatation of the ventricles is proportional to the degree of sulcal prominence, not uncommon in the senescent brain. Decreased attenuation is identified within the periventricular white matter, likely secondary to micr ovascular ischemic disease, in a patient of this age. There is no mass, mass effect or midline shift. There is no abnormal extra-axial fluid collection or intracranial hemorrhage. Visualized paranasal sinuses are clear. The mastoid air cells are well aerated. No acute displaced fractures within the overlying cranium. Impression: No acute intracranial hemorrhage or suspicious mass effect. Reviewed, dictated and finalized at location A. Impression: No acute intracranial hemorrhage or suspicious mass effect.
--- OUTSIDE RECORDS SUMMARY | 2025-06-03 10:14 | XMS_ITS | Encounter Summary ---
Author Organization [facility] Address 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
--- OUTSIDE RECORDS SUMMARY | 2025-06-03 10:14 | XMS_ITS | Encounter Summary ---
Author Organization [facility] Address 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
--- OUTSIDE RECORDS SUMMARY | 2025-06-03 10:14 | XMS_ITS | Clinical Summary ---
Author Organization [facility] Address [address] 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
--- OUTSIDE RECORDS SUMMARY | 2025-06-03 10:15 | XMS_ITS | Clinical Summary ---
Author Organization [facility] [address] Address [address] [place] [address] Care Team Providers Care Esthetician Facialist Name Role Phone Rahul Bejarano MD Primary Care Provider [phone] Tonio Cabello MD Unavailable [phone] Michael Castano MD Unavailable [phone] Allergies Active Allergy Reactions Criticality Noted Date Comments Bacitracin Diclofenac Diclofenac-Misoprostol Stomach upset High 03/31/2018 Hydrocodone Latex, Natural Rubber Rash Medium 03/31/2018 Misoprostol Neomycin Trwovbtm-Cnbxwlgwff-Jpskbhcfc Rash Medium 2017 Oxycodone Piroxicam Polymyxin B [...] (04/12/2022): Added automatically from request for surgery [id number] 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 Paroxysmal atrial fibrillation 10/22/2017 Acute postoperative abdominal pain Surgical History Surgery [...] on file Legal Sex Female 1:59 AM BLACK TOP ROLLER Gender Identity Not on file Sexual Orientation [...] Td or Tdap) 11/27/2029 11/27/2019 Insurance MEDICARE [facility] MEDICARE [facility] MEDICARE BLUE CROSS MEDICARE SUPPLEMENT Advance Directives For more information, please contact: [phone] * Full Code (Latest Code Status on File) Date Activated Date Inactivated Comments 05/15/2022 4:32 PM 05/19/2022 5:07 PM * Full Code Date Activated Date Inactivated Comments 05/09/2022 10:46 AM 05/09/2022 4:28 PM Care Teams Esthetician Facialist Relationship Specialty Start Date End Date Rauhl Bejarano MD [address] [place] [address] PCP - General 05/02/14 Tonio Cabello MD [phone] [place] [address] Surgeon Colon and Rectal Surgery 04/12/22 Michael Castano MD [address] [place] [address] Referring Physician Vascular Surgery 04/12/22
--- OUTSIDE RECORDS SUMMARY | 2025-06-03 10:15 | XMS_ITS | Referral Summary ---
Author Organization [facility] [address] Address [address] [place] [address] Care Team Providers Care Key Attendant Name Role Phone Rahul Bejarano MD Primary Care Provider [phone] Tonio Cabello MD Unavailable [phone] Michael Castano MD Unavailable [phone] Allergies Active Allergy Reactions Criticality Noted Date Comments Bacitracin Diclofenac Diclofenac-Misoprostol Stomach upset High 03/31/2018 Hydrocodone Latex, Natural Rubber Rash Medium 03/31/2018 Misoprostol Neomycin Okqlhvqv-Lnyqnhzngh-Kpvdvttdh Rash Medium 2017 Oxycodone Piroxicam Polymyxin B [...] (04/12/2022): Added automatically from request for surgery [id number] 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 Paroxysmal atrial fibrillation 10/22/2017 [...] on file Legal Sex Female 1:59 AM ACQUISITION SPECIALIST Gender Identity Not on file Sexual Orientation [...] of Treatment Not on file Insurance MEDICARE [email or web address] [place] [employer] [place] MEDICARE [facility] MEDICARE SUPPLEMENT Advance Directives For more information, please contact: [phone] * Full Code (Latest Code Status on File) Date Activated Date Inactivated Comments 05/15/2022 4:32 PM 05/19/2022 5:07 PM * Full Code Date Activated Date Inactivated Comments 05/09/2022 10:46 AM 05/09/2022 4:28 PM Care Teams Key Attendant Relationship Specialty Start Date End Date Rahul Bejarano MD [address] [facility] [address] [place] [address] PCP - General 05/02/14 Tonio Cabello MD [phone] [place] [address] Surgeon Colon and Rectal Surgery 04/12/22 Michael Castano MD [address] [facility] [address] [place] [address] Referring Physician Vascular Surgery 04/12/22
[2025-06-03 10:17] VITALS: TEMP 36.4
--- OUTSIDE RECORDS SUMMARY | 2025-06-03 10:46 | XMS_ITS | Encounter Summary ---
Author Organization [facility] Address [address] [place] [address] Care Team Providers Care Cartographic Engineer Name Role Phone Unavailable Primary Care Provider Unavailabl e Encounter Details Date Type Department Care Team (Late st Contact Info) Description 08/26/2000 Outpatient Historical [facility] Jon Mckeon MD [address] 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
--- OUTSIDE RECORDS SUMMARY | 2025-06-03 10:46 | XMS_ITS | Clinical Summary ---
Author Organization [facility] [address] Address [address] [place] [address] Care Team Providers Care Seasonal Greenery Bundler Name Role Phone Rahul Bejarano MD Primary Care Provider [phone] Tonio Cabello MD Unavailable [phone] Michael Castano MD Unavailable [phone] Allergies Active Allergy Reactions Criticality Noted Date Comments Bacitracin Diclofenac Diclofenac-Misoprostol Stomach upset High 03/31/2018 Hydrocodone Latex, Natural Rubber Rash Medium 03/31/2018 Misoprostol Neomycin Rfxvsxkh-Iwxwwyjuaz-Yczfcgrxt Rash Medium 2017 Oxycodone Piroxicam Polymyxin B [...] (04/12/2022): Added automatically from request for surgery [id number] 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 Paroxysmal atrial fibrillation 10/22/2017 [...] on file Legal Sex Female 1:59 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 Gender Identity Not on file Sexual [...] Td or Tdap) 11/27/2029 11/27/2019 Insurance MEDICARE [facility] MEDICARE [facility] MEDICARE BLUE CROSS MEDICARE SUPPLEMENT Advance Directives For more information, please contact: [phone] * Full Code (Latest Code Status on File) Date Activated Date Inactivated Comments 05/15/2022 4:32 PM 05/19/2022 5:07 PM * Full Code Date Activated Date Inactivated Comments 05/09/2022 10:46 AM 05/09/2022 4:28 PM Care Teams Seasonal Greenery Bundler Relationship Specialty Start Date End Date Rahul Bejarano MD [address] [place] [address] PCP - General 05/02/14 Tonio Cabello MD [phone] [place] [address] Surgeon Colon and Rectal Surgery 04/12/22 Michael Castano MD [address] [place] [address] Referring Physician Vascular Surgery 04/12/22
--- OUTSIDE RECORDS SUMMARY | 2025-06-03 10:46 | XMS_ITS | Clinical Summary ---
Author Organization [facility] Address [address] 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
--- OUTSIDE RECORDS SUMMARY | 2025-06-03 10:46 | XMS_ITS | Referral Summary ---
Author Organization [facility] [address] Address [address] [place] [address] Care Team Providers Care Caser In Name Role Phone Rahul Bejarano MD Primary Care Provider [phone] Tonio Cabello MD Unavailable [phone] Michael Castano MD Unavailable [phone] Allergies Active Allergy Reactions Criticality Noted Date Comments Bacitracin Diclofenac Diclofenac-Misoprostol Stomach upset High 03/31/2018 Hydrocodone Latex, Natural Rubber Rash Medium 03/31/2018 Misoprostol Neomycin Hycwbnmp-Fbsvayidnb-Tphgtswjx Rash Medium 2017 Oxycodone Piroxicam Polymyxin B [...] (04/12/2022): Added automatically from request for surgery [id number] 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 Paroxysmal atrial fibrillation 10/22/2017 [...] on file Legal Sex Female 1:[address]MINISTRATIVE ENGINE[address] Gender Identity Not on file Sexual Orientation [...] of Treatment Not on file Insurance [place]ICARE [employer] [place] [employer] [place]ARE [facility] MEDICARE SUPPLEMENT Advance Directives For more information, please contact: [phone] * Full Code (Latest Code Status on File) Date Activated Date Inactivated Comments 05/15/2022 4:32 PM 05/19/2022 5:07 PM * Full Code Date Activated Date Inactivated Comments 05/09/2022 10:46 AM 05/09/2022 4:28 PM Care Teams Caser In Relationship Specialty Start Date End Date Rahul Bejarano MD [address] [facility] [address] [place] [address] PCP - General 05/02/14 Tonio Cabello MD [phone] [place] [address] Surgeon Colon and Rectal Surgery 04/12/22 Michael Castano MD [address] [facility] [address] [place] [address] Referring Physician Vascular Surgery 04/12/22
--- OUTSIDE RECORDS SUMMARY | 2025-06-03 10:46 | XMS_ITS | Encounter Summary ---
Author Organization [employer] Address [address] [place] [address] Care Team Providers Care Statement Distribution Clerk Name Role Phone Unavailable Primary Care Provider Unavailabl e Encounter Details Date Type Department Care Team (Late st Contact Info) Description 07/15/2000 Outpatient Historical [facility] Jon Mckeon MD [address] [facility] [address] [place] [address] Social History Tobacco Use Types Packs/Day Years Used Date Smoking Tobacco: Never Assessed Comments Unknown Sex and Gender Information Value Date Recorded Sex Assigned at Not on file Legal Sex Female 4:16 AM [employer] Gender Identity Not on file Sexual Orientation Not on file documented as of this encounter Plan of Treatment Not on file documented as of this encounter Visit Diagnoses Not on filedocumented in this encounter
[2025-06-03 10:57] LABS: Hematocrit 34.8 % (37.0-47.0); Hemoglobin 11.1 g/dL (12.0-15.0); Immature Granulocyte Percent A 0.4 % (0-0.5); Lymphocytes Absolute Auto 1.43 K/mm3 (0.9-3.2); Mean Corpuscular HGB Conc 31.9 g/dl (32-36); Mean Corpuscular Hemoglobin 29.1 pg (26-34); Mean Corpuscular Volume 91.1 fl (80-100); Nucleated Red Blood Cells Absolute Auto 0.000 K/mm3 (0.0-0.012); Nucleated Red Blood Cells Perc 0.0 % (0.0-0.2); Platelet Count Result 138 k/mm3 (150-375); Red Blood Count 3.82 M/mm3 (4.2-5.4); White Blood Count 5.5 K/mm3 (4.5-10.0)
[2025-06-03 11:10] LABS: INR 1.4; Prothrombin Time 17.0 Seconds (11.1-14.7)
[2025-06-03 11:11] LABS: Add Urine Microscopic? YES; Appearance Urine Clear (Clear); Glucose Urine UA Negative (Negative); Leukocyte Esterase Ur Trace LEU/UL (Negative); Nitrate Urine Negative (Negative); Non Pathogenic Casts 0-2; Specific Grav Ur 1.015 (1.001-1.035)
[2025-06-03 11:11] LABS: Partial Thromboplastin Time 34.2 Seconds (22.3-36.8)
--- NOTE | 2025-06-03 11:11 | ED.GENADULT ---
HPI - General Adult General Chief complaint: Urogenital-Female Stated complaint: hallucinations Time Seen by Provider: 06/03/25 10:33 History of Present Illness HPI narrative: 85-year-old female present to the emergency department for evaluation for burning with urination and hallucinations. Patient was evaluated and [facility] outpatient and diagnosed with the UTI on 05/31. Patient has been having hallucinations since Friday, she had a fall and head injury on Friday. Family states the patient has had worsening hallucinations overnight. Patient had been started on Augmentin for UTI. Related Data Home Medications ?Medication ?Instructions ?Recorded ?Confirmed ?Last Taken ?Type cholecalciferol (vitamin D3) 125 125 mcg PO DAILY 05/09/21 06/03/25 06/03/25 History mcg (5,000 unit) capsule coenzyme [id number] E 100 mg-100 1 cap PO DAILY 10/29/23 06/03/25 06/03/25 History unit capsule acetaminophen 500 mg tablet 650 mg PO Q8H PRN pain 04/20/24 06/03/25 03/14/25 History (Tylenol Extra Strength) niacin 500 mg tablet 500 mg PO DAILY 04/20/24 06/03/25 06/03/25 History mecobalamin (vitamin B12) 1,000 1,000 mcg sublingual DAILY 03/24/25 06/03/25 06/03/25 History mcg disintegrating tablet,sublingual Allergies Allergy/AdvReac Type Severity Reaction Status Date / Time latex Allergy Severe SEVERE Verified 06/03/25 10:20 SWELLING vancomycin Allergy Severe SEVERE Verified 06/03/25 10:20 ITCHING 2009 [id number] Reductase Allergy Intermediate Muscle Pain Verified 06/03/25 10:20 Inhibitor Aminoglycosides Allergy Mild Swelling Verified 06/03/25 10:20 hydrocodone Allergy Mild Rash Verified 06/03/25 10:20 neomycin Allergy Mild Swelling Verified 06/03/25 10:20 oxycodone Allergy Mild Unknown Verified 06/03/25 10:20 polymyxin B Allergy Unknown SWELLING Verified 06/03/25 10:20 diclofenac AdvReac Severe STOMACH Verified 06/03/25 10:20 UPSET - CAN TAKE ALEVE [place] misoprostol AdvReac Severe STOMACH Verified 06/03/25 10:20 UPSET piroxicam AdvReac Severe STOMACH Verified 06/03/25 10:20 UPSET propoxyphene AdvReac Severe STOMACH Verified 06/03/25 10:20 UPSET sertraline AdvReac Severe STOMACH Verified 06/03/25 10:20 UPSET Iodine and Iodide Containing AdvReac Swelling Verified 06/03/25 10:20 Produc Review of Systems Review of Systems: All systems reviewed & are unremarkable except as noted in HPI and below [facility] Past Medical History Medical History Hypothyroidism (acquired) DM type 2 (diabetes mellitus, type 2) Afib Vitamin B12 deficiency Lung nodule Mass of soft tissue of upper extremity BMI 35.0-35.9,adult Chronic diarrhea Fecal incontinence 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 Entrapment of right ulnar nerve at wrist Mass of right hand Tear of biceps tendon Rotator cuff tear, left Ankle arthritis DJD (degenerative joint disease) Abnormal x-ray of cervical spine Other pulmonary embolism without acute cor pulmonale Closed fracture of left hand Dermatitis Mitral valve sclerosis Rectal vaginal fistula UTI (urinary tract infection) Chronic anemia With mild thrombocytopenia. Restless leg syndrome Mild chronic obstructive pulmonary disease Statin intolerance Insomnia Arthritis Hammertoe of left foot Hearing loss Vitamin D deficiency Diastolic dysfunction Iron deficiency anemia Mixed hyperlipidemia Patient reports statin intolerance. Benign essential hypertension Surgical History Surgical History History of bladder surgery May 2022. rectovaginal fistula, left colectomy, and bladder repair at [facility] History of cardiac catheterization (03/2014) Normal coronary arteries. History of cholecystectomy History of hysterectomy for benign disease History of tubal ligation History of bilateral carpal tunnel release History of bilateral knee arthroplasty History of carpal tunnel release History of appendectomy Family History Family History (Updated 06/03/25 @ 13:26 by Maria Antonia Medina RN) Father Family history of lymphoma Mother Brain cancer Sibling Cerebrovascular accident Other Arthritis Social History Social History Social History: Surrogate decision maker: Del Castañeda, son. Code status: Full code. Caffeine- daily Smoking packs per day: 1 Smoking cigarettes per day: 20.0 Years smoked: 15 Smoking pack-years: 15.00 Smoking status: Former smoker Tobacco type: cigarettes Second hand tobacco smoke exposure: No Smoking end date: 11/03/94 Alcohol intake: never Drinks per week: 1 Alcohol use details: Social Substance use: never Substance use type: does not use Do You Feel Safe in your Home?: Yes Lack of Transportation: No Lack of Food: Never True Current Housing: I Have Housing Concerned About Future Housing: No Difficulty Paying Gas/Electric Bills: No Difficulty Paying for Meds: No Currently Unemployed: No Education: Bachelor's Degree Difficulty w/ Childcare or Family Care: No Living arrangements: alone Additional living arrangements comments: The patient is . She lives in a condominium in [place]. 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 Patient is very involved in the community and has sat on the board here at [place]. Gender identity (if verbalized by the patient): Female Spiritual care concerns: No Exam Narrative: APPEARANCE: Well appearing, no pain, no distress, well-nourished. HEAD: normocephalic, atraumatic. EYES: PERRLA/EOMI, conjunctivae clear. NOSE: Normal no drainage EARS:TMS clear with good light reflex. THROAT: Pharynx clear, no exudate. NECK: Supple. No adenopathy, no masses. RESPIRATORY: Airway patent, respirations nonlabored. Clear to auscultation bilaterally, no rales, rhonchi, wheezing. CARDIOVASCULAR: Regular rate and rhythm without murmurs rubs or gallops. ABDOMINAL: Soft, nontender, nondistended, normal bowel sounds MUSCULOSKELETAL: Moves all extremities. Strength/ROM intact, No edema, No calf tenderness. NEURO: Alert. Cranial nerves II through XII intact. Good gait. Good coordination SKIN: Warm, dry. Normal Color Course Vital Signs Vital signs: Vital Signs Temperature 97.6 F 06/03/25 10:17 Temperature 98.2 F 06/03/25 14:00 Pulse Rate 100 06/03/25 14:00 Respiratory Rate 16 06/03/25 14:00 Blood Pressure 115/70 06/03/25 14:00 Pulse Oximetry 98 06/03/25 14:00 Oxygen Delivery Room Air 06/03/25 13:37 Medical Decision Making MDM Narrative Medical decision making narrative: 85-year-old female presents emergency department for evaluation for 2 minutes hallucinations and urinary tract infection. Patient was started on Augmentin last week for urinary tract infection but patient is still having worsening hallucinations including hallucinations that occurred last night. Patient does live at home on her own. Family is concerned that the patient is unable to take care of herself with this current confused state. CT was negative for acute finding. Patient is currently afebrile with no leukocytosis and hemoglobin 11.1. INR of 1.4. Patient did have a potassium of 2.9. UA was concerning for infection since it is leukocyte esterase positive with white blood cells. Urine culture was ordered. She was started on IV Rocephin. Case was discussed with hospitalist patient was accepted for admission. All questions concerns were addressed patient was well-appearing at time of admission. Differential Diagnosis Differential Diagnosis: Subdural hematoma, subarachnoid hemorrhage, pneumonia, COVID, RSV, UTI Vital Signs Vital Signs: Vital Signs Temperature 97.6 F 06/03/25 10:17 Temperature 98.2 F 06/03/25 14:00 Pulse Rate 100 06/03/25 14:00 Respiratory Rate 16 06/03/25 14:00 Blood Pressure 115/70 06/03/25 14:00 Pulse Oximetry 98 06/03/25 14:00 Oxygen Delivery Room Air 06/03/25 13:37 Lab Data Lab results reviewed: Yes I reviewed the patient's lab results. 06/03/25 10:46 06/03/25 10:46 Labs: Lab Results 06/03/25 06/03/25 Range/Units 10:46 11:01 WBC 5.5 (4.5-10.0) K/mm3 RBC 3.82 L (4.2-5.4) M/mm3 Hgb 11.1 L (12.0-15.0) g/dL Hct 34.8 L (37.0-47.0) % MCV 91.1 (80-100) fl MCH 29.1 (26-34) pg MCHC 31.9 L (32-36) g/dl RDW 13.2 (11.5-14.5) % Plt Count 138 L (150-375) k/mm3 MPV 10.7 H (7.4-10.4) fl Immature Gran % (Auto) 0.4 (0-0.5) % Neut % (Auto) 61.7 (45.5-73.1) % Lymph % (Auto) 26.1 (18.3-44.2) % Taylor % (Auto) 9.3 H (2.6-8.5) % Eos % (Auto) 2.0 (0-4.4) % Baso % (Auto) 0.5 (0.2-1.2) % Lymph # (Auto) 1.43 (0.9-3.2) K/mm3 Taylor # (Auto) 0.5 (0.1-0.6) K/mm3 Eos # (Auto) 0.1 (0-0.3) K/mm3 Baso # (Auto) 0.0 (0.0-0.1) K/mm3 Abs Immat Gran (auto) 0.02 (0.00-0.031) K/mm3 Absolute Neuts (auto) 3.4 (1.3-6.7) K/mm3 Absolute Nucleated RBC 0.000 (0.0-0.012) K/mm3 Nucleated RBC % 0.0 (0.0-0.2) % PT 17.0 H (11.1-14.7) Seconds INR 1.4 APTT 34.2 (22.3-36.8) Seconds Sodium 135 L (137-145) mmol/L Potassium 2.9 L (3.4-5.0) mmol/L Chloride 99 (98-107) mmol/L Carbon Dioxide 29 (22-30) mmol/L Anion Gap 7 (4-12) mmol/L BUN 40 H D (7-17) mg/dL Creatinine 1.03 H (0.7-1.0) mg/dL Estim Creat Clear Calc Not Reportable Estimated GFR 51 L (59 - ) Glucose 109 (65-110) mg/dL Calcium 9.0 (8.4-10.2) mg/dL Total Bilirubin 0.7 (0.2-1.3) mg/dL AST 33 (14-36) U/L ALT 17 (6-35) U/L Alkaline Phosphatase 108 (38-126) U/L Total Protein 6.6 (6.3-8.2) g/dL Albumin 3.7 (3.5-5.1) g/dL Urine Color Yellow (Yellow) Urine Appearance Clear (Clear) Urine pH 6.5 (5.0-9.0) Ur Specific [place] 1.015 (1.001-1.035) Urine Protein Negative (Negative) mg/dL Urine Glucose (UA) Negative (Negative) mg/dL Urine Ketones Negative (Negative) mg/dL Ur Blood (Man) Negative (Negative) Urine Nitrate Negative (Negative) Urine Bilirubin Negative (Negative) Urine Urobilinogen 0.2 (<2.0) mg/dL Leukocyte Esterase Rfl Trace H (Negative) CAMILO/UL Urine RBC 0-2 (0-2) /hpf Urine WBC 6-10 H (0-3) /hpf Ur Squamous Epith Cells None seen (Few) /hpf Urine Bacteria None seen /hpf Urine Casts 0-2 Imaging Data Radiologist's impression: Impressions Head CT 06/03/25 11:32 Impression: No acute intracranial hemorrhage or suspicious mass effect. Cervical Spine CT 06/03/25 11:33 Impression: Reversal of the normal curvature of the cervical spine is identified secondary to interval progression of the anterior wedge compression of the C5 vertebral body. Significant degenerative disease is redemonstrated, without acute fracture Discharge Plan Discharge Clinical Impression: AMS (altered mental status), Acute UTI Patient Disposition: Still a Patient Condition: Serious
[2025-06-03 11:15] LABS: Alanine Aminotransferase 17 U/L (6-35); Albumin Level 3.7 g/dL (3.5-5.1); Alkaline Phosphatase 108 U/L (38-126); Anion Gap 7 mmol/L (4-12); Aspartate Amino Transferase 33 U/L (14-36); Bilirubin,Total 0.7 mg/dL (0.2-1.3); Blood Urea Nitrogen 40 mg/dL (7-17); Calcium 9.0 mg/dL (8.4-10.2); Carbon Dioxide 29 mmol/L (22-30); Chloride 99 mmol/L (98-107); Estimated Glomerular Filt Rate 51; Glucose 109 mg/dL (65-110); Potassium 2.9 mmol/L (3.4-5.0); Sodium 135 mmol/L (137-145); Total Protein 6.6 g/dL (6.3-8.2)
--- NOTE | 2025-06-03 11:16 | PC.NURSE ---
Pt to CT at this time.
--- NOTE | 2025-06-03 12:15 | P.HP_ITS ---
H&P: HPI History of Present Illness Date/Time: 06/03/25 12:15 Chief Complaint: UTI, Hallucinations Narrative: 85 y/o F with PMH of lymphedema, PE, COPD, diastolic dysfunction, iron deficiency anemia, hyperlipidemia, atrial fibrillation, and hypertension presents here with UTI and hallucinations. The patient presents here from home for further evaluation of a UTI on 06/03 (Fri). She reports she was initially seen on 05/31 () at [place] [facility] for urinary symptoms. At that time she was diagnosed with the UTI and she was prescribed Augmentin b.i.d. times 10 days. She reports despite compliance with her oral antibiotics she has continued to have dysuria and she has since developed visual hallucinations. She reports the hallucinations started on Friday but family reports they worsened overnight last night. She additionally reports a ground level fall on Friday. She reports a positive head strike without loss of consciousness. Denies abdominal pain, chest pain, shortness of breath, nausea, vomiting, diarrhea, fever, or chills. Initial VS at presentation: 97.6? F ED workup showed: No leukocytosis, hemoglobin 11.1 (11.6 on 05/05), INR 1.4, sodium 135, potassium 2.9, creatinine 1.03 and GFR 51 (0.98 and GFR 54 on 05/05), and UA showed trace leuk esterase and 6-10 WBC otherwise unremarkable. Head CT showed no acute intracranial hemorrhage or suspicious mass effect. C- spine CT showed reversal of the normal curvature of the cervical spine secondary to interval progression of anterior wedge compression of the C5 vertebral body and significant degenerative disease is redemonstrated without acute fracture. 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 Restless leg syndrome Mild chronic obstructive pulmonary disease Statin intolerance Insomnia Arthritis Hammertoe of left foot Hearing loss Vitamin D deficiency Diastolic dysfunction Iron deficiency anemia Mixed hyperlipidemia Patient reports statin intolerance. Benign essential hypertension Surgical History Surgical History History of bladder surgery May 2022. rectovaginal fistula, left colectomy, and bladder repair at [facility] History of cardiac catheterization (03/2014) Normal coronary arteries. History of cholecystectomy History of hysterectomy for benign disease History of tubal ligation History of bilateral carpal tunnel release History of bilateral knee arthroplasty History of carpal tunnel release History of appendectomy Family History Family History (Updated 06/03/25 @ 13:26 by Maria Antonia Medina RN) Father Family history of lymphoma Mother Brain cancer Sibling Cerebrovascular accident Other Arthritis Social History Social History Social History: Surrogate decision maker: Del Castañeda, john. Code status: Full code. Caffeine- daily Smoking packs per day: 1 Smoking cigarettes per day: 20.0 Years smoked: 15 Smoking pack-years: 15.00 Smoking status: Former smoker Tobacco type: cigarettes Second hand tobacco smoke exposure: No Smoking end date: 11/03/94 Alcohol intake: never Drinks per week: 1 Alcohol use details: Social Substance use: never Substance use type: does not use Do You Feel Safe in your Home?: Yes Lack of Transportation: No Lack of Food: Never True Current Housing: I Have Housing Concerned About Future Housing: No Difficulty Paying Gas/Electric Bills: No Difficulty Paying for Meds: No Currently Unemployed: No Education: Bachelor's Degree Difficulty w/ Childcare or Family Care: No Living arrangements: alone Additional living arrangements comments: The patient is . She lives in a condominium in [place]. 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 Patient is very involved in the community and has sat on the board here at [place]. Gender identity (if verbalized by the patient): Female Spiritual care concerns: No Meds Home Medications and Allergies Home Medications ?Medication ?Instructions ?Recorded ?Confirmed ?Type cholecalciferol (vitamin D3) 125 125 mcg PO DAILY 05/09/21 06/03/25 History mcg (5,000 unit) capsule coenzyme Q96-hciafur E 100 mg-100 1 cap PO DAILY 10/29/23 06/03/25 History unit capsule acetaminophen 500 mg tablet 650 mg PO Q8H PRN pain 04/20/24 06/03/25 History (Tylenol Extra Strength) niacin 500 mg tablet 500 mg PO DAILY 04/20/24 06/03/25 History ferrous sulfate 325 mg (65 mg See Rx Instructions PO DAILY #90 11/18/24 06/03/25 Rx iron) tablet tabs metolazone 2.5 mg tablet 2.5 mg PO .3x/ week 90 days #36 12/27/24 06/03/25 Rx tabs Wheeled Walker with seat/ basket #1 device 12/30/24 06/03/25 Rx losartan 50 mg tablet See Rx Instructions .Route 01/06/25 06/03/25 Rx .COMPLEX #90 tabs apixaban 5 mg tablet (Eliquis) 5 mg PO BID #180 tabs 01/07/25 06/03/25 Rx tramadol 50 mg tablet 50 mg PO Q6H PRN pain #50 tabs 03/08/25 06/03/25 Rx metoprolol succinate 25 mg See Rx Instructions .Route 03/14/25 06/03/25 Rx tablet,extended release 24 hr .COMPLEX #90 tabs potassium chloride 20 mEq See Rx Instructions .Route 03/23/25 06/03/25 Rx tablet,extended release .COMPLEX #90 tabs mecobalamin (vitamin B12) 1,000 1,000 mcg sublingual DAILY 03/24/25 06/03/25 History mcg disintegrating tablet,sublingual folic acid 1 mg tablet See Rx Instructions .Route 04/09/25 06/03/25 Rx .COMPLEX #90 tabs ezetimibe 10 mg tablet See Rx Instructions .Route 04/25/25 06/03/25 Rx .COMPLEX #90 tabs furosemide 40 mg tablet See Rx Instructions .Route 04/27/25 06/03/25 Rx .COMPLEX #90 tabs levothyroxine 88 mcg tablet See Rx Instructions .Route 05/05/25 06/03/25 Rx .COMPLEX #90 tabs pramipexole 0.75 mg tablet See Rx Instructions .Route 05/10/25 06/03/25 Rx .COMPLEX #90 tabs nystatin 100,000 unit/gram topical 1 applic topical BID #60 grams 05/17/25 06/03/25 Rx powder semaglutide 7 mg tablet (Rybelsus) 7 mg PO DAILY #90 tabs 05/23/25 06/03/25 Rx amoxicillin 875 mg-potassium 1 tablet PO Q12H 10 days #20 tabs 05/31/25 06/03/25 Rx clavulanate 125 mg tablet Allergies Allergy/AdvReac Type Severity Reaction Status Date / Time latex Allergy Severe SEVERE Verified 06/03/25 10:20 SWELLING vancomycin Allergy Severe SEVERE Verified 06/03/25 10:20 ITCHING 2009 Ucioape-DJY-HeG Reductase Allergy Intermediate Muscle Pain Verified 06/03/25 10:20 Inhibitor Aminoglycosides Allergy Mild Swelling Verified 06/03/25 10:20 hydrocodone Allergy Mild Rash Verified 06/03/25 10:20 neomycin Allergy Mild Swelling Verified 06/03/25 10:20 oxycodone Allergy Mild Unknown Verified 06/03/25 10:20 polymyxin B Allergy Unknown SWELLING Verified 06/03/25 10:20 diclofenac AdvReac Severe STOMACH Verified 06/03/25 10:20 UPSET - CAN TAKE ALEVE OK misoprostol AdvReac Severe STOMACH Verified 06/03/25 10:20 UPSET piroxicam AdvReac Severe STOMACH Verified 06/03/25 10:20 UPSET propoxyphene AdvReac Severe STOMACH Verified 06/03/25 10:20 UPSET sertraline AdvReac Severe STOMACH Verified 06/03/25 10:20 UPSET Iodine and Iodide Containing AdvReac Swelling Verified 06/03/25 10:20 Produc Vital Signs Vital Signs - 24 hr 06/03/25 10:17 Temperature 97.6 F Exam Const: General: comfortable and no acute distress Other: , female, nontoxic appearance, elderly HENMT: Face/Nose/Sinus: Normal nares present Mouth: Yes moist mucous membranes Eyes: General: appearance normal, both eyes and all related structures Sclera: sclerae normal Pupils: Equal, round and reactive pupils present EOM: EOMs intact bilaterally Resp: Effort & Inspection: normal respiratory effort Auscultation: clear to auscultation bilaterally Cardio: Rate: regular rate Rhythm: regular rhythm Other: S1-S2 present without murmur, rub, ectopy GI: Other: Abdomen mildly distended, soft, normoactive bowel sounds in all quadrants. No tenderness upon exam. Skin: General skin exam: normal color and no rashes or lesions noted Wounds: no wounds Neuro: Speech: normal speech Motor exam (neuro): 5/5 motor strength present throughout Sensory Exam: normal sensation Other: A&O x4, reported visual hallucinations, mild somnolence noted. Extrem: General: normal to inspection Psych: Mental Status: mental status grossly normal Affect: normal affect Other: Good insight and judgment, pleasant H&P: Results Labs Labs: Short CBC 06/03/25 Range/Units 10:46 WBC 5.5 (4.5-10.0) K/mm3 Hgb 11.1 L (12.0-15.0) g/dL Hct 34.8 L (37.0-47.0) % Plt Count 138 L (150-375) k/mm3 BMP 06/03/25 10:46 Sodium 135 L Potassium 2.9 L Chloride 99 Carbon Dioxide 29 BUN 40 H D Creatinine 1.03 H Glucose 109 Calcium 9.0 Liver Function 06/03/25 Range/Units 10:46 Total Bilirubin 0.7 (0.2-1.3) mg/dL AST 33 (14-36) U/L ALT 17 (6-35) U/L Alkaline Phosphatase 108 (38-126) U/L Albumin 3.7 (3.5-5.1) g/dL Urine 06/03/25 Range/Units 11:01 Urine Color Yellow (Yellow) Urine Appearance Clear (Clear) Urine pH 6.5 (5.0-9.0) Ur Specific [place] 1.015 (1.001-1.035) Urine Protein Negative (Negative) mg/dL Urine Glucose (UA) Negative (Negative) mg/dL Assessment and Plan Assessment and plan (1) Acute UTI: Code(s): N39.0 - Urinary tract infection, site not specified Status: Acute Assessment and Plan: Initial diagnosis on 05/31. Started on Augmentin p.o. outpatient. Continued to have dysuria and has since developed hallucinations starting on Friday (05/30) with worsening overnight last night (06/02). High suspicion for encephalopathy secondary to infection. Concerns for discharge home as the patient lives alone. Monitor mental status. - UA: Trace leuk esterase and 6-10 WBC - UC pending - previous micro reviewed, Gram-negative bacilli on 05/31/25. Remote history of Klebsiella. 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 insulin use: without prison use Qualified Code(s): E11.22 - Type 2 diabetes mellitus with diabetic chronic kidney disease; N18.1 - Chronic kidney disease, stage 1 Code(s): E11.9 - Type 2 diabetes mellitus without complications Status: Chronic Assessment and Plan: - hypoglycemia protocol - POC blood glucose ACHS - home medication: Hold semaglutide PO (NF) - correct regimen ordered - low, dose TIDWM -> based off TDD - A1C 5.5% on 05/05/2025 (3) Afib: Qualifiers: Atrial fibrillation type: unspecified Qualified Code(s): I48.91 - Unspecified atrial fibrillation Code(s): I48.91 - Unspecified atrial fibrillation Status: Chronic Assessment and Plan: - stable - continue home medications: Eliquis and Metoprolol (4) Hypothyroidism (acquired): Code(s): E03.9 - Hypothyroidism, unspecified Status: Chronic Assessment and Plan: - stable - continue home medications: Synthroid 88 mcg daily - TSH 1.74 on 05/05/2025 (5) Iron deficiency anemia: Qualifiers: Iron deficiency anemia type: unspecified iron deficiency Qualified Code(s): D50.9 - Iron deficiency anemia, unspecified Code(s): D50.9 - Iron deficiency anemia, unspecified Status: Chronic Assessment and Plan: - stable - Hgb 11.1 - history of iron deficiency anemia, on iron supplement, continue - transfuse if <7 - monitor CBC (6) Benign essential hypertension: Code(s): I10 - Essential (primary) hypertension Status: Acute Assessment and Plan: - chronic, currently 115/70 - continue home medications: Losartan, metolazone - monitor Plan Mild hypokalemia noted upon admission, 2.9. Initial repletion with 40 KCL p.o.. Continue home p.o. supplementation. Recheck in a.m.. Diet: heart healthy GI Prophylaxis: n/a DVT Prophylaxis: Eliquis IV fluids: LR 100 mL/hr x1L Lines/Tubes: peripheral IV Code Status: full code Quality VTE Prophylaxis VTE prophylaxis: pharmacologic ordered Hospitalist MIPS Advance Care Plan I have confirmed that the patient's Advanced Care Plan is present, code status is documented, or surrogate decision maker is listed in patient medical record.: Yes Medication Reconciliation I have utilized all available resources to obtain, update and review the patients current medications (includes all prescriptions, OTC, herbals, cannabis, and nutritional supplements).: Yes
[2025-06-03] MEDS: cefTRIAXone 1 GM in SODIUM CHLORIDE 0.9% IV 50 ML 100 ML IVPB (12:18)
[2025-06-03] MEDS: LACTATED RINGERS 1,000 ML 100 ML IV CONT (13:14)
[2025-06-03] MEDS: POTASSIUM CHLORIDE 20 MEQ ER TABLET 40 MEQ PO (13:15)
[2025-06-03 13:16] VITALS: BMI 35.3
--- NOTE | 2025-06-03 13:22 | ADMGEN ---
This patient, Alexus Castañeda, was admitted to Medical Room 257-01. Patient/family oriented to hospital policies and general routines including ID bracelet, bed and alarms, visiting hours, pain management, procedures, bathroom and other care routines, personal items, smoking policy, room service/diet, and visiting hours. Information on how to activate the Rapid Response Team has been discussed. Patient/Family are encouraged to report perceived risks to care and to ask questions if they do not understand what they are told or what they should do.
[2025-06-03 14:00] VITALS: BP 115/70; PULSE 100; RESP 16; TEMP 36.8; O2SAT 98
[2025-06-03 16:00] VITALS: PULSE 88
[2025-06-03 20:00] VITALS: PULSE 88
[2025-06-03] MEDS: PRAMIPEXOLE 0.25 MG TABLET PO (21:37)
[2025-06-03] MEDS: PRAMIPEXOLE 0.5 MG TABLET PO (21:37)
[2025-06-03] MEDS: APIXABAN 5 MG TABLET PO (21:37)
[2025-06-03] MEDS: POTASSIUM CHLORIDE 20 MEQ ER TABLET PO (21:37)
[2025-06-03 22:00] VITALS: BP 125/63; PULSE 65; RESP 16; TEMP 36.5; O2SAT 95
[2025-06-04] VITALS (7 sets, daily range): BP systolic 135; BP diastolic 67; PULSE 84–98; RESP 14; TEMP 36.6; O2SAT 96–98
[2025-06-04] MEDS: LEVOTHYROXINE SODIUM 88 MCG TABLET PO (05:10)
[2025-06-04 05:33] LABS: Hematocrit 35.6 % (37.0-47.0); Hemoglobin 11.1 g/dL (12.0-15.0); Immature Granulocyte Percent A 0.4 % (0-0.5); Lymphocytes Absolute Auto 1.59 K/mm3 (0.9-3.2); Mean Corpuscular HGB Conc 31.2 g/dl (32-36); Mean Corpuscular Hemoglobin 29.1 pg (26-34); Mean Corpuscular Volume 93.2 fl (80-100); Nucleated Red Blood Cells Absolute Auto 0.000 K/mm3 (0.0-0.012); Nucleated Red Blood Cells Perc 0.0 % (0.0-0.2); Platelet Count Result 143 k/mm3 (150-375); Red Blood Count 3.82 M/mm3 (4.2-5.4); White Blood Count 5.3 K/mm3 (4.5-10.0)
[2025-06-04 05:49] LABS: Anion Gap 8 mmol/L (4-12); Blood Urea Nitrogen 30 mg/dL (7-17); Calcium 8.9 mg/dL (8.4-10.2); Carbon Dioxide 27 mmol/L (22-30); Chloride 102 mmol/L (98-107); Estimated Glomerular Filt Rate > 60; Glucose 114 mg/dL (65-110); Potassium 3.8 mmol/L (3.4-5.0); Sodium 137 mmol/L (137-145)
[2025-06-04] MEDS: APIXABAN 5 MG TABLET PO (08:53)
[2025-06-04] MEDS: CYANOCOBALAMIN 1,000 MCG TABLET 1000 MCG PO (08:53)
[2025-06-04] MEDS: FUROSEMIDE 40 MG TABLET PO (08:53)
[2025-06-04] MEDS: METOPROLOL SUCCINATE EXT REL 25 MG TABCR PO (08:54)
[2025-06-04] MEDS: EZETIMIBE 10 MG TABLET PO (08:54)
[2025-06-04] MEDS: LOSARTAN POTASSIUM 50 MG TABLET PO (08:55)
[2025-06-04] MEDS: CHOLECALCIFEROL (VITAMIN D3) 125 MCG (5,000 UNITS) TABLET PO (08:55)
[2025-06-04] MEDS: cefTRIAXone 1 GM in SODIUM CHLORIDE 0.9% IV 50 ML 100 ML IVPB (08:55)
[2025-06-04] MEDS: FOLIC ACID 1 MG TABLET PO (08:55)
--- NOTE | 2025-06-04 11:59 | P.DS_ITS ---
DS: Admitting Diagnosis Discharge Date 06/04/2025 Admitting Diagnosis Symptomatic UTI/ hallucinations/Fall DS: Discharge Diagnosis Discharge Diagnosis (1) Acute UTI: Code(s): N39.0 - Urinary tract infection, site not specified Status: Acute (2) DM type 2 (diabetes mellitus, type 2): Qualifiers: Chronic kidney disease stage: stage 1 Diabetes mellitus complication detail: with chronic kidney disease Diabetes mellitus complication status: with kidney complications Diabetes mellitus halfway insulin use: without parts counterman use Qualified Code(s): E11.22 - Type 2 diabetes mellitus with diabetic chronic kidney disease; N18.1 - Chronic kidney disease, stage 1 Code(s): E11.9 - Type 2 diabetes mellitus without complications Status: Chronic (3) Afib: Qualifiers: Atrial fibrillation type: unspecified Qualified Code(s): I48.91 - Unspecified atrial fibrillation Code(s): I48.91 - Unspecified atrial fibrillation Status: Chronic (4) Hypothyroidism (acquired): Code(s): E03.9 - Hypothyroidism, unspecified Status: Chronic (5) Iron deficiency anemia: Qualifiers: Iron deficiency anemia type: unspecified iron deficiency Qualified Code(s): D50.9 - Iron deficiency anemia, unspecified Code(s): D50.9 - Iron deficiency anemia, unspecified Status: Chronic (6) Benign essential hypertension: Code(s): I10 - Essential (primary) hypertension Status: Acute DS: Summary Hospital Course Reason for hospitalization: symptomatic UTI/ hallucinations/Fall Hospital Course: Admission: Patient was a 85 y/o F with PMH of lymphedema, PE, COPD, diastolic dysfunction, iron deficiency anemia, hyperlipidemia, atrial fibrillation, and hypertension presents here with UTI and hallucinations. The patient had presented h from home for further evaluation of a UTI on 06/03 (Fri). She reports she was initially seen on 05/31 () at [place] [facility] for urinary symptoms. At that time she was diagnosed with the UTI and she was prescribed Augmentin b.i.d. times 10 days. She reports despite compliance with her oral antibiotics she has continued to have dysuria and she has since developed visual hallucinations. She reports the hallucinations started on Friday but family reports they worsened overnight last night. She additionally reports a ground level fall on Friday. She reports a positive head strike without loss of consciousness. Denies abdominal pain, chest pain, shortness of breath, nausea, vomiting, diarrhea, fever, or chills. ED workup showed: No leukocytosis, hemoglobin 11.1 (11.6 on 05/05), INR 1.4, s odium 135, potassium 2.9, creatinine 1.03 and GFR 51 (0.98 and GFR 54 on 05/05), and UA showed trace leuk esterase and 6-10 WBC otherwise unremarkable. Head CT showed no acute intracranial hemorrhage or suspicious mass effect. C-spine CT showed reversal of the normal curvature of the cervical spine secondary to interval progression of anterior wedge compression of the C5 vertebral body and significant degenerative disease is redemonstrated without acute fracture. Hospital Course: Patient was admitted to the medical unit for observation and evaluation of symptomatic urinary tract infection with hallucination. Patient was started on IV Rocephin and trended labs which were unchanged and stable. Following day patient reported overall improvement to symptoms feeling back to her baseline in no further hallucinations. patient ambulatory on own denied any chest pain, shortness breaths, nausea, vomiting, dizziness. patient's urinary culture grew Klebsiella pneumoniae pansensitive except to ampicillin. patient was discharged home on oral cefdinir for urinary tract infection and educated to seek medical attention if symptoms return or worsen. Status at Discharge Functional status at discharge: independent ambulation Overall status at discharge: patient is back to baseline Time Spent with Patient Time attestation: Total time spent providing and/or coordinating discharge services: Time spent: Greater than 30 minutes Exam Const: General: comfortable and no acute distress Other: , female, nontoxic appearance, elderly HENMT: Face/Nose/Sinus: Normal nares present Mouth: Yes moist mucous membranes Eyes: General: appearance normal, both eyes and all related structures Sclera: sclerae normal Pupils: Equal, round and reactive pupils present EOM: EOMs intact bilaterally Resp: Effort & Inspection: normal respiratory effort Auscultation: clear to auscultation bilaterally Cardio: Rate: regular rate Rhythm: regular rhythm Other: S1-S2 present without murmur, rub, ectopy GI: Other: Abdomen mildly distended, soft, normoactive bowel sounds in all quadrants. No tenderness upon exam. Skin: General skin exam: normal color and no rashes or lesions noted Wounds: no wounds Neuro: Cranial nerves: Yes Equal, round and reactive pupils present Speech: normal speech Motor exam (neuro): 5/5 motor strength present throughout Sensory Exam: normal sensation Other: A&O x4, reported visual hallucinations, mild somnolence noted. Extrem: General: normal to inspection Psych: Mental Status: mental status grossly normal Affect: normal affect Other: Good insight and judgment, pleasant DS: Data Data Completed and Pending Labs on day of discharge: Labs from last 24 hours 06/04/25 06/04/25 06/04/25 11:46 08:03 05:21 WBC 5.3 RBC 3.82 L Hgb 11.1 L Hct 35.6 L MCV 93.2 MCH 29.1 MCHC 31.2 L RDW 13.5 Plt Count 143 L MPV 10.6 H Immature Gran % (Auto) 0.4 Neut % (Auto) 59.5 Lymph % (Auto) 29.8 Osborne % (Auto) 7.3 Eos % (Auto) 2.4 Baso % (Auto) 0.6 Lymph # (Auto) 1.59 Osborne # (Auto) 0.4 Eos # (Auto) 0.1 Baso # (Auto) 0.0 Abs Immat Gran (auto) 0.02 Absolute Neuts (auto) 3.2 Absolute Nucleated RBC 0.000 Nucleated RBC % 0.0 Sodium 137 Potassium 3.8 Chloride 102 Carbon Dioxide 27 Anion Gap 8 BUN 30 H D Creatinine 0.88 Estim Creat Clear Calc Not Reportable Estimated GFR > 60 Glucose 114 H POC Capillary Glucose 120 H 109 H Calcium 8.9 06/03/25 06/03/25 22:28 16:47 WBC RBC Hgb Hct MCV MCH MCHC RDW Plt Count MPV Immature Gran % (Auto) Neut % (Auto) Lymph % (Auto) Osborne % (Auto) Eos % (Auto) Baso % (Auto) Lymph # (Auto) Osborne # (Auto) Eos # (Auto) Baso # (Auto) Abs Immat Gran (auto) Absolute Neuts (auto) Absolute Nucleated RBC Nucleated RBC % Sodium Potassium Chloride Carbon Dioxide Anion Gap BUN Creatinine Estim Creat Clear Calc Estimated GFR Glucose POC Capillary Glucose 134 H 122 H Calcium Discharge Plan Discharge Attending physician on discharge: Tomas Ta Consulting providers: Hedy Hernandez Discharging Clinician: Hedy Hernandez Anticipated Discharge Date/Time: 06/04/25 11:54 Patient Disposition: Home Activity: as tolerated Diet: diabetic Discharge Instructions: 1). UTI * I have discharged you home on oral Antibiotics please take as prescribed and complete even if feeling better How can you care for yourself at home? ? Keep track of any new symptoms or changes in your symptoms. ? Rest until you feel better. ? Be safe with medicines. Take your medicines exactly as prescribed. Call your doctor if you think you are having a problem with your medicine. ? Do not drive after taking a prescription pain medicine. ? Ensure to follow-up with primary care physician as indicated and provide updated medication list provided to you at discharge. When should you call for help? Call 911 anytime you think you may need emergency care. For example, call if: ? You passed out (lost consciousness). Call your doctor now or seek immediate medical care if: ? You have new symptoms like fever, difficulty breathing, Chest pain, vomiting, or rash. ? You have new or different pain. ? You are confused and are having trouble thinking clearly. ? Your symptoms are getting worse. Watch closely for changes in your health, and be sure to contact your doctor if: ? You do not get better as expected. Patient Instructions: Antibiotic Form, Urinary Tract Infection in Older Adults (DC) Patient Language: Bulgarian Stand Alone Forms: General Discharge Information Follow-up/Referrals: Rahul Bejarano MD [Primary Care Provider] - 2 Weeks Discharge Medications: New cefdinir 300 mg capsule 300 mg PO Q12H Qty: 8 0RF Continued cholecalciferol (vitamin D3) 125 mcg (5,000 unit) capsule 125 mcg PO DAILY acetaminophen [Tylenol Extra Strength] 500 mg tablet 650 mg PO Q8H PRN (Reason: pain) niacin 500 mg tablet 500 mg PO DAILY (DME) Wheeled Walker with seat/ basket 0 .Route .MEDSUPPLY Qty: 1 0RF Rx Instructions: As directed mecobalamin (vitamin B12) 1,000 mcg tablet,disintegrating 1,000 mcg sublingual DAILY Rx Instructions: place tablet under tongue and allow to dissolve for at least30 secs before sw allowing coenzyme [id number] E 100-100 mg-unit Capsule 1 cap PO DAILY ferrous sulfate 325 mg (65 mg iron) tablet See Rx Instructions PO DAILY Qty: 90 1RF Dose Instruction: TAKE 1 TABLET BY MOUTH TWICE A DAY Rx Instructions: TAKE 1 TABLET BY MOUTH ONCE A DAY orally daily; metolazone 2.5 mg tablet 2.5 mg PO .3x/ week 90 Days Qty: 36 1RF losartan 50 mg tablet See Rx Instructions .ROUTE .COMPLEX Qty: 90 1RF Dose Instruction: TAKE 1 TABLET BY MOUTH EVERY DAY Rx Instructions: TAKE 1 TABLET BY MOUTH EVERY DAY Eliquis 5 mg tablet 5 mg PO BID Qty: 180 1RF tramadol 50 mg tablet 50 mg PO Q6H PRN (Reason: pain) Qty: 50 1RF metoprolol succinate 25 mg tablet extended release 24 hr See Rx Instructions .ROUTE .COMPLEX Qty: 90 1RF Dose Instruction: TAKE 1 TABLET BY MOUTH EVERY DAY FOR 30 DAYS Rx Instructions: TAKE 1 TABLET BY MOUTH EVERY DAY FOR 30 DAYS potassium chloride 20 mEq tablet extended release See Rx Instructions .ROUTE .COMPLEX Qty: 90 1RF Dose Instruction: TAKE 1 TABLET BY MOUTH EVERYDAY AT BEDTIME Rx Instructions: TAKE 1 TABLET BY MOUTH EVERYDAY AT BEDTIME folic acid 1 mg tablet See Rx Instructions .ROUTE .COMPLEX Qty: 90 1RF Dose Instruction: TAKE 1 TABLET BY MOUTH EVERY DAY Rx Instructions: TAKE 1 TABLET BY MOUTH EVERY DAY ezetimibe 10 mg tablet See Rx Instructions .ROUTE .COMPLEX Qty: 90 1RF Dose Instruction: TAKE 1 TABLET BY MOUTH EVERY DAY Rx Instructions: TAKE 1 TABLET BY MOUTH EVERY DAY furosemide 40 mg tablet See Rx Instructions .ROUTE .COMPLEX Qty: 90 1RF Dose Instruction: TAKE 1 TABLET BY MOUTH EVERY DAY IN THE MORNING Rx Instructions: TAKE 1 TABLET BY MOUTH EVERY DAY IN THE MORNING levothyroxine 88 mcg tablet See Rx Instructions .ROUTE .COMPLEX Qty: 90 0RF Dose Instruction: TAKE 1 TABLET BY MOUTH EVERY DAY Rx Instructions: TAKE 1 TABLET BY MOUTH EVERY DAY pramipexole 0.75 mg tablet See Rx Instructions .ROUTE .COMPLEX Qty: 90 1RF Dose Instruction: TAKE 1 TABLET BY MOUTH EVERYDAY AT BEDTIME Rx Instructions: TAKE 1 TABLET BY MOUTH EVERYDAY AT BEDTIME nystatin 100,000 unit/gram powder 1 applic topical BID Qty: 60 0RF Rybelsus 7 mg tablet 7 mg PO DAILY Qty: 90 2RF Rx Instructions: Please D/C the Rybelsys 14mg. Thank you Discontinued amoxicillin-pot clavulanate 875-125 mg tablet 1 tablet PO Q12H 10 Days Qty: 20 0RF Date of admission: 06/03/25 12:15 Primary Care Provider: Rahul Bejarano Admitting Provider: Tomas Ta Attending physician on admission: Tomas Ta Condition: Improved Quality VTE Prophylaxis VTE prophylaxis: pharmacologic ordered -Patient's previous records reviewed on admission -ER notes reviewed in detail on admission -discussed all findings and current treatment plan with patient/Family/POA -Consultations reviewed for recommendations -Patient's disposition for safe discharge discussed with pillowcase cutter Dictation performed by [employer] direct speech recognition software, therefore roller printing supervisor variants and typographical errors may occur. Hospitalist MIPS Heart Failure (Exclusion) Patient has history of Heart Transplant or Left Ventricular Assistive Device?: No IF YES, STOP HERE Heart Failure (Qualifier) Patient has current or prior documentation of LVEF less than or equal to 40%, or mod/servere depressed LVSF?: No IF NO, STOP HERE
== END 2025-06-04 12:55 | disposition home or self-care (01) ==
LOC: ANHED 11:53 → ANH2MED 12:38
PROVIDERS: Student in an Organized Health Care Education/Training Program; Admitting Provider Internal Medicine; Emergency Provider Emergency Medicine; PCP Internal Medicine; Visit Provider Internal Medicine
DX: N39.0 Urinary tract infection, site not specified (principal); W19.XXXA Unspecified fall, initial encounter; E11.22 Type 2 diabetes mellitus with diabetic chronic kidney disease; N18.1 Chronic kidney disease, stage 1; I13.0 Hypertensive heart and chronic kidney disease with heart failure and stage 1 through stage 4 chronic kidney disease, or unspecified chronic kidney disease; E03.9 Hypothyroidism, unspecified; I48.91 Unspecified atrial fibrillation; E53.8 Deficiency of other specified B group vitamins; E55.9 Vitamin D deficiency, unspecified; E78.2 Mixed hyperlipidemia; Z96.653 Presence of artificial knee joint, bilateral; Z87.891 Personal history of nicotine dependence; D50.9 Iron deficiency anemia, unspecified; I50.32 Chronic diastolic (congestive) heart failure
CPT/HCPCS: 36415; 70450; 72125; 80048; 80053; 81001; 82948; 85025; 85610; 85730; 87086; 96365; 96376; 99285; A9270; G0378; J0696; J7120

== ENCOUNTER 2025-06-24 12:54 | Outpatient (CLI) | payer MEDICARE, SELFPAY ==
--- NOTE | ~2025-06-24 | CT_ITS ---
EXAMINATION: CT diagnostic chest wo con DATE: 06/24/2025 13:26 INDICATION: Solitary pulmonary nodule. TECHNIQUE: Computed tomography (CT) of the chest was performed without intravenous contrast. The dose-length product was 234.57 mGy-cm. Automated exposure control and iterative reconstruction technique were employed. COMPARISON: CT dated 03/15/2025 FINDINGS: Heart size normal. No significant pleural or pericardial effusion. No thoracic lymphadenopathy. There are right renal cysts. There is a 2.9 cm left adrenal adenoma measuring -12 Hounsfield units. Status post cholecystectomy. Calcified granuloma right lower lobe. No endobronchial lesions. No focal airspace consolidation. No pneumothorax. No suspicious pulmonary nodules or masses. IMPRESSION: 1. No acute cardiopulmonary disease. Reviewed, dictated and finalized at location O.
--- OUTSIDE RECORDS SUMMARY | 2025-06-24 13:02 | XMS_ITS | Encounter Summary ---
Author Organization [facility] Address 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
--- OUTSIDE RECORDS SUMMARY | 2025-06-24 13:02 | XMS_ITS | Encounter Summary ---
Author Organization [facility] Address 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
--- OUTSIDE RECORDS SUMMARY | 2025-06-24 13:02 | XMS_ITS | Clinical Summary ---
Author Organization Maintenance Assistant [facility] Address [address] 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
--- OUTSIDE RECORDS SUMMARY | 2025-06-24 13:02 | XMS_ITS | Clinical Summary ---
Author Organization [facility] [address] Address [address] [place] [address] Care Team Providers Care Signals Collector/Analyst Name Role Phone Rahul Bejarano MD Primary Care Provider [phone] Tonio Cabello MD Unavailable [phone] Michael Castano MD Unavailable [phone] Allergies Active Allergy Reactions Criticality Noted Date Comments Bacitracin Diclofenac Diclofenac-Misoprostol Stomach upset High 03/31/2018 Hydrocodone Latex, Natural Rubber Rash Medium 03/31/2018 Misoprostol Neomycin Mjuhkwzg-Ookunnnzpv-Rxsaaqoka Rash Medium 2017 Oxycodone Piroxicam Polymyxin B [...] (04/12/2022): Added automatically from request for surgery [id number] 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 Paroxysmal atrial fibrillation 10/22/2017 [...] on file Legal Sex 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 Gender Identity Not on file Sexual [...] Pneumococcal vaccine 65+ (2 of 2 - PCV20 or PCV21) 10/29/2020 10/29/2019 Fall Risk Assessment 05/19/2023 05/19/2022 Covid-19 Vaccine (4 - 2023-2 5 season) 2024 09/14/2021, 03/12/2021, 02/19/2021 Influenza Vaccine (#1) 2025 , 08/19/2019, 08/28/2018, Additional history exists DTaP/Tdap/Td Vaccine (2 - Td or Tdap) 11/27/2029 11/27/2019 Insurance MEDICARE [facility] MEDICARE [facility] MEDICARE BLUE CROSS MEDICARE SUPPLEMENT Advance Directives For more information, please contact: [phone] * Full Code (Latest Code Status on File) Date Activated Date Inactivated Comments 05/15/2022 4:32 PM 05/19/2022 5:07 PM * Full Code Date Activated Date Inactivated Comments 05/09/2022 10:46 AM 05/09/2022 4:28 PM Care Teams Signals Collector/Analyst Relationship Specialty Start Date End Date Rahul Bejarano MD [address] [facility] [address] [place] [address] PCP - General 05/02/14 Tonio Cabello MD [phone] [place] [address] Surgeon Colon and Rectal Surgery 04/12/22 Michael Castano MD [address] [facility] [address] [place] [address] Referring Physician Vascular Surgery 04/12/22
== END 2025-06-24 12:55 | disposition home or self-care (01) ==
PROVIDERS: PCP Internal Medicine; Visit Provider Internal Medicine
DX: R91.1 Solitary pulmonary nodule (principal)
CPT/HCPCS: 71250

== ENCOUNTER 2025-09-11 12:47 | Emergency (ER) | payer MEDICARE, SELFPAY ==
--- NOTE | ~2025-09-11 | XR_ITS ---
Examination: XR chest 1V portable Clinical History: rapid heart rate Comparison: 03/15/2025 Technique: Portable AP Findings: Cardiomegaly, with dense mitral valve annual calcification. Lungs clear. No acute bony abnormality. IMPRESSION: 1. No acute cardiopulmonary findings given portable technique. Reviewed, dictated and finalized at location R. [employer]NA[employer]ST
[2025-09-11 12:46] VITALS: BP 151/61; PULSE 68; RESP 16; TEMP 36.9; O2SAT 99
--- NOTE | 2025-09-11 12:49 | ECG_ITS ---
Test Date: 2025-09-11 12:51:28 Measurements Intervals [place] Rate: 62 P: -18 DE: 187 QRS: 19 QRSD: 101 T: 2 QT: 397 QTc: 406 Interpretive Statements SINUS RHYTHM LOW QRS VOLTAGE IN EXTREMITY LEADS [QRS DEFLECTION < 0.5 mV IN LIMB LEADS] EARLY REPOLARIZATION [ST ELEVATION WITH NORMALLY INFLECTED T-WAVE] ABNORMAL ECG Electronically Signed On 09-11-2025 13:11:07 VENEER TRIMMER by Tonio Chatterjee M.D.
--- NOTE | 2025-09-11 13:03 | ED.GENADULT ---
HPI - General Adult General Chief complaint: Arrhythmia/Palpitations Stated complaint: afib rvr, chest heaviness, exertional SOB History of Present Illness HPI narrative: 85-year-old female presenting to the emergency department for evaluation for rapid heart rate. Patient does have history AFib with RVR and does take metoprolol 25 mg daily. Patient states she was having some worsening sciatic pain this morning so she took Tylenol and tramadol but did not take her morning metoprolol. Patient began sensing she had rapid heart rate and called EMS. When EMS arrived she was found to have a heart rate to 170. Patient was treated with 5 mg IV metoprolol and route and patient's heart rate improved to normal sinus in the 60s to 70s. Upon arrival emergency department patient states that she no longer had any chest pressure or sensation of a rapid heart rate. Related Data Home Medications ?Medication ?Instructions ?Recorded ?Confirmed ?Last Taken ?Type cholecalciferol (vitamin D3) 125 125 mcg PO DAILY 05/09/21 06/24/25 06/03/25 History mcg (5,000 unit) capsule coenzyme [id number] 100 mg-100 1 cap PO DAILY 10/29/23 06/24/25 06/03/25 History unit capsule acetaminophen 500 mg tablet 650 mg PO Q8H PRN pain 04/20/24 06/24/25 03/14/25 History (Tylenol Extra Strength) niacin 500 mg tablet 500 mg PO DAILY 04/20/24 06/24/25 06/03/25 History mecobalamin (vitamin B12) 1,000 1,000 mcg sublingual DAILY 03/24/25 06/24/25 06/03/25 History mcg disintegrating tablet,sublingual ketoconazole 2 % shampoo 1 applic topical 2XW 06/24/25 06/24/25 Unknown History miconazole nitrate 2 % topical 1 applic topical DAILY 06/24/25 06/24/25 Unknown History powder mirabegron 25 mg tablet,extended 25 mg PO DAILY 06/24/25 06/24/25 Unknown History release 24 hr (Myrbetriq) mupirocin calcium 2 % topical cream 1 applic topical BID 06/24/25 06/24/25 Unknown History rivaroxaban 20 mg tablet (Xarelto) 20 mg PO QPM 08/17/25 Unknown History Allergies Allergy/AdvReac Type Severity Reaction Status Date / Time latex Allergy Severe SEVERE Verified 06/03/25 10:20 SWELLING vancomycin Allergy Severe SEVERE Verified 06/03/25 10:20 ITCHING 2009 Shwwozo-CIA-KwM Reductase Allergy Intermediate Muscle Pain Verified 06/03/25 10:20 Inhibitor Aminoglycosides Allergy Mild Swelling Verified 06/03/25 10:20 hydrocodone Allergy Mild Rash Verified 06/03/25 10:20 neomycin Allergy Mild Swelling Verified 06/03/25 10:20 oxycodone Allergy Mild Unknown Verified 06/03/25 10:20 polymyxin B Allergy Unknown SWELLING Verified 06/03/25 10:20 diclofenac AdvReac Severe STOMACH Verified 06/03/25 10:20 UPSET - CAN TAKE ALEVE OK misoprostol AdvReac Severe STOMACH Verified 06/03/25 10:20 UPSET piroxicam AdvReac Severe STOMACH Verified 06/03/25 10:20 UPSET propoxyphene AdvReac Severe STOMACH Verified 06/03/25 10:20 UPSET sertraline AdvReac Severe STOMACH Verified 06/03/25 10:20 UPSET Iodine and Iodide Containing AdvReac Swelling Verified 06/03/25 10:20 Produc Review of Systems Review of Systems: All systems reviewed & are unremarkable except as noted in HPI and below PMFSH Past Medical History Medical History (Updated 09/12/25 @ 00:00 by Shayla Pham) Hallucinations Hospital discharge follow-up Hypothyroidism (acquired) DM type 2 (diabetes mellitus, type 2) Afib Vitamin B12 deficiency Lung nodule Mass of soft tissue of upper extremity BMI 35.0-35.9,adult Chronic diarrhea Fecal incontinence 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 Entrapment of right ulnar nerve at wrist Mass of right hand Tear of biceps tendon Rotator cuff tear, left Ankle arthritis DJD (degenerative joint disease) Abnormal x-ray of cervical spine Other pulmonary embolism without acute cor pulmonale Closed fracture of left hand Dermatitis Mitral valve sclerosis Rectal vaginal fistula UTI (urinary tract infection) Chronic anemia With mild thrombocytopenia. Restless leg syndrome Mild chronic obstructive pulmonary disease Statin intolerance Insomnia Arthritis Hammertoe of left foot Hearing loss Vitamin D deficiency Diastolic dysfunction Iron deficiency anemia Mixed hyperlipidemia Patient reports statin intolerance. Benign essential hypertension Surgical History Surgical History History of bladder surgery May 2022. rectovaginal fistula, left colectomy, and bladder repair at [facility] History of cardiac catheterization (03/2014) Normal coronary arteries. History of cholecystectomy History of hysterectomy for benign disease History of tubal ligation History of bilateral carpal tunnel release History of bilateral knee arthroplasty History of carpal tunnel release History of appendectomy Family History Family History Father Family history of lymphoma Mother Brain cancer Sibling Cerebrovascular accident Other Arthritis Social History Social History Social History: Surrogate decision maker: john Tovar. Code status: Full code. Caffeine- daily Smoking packs per day: 1 Smoking cigarettes per day: 20.0 Years smoked: 15 Smoking pack-years: 15.00 Tobacco type: cigarettes Second hand tobacco smoke exposure: No Smoking end date: 11/03/94 Alcohol intake: never Drinks per week: 1 Alcohol use details: Social Substance use: never Substance use type: does not use Do You Feel Safe in your Home?: Yes Lack of Transportation: No Lack of Food: Never True Current Housing: I Have Housing Concerned About Future Housing: No Difficulty Paying Gas/Electric Bills: No Difficulty Paying for Meds: No Currently Unemployed: No Education: Bachelor's Degree Difficulty w/ Childcare or Family Care: No Living arrangements: alone Additional living arrangements comments: The patient is . She lives in a [facility] in [place]. 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 Gender identity (if verbalized by the patient): Female Spiritual care concerns: No Exam Narrative: APPEARANCE: Well appearing, no pain, no distress, well-nourished. HEAD: normocephalic, atraumatic. EYES: PERRLA/EOMI, conjunctivae clear. NOSE: Normal no drainage EARS:TMS clear with good light reflex. THROAT: Pharynx clear, no exudate. NECK: Supple. No adenopathy, no masses. RESPIRATORY: Airway patent, respirations nonlabored. Clear to auscultation bilaterally, no rales, rhonchi, wheezing. CARDIOVASCULAR: Regular rate and rhythm without murmurs rubs or gallops. ABDOMINAL: Soft, nontender, nondistended, normal bowel sounds MUSCULOSKELETAL: Moves all extremities. Strength/ROM intact, No edema, No calf tenderness. NEURO: Alert. Cranial nerves II through XII intact. Good gait. Good coordination SKIN: Warm, dry. Normal Color Course Vital Signs Vital signs: Vital Signs Temperature 98.4 F 09/11/25 12:46 Pulse Rate 68 09/11/25 12:46 Respiratory Rate 16 09/11/25 12:46 Blood Pressure 151/61 H 09/11/25 12:46 Pulse Oximetry 99 09/11/25 12:46 Oxygen Delivery Room Air 09/11/25 12:46 Temperature 98.4 F 09/11/25 12:46 Pulse Rate 56 L 09/11/25 16:50 Respiratory Rate 18 09/11/25 16:50 Blood Pressure 129/67 09/11/25 16:50 Pulse Oximetry 100 09/11/25 16:50 Oxygen Delivery Room Air 09/11/25 12:46 Medical Decision Making MDM Narrative Medical decision making narrative: 85-year-old female history of AFib with RVR that did not take her morning metoprolol present to the emergency department for evaluation for AFib with RVR that was converted back to normal sinus rhythm with a dose of IV metoprolol. Patient was treated with her home dose of metoprolol succinate 25 mg extended release upon arrival to the emergency department. Patient is currently afebrile with no leukocytosis and a stable hemoglobin 11.9. Patient has normal PT PTT. Patient has no significant acute abnormalities on her CMP within normal TSH normal Mag. UA was negative for infection. Chest x-ray showed no acute cardiopulmonary abnormality. On re-evaluation patient remains in normal sinus rhythm. Patient denies any complaints. I do suspect this was due to her missing her morning dose of her p.o. metoprolol. Patient was encouraged to not skip the dose of medication. All questions concerns were addressed the patient family are comfortable plan for discharge and close follow-up. Differential Diagnosis Differential Diagnosis: AFib with RVR, sinus tachycardia, medication noncompliance, dehydration, electrolyte abnormality Vital Signs Vital Signs: Vital Signs Temperature 98.4 F 09/11/25 12:46 Pulse Rate 68 09/11/25 12:46 Respiratory Rate 16 09/11/25 12:46 Blood Pressure 151/61 H 09/11/25 12:46 Pulse Oximetry 99 09/11/25 12:46 Oxygen Delivery Room Air 09/11/25 12:46 Temperature 98.4 F 09/11/25 12:46 Pulse Rate 56 L 09/11/25 16:50 Respiratory Rate 18 09/11/25 16:50 Blood Pressure 129/67 09/11/25 16:50 Pulse Oximetry 100 09/11/25 16:50 Oxygen Delivery Room Air 09/11/25 12:46 Lab Data Lab results reviewed: Yes I reviewed the patient's lab results. 09/11/25 13:21 09/11/25 13:21 Labs: Lab Results 09/11/25 09/11/25 Range/Units 13:21 15:30 WBC 5.3 (4.5-10.0) K/mm3 RBC 4.09 L (4.2-5.4) M/mm3 Hgb 11.9 L (12.0-15.0) g/dL Hct 38.0 (37.0-47.0) % MCV 92.9 (80-100) fl MCH 29.1 (26-34) pg MCHC 31.3 L (32-36) g/dl RDW 13.5 (11.5-14.5) % Plt Count 126 L (150-375) k/mm3 MPV 10.6 H (7.4-10.4) fl Immature Gran % (Auto) 0.4 (0-0.5) % Neut % (Auto) 59.9 (45.5-73.1) % Lymph % (Auto) 29.5 (18.3-44.2) % [place] % (Auto) 8.1 (2.6-8.5) % Eos % (Auto) 1.5 (0-4.4) % Baso % (Auto) 0.6 (0.2-1.2) % Lymph # (Auto) 1.57 (0.9-3.2) K/mm3 [place] # (Auto) 0.4 (0.1-0.6) K/mm3 Eos # (Auto) 0.1 (0-0.3) K/mm3 Baso # (Auto) 0.0 (0.0-0.1) K/mm3 Abs Immat Gran (auto) 0.02 (0.00-0.031) K/mm3 Absolute Neuts (auto) 3.2 (1.3-6.7) K/mm3 Absolute Nucleated RBC 0.000 (0.0-0.012) K/mm3 Nucleated RBC % 0.0 (0.0-0.2) % PT 13.9 (11.1-14.7) Seconds INR 1.1 APTT 32.2 (22.3-36.8) Seconds Sodium 138 (137-145) mmol/L Potassium 4.2 (3.4-5.0) mmol/L Chloride 106 (98-107) mmol/L Carbon Dioxide 27 (22-30) mmol/L Anion Gap 5 (4-12) mmol/L BUN 27 H (7-17) mg/dL Creatinine 0.93 (0.7-1.0) mg/dL Estim Creat Clear Calc 34 ml/min Estimated GFR 57 L (59 - ) Glucose 107 (65-110) mg/dL Calcium 9.0 (8.4-10.2) mg/dL Magnesium 1.8 (1.6-2.3) mg/dL Total Bilirubin 0.5 (0.2-1.3) mg/dL AST 33 (14-36) U/L ALT 20 (6-35) U/L Alkaline Phosphatase 106 (38-126) U/L Total Protein 6.9 (6.3-8.2) g/dL Albumin 3.9 (3.5-5.1) g/dL TSH (Reflex) 0.516 (0.465-4.68) uIU/mL Urine Color Yellow (Yellow) Urine Appearance Clear (Clear) Urine pH 6.5 (5.0-9.0) Ur Specific [place] 1.019 (1.001-1.035) Urine Protein Trace (Negative) mg/dL Urine Glucose (UA) Negative (Negative) mg/dL Urine Ketones Negative (Negative) mg/dL Ur Blood (Man) Negative (Negative) Urine Nitrate Negative (Negative) Urine Bilirubin Negative (Negative) Urine Urobilinogen 0.2 (<2.0) mg/dL Leukocyte Esterase Rfl Trace H (Negative) CAMILO/UL Urine RBC 0-2 (0-2) /hpf Urine WBC 0-5 (0-3) /hpf Ur Squamous Epith Cells None seen (Few) /hpf Urine Bacteria None seen /hpf Urine Casts 0-2 Discharge Plan Discharge Clinical Impression: Atrial fibrillation with rapid ventricular response Patient Disposition: Home Condition: Stable Instructions: Antibiotic Form Additional Instructions: Do not skip your morning dose of metoprolol. You were treated with your days dose of metoprolol while you were in the emergency department today so do not take this medication again today. Have close follow-up with your primary care physician. Patient Language: Libyan Prescriptions: No Action cholecalciferol (vitamin D3) 125 mcg (5,000 unit) capsule 125 mcg PO DAILY acetaminophen [Tylenol Extra Strength] 500 mg tablet 650 mg PO Q8H PRN (Reason: pain) niacin 500 mg tablet 500 mg PO DAILY (DME) Wheeled Walker with seat/ basket 0 .Route .MEDSUPPLY Qty: 1 0RF Rx Instructions: As directed mecobalamin (vitamin B12) 1,000 mcg tablet,disintegrating 1,000 mcg sublingual DAILY Rx Instructions: place tablet under tongue and allow to dissolve for at least30 secs before swallowing ketoconazole 2 % shampoo 1 applic topical 2XW miconazole nitrate 2 % powder 1 applic topical DAILY mupirocin calcium 2 % cream 1 applic topical BID mirabegron [Myrbetriq] 25 mg tablet extended release 24 hr 25 mg PO DAILY cefdinir 300 mg capsule 300 mg PO DAILY Qty: 10 0RF coenzyme [id number] 100-100 mg-unit Capsule 1 cap PO DAILY ferrous sulfate 325 mg (65 mg iron) tablet See Rx Instructions PO DAILY Qty: 90 1RF Dose Instruction: TAKE 1 TABLET BY MOUTH TWICE A DAY Rx Instructions: TAKE 1 TABLET BY MOUTH ONCE A DAY orally daily; potassium chloride 20 mEq tablet extended release See Rx Instructions .ROUTE .COMPLEX Qty: 90 1RF Dose Instruction: TAKE 1 TABLET BY MOUTH EVERYDAY AT BEDTIME Rx Instructions: TAKE 1 TABLET BY MOUTH EVERYDAY AT BEDTIME folic acid 1 mg tablet See Rx Instructions .ROUTE .COMPLEX Qty: 90 1RF Dose Instruction: TAKE 1 TABLET BY MOUTH EVERY DAY Rx Instructions: TAKE 1 TABLET BY MOUTH EVERY DAY ezetimibe 10 mg tablet See Rx Instructions .ROUTE .COMPLEX Qty: 90 1RF Dose Instruction: TAKE 1 TABLET BY MOUTH EVERY DAY Rx Instructions: TAKE 1 TABLET BY MOUTH EVERY DAY furosemide 40 mg tablet See Rx Instructions .ROUTE .COMPLEX Qty: 90 1RF Dose Instruction: TAKE 1 TABLET BY MOUTH EVERY DAY IN THE MORNING Rx Instructions: TAKE 1 TABLET BY MOUTH EVERY DAY IN THE MORNING pramipexole 0.75 mg tablet See Rx Instructions .ROUTE .COMPLEX Qty: 90 1RF Dose Instruction: TAKE 1 TABLET BY MOUTH EVERYDAY AT BEDTIME Rx Instructions: TAKE 1 TABLET BY MOUTH EVERYDAY AT BEDTIME nystatin 100,000 unit/gram powder 1 applic topical BID Qty: 60 0RF metolazone 2.5 mg tablet See Rx Instructions .ROUTE .COMPLEX Qty: 36 1RF Dose Instruction: TAKE 1 TABLET BY MOUTH THREE TIMES A WEEK Rx Instructions: TAKE 1 TABLET BY MOUTH THREE TIMES A WEEK levothyroxine 88 mcg tablet See Rx Instructions .ROUTE .COMPLEX Qty: 90 0RF Dose Instruction: TAKE 1 TABLET BY MOUTH EVERY DAY Rx Instructions: TAKE 1 TABLET BY MOUTH EVERY DAY Rybelsus 7 mg tablet 7 mg PO DAILY Qty: 90 2RF Rx Instructions: Please D/C the Rybelsys 14mg. Thank you losartan 50 mg tablet See Rx Instructions .ROUTE .COMPLEX Qty: 90 1RF Dose Instruction: TAKE 1 TABLET BY MOUTH EVERY DAY Rx Instructions: TAKE 1 TABLET BY MOUTH EVERY DAY Xarelto 20 mg tablet 20 mg PO QPM Rx Instructions: must administer with evening meal metoprolol succinate 25 mg tablet extended release 24 hr See Rx Instructions .ROUTE .COMPLEX Qty: 90 1RF Dose Instruction: TAKE 1 TABLET BY MOUTH EVERY DAY FOR 30 DAYS Rx Instructions: TAKE 1 TABLET BY MOUTH EVERY DAY FOR 30 DAYS tramadol 50 mg tablet 50 mg PO Q6H PRN (Reason: pain) Qty: 50 1RF Follow-up/Referrals: Rahul Bejarano MD [Primary Care Provider, Internal Medicine]
[2025-09-11 13:14] VITALS: PULSE 61
[2025-09-11] MEDS: METOPROLOL SUCCINATE EXT REL 25 MG TABCR PO (13:14)
[2025-09-11 13:26] LABS: Hematocrit 38.0 % (37.0-47.0); Hemoglobin 11.9 g/dL (12.0-15.0); Immature Granulocyte Percent A 0.4 % (0-0.5); Lymphocytes Absolute Auto 1.57 K/mm3 (0.9-3.2); Mean Corpuscular HGB Conc 31.3 g/dl (32-36); Mean Corpuscular Hemoglobin 29.1 pg (26-34); Mean Corpuscular Volume 92.9 fl (80-100); Nucleated Red Blood Cells Absolute Auto 0.000 K/mm3 (0.0-0.012); Nucleated Red Blood Cells Perc 0.0 % (0.0-0.2); Platelet Count Result 126 k/mm3 (150-375); Red Blood Count 4.09 M/mm3 (4.2-5.4); White Blood Count 5.3 K/mm3 (4.5-10.0)
--- OUTSIDE RECORDS SUMMARY | 2025-09-11 13:35 | XMS_ITS | Clinical Summary ---
Author Organization [facility] [place] [address] Address [address] [place] [address] Care Team Providers Care Airplane Pilot Name Role Phone Rahul Bejarano MD Primary Care Provider [phone] Tonio Cabello MD Unavailable [phone] Michael Castano MD Unavailable [phone] Allergies Active Allergy Reactions Criticality Noted Date Comments Bacitracin Diclofenac Diclofenac-Misoprostol Stomach upset High 03/31/2018 Hydrocodone Latex, Natural Rubber Rash Medium 03/31/2018 Misoprostol Neomycin Stqqfmqf-Dzetpvwrht-Xcxcddjcj Rash Medium 2017 Oxycodone Piroxicam Polymyxin B Povidone-Iodine Swelling Medium 04/09/2022 Propoxyphene Sertraline Vancomycin Medications coenzyme Q10 (COQ-10) 100 mg capsule 100 mg. 0 08/31/20 12 Active levothyroxine (SYNTHROID, LEVOTHROID) 88 mcg tablet take 1 tablet (88MCG) by oral route every day 0 08/31/20 12 Active niacin, inositol niacinate, (NIACIN FLUSH FREE) 400 mg niacin (500 mg) capsule 0 08/31/20 12 Active folic acid (FOLVITE) 400 mcg tablet take 1 Tablet (0.4MG) by oral route every day 0 08/31/20 12 Active cholecalciferol (cholecalcifero l) 1,000 unit tablet take 1 by Oral route once 0 0 08/30/20 13 Active cyanocobalamin (vitamin B-12) 1,000 mcg tablet take 1 by Oral route every day 0 0 08/30/20 13 Active ezetimibe (ZETIA) 10 mg tabletIndicatio ns:hyperlipidem ia Take 1 tablet (10 mg total) by mouth every morning 04/26/20 22 Active traMADoL (ULTRAM) 50 mg tabletIndicatio ns:Pain Take 1 tablet (50 mg total) by mouth every 6 (six) hours as needed for pain Active acetaminophen 500 mg capsuleIndicati ons:Pain Take 2 capsules (1,000 mg total) by mouth every 6 (six) hours as needed for pain 30 capsule 05/18/20 22 Active betamethasone dipropionate (DIPROSONE) 0.05 % lotion APPLY TO SCALP THE DAY BEFORE YOU SHAMPOO FOR UP TO TWO WEEKS NEEDED. 02/07/20 24 Active ferrous sulfate 325 mg (65 mg of elemental iron) tablet Take 1 tablet (325 mg total) by mouth daily 02/20/20 24 Active metOLazone (ZAROXOLYN) 2.5 mg tablet 2.5 MG ORALLY 3X/ WEEK 02/10/20 24 Active potassium chloride ER 20 mEq CR tablet Take 1 tablet (20 mEq total) by mouth nightly 01/07/20 24 Active pramipexole (MIRAPEX) 0.75 mg tablet Take 1 tablet (0.75 mg total) by mouth nightly 12/08/19 24 Active metoprolol XL (TOPROL-XL) 25 mg extended release tablet Take 1 tablet (25 mg total) by mouth daily 03/30/20 24 Active furosemide (LASIX) 40 mg tablet Take 1 tablet (40 mg total) by mouth every morning 01/08/20 25 Active losartan (COZAAR) 50 mg tablet Take 1 tablet (50 mg total) by mouth daily 01/07/20 25 Active semaglutide (RYBELSUS ORAL) Take 7 mg by mouth daily 01/22/20 25 Active ketoconazole (NIZORAL) 2 % shampoo MASSAGE INTO SCALP UP TO DAILY AND LET SIT FOR 5 MINUTES, THEN RINSE. FOLLOW WITH NORMAL SHAMPOO. 07/30/20 25 Active Myrbetriq 50 mg tablet extended release 24 hr Take 1 tablet (50 mg total) by mouth daily 06/14/20 25 Active rivaroxaban (XARELTO) 20 mg tabletIndicatio ns:atrial fibrillation Take 1 tablet (20 mg total) by mouth daily with breakfast 90 tablet 2 08/16/20 Active Trelegy Ellipta 100-62.5-25 mcg inhalerIndicati ons:Bronchospas m Prevention with COPD Inhale 1 puff every morning 04/02/20 22 025 Discontinued(Arturo dooley Reported) clobetasoL (TEMOVATE) 0.05 % cream Apply topically 2 (two) times a day 01/14/20 24 025 Discontinued(Arturo dooley Reported) Eliquis 5 mg tablet Take 1 tablet (5 mg total) by mouth 2 (two) times a day 03/30/20 025 Discontinued Active Problems Problem Noted Date Diagnosed Date Status post gastrointestinal surgery, follow-up exam 06/04/2022 Diverticulitis 04/12/2022 Overview (04/12/2022): Added automatically from request for surgery [id number] 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 Paroxysmal atrial fibrillation 10/22/2017 Acute postoperative abdominal pain Encounters Date Type Department Care Team Description 08/16/2025 3:30 PM CDT Office Visit [facility] [address] [facility] [address] [place] [address] Rashawn Mathis MD Paroxysmal atrial fibrillation (HCC) (Primary Dx) from Last 3 Months Surgical History Surgery Date Site/Laterality Comments HYSTERECTOMY 11/03/1981 - 11/02/1982 CHOLECYSTECTOMY 11/03/1999 - 11/02/2000 APPENDECTOMY 11/03/1939 - 11/02/1940 JOINT REPLACEMENT 11/03/1999 - 11/02/2000 Bilateral LAPAROSCOPIC LEFT COLON RESECTION 05/15/2022 Medical History Medical History Date Comments Hypertension Hypertension Hypothyroidism Hypothyroidism Diabetes Arthritis Family History Medical History Relation Name [...] on file Legal 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 Gender Identity Not on file Sexual Orientation Not on file Last Filed Vital Signs Vital Sign Reading Time Taken Comments Blood Pressure 120/68 08/16/2025 3:21 PM CDT Pulse 74 08/16/2025 3:21 PM CDT Temperature 36.8 C (98.2 F) 03/02/2024 4:23 PM CDT Respiratory Rate 12 03/02/2024 4:23 PM CDT Oxygen Saturation 98% 08/16/2025 3:21 PM CDT Inhaled Oxygen Concentration - - Weight 77.5 kg (170 lb 12.8 oz) 08/16/2025 3:21 PM CDT Height 154.9 cm (5' 1) 08/16/2025 3:21 PM CDT Body Mass Index 32.27 08/16/2025 3:21 PM CDT Plan of Treatment Health Maintenance Due Date Last Done Comments Depression Screening 1940 Osteoporosis Screening-Bone Density Scan 1940 Hepatitis B Screening 02/24/1956 Well Visit 65+ 2003 Pneumococcal vaccine 65+ (2 of 2 - PPSV23, PCV20, or PCV21) 12/24/2019 10/29/2019 Zoster Vaccine (3 of 3) 12/27/2019 11/01/20 19, 06/08/2012, 11/29/2011 Fall Risk Assessment 05/19/2023 05/19/2022 Covid-19 Vaccine (4 - 2024-2 6 season) 2025 09/14/2021, 03/12/2021, 02/19/2021 Influenza Vaccine (#1) 2025 3, 08/14/2021, 08/19/2019, Additional history exists DTaP/Tdap/Td Vaccine (2 - Td or Tdap) 11/27/2029 11/27/2019 Insurance [place] [email or web address] [address] MEDICARE [facility] MEDICARE SUPPLEMENT Advance Directives For more information, please contact: [phone] * Full Code (Latest Code Status on File) Date Activated Date Inactivated Comments 05/15/2022 4:32 PM 05/19/2022 5:07 PM * Full Code Date Activated Date Inactivated Comments 05/09/2022 10:46 AM 05/09/2022 4:28 PM Care Teams Airplane Pilot Relationship Specialty Start Date End Date Rahul Bejarano MD PCP - General 05/02/14 Tonio Cabello MD [id number] [place] [address] Surgeon Colon and Rectal Surgery 04/12/22 Michael Castano MD [address] [facility] [address] [place] [address] Referring Physician Vascular Surgery 04/12/22
--- OUTSIDE RECORDS SUMMARY | 2025-09-11 13:35 | XMS_ITS | Encounter Summary ---
Author Organization [facility] Address 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
--- OUTSIDE RECORDS SUMMARY | 2025-09-11 13:35 | XMS_ITS | Clinical Summary ---
Author Organization [facility] Address [address] 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
--- OUTSIDE RECORDS SUMMARY | 2025-09-11 13:35 | XMS_ITS | Encounter Summary ---
Author Organization [facility] Address 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
[2025-09-11 13:44] VITALS: BP 108/67; PULSE 58; RESP 15; O2SAT 100
[2025-09-11 13:44] LABS: INR 1.1; Partial Thromboplastin Time 32.2 Seconds (22.3-36.8); Prothrombin Time 13.9 Seconds (11.1-14.7)
[2025-09-11 13:47] LABS: Alanine Aminotransferase 20 U/L (6-35); Albumin Level 3.9 g/dL (3.5-5.1); Alkaline Phosphatase 106 U/L (38-126); Anion Gap 5 mmol/L (4-12); Aspartate Amino Transferase 33 U/L (14-36); Bilirubin,Total 0.5 mg/dL (0.2-1.3); Blood Urea Nitrogen 27 mg/dL (7-17); Calcium 9.0 mg/dL (8.4-10.2); Carbon Dioxide 27 mmol/L (22-30); Chloride 106 mmol/L (98-107); Estimated CRCL calculation 34 ml/min; Estimated Glomerular Filt Rate 57; Glucose 107 mg/dL (65-110); Magnesium 1.8 mg/dL (1.6-2.3); Potassium 4.2 mmol/L (3.4-5.0); Sodium 138 mmol/L (137-145); Total Protein 6.9 g/dL (6.3-8.2)
[2025-09-11 14:19] LABS: Thyroid Stimulating Hormone Reflex 0.516 uIU/mL (0.465-4.68)
[2025-09-11 15:40] LABS: Add Urine Microscopic? YES; Appearance Urine Clear (Clear); Glucose Urine UA Negative (Negative); Leukocyte Esterase Ur Trace LEU/UL (Negative); Nitrate Urine Negative (Negative); Non Pathogenic Casts 0-2; Specific Grav Ur 1.019 (1.001-1.035)
[2025-09-11 16:50] VITALS: BP 129/67; PULSE 56; RESP 18; O2SAT 100
== END 2025-09-11 16:28 | disposition home or self-care (01) ==
PROVIDERS: Emergency Provider Emergency Medicine; PCP Internal Medicine
DX: I48.20 Chronic atrial fibrillation, unspecified (principal); Z79.01 Long term (current) use of anticoagulants; E11.9 Type 2 diabetes mellitus without complications; E53.8 Deficiency of other specified B group vitamins; E55.9 Vitamin D deficiency, unspecified; E78.2 Mixed hyperlipidemia; I10 Essential (primary) hypertension; Z87.891 Personal history of nicotine dependence
CPT/HCPCS: 36415; 71045; 80053; 81001; 83735; 84443; 85025; 85610; 85730; 93005; 99283; A9270